=== PATIENT | male | born 1980 | race Caucasian/White ===

== ENCOUNTER → 2020-10-30 15:26 | Outpatient (CLI) | payer BC, SELFPAY ==
--- NOTE | ~2020-10-30 | XR_ITS ---
EXAMINATION: XR knee RT 3V DATE: 10/30/2020 15:35 INDICATION: Right knee pain. TECHNIQUE: 3 views of right knee were obtained. COMPARISON: None. FINDINGS: Bone alignment is normal. No fracture. There is mild osteoarthritis of patellofemoral pallavi rtment. No knee joint effusion. IMPRESSION: 1. Mild right knee osteoarthritis. Reviewed, dictated and finalized at location B. O GRAPHICS LIBRARIAN
== END ==
PROVIDERS: PCP Family Medicine; Visit Provider Physician Assistant
DX: M17.11 Unilateral primary osteoarthritis, right knee (principal)
CPT/HCPCS: 73562

== ENCOUNTER 2021-10-23 19:44 | Emergency (ER) | payer BC, SELFPAY ==
--- NOTE | ~2021-10-23 | XR_ITS ---
EXAMINATION: XR foot LT min 3V DATE: 10/23/2021 20:02 INDICATION: Lateral left foot pain. TECHNIQUE: 4 views of left foot were obtained. COMPARISON: None. FINDINGS: Bone alignment is normal. No fracture. There is mild osteoarthritis of first metatarsophala ngeal joint. IMPRESSION: 1. Mild osteoarthritis of first metatarsophalangeal joint. Reviewed, dictated and finalized at location A. 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
[2021-10-23 19:53] VITALS: BP 145/73; PULSE 83; RESP 16; TEMP 37.1; O2SAT 100
--- NOTE | 2021-10-23 19:58 | ED.LOWEXIN ---
HPI - Extremity Injury (Lower) General Chief Complaint: Extremity Injury, Lower Stated Complaint: Left Foot Pain Time Seen by Provider: 10/23/21 19:58 Source: patient and RN notes reviewed Mode of arrival: ambulatory Limitations: no limitations History of Present Illness HPI Narrative: 41-year-old male presents to the [facility] with complaints of left lateral foot pain since approximately 2 PM today. Has taken ibuprofen with some relief. Has also been icing it. 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 No bruising or swelling noted. Related Data Home Medications Medication Instructions Recorded Confirmed sertraline [Zoloft] 100 mg PO DAILY 10/26/19 11/11/20 bupropion HCl 150 mg 24 hr tablet, 300 mg PO QAM tablet 04/17/20 11/11/20 extended release cholecalciferol (vitamin D3) 125 mcg PO WEEKLY tablet 04/17/20 11/11/20 mcg (5,000 unit) disintegrating tablet loratadine 10 mg tablet 10 mg PO DAILY 10/30/20 11/11/20 Allergies Allergy/AdvReac Type Severity Reaction Status Date / Time No Known Allergies Allergy Verified 11/11/20 13:42 Review of Systems Review of Systems: All systems reviewed & are unremarkable except as noted in HPI and below Constitutional: Constitutional: Reports no additional constitutional complaints, Denies chills and Denies fever(s) Eyes: Eyes: Reports no additional eye complaints ENT: Reports system reviewed and no additional complaints, except as documented Cardiovascular: Cardiovascular: Reports no additional cardiovascular complaints Respiratory: Respiratory: Reports no additional respiratory complaints Gastrointestinal: Gastrointestinal: Reports no additional gastrointestinal complaints Musculoskeletal: Musculoskeletal: Reports as per HPI Comments: Left fifth metatarsal pain Integumentary/Breasts: Skin/Breast: Reports system reviewed and no additional complaints, except as docu and Denies rash Neurologic: Reports system reviewed and no additional complaints, except as documented Psychiatric: Psychiatric: Reports no additional psychiatric complaints Allergic/Immunologic: Allergic/Immunologic: Reports no additional allergic/immunologic complaints [facility] Past Medical History Medical History Anxiety Depression GERD (gastroesophageal reflux disease) HLD (hyperlipidemia) Irritable bowel syndrome Family History Family History Sibling Hypertension Family history of thyroid disease Family history of obesity Depression Family history of malignant neoplasm Mother Family history of Alzheimer's disease Patient's mother is in good health Family history of thyroid disease Family history of mental disorder Depression Father Family history of coronary artery disease Family history of alcoholism Acute myocardial infarction Other Cerebrovascular accident Diabetes mellitus Family history of cardiovascular disease Family history of elevated blood lipids Family history of glaucoma Family history of malignant neoplasm of breast in first degree relative Family history of sudden Social History Social History Smoking status: Never smoker Second hand tobacco smoke exposure: No Alcohol intake: never Comments At the time of my signature, I reviewed and agree with the nursing past medical, surgical, social, and family history. There is no relevant family history pertinent to the patient complaint. Exam Const: General: healthy appearing, no acute distress and alert Nutritional Appearance: well nourished Orientation/consciousness: patient oriented x3 Limitations: no limitations HENMT: Head: normal to inspection Ears: external ears normal Eyes: Pupils: Equal, round and reactive pupils pre
== END 2021-10-23 20:15 | disposition home or self-care (01) ==
PROVIDERS: Emergency Provider Nurse Practitioner; PCP Family Medicine
DX: S93.602A Unspecified sprain of left foot, initial encounter (principal); X58.XXXA Exposure to other specified factors, initial encounter; Y93.02 Activity, running; Y99.0 Civilian activity done for income or pay
CPT/HCPCS: 73630; 99213; G0463

== ENCOUNTER → 2022-05-28 12:42 | Outpatient (CLI) | payer BC, SELFPAY ==
--- NOTE | ~2022-05-28 | XR_ITS ---
EXAMINATION: XR wrist LT min 3V DATE: 05/28/2022 12:59 INDICATION: Left wrist pain TECHNIQUE: Posteroanterior, ulnar deviation, oblique, and lateral views of the left wrist were obtain ed. COMPARISON: None available FINDINGS: There is no fracture, dislocation, or subluxation. The bones, soft tissues, and joint space s are normal. IMPRESSION: 1. No acute osseous abnormality. Reviewed, dictated and finalized at location B.
--- NOTE | ~2022-05-28 | XR_ITS ---
EXAMINATION: XR wrist RT min 3V DATE: 05/28/2022 12:59 INDICATION: Right wrist pain TECHNIQUE: Posteroanterior, ulnar deviation, oblique, and lateral views of the right wrist were obtai lionel. COMPARISON: None available FINDINGS: There is no fracture, dislocation, or subluxation. The bones, soft tissues, and joint space s are normal. IMPRESSION: 1. No acute osseous abnormality. Reviewed, dictated and finalized at location B.
== END ==
PROVIDERS: PCP Family Medicine; Visit Provider Family Medicine
DX: M25.531 Pain in right wrist (principal); M25.532 Pain in left wrist
CPT/HCPCS: 73110

== ENCOUNTER → 2023-06-14 13:26 | Outpatient (CLI) | payer BC, SELFPAY ==
--- NOTE | ~2023-06-14 | XR_ITS ---
Left wrist Technique: PA, oblique, lateral, and ulnar deviation views were obtained. Clinical History: Pain Findings: No acute fracture or dislocation is seen. Osseous alignment is anatomic. Joint spaces are p reserved. Soft tissues are unremarkable. Impression: Unremarkable left wrist radiographs. Reviewed, dictated and finalized at location . Impression: Unremarkable left wrist radiographs.
== END ==
PROVIDERS: PCP Family Medicine; Visit Provider Family Medicine
DX: M25.532 Pain in left wrist (principal)
CPT/HCPCS: 73110

== ENCOUNTER 2023-09-27 14:06 | Emergency (ER) | payer BC, SELFPAY ==
--- NOTE | ~2023-09-27 | XR_ITS ---
EXAMINATION: XR chest 2V DATE: 09/27/2023 14:33 INDICATION: Cough TECHNIQUE: PA and lateral views of the chest are obtained. COMPARISON: 10/26/2019 FINDINGS: The lungs are free of acute opacities. No pleural effusion or pneumothorax. The cardiomedia stinal silhouette is normal. There is mild thoracic spondylosis. IMPRESSION: 1. No acute cardiopulmonary abnormality. Reviewed, dictated and finalized at location B. TAMER
--- NOTE | 2023-09-27 14:12 | ED.URI ---
HPI - URI/Sore Throat General Chief Complaint: Upper Respiratory Infection Stated Complaint: Cough Time Seen by Provider: 09/27/23 14:12 Source: patient Mode of arrival: ambulatory Limitations: no limitations History of Present Illness HPI Narrative: Patient is a 43-year-old male who presents with 10 days of cough. Patient states in the beginning had a sore throat and intermittent fevers but has not had any since. Reports history of pneumonia. States cough is worse at night. Denies any ear pain, congestion, sinus pressure, nausea, vomiting, diarrhea. Related Data Home Medications Medication Instructions Recorded Confirmed sertraline 100 mg tablet (Zoloft) 100 mg PO DAILY 10/26/19 11/11/20 bupropion HCl 150 mg 24 hr tablet, 300 mg PO QAM 04/17/20 11/11/20 extended release (Wellbutrin XL) cholecalciferol (vitamin D3) 125 mcg PO WEEKLY 04/17/20 11/11/20 mcg (5,000 unit) disintegrating tablet loratadine 10 mg tablet (Claritin) 10 mg PO DAILY 10/30/20 11/11/20 Allergies Allergy/AdvReac Type Severity Reaction Status Date / Time No Known Allergies Allergy Verified 11/11/20 13:42 Review of Systems Review of Systems: All systems reviewed & are unremarkable except as noted in HPI and below Constitutional: Constitutional: Denies body ache(s), Denies chills, Denies fatigue, Denies fever(s), Denies headache(s), Denies malaise and Denies weakness Eyes: Eyes: Denies blurry vision, Denies itchy eyes and Denies loss of vision ENT: Denies otalgia, Denies headache(s), Denies nasal congestion, Denies sinus pain and Denies sore throat Cardiovascular: Cardiovascular: Denies chest pain, Denies irregular heart rhythm and Denies dyspnea Respiratory: Respiratory: Reports cough and Denies dyspnea Gastrointestinal: Gastrointestinal: Denies abdominal pain, Denies diarrhea, Denies nausea and Denies vomiting Musculoskeletal: Musculoskeletal: Denies back pain, Denies myalgias and Denies arthralgias Integumentary/Breasts: Skin/Breast: Denies pruritus and Denies rash Neurologic: Denies headache(s), Denies loss of vision and Denies weakness Psychiatric: Psychiatric: Reports no additional psychiatric complaints Endocrine: Endocrine: Denies fatigue Allergic/Immunologic: Allergic/Immunologic: Denies itchy eyes PMFSH Past Medical History Medical History Anxiety Depression GERD (gastroesophageal reflux disease) HLD (hyperlipidemia) Irritable bowel syndrome Family History Family History Sibling Hypertension Family history of thyroid disease Family history of obesity Depression Family history of malignant neoplasm Mother Family history of Alzheimer's disease Patient's mother is in good health Family history of thyroid disease Family history of mental disorder Depression Father Family history of coronary artery disease Family history of alcoholism Acute myocardial infarction Other Cerebrovascular accident Diabetes mellitus Family history of cardiovascular disease Family history of elevated blood lipids Family history of glaucoma Family history of malignant neoplasm of breast in first degree relative Family history of sudden Social History Social History Smoking status: Never smoker Second hand tobacco smoke exposure: No Alcohol intake: never Comments At time of signature, agree with nursing past medical, surgical, social and family history. There is no relevant family history pertinent to the presenting complaint. Exam Const: General: cooperative, healthy appearing, comfortable, no acute distress and well nourished Nutritional Appearance: well nourished Orientation/consciousness: patient oriented x3 Limitations: no limitations HENMT: Head: normal to inspection, normocephalic and atraumatic Ears: hearing grossly n
[2023-09-27 14:17] VITALS: BP 131/83; PULSE 94; RESP 16; TEMP 36.3; O2SAT 97
== END 2023-09-27 15:10 | disposition home or self-care (01) ==
PROVIDERS: Emergency Provider Nurse Practitioner Family; PCP Family Medicine
DX: J40 Bronchitis, not specified as acute or chronic (principal); K21.9 Gastro-esophageal reflux disease without esophagitis; E78.5 Hyperlipidemia, unspecified; F41.9 Anxiety disorder, unspecified; F32.A Depression, unspecified
CPT/HCPCS: 71046; 99213; G0463

== ENCOUNTER 2023-12-02 16:33 | Emergency (ER) | payer BC, SELFPAY ==
--- NOTE | 2023-12-02 16:41 | ED.URI ---
HPI - URI/Sore Throat General Chief Complaint: Upper Respiratory Infection Stated Complaint: Sinus Time Seen by Provider: 12/02/23 16:42 Source: patient Mode of arrival: ambulatory Limitations: no limitations History of Present Illness HPI Narrative: Jeff is a 43-year-old male patient presenting to the clinic today with complaints of productive cough, nasal congestion, head congestion, sinus pressure times 10 days. He reports no known fever or chills. MD elicited complaint: cough, rhinorrhea, nasal congestion and sinus pain Related Data Home Medications Medication Instructions Recorded Confirmed bupropion HCl 150 mg 24 hr tablet, 300 mg PO QAM 04/17/20 12/02/23 extended release (Wellbutrin XL) cholecalciferol (vitamin D3) 125 125 mcg PO WEEKLY 04/17/20 11/11/20 mcg (5,000 unit) disintegrating tablet loratadine 10 mg tablet (Claritin) 10 mg PO DAILY 10/30/20 12/02/23 montelukast 10 mg tablet 10 mg PO HS 12/02/23 12/02/23 rosuvastatin 10 mg tablet 10 mg PO HS 12/02/23 12/02/23 Allergies Allergy/AdvReac Type Severity Reaction Status Date / Time No Known Allergies Allergy Verified 12/02/23 16:43 Review of Systems Review of Systems: Pertinent positives per HPI. Patient denies any fever, chills, rash, headache, visual changes, dizziness, shortness of breath, chest pain, palpitations, nausea, vomiting, diarrhea, constipation, abdominal pain, or any urinary issues. PMFSH Past Medical History Medical History Anxiety Depression GERD (gastroesophageal reflux disease) HLD (hyperlipidemia) Irritable bowel syndrome Family History Family History Sibling Hypertension Family history of thyroid disease Family history of obesity Depression Family history of malignant neoplasm Mother Family history of Alzheimer's disease Patient's mother is in good health Family history of thyroid disease Family history of mental disorder Depression Father Family history of coronary artery disease Family history of alcoholism Acute myocardial infarction Other Cerebrovascular accident Diabetes mellitus Family history of cardiovascular disease Family history of elevated blood lipids Family history of glaucoma Family history of malignant neoplasm of breast in first degree relative Family history of sudden Social History Social History Smoking status: Never smoker Second hand tobacco smoke exposure: No Alcohol intake: never Comments At the time of my signature, I reviewed and agree with the nursing past medical, surgical, social, and family history. There is no relevant family history pertinent to the patient complaint. Exam Narrative: General: Well-developed, well nourished, in no apparent distress Head: Normocephalic, atraumatic Eyes: Pupils equally round and reactive to light bilaterally, EOM intact, sclera and conjunctive clear, no discharge, lids normal Ears: TMs intact and clear, ear canals clear, no drainage, grossly hearing normal. Nose: Nares patent, green nasal discharge, moderate inflammation, maxillary sinus tenderness. Mouth: Oral pharynx without lesions or masses, good dentition, MMM. Postnasal drip Neck: Supple, trachea midline, no enlargement of anterior or posterior cervical nodes, no thyroid masses or goiter palpable. Cardio: Regular rate and rhythm, s1 and s2 normal, no murmur appreciated. Resp: Faint wheezing in the right lower lobe, no rhonchi, rales, or rubs Course Course Emergency Course: Portions of this record may have been created with voice recognition software. Level of Care: Express Care Visit Vital Signs Vital signs: Vital signs reviewed MDM - URI/Sore Throat MDM Narrative Medical decision making narrative: At the time of visit patient is resting comfortably on th
[2023-12-02 16:42] VITALS: BP 124/73; PULSE 92; RESP 16; TEMP 36.8; O2SAT 100
== END 2023-12-02 17:00 | disposition home or self-care (01) ==
PROVIDERS: Emergency Provider Nurse Practitioner Family; PCP Family Medicine
DX: J32.9 Chronic sinusitis, unspecified (principal); J40 Bronchitis, not specified as acute or chronic; K21.9 Gastro-esophageal reflux disease without esophagitis; E78.5 Hyperlipidemia, unspecified; F41.9 Anxiety disorder, unspecified; F32.A Depression, unspecified
CPT/HCPCS: 99213; G0463

== ENCOUNTER 2024-09-06 10:51 | Outpatient (CLI) | payer BC, SELFPAY ==
--- NOTE | ~2024-09-06 | US_ITS ---
EXAMINATION: US renal BI DATE: 09/06/2024 11:20 INDICATION: Stage III chronic kidney disease. TECHNIQUE: Multiple ultrasound grayscale images of the kidneys were obtained. COMPARISON: None. FINDINGS: The right kidney measures 14.2 x 6.6 x 5.7 cm. The left kidney is not visualized in the left upper an d lower quadrants. The right kidney demonstrate normal echogenicity with no hydronephrosis. No stones identified. The bladder is normal. IMPRESSION: 1. Normal right kidney without hydronephrosis. Left kidney is not visualized in either atrophic, dev elopmentally absent or ectopic at unidentified location. Reviewed, dictated and finalized at location A. IMPRESSION: 1. Normal right kidney without hydronephrosis. Left kidney is not visualized i n either atrophic, developmentally absent or ectopic at unidentified location.
== END 2024-09-06 10:52 | disposition home or self-care (01) ==
LOC: MICIMG 10:52
PROVIDERS: PCP Family Medicine; Visit Provider Internal Medicine Nephrology
DX: N18.30 Chronic kidney disease, stage 3 unspecified (principal); G47.33 Obstructive sleep apnea (adult) (pediatric); E78.00 Pure hypercholesterolemia, unspecified; G57.93 Unspecified mononeuropathy of bilateral lower limbs
CPT/HCPCS: 76775

== ENCOUNTER 2024-09-09 20:30 | Emergency (ER) | payer BC, SELFPAY ==
--- NOTE | ~2024-09-09 | CT_ITS ---
CT of the Abdomen and Pelvis: Indication: Abdominal pain Technique: 2.5 mm axial scans were obtained through the abdomen and pelvis following intravenous adm inistration of 100 cc of Omnipaque 350. Dose reduction technique was used on this scan by utilizing a utomated exposure control and iterative reconstruction technique. The dose-length product (DLP) was 1 042.80 mGy-cm. Findings: Scans through the lung bases are unremarkable. The liver, spleen, pancreas, gallbladder, adrenals and right kidney are within normal limits. Left ki dney absent. No evidence of aortic aneurysm. No lymphadenopathy. No bowel obstruction or bowel wall thickening. Fluid-filled bowel loops could reflect nonspecific kristina rrheal illness.. Images through the pelvis were performed. Urinary bladder unremarkable. No pelvic mass seen. No ascit es. Impression: Fluid-filled bowel loops could reflect a nonspecific diarrheal illness. Absent left kidney. Correlate for congenital absence versus prior resection. Reviewed, dictated and finalized at [facility]. Impression: Fluid-filled bowel loops could reflect a nonspecific diarrheal illness. Absent left kidney. Correlate for congenital absence versus prior resection.
[2024-09-09 20:34] VITALS: BP 138/79; PULSE 80; RESP 16; TEMP 36.4; O2SAT 97
[2024-09-09 22:21] LABS: Basophils Percent Auto 0.3 % (0.2-1.2); Eosinophils Absolute Auto 0.1 K/mm3 (0-0.3); Eosinophils Percent Auto 0.4 % (0-4.4); Hematocrit 45.4 % (42.0-52.0); Hemoglobin 15.8 g/dL (14.0-18.0); Immature Granulocyte Absolute 0.02 K/mm3 (0.00-0.031); Immature Granulocyte Percent A 0.2 % (0-0.5); Lymphocytes Absolute Auto 1.58 K/mm3 (0.9-3.2); Lymphocytes Percent Auto 13.8 % (18.3-44.2); Mean Corpuscular HGB Conc 34.8 g/dl (32-36); Mean Corpuscular Hemoglobin 32.6 pg (26-34); Mean Corpuscular Volume 93.6 fl (80-100); Mean Platelet Volume 8.8 fl (7.4-10.4); Monocytes Absolute Auto 0.7 K/mm3 (0.1-0.6); Neutrophils Absolute Auto 9.1 K/mm3 (1.3-6.7); Neutrophils Percent Auto 79.3 % (45.5-73.1); Platelet Count Result 342 k/mm3 (150-375); Red Blood Count 4.85 M/mm3 (4.6-6.20); White Blood Count 11.4 K/mm3 (4.5-10.0)
[2024-09-09 22:23] LABS: Add Urine Microscopic? NO; Appearance Urine Clear (Clear); Bilirubin Urine Negative (Negative); Blood Urine Negative (Negative); Color Urine Yellow (Yellow); Glucose Urine UA 3+ mg/dL (Negative); Ketones Urine Trace mg/dL (Negative); Leukocyte Esterase Ur Negative LEU/UL (Negative); Nitrate Urine Negative (Negative); Protein Urine Negative (Negative); Specific Grav Ur 1.031 (1.001-1.035); pH Urine 7.5 (5.0-9.0)
[2024-09-09 22:40] LABS: Alanine Aminotransferase 31 U/L (6-50); Albumin Level 4.6 g/dL (3.5-5.1); Alkaline Phosphatase 74 U/L (38-126); Anion Gap 9 mmol/L (4-12); Aspartate Amino Transferase 32 U/L (17-59); Bilirubin,Total 0.7 mg/dL (0.2-1.3); Blood Urea Nitrogen 17 mg/dL (9-20); Calcium 9.9 mg/dL (8.4-10.2); Carbon Dioxide 31 mmol/L (22-30); Chloride 99 mmol/L (98-107); Estimated CRCL calculation 75 ml/min; Estimated Glomerular Filt Rate 60; Glucose 96 mg/dL (65-110); Lipase 495 U/L (23-300); Potassium 4.2 mmol/L (3.4-5.0); Sodium 139 mmol/L (137-145)
--- NOTE | 2024-09-09 23:09 | ED.ABDPAIN ---
HPI - Abdominal Pain General Chief Complaint: Abdominal Pain Stated Complaint: n/v, abd pain, chills Time Seen by Provider: 09/09/24 22:44 Source: patient Mode of arrival: ambulatory Limitations: no limitations History of Present Illness HPI narrative: This is a 43 year old male that presents to the ER for mid abdominal pain, nausea and vomiting. Ongoing since earlier today. Reports sweats. Denies fevers or diarrhea. Related Data Home Medications Medication Instructions Recorded Confirmed bupropion HCl 150 mg 24 hr tablet, 300 mg PO QAM 04/17/20 12/02/23 extended release (Wellbutrin XL) cholecalciferol (vitamin D3) 125 125 mcg PO WEEKLY 04/17/20 11/11/20 mcg (5,000 unit) disintegrating tablet loratadine 10 mg tablet (Claritin) 10 mg PO DAILY 10/30/20 12/02/23 montelukast 10 mg tablet 10 mg PO HS 12/02/23 12/02/23 rosuvastatin 10 mg tablet 10 mg PO HS 12/02/23 12/02/23 Allergies Allergy/AdvReac Type Severity Reaction Status Date / Time No Known Allergies Allergy Verified 12/02/23 16:43 Review of Systems Review of Systems: CONSTITUTIONAL: Denies fever GASTROINTESTINAL: Reports abdominal pain, nausea, vomiting. Denies diarrhea. GENITOURINARY: Denies dysuria All systems reviewed & are unremarkable except as noted in HPI and below PMFSH Past Medical History Medical History Anxiety Depression GERD (gastroesophageal reflux disease) HLD (hyperlipidemia) Irritable bowel syndrome Family History Family History Sibling Hypertension Family history of thyroid disease Family history of obesity Depression Family history of malignant neoplasm Mother Family history of Alzheimer's disease Patient's mother is in good health Family history of thyroid disease Family history of mental disorder Depression Father Family history of coronary artery disease Family history of alcoholism Acute myocardial infarction Other Cerebrovascular accident Diabetes mellitus Family history of cardiovascular disease Family history of elevated blood lipids Family history of glaucoma Family history of malignant neoplasm of breast in first degree relative Family history of sudden Social History Social History Smoking status: Never smoker Second hand tobacco smoke exposure: No Alcohol intake: never Exam Narrative: GENERAL: Well-appearing, well-nourished, and in no acute distress. HEAD: Normocephalic, atraumatic. EYES: EOMI. CHEST: Clear to auscultation. No respiratory distress. No wheezes rales or rhonchi HEART: Regular rate and rhythm. No murmur heard. Normal peripheral pulses. ABDOMEN: Soft, nondistended, normal active bowel sounds. Mild tenderness to palpation throughout the abdomen, without guarding EXTREMITIES: Normal range of motion. No edema. SKIN: Warm, dry, no rash. NEURO: No focal deficits. Alert and oriented x3. PSYCH: Normal mood and affect Course Vital Signs Vital signs: Vital Signs Temperature 97.5 F L 09/09/24 20:34 Pulse Rate 80 09/09/24 20:34 Respiratory Rate 16 09/09/24 20:34 Blood Pressure 138/79 09/09/24 20:34 Pulse Oximetry 97 09/09/24 20:34 Temperature 97.5 F L 09/09/24 20:34 Pulse Rate 80 09/09/24 20:34 Respiratory Rate 16 09/09/24 20:34 Blood Pressure 138/79 09/09/24 20:34 Pulse Oximetry 97 09/09/24 20:34 MDM - Abdominal Pain MDM Narrative Medical decision making narrative: patient presents to the emergency department for abdominal pain COVID a nausea vomiting. He is afebrile and nontoxic appearing. His vitals are stable. CBC with mild leukocytosis to 11.4. Metabolic panel without concerning findings. Lipase is mildly elevated. Urine without evidence of infection. CT abdomen pelvis shows possible cystitis. Otherwise no acute finding
[2024-09-09] MEDS: PANTOPRAZOLE SODIUM IV 40 MG VIAL IV PUSH (23:26)
[2024-09-09] MEDS: ONDANSETRON INJ 4 MG/2 ML VIAL IV PUSH (23:27)
[2024-09-09] MEDS: SODIUM CHLORIDE 0.9% IV 1,000 ML 999 ML IV CONT (23:27)
[2024-09-10 03:44] VITALS: PULSE 81; RESP 14; O2SAT 100
== END 2024-09-10 05:38 | disposition home or self-care (01) ==
PROVIDERS: Emergency Provider Physician Assistant; PCP Family Medicine
DX: R10.33 Periumbilical pain (principal); E78.5 Hyperlipidemia, unspecified; K58.9 Irritable bowel syndrome, unspecified; F32.A Depression, unspecified; F41.9 Anxiety disorder, unspecified; K21.9 Gastro-esophageal reflux disease without esophagitis; Z79.899 Other long term (current) drug therapy
CPT/HCPCS: 36415; 74177; 80053; 81003; 83690; 85025; 96361; 96374; 96375; 99284; J2405; J2470; J7030; Q9967

== ENCOUNTER 2024-11-24 14:31 | Outpatient (CLI) | payer BC, SELFPAY ==
--- NOTE | ~2024-11-24 | XR_ITS ---
EXAMINATION: XR shoulder RT min 2V, XR shoulder LT min 2V DATE: 11/24/2024 15:01 INDICATION: Polyarthralgia TECHNIQUE: 1. AP internally and externally rotated, AP oblique externally rotated and biliary views of the right shoulder were obtained. 2. AP internally and externally rotated, AP oblique externally rotated and biliary views of the affec nan shoulder were obtained. COMPARISON: None FINDINGS: Right shoulder: Normal alignment. No fracture. Glenohumeral joint is normal. Mild right acromioclavicular osteoarthr itis Soft tissues are unremarkable. Left shoulder: Normal alignment. No fracture. Glenohumeral joint is normal. Moderate right acromioclavicular osteoa rthritis. Soft tissues are unremarkable. Lung volumes are small bilaterally with streaky atelectasis at the lateral left lower lung zone. IMPRESSION: Mild bilateral acromioclavicular osteoarthritis. Reviewed, dictated and finalized at location B. NISTRATOR SOCIAL WELFARE IMPRESSION: Mild bilateral acromioclavicular osteoarthritis.
--- NOTE | ~2024-11-24 | XR_ITS ---
EXAMINATION: XR hand RT 2V, XR hand LT 2V DATE: 11/24/2024 15:01 INDICATION: Polyarthralgia TECHNIQUE: 1. Posteroanterior and lateral views of the right hand were obtained. 2. Posteroanterior and lateral views of the left hand were obtained. COMPARISON: None. FINDINGS: There is relatively symmetric to 2-3 mm ulnar positive variance. Alignment is otherwise normal at the bilateral hands. No fractures. Joint spaces are normal throughout. No erosions to suggest an inflamm atory arthritis. Soft tissues are unremarkable. IMPRESSION: 1. Bilateral ulnar positive variance. Otherwise unremarkable bilateral hand radiographs. Reviewed, dictated and finalized at location B. SELOR SUPERVISOR IMPRESSION: 1. Bilateral ulnar positive variance. Otherwise unremarkable bilateral hand rad iographs.
--- NOTE | ~2024-11-24 | XR_ITS ---
[id number] Ordering provider: Jose Salinas History: . Polyarthralgia . Comparison: None. FINDINGS: VERTEBRAL BODIES: Normal height and alignment. No visible fracture or subluxation. The dens is intact . DISK SPACES: Slight narrowing of the disc C5-C6. PARASPINOUS SOFT TISSUES: No prevertebral soft tissue swelling. IMPRESSION: No acute osseous abnormality cervical spine. Reviewed, dictated and finalized at location A. E MOUNTER
== END 2024-11-24 14:32 | disposition home or self-care (01) ==
PROVIDERS: PCP Family Medicine
DX: M25.50 Pain in unspecified joint (principal); M19.011 Primary osteoarthritis, right shoulder; M19.012 Primary osteoarthritis, left shoulder
CPT/HCPCS: 72040; 73030; 73120

== ENCOUNTER 2024-12-21 08:54 | Emergency (ER) | payer BC, SELFPAY ==
[2024-12-21 09:05] VITALS: BP 137/84; PULSE 82; RESP 16; TEMP 36.8; O2SAT 97
--- OUTSIDE RECORDS SUMMARY | 2024-12-21 09:17 | XMS_ITS | Patient Health Summary ---
Author Organization [facility] Address [address] [place] [address] Care Team Providers Care Station Superintendent Name Role Phone Piter Fair MD Primary Care Provider [phone] [facility],non-owned Affiliates and Associated Physician Practices is amultiple site organization consisting of ambulatory clinics and hospital sitesin [place], [place], [place] and [place]. This disclosure is being madepursuant to the Care Everywhere program and may not contain all information available regarding this patient. Last updated 18.[facility] Allergies No known active allergies Medications * Be aware that medications may not be up to date on this document. Alwaysverify current medications with the patient. * buPROPion XL 24hr (Wellbutrin-XL) 300 MG tablet Take 1 (one) tablet by mouth every morning * DULoxetine (Cymbalta) 60 MG capsule Take 1 (one) capsule by mouth once daily * valACYclovir (Valtrex) 500 MG tablet Take by mouth 2 times daily * pantoprazole EC (Protonix) 20 MG tablet Take 1 (one) tablet by mouth once daily * rosuvastatin (Crestor) 10 MG tablet Take 1 (one) tablet by mouth once daily * dapagliflozin propanediol (Farxiga) 10 MG tablet Take 1 (one) tablet by mouth every morning * albuterol HFA (Proventil; Ventolin; Proair) 108 (90 Base) MCG/ACT inhaler (Started 12/02/2023) Inhale 1 (one) puff by mouth as directed Active Problems No known active problems Social History Tobacco Use Types Packs/Day Years Used Date Smoking Tobacco: Never Smokeless Tobacco: Never Tobacco Cessation:Counseling Given: Not Answered Sex and Gender Information Value Date Recorded Sex Assigned at Not on file Gender Identity Not on file Sexual Orientation Not on file Last Filed Vital Signs Vital Sign Reading Time Taken Comments Blood Pressure 128/78 11/23/2024 10:12 AM TRANSISTOR TESTER Pulse 75 11/23/2024 10:12 AM TRANSISTOR TESTER Temperature 36.5 ??C (97.7 ??F) 11/23/2024 1 0:12 AM TRANSISTOR TESTER Respiratory Rate 16 11/23/2024 10:1 2 AM TRANSISTOR TESTER Oxygen Saturation 93% 11/23/2024 10: 12 AM TRANSISTOR TESTER Inhaled Oxygen Concentration - - Weight 101.1 kg (222 lb 12.8 oz) 2024 10:12 AM TRANSISTOR TESTER Height - - Body Mass Index - - Procedures * ERYTHROCYTE SEDIMENTATION RATE(Performed 11/24/2024) Performed for Polyarthralgia, Raynaud's syndrome without gangrene, Cervicalgia, Encounter for long-term (current) use of high-risk medication * CYCLIC CITRULLINATED PEPTIDE(CCP) AB IGG(Performed 11/24/2024) Performed for Polyarthralgia, Raynaud's syndrome without gangrene, Cervicalgia, Encounter for long-term (current) use of high-risk medication * C-REACTIVE PROTEIN(Performed 11/24/2024) Performed for Polyarthralgia, Raynaud's syndrome without gangrene, Cervicalgia, Encounter for long-term (current) use of high-risk medication * CK BLOOD(Performed 11/24/2024) Performed for Polyarthralgia, Raynaud's syndrome without gangrene, Cervicalgia, Encounter for long-term (current) use of high-risk medication * ANGIOTENSIN CONVERTING ENZYME BLOOD(Performed 11/24/2024) Performed for Polyarthralgia, Raynaud's syndrome without gangrene, Cervicalgia, Encounter for long-term (current) use of high-risk medication * FERRITIN(Performed 11/24/2024) Performed for Polyarthralgia, Raynaud's syndrome without gangrene, Cervicalgia, Encounter for long-term (current) use of high-risk medication * SS-A (SJOGREN'S) ANTIBODY(Performed 11/24/2024) Performed for Polyarthralgia, Raynaud's syndrome without gangrene, Cervicalgia, Encounter for long-term (current) use of high-risk medication * ANCA SCREEN W MPO+PR3 W REFEX ANCA TITER(Performed 11/24/2024) Performed for Polyarthralgia, Raynaud's syndrome without gangrene, Cervicalgia, Encounter for long-term (current) use of high-risk medication * THIOPURINE METHYLTRANSFERASE(Performed 11/24/2024) Performed for Polyarthralgia, Raynaud's syndrome without gangrene, Cervicalgia, Encounter for long-term (current) use of high-risk medication * URIC ACID BLOOD(Performed 11/24/2024) Performed for Polyarthralgia, Raynaud's syndrome without gangrene, Cervicalgia, Encounter for long-term (current) use of high-risk medication * SS-B (SJOGREN'S) ANTIBODY(Performed 11/24/2024) Performed for Polyarthralgia, Raynaud's syndrome without gangrene, Cervicalgia, Encounter for long-term (current) use of high-risk medication * HLA TYPING B27(Performed 11/24/2024) Performed for Polyarthralgia, Raynaud's syndrome without gangrene, Cervicalgia, Encounter for long-term (current) use of high-risk medication * XR CERVICAL SPINE 2 OR 3VW(Performed 11/24/2024) Performed for Polyarthralgia * XR HAND BILAT 2VW(Performed 11/24/2024) Performed for Polyarthralgia * XR SHOULDER BILAT 2VW OR MORE(Performed 11/24/2024) Performed for Polyarthralgia Results * C-REACTIVE PROTEIN (11/24/2024 2:20 PM TRANSISTOR TESTER) C-Reactive Protein 7.7 <8.0 mg/L [facility] Comment: Test Performed at: [facility] [address] ??[phone] ALISA MONCADA MD Blood BLOOD SPECIMEN / Unknown 11/24/2024 2:20 PM TRANSISTOR TESTER 11/24/2024 2:20 PM TRANSISTOR TESTER Cherrie Gay MD LAB - CHEMISTRY LUIS MANUEL LIANG [address] [address] * ANGIOTENSIN CONVERTING ENZYME BLOOD (11/24/2024 2:20 PM TRANSISTOR TESTER) Angiotensin-Conv erting Enzyme 40 9 - 67 U/L [facility] Comment: Test Performed at: [facility] [address] [place] [address] ??[phone] ALISA MONCADA MD Blood BLOOD SPECIMEN / Unknown 11/24/2024 2:20 PM TRANSISTOR TESTER 11/24/2024 2:20 PM TRANSISTOR TESTER Cherrie Gay MD LAB - CHEMISTRY LUIS MANUEL LIANG Performing Organization Address [facility] de Phone Number [address] [address] * CYCLIC CITRULLINATED PEPTIDE(CCP) AB IGG (11/24/2024 2:20 PM TRANSISTOR TESTER) Pathologist [facility] Cyclic Citrullinated Peptide Antibody IgG <16 UNITS [facility] Comment: Reference Range Negative: ?<20 Weak Positive: ? 20-39 Moderate Positive: ?? 40-59 Strong Positive: ? >59 Test Performed at: [facility] [address] [place] [address] ??[phone] ALISA MONCADA MD Blood BLOOD SPECIMEN / Unknown 11/24/2024 2:20 PM TRANSISTOR TESTER 11/24/2024 2:20 PM TRANSISTOR TESTER Cherrie Gay MD LAB - CHEMISTRY LUIS MANUEL LIANG Performing Organization Address [facility] Co de Phone Number [facility] [phone] [place] [phone] * (ABNORMAL) ERYTHROCYTE SEDIMENTATION RATE (11/24/2024 2:20 PM TRANSISTOR TESTER) Pathologist [facility] Erythrocyte Sedimentation Rate Westergren 17(H) < OR = 15 mm/h [facility] Comment: Test Performed at: [facility] ??[phone] ALISA MONCADA MD Blood BLOOD SPECIMEN / Unknown 11/24/2024 2:20 PM TRANSISTOR TESTER 11/24/2024 2:20 PM TRANSISTOR TESTER Cherrie Gay MD LAB - HEMATOLOGY ORD ERABLES Performing Organization Address [facility] Co de Phone Number [facility] [phone] [place] [phone] * CK BLOOD (11/24/2024 2:20 PM TRANSISTOR TESTER) CK 80 44 - 196 U/L [facility] Comment: Test Performed at: [facility] [place] ??[phone] ALISA MONCADA MD Blood BLOOD SPECIMEN / Unknown 11/24/2024 2:20 PM TRANSISTOR TESTER 11/24/2024 2:20 PM TRANSISTOR TESTER Cherrie Gay MD LAB - CHEMISTRY ORDMellisa LIANG Performing Organization Address [facility] Co de Phone Number [facility] [address] [place] [address] * SS-A (SJOGREN'S) ANTIBODY (11/24/2024 2:17 PM TRANSISTOR TESTER) Sjogren's Antibodies (SSA) <1.0 NEG <1.0 NEG AI [facility] Comment: Test Performed at: [employer] [place], [place] ??[phone] ALISA MONCADA MD Blood BLOOD SPECIMEN / Unknown 11/24/2024 2:17 PM TRANSISTOR TESTER 11/24/2024 2:19 PM TRANSISTOR TESTER Cherrie Gay MD LAB - CHEMISTRY ORDMellisa LIANG Performing Organization Address [facility] Co de Phone Number [facility] [address] [place] [address] * (ABNORMAL) FERRITIN (11/24/2024 2:17 PM TRANSISTOR TESTER) Ferritin 23(L) 38 - 380 ng/mL [facility] Comment: Test Performed at: [facility] [place] ??[phone] ALISA MONCADA MD Blood BLOOD SPECIMEN / Unknown 11/24/2024 2:17 PM TRANSISTOR TESTER 11/24/2024 2:19 PM TRANSISTOR TESTER Cherrie Gay MD LAB - CHEMISTRY LUIS MANUEL LIANG [facility] [address] [place] [address] * ANCA SCREEN W MPO+PR3 W REFEX ANCA TITER (11/24/2024 2:16 PM TRANSISTOR TESTER) ANCA Screen Negative Negative [facility] Comment: ANCA screen uses indirect immunofluorescence to detect antibodies to neutrophil cytoplasmic antigens. A positive screen reflexes to titer and pattern. Patterns include cytoplasmic (c-ANCA) and perinuclear (p-ANCA) both of which are associated with vasculitis, and atypical p-ANCA which is associated with inflammatory bowel disease and other disorders. ? Myeloperoxidase Antibody <1.0 <1.0 AI [facility] Comment: ? Value ?? Interpretation ?<1.0 AI: No Antibody Detected ? >or=1.0 AI: Antibody Detected Autoantibodies to myeloperoxidase (MPO) are commonly associated with the following small-vessel vasculitides: microscopic polyangiitis, polyarteritis nodosa, Churg-Shanna syndrome, necrotizing and crescentic glomerulonephritis and occasionally granulomatosis with polyangiitis (GPA, Catrachita's). The perinuclear IFA pattern, (p-ANCA) is based largely on autoantibody to myeloperoxidase which serves as the primary antigen. These autoantibodies are present in active disease. Proteinase 3 Antibody <1.0 <1.0 AI [facility] Comment: ?Value ?Interpretation ?<1.0 AI: No Antibody Detected ? >or=1.0 AI: Antibody Detected Autoantibodies to proteinase-3 (NC-3) are accepted as characteristic for granulomatosis with polyangiitis (GPA, Catrachita's), and are detectable in 95% of the histologically proven cases. The cytoplasmic IFA pattern, (c-ANCA), is based largely on autoantibody to NC-3 which serves as the primary antigen. These autoantibodies are present in active disease. Test Performed at: [facility] [id number] [place] [address] ??[phone] MATTHEW LEVI MD,PHD Blood BLOOD SPECIMEN / Unknown 11/24/2024 2:16 PM TRANSISTOR TESTER 11/24/2024 2:16 PM TRANSISTOR TESTER Cherrie Gay MD LAB - CHEMISTRY LUIS MANUEL LIANG Performing Organization Address [facility] Co de Phone Number [facility] [address] [place] [address] * URIC ACID BLOOD (11/24/2024 2:16 PM TRANSISTOR TESTER) Uric Acid 6.0 4.0 - 8.0 mg/dL [facility] Comment: Therapeutic target for gout patients: <6.0 mg/dL ?? Test Performed at: [facility] [address] [place], [place] ??[phone] ALISA MONCADA MD Blood BLOOD SPECIMEN / Unknown 11/24/2024 2:16 PM TRANSISTOR TESTER 11/24/2024 2:16 PM TRANSISTOR TESTER Cherrie Gay MD LAB - CHEMISTRY LUI SMANUEL LIANG Performing Organization Address [facility] Co de Phone Number [facility] [phone] [place] [phone] * HLA TYPING B27 (11/24/2024 2:16 PM TRANSISTOR TESTER) HLA-B27 Antigen NEGATIVE NEGATIVE [facility] Comment: Test Performed at: [facility] [address] ??[phone] TAMMIE WHITTINGTON Blood BLOOD SPECIMEN / Unknown 11/24/2024 2:16 PM TRANSISTOR TESTER 11/24/2024 2:16 PM TRANSISTOR TESTER Cherrie Gay MD LAB - CHEMISTRY LUIS MANUEL LIANG Performing Organization Address [facility] Co de Phone Number [facility] [address] [place] [address] * SS-B (SJOGREN'S) ANTIBODY (11/24/2024 2:16 PM TRANSISTOR TESTER) Pathologist [facility] Sjogren's Antibodies (SSB) <1.0 NEG <1.0 NEG AI [facility] Comment: Test Performed at: [facility] [address] ??[phone] ALISA MONCADA MD Blood BLOOD SPECIMEN / Unknown 11/24/2024 2:16 PM TRANSISTOR TESTER 11/24/2024 2:16 PM TRANSISTOR TESTER Cherrie Gay MD LAB - CHEMISTRY LUIS MANUEL LIANG Performing Organization Address [facility] de Phone Number [facility] [phone] [place] [address] * THIOPURINE METHYLTRANSFERASE (11/24/2024 2:16 PM TRANSISTOR TESTER) Pathologist [facility] TPMT Activity 17 nmol/hr/mL RBC [facility] Comment: Reference Range for TPMT Activity: ?? >12 ? Normal ??4-12 ? Heterozygote or low metabolizer ?<4 ? Homozygote Deficient Range This test was developed and its analytical performance characteristics have been determined by [employer]. It has not been cleared or approved by FDA. This assay has been validated pursuant to the CLIA regulations and is used for clinical purposes. Test Performed at: [facility] [address] [place], [place] ??[phone] DAVE GAMINO MD,PHD,JOVANI Blood BLOOD SPECIMEN / Unknown 11/24/2024 2:16 PM TRANSISTOR TESTER 11/24/2024 2:16 PM TRANSISTOR TESTER Cherrie Gay MD LAB - CHEMISTRY LUIS MANUEL LIANG Performing Organization Address [facility] Co de Phone Number [facility] [address] [place] [address] * XR Hand Bilat 2Vw (11/24/2024) Anatomical Region Laterality Modality Wrist / Hand, Upper Extremity Ot her Cherrie Gay MD DIAGNOSTIC IMAGING O RDERABLES * XR Shoulder Bilat 2Vw or More (11/24/2024) Anatomical Region Laterality Modality Upper Extremity Other Cherrie Gay MD DIAGNOSTIC IMAGING [facility] * XR Cervical Spine 2 or 3Vw (11/24/2024) Anatomical Region Laterality Modality Spine Other Cherrie Gay MD DIAGNOSTIC IMAGING O RDERABLES Care Teams Station Superintendent Relationship Specialty Start Date End Date Piter Fair MD [address] [place] [phone] PCP - General Family Medicine 11/10/24
--- OUTSIDE RECORDS SUMMARY | 2024-12-21 09:17 | XMS_ITS | Clinical Summary ---
Author Organization [facility] Facility Address [address] [place] [address] Care Team Providers Care Quality Control Engineer Name Role Phone Piter Fair MD Primary Care Provider [phone] Encounters Date Type Department Care Team Description 11/16/2024 1:00 PM TANK TRUCK LOADER Office Visit [place] [facility] [address] [phone] Pieter Morgan DO Stage 3 chronic kidney disease, not otherwise specified (HCC) (Primary Dx); Obstructive sleep apnea syndrome; Secondary inflammatory arthritis; Gastroesophageal reflux disease; Pure hypercholesterolemia, not otherwise specified; 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> 11/15/2024 Travel 11/13/2024 Orders Only [address] [phone] Pieter Morgan DO 11/09/2024 Orders Only [address] [phone] Pieter Morgan DO from Last 3 Months Social History Tobacco Use Types Packs/Day Years Used Date Smoking Tobacco: Never Assessed Sex and Gender Information Value Date Recorded Sex Assigned at Not on file Legal Sex Male 12:39 PM EDT Gender Identity Not on file Sexual Orientation Not on file Last Filed Vital Signs Vital Sign Reading Time Taken Comments Blood Pressure 122/80 11/16/2024 1:15 PM TANK TRUCK LOADER Pulse 81 11/16/2024 1:15 PM TANK TRUCK LOADER Temperature 36.1 ??C (97 ??F) 11/16/2024 1:15 PM TANK TRUCK LOADER Respiratory Rate 18 11/16/2024 1:15 PM TANK TRUCK LOADER Oxygen Saturation 99% 11/16/2024 1:15 PM TANK TRUCK LOADER Inhaled Oxygen Concentration - - Weight 98.8 kg (217 lb 12.8 oz) 11/16/2024 1:15 PM TANK TRUCK LOADER Height - - Body Mass Index - - Plan of Treatment Upcoming Encounters Date Type Department Care Team (Late st Contact Info) Description 05/17/2025 12:30 PM CDT Office Visit [place] [facility], [facility] [address] [facility] [address] [place] [phone] Pieter Morgan DO [address] [place] [phone] Health Maintenance Due Date Last Done Comments Pneumococcal Vaccine: Pediat rics (0 to 5 Years) and At-Risk Patients (6 to 64 Years) (1 of 2 - PCV) 1985 Hepatitis B Vaccine (1 of 3 - 19+ 3-dose series) 1998 Diabetes: Hemoglobin A1C 06/20/2024 Diabetes: Ophthalmology Exam 06/20/2024 Diabetes: Pedal Pulse Checked 06/20/2024 Diabetes: Sensory Foot Exam 06/20/2024 Diabetes: Visual Foot Exam 06/20/2024 Influenza Vaccine (#1) 2024 , 11/26/2021, 11/22/2014 Procedures Procedure Name Priority Date/Time Associated Diagnosis Comments CREATININE, URINE, 24 HOUR Routine 11/13/2024 8:40 AM TANK TRUCK LOADER REFLEXIVE URINE CULTURE (HC) Routine 11/09/2024 6:44 AM TANK TRUCK LOADER PROTEIN / CREATININE RATIO, URINE Routine 11/09/2024 6:44 AM TANK TRUCK LOADER VITAMIN D 25 HYDROXY Routine 11/09/2024 6:44 AM TANK TRUCK LOADER CYSTATIN C WITH EGFR Routine 11/09/2024 6:44 AM TANK TRUCK LOADER C-REACTIVE PROTEIN Routine 11/09/2024 6: 44 AM TANK TRUCK LOADER C4 COMPLEMENT Routine 11/09/2024 6:44 AM TANK TRUCK LOADER C3 COMPLEMENT Routine 11/09/2024 6:44 AM TANK TRUCK LOADER CBC AND DIFFERENTIAL Routine 11/09/2024 6:44 AM TANK TRUCK LOADER SEDIMENTATION RATE, AUTOMATED Routine 11/09/2024 6:44 AM TANK TRUCK LOADER URINALYSIS, COMPLETE Routine 11/09/2024 6:44 AM TANK TRUCK LOADER URINE ALBUMIN / CREATININE RATIO Routine 11/09/2024 6:44 AM TANK TRUCK LOADER RENAL FUNCTION PANEL Routine 11/09/2024 6:44 AM TANK TRUCK LOADER MAGNESIUM Routine 11/09/2024 6:44 AM TANK TRUCK LOADER from Last 3 Months Results * Creatinine, urine, 24 hour (11/13/2024 8:40 AM TANK TRUCK LOADER) Creatinine in 24 hour Urine 1.70 0.50 - 2.15 g/24 h See order comments Comment:URINE VOLUME: 1600/2 4 11/13/2024 8:40 AM TANK TRUCK LOADER 11/13/2024 5:39 PM TANK TRUCK LOADER Narrative [facility] - 11/13/2024 11:38 PM TANK TRUCK LOADER SPLIT 11/09/2024 FROM [id number] Resulting Agency Comment Performing Organization Information: ?Site ID: [id number] ?Name: [employer] ?Address: [facility] [address] [place] [address] ?Director: Briana Villasenor us Pieter Morgan DO LAB URINE ORDERABLES Final R esult [facility] See order comments [place] [address] * Reflexive Urine Culture (11/09/2024 6:44 AM TANK TRUCK LOADER) Culture Result, Urine See order comments Comment:NO CULTURE INDICATED 11/09/2024 6:44 AM TANK TRUCK LOADER 11/09/2024 6:49 AM TANK TRUCK LOADER Narrative [facility] - 11/10/2024 11:30 AM TANK TRUCK LOADER COLLECTION KIT GIVEN TO PATIENT. PATIENT ADVISED TO RETURN. URINE VOLUME: NOTV Resulting Agency Comment Performing Organization Information: ?Site ID: [id number] ?Name: [employer] ?Address: [facility] [place] [address] ?Director: Briana Villasenor MD us Pieter Morgan DO LAB [id number] NSOLICITED RESULTS Final Result [facility] See order comments [place] [address] * (ABNORMAL) Cystatin C w/GFR (11/09/2024 6:44 AM TANK TRUCK LOADER) Cystatin C 1.41(H) 0.52 - 1.27 mg/L See order comments eGFR 52(L) > OR = 60 mL/min/1.73 m2 See order comments 11/09/2024 6:44 AM TANK TRUCK LOADER 11/09/2024 6:49 AM TANK TRUCK LOADER Narrative [facility] - 11/10/2024 11:30 AM TANK TRUCK LOADER COLLECTION KIT GIVEN TO PATIENT. PATIENT ADVISED TO RETURN. URINE VOLUME: NOTV Resulting Agency Comment Performing Organization Information: ?Site ID: [id number] ?Name: [employer] ?Address: [facility] [place] [address] ?Director: Briana Villasenor MD us Pieter Morgan DO LAB BLOOD ORDERABLES Final R esult [facility] See order comments [place] [address] * (ABNORMAL) Urinalysis, Complete w/reflex to Culture (11/09/2024 6:44 AM TANK TRUCK LOADER) Color, Urine YELLOW YELLOW See ord er comments Appearance Urine CLEAR CLEAR See order comments Specific [place], UA 1.017 1.001 - 1.035 See order comments pH Urine 6.0 5.0 - 8.0 See order comments Glucose, Ur 3+(A) NEGATIVE See orde r comments Bilirubin, Urine NEGATIVE NEGATIVE See order comments Ketones, Urine NEGATIVE NEGATIVE See o rder comments Hemoglobin Ur Ql Strip NEGATIVE NEGATIVE See order comments Protein, Ur NEGATIVE NEGATIVE See orde r comments Nitrite, Urine NEGATIVE NEGATIVE See o rder comments WBC Esterase Urine NEGATIVE NEGATIVE See order comments WBC, Urine NONE SEEN < OR = 5 /HPF See order comments RBC, Urine NONE SEEN < OR = 2 /HPF See order comments Epithelial Cells in Urine NONE SEEN < OR = 5 /HPF See order comments Trans Epithelial, Urine CANCELED < OR = 5 /HPF See order comments Comment:Result canceled by t he ancillary. Renal Epithelial Cells, Urine CANCELED < OR = 3 /HPF See order comments Comment:Result canceled by t he ancillary. Bacteria NONE SEEN NONE SEEN /HPF See order comments Calcium Oxalate Crystals, Urine CANCELED NONE OR FEW /HPF See order comments Comment:Result canceled by t he ancillary. Triple Phosphate Crystals, Urine CANCELED NONE OR FEW /HPF See order comments Comment:Result canceled by t he ancillary. Uric Acid Crystals, Urine CANCELED NONE OR FEW /HPF See order comments Comment:Result canceled by t he ancillary. Amorphous Sediments CANCELED NONE OR FEW /HPF See order comments Comment:Result canceled by t he ancillary. Crystals CANCELED NONE SEEN /HPF See order comments Comment:Result canceled by t he ancillary. Hyaline Casts, Urine NONE SEEN NONE SEEN /LPF See order comments Granular Casts, Urine CANCELED NONE SEEN /LPF See order comments Comment:Result canceled by t he ancillary. Casts CANCELED NONE SEEN /LPF See order comments Comment:Result canceled by t he ancillary. Yeast, UA CANCELED NONE SEEN /HPF See order comments Comment:Result canceled by t he ancillary. Comments CANCELED See order comments Comment:Result canceled by t he ancillary. Note: CANCELED See order comments Comment:Result canceled by t he ancillary. 11/09/2024 6:44 AM TANK TRUCK LOADER 11/09/2024 6:49 AM TANK TRUCK LOADER Narrative [facility] - 11/10/2024 11:30 AM TANK TRUCK LOADER COLLECTION KIT GIVEN TO PATIENT. PATIENT ADVISED TO RETURN. URINE VOLUME: NOTV Resulting Agency Comment Performing Organization Information: ?Site ID: [id number] ?Name: [employer] ?Address: [facility] [place] [address] ?Director: Briana Villasenor MD us Pieter Morgan DO LAB URINE ORDERABLES Final R esult [facility] See order comments [place] [address] * Protein, Total, Random Urine w/Creatinine (Protein/Creat Ratio) (11/09/2024 6:44 AM TANK TRUCK LOADER) Creatinine, Ur 129 20 - 320 mg/dL See order comments Urine Protein/Creatin ine Ratio 78 25 - 148 mg/g creat See order comments Protein/Creatin ine Ratio, Urine 0.078 0.025 - 0.148 mg/mg creat See order comments Protein Urine Random 10 5 - 25 mg/dL See order comments 11/09/2024 6:44 AM TANK TRUCK LOADER 11/09/2024 6:49 AM TANK TRUCK LOADER Narrative [facility] - 11/10/2024 11:30 AM TANK TRUCK LOADER COLLECTION KIT GIVEN TO PATIENT. PATIENT ADVISED TO RETURN. URINE VOLUME: NOTV Resulting Agency Comment Performing Organization Information: ?Site ID: [place] ?Name: [employer] ?Address: [facility] [place] [address] ?Director: Briana Villasenor MD us Pieter Morgan DO LAB URINE ORDERABLES Final R esult [facility] See order comments [place] [address] * Urine Albumin / Creatinine Ratio (11/09/2024 6:44 AM TANK TRUCK LOADER) Creatinine, Ur 129 20 - 320 mg/dL See order comments Urine Microalbumin 0.2 See Note: mg/dL See order comments Comment: Reference Range: Reference Range Not established Microalb/Creat Ratio 2 <30 mg/g creat See order comments Comment: The ADA defines abnormalities in albumin excretion as follows: Albuminuria Category ?Result (mg/g creatinine) Normal to Mildly increased ?? <30 Moderately increased ? 30-299 Severely increased ? > OR = 300 The ADA recommends that at least two of three specimens collected within a 3-6 month period be abnormal before considering a patient to be within a diagnostic category. 11/09/2024 6:44 AM TANK TRUCK LOADER 11/09/2024 6:49 AM TANK TRUCK LOADER Narrative [facility] - 11/10/2024 11:30 AM TANK TRUCK LOADER COLLECTION KIT GIVEN TO PATIENT. PATIENT ADVISED TO RETURN. URINE VOLUME: NOTV Resulting Agency Comment Performing Organization Information: ?Site ID: [id number] ?Name: [employer] ?Address: [address] [place] [address] ?Director: Briana Villasenor MD us Pieter Morgan DO LAB URINE ORDERABLES Final R esult [facility] See order comments [place] [address] * Vitamin D 25 Hydroxy (11/09/2024 6:44 AM TANK TRUCK LOADER) Pathologist [facility] Vitamin D, 25-OH, Total, IA 37 30 - 100 ng/mL See order comments Comment: Vitamin D Status ? 25-OH Vitamin D: Deficiency: ?<20 ng/mL Insufficiency: ? 20 - 29 ng/mL Optimal: ? > or = 30 ng/mL For 25-OH Vitamin D testing on patients on D2-supplementation and patients for whom quantitation of D2 and D3 fractions is required, the QuestAssureD(TM) 25-OH VIT D, (D2,D3), LC/MS/MS is recommended: order code 65037 (patients >2yrs). See Note 1 Note 1 For additional information, please refer to http://education.TripletPlus/faq/WHS155 (This link is being provided for informational/ educational purposes only.) 11/09/2024 6:44 AM TANK TRUCK LOADER 11/09/2024 6:49 AM TANK TRUCK LOADER Narrative [facility] - 11/10/2024 11:30 AM TANK TRUCK LOADER COLLECTION KIT GIVEN TO PATIENT. PATIENT ADVISED TO RETURN. URINE VOLUME: NOTV Resulting Agency Comment Performing Organization Information: ?Site ID: [id number] ?Name: [employer] ?Address: [address] [address] ?Director: Briana Villasenor MD us Pieter Morgan DO LAB BLOOD ORDERABLES Final R esult Performing Organization Address City/[facility] Co de Phone Number [facility] See order comments [place] [address] * (ABNORMAL) Sedimentation Rate (11/09/2024 6:44 AM TANK TRUCK LOADER) Sed Rate 24(H) < OR = 15 mm/h See order comments 11/09/2024 6:44 AM TANK TRUCK LOADER 11/09/2024 6:49 AM TANK TRUCK LOADER Narrative [facility] - 11/10/2024 11:30 AM TANK TRUCK LOADER COLLECTION KIT GIVEN TO PATIENT. PATIENT ADVISED TO RETURN. URINE VOLUME: NOTV Resulting Agency Comment Performing Organization Information: ?Site ID: ?Name: [employer] ?Address: [address] [place] [address] ?Director: Briana Villasenor us Pieter Morgan DO LAB BLOOD ORDERABLES Final R esult Performing Organization Address City/[facility] Co de Phone Number [facility] See order comments [place] [address] * CBC and Differential (11/09/2024 6:44 AM TANK TRUCK LOADER) WBC 6.6 3.8 - 10.8 Thousand/ uL See order comments RBC 4.59 4.20 - 5.80 Million/u L See order comments Hemoglobin 14.5 13.2 - 17.1 g/dL See order comments Hematocrit 44.1 38.5 - 50.0 % See order comments MCV 96.1 80.0 - 100.0 fL See order comments MCH 31.6 27.0 - 33.0 pg See order comments MCHC 32.9 32.0 - 36.0 g/dL See order comments Comment: For adults, a slight decrease in the calculated MCHC value (in the range of 30 to 32 g/dL) is most likely not clinically significant; however, it should be interpreted with caution in correlation with other red cell parameters and the patient's clinical condition. RDW 13.0 11.0 - 15.0 % See order comments Platelets 314 140 - 400 Thousand/ uL See order comments MPV 9.4 7.5 - 12.5 fL See order comments Neutrophils Absolute 3,346 1,500 - 7,800 cells/uL See order comments Band Neutrophils Absolute, Manual Count CANCELED 0 - 750 cells/uL See order comments Comment:Result canceled by t he ancillary. Metamyelocytes Absolute CANCELED 0 cells/uL See order comments Comment:Result canceled by t he ancillary. Absolute Myelocytes CANCELED 0 cells/uL See order comments Comment:Result canceled by t he ancillary. Absolute Promyelocytes CANCELED 0 cells/uL See order comments Comment:Result canceled by t he ancillary. Lymphocytes Absolute 2,640 850 - 3,900 cells/uL See order comments Monocytes Absolute 449 200 - 950 cells/uL See order comments Eosinophils Absolute 132 15 - 500 cells/uL See order comments Basophils Absolute 33 0 - 200 cells/uL See order comments Blasts Absolute CANCELED 0 cells/uL See order comments Comment:Result canceled by t he ancillary. NRBC Absolute CANCELED 0 cells/uL See order comments Comment:Result canceled by t he ancillary. Neutrophils Relative 50.7 % See order comments Bands Absolute CANCELED % See o rder comments Comment:Result canceled by t he ancillary. Metamyelocytes Percent CANCELED % See order comments Comment:Result canceled by t he ancillary. Myelocytes Relative CANCELED % See order comments Comment:Result canceled by t he ancillary. Promyelocytes Relative CANCELED % See order comments Comment:Result canceled by t he ancillary. Lymphocytes 40.0 % See orde r comments Variant lymphocytes/100 WBC (Bld) CANCELED 0 - 10 % See order comments Comment:Result canceled by t he ancillary. Monocytes 6.8 % See order comments Eosinophils 2.0 % See orde r comments Basophils Relative 0.5 % S ee order comments Blasts CANCELED % See order comments Comment:Result canceled by t he ancillary. nRBC CANCELED 0 /100 WBC See order comments Comment:Result canceled by t he ancillary. Comment(s) CANCELED See order comments Comment:Result canceled by t he ancillary. 11/09/2024 6:44 AM TANK TRUCK LOADER 11/09/2024 6:49 AM TANK TRUCK LOADER Narrative [facility] - 11/10/2024 11:30 AM TANK TRUCK LOADER COLLECTION KIT GIVEN TO PATIENT. PATIENT ADVISED TO RETURN. URINE VOLUME: NOTV Resulting Agency Comment Performing Organization Information: ?Site ID: ?Name: [employer] ?Address: [facility] [place] [address] ?Director: Briana Villasenor us Pieter Morgan DO LAB BLOOD ORDERABLES Final R esult [facility] See order comments [place] [address] * C3 Complement (11/09/2024 6:44 AM TANK TRUCK LOADER) Complement Component C3C 179 82 - 185 mg/dL See order comments 11/09/2024 6:44 AM TANK TRUCK LOADER 11/09/2024 6:49 AM TANK TRUCK LOADER Narrative [facility] - 11/10/2024 11:30 AM TANK TRUCK LOADER COLLECTION KIT GIVEN TO PATIENT. PATIENT ADVISED TO RETURN. URINE VOLUME: NOTV Resulting Agency Comment Performing Organization Information: ?Site ID: [place] ?Name: [facility] ?Address: [facility] [place] [address] ?Director: Briana Villasenor MD Pieter Morgan DO LAB BLOOD ORDERABLES Final R esult Performing Organization Address [facility] Co de Phone Number [facility] See order comments [place] [address] * C4 Complement (11/09/2024 6:44 AM TANK TRUCK LOADER) Complement Component C4C 30 15 - 53 mg/dL See order comments 11/09/2024 6:44 AM TANK TRUCK LOADER 11/09/2024 6:49 AM TANK TRUCK LOADER Narrative [facility] - 11/10/2024 11:30 AM TANK TRUCK LOADER COLLECTION KIT GIVEN TO PATIENT. PATIENT ADVISED TO RETURN. URINE VOLUME: NOTV Resulting Agency Comment Performing Organization Information: ?Site ID: [id number] ?Name: [employer] ?Address: [facility] [address] ?Director: Briana Villasenor MD Pieter Morgan DO LAB BLOOD ORDERABLES Final [facility] Performing Organization Address [facility] de Phone Number [facility] See order comments [place] [address] * (ABNORMAL) C-Reactive Protein (11/09/2024 6:44 AM TANK TRUCK LOADER) CRP 12.9(H) <8.0 mg/L See order comments 11/09/2024 6:44 AM TANK TRUCK LOADER 11/09/2024 6:49 AM TANK TRUCK LOADER Narrative [facility] - 11/10/2024 11:30 AM TANK TRUCK LOADER COLLECTION KIT GIVEN TO PATIENT. PATIENT ADVISED TO RETURN. URINE VOLUME: NOTV Resulting Agency Comment Performing Organization Information: ?Site ID: [id number] ?Name: [employer] ?Address: [facility] [place] [address] ?Director: Briana Villasenor MD Pieter Morgan DO LAB BLOOD ORDERABLES Final R esult Performing Organization Address [facility] Co de Phone Number [facility] See order comments [place] [address] * Magnesium (11/09/2024 6:44 AM TANK TRUCK LOADER) Magnesium 2.4 1.5 - 2.5 mg/dL See order comments 11/09/2024 6:44 AM TANK TRUCK LOADER 11/09/2024 6:49 AM TANK TRUCK LOADER Narrative [facility] - 11/10/2024 11:30 AM TANK TRUCK LOADER COLLECTION KIT GIVEN TO PATIENT. PATIENT ADVISED TO RETURN. URINE VOLUME: NOTV Resulting Agency Comment Performing Organization Information: ?Site ID: ?Name: [employer] ?Address: [facility] [place] [address] ?Director: Briana Villasenor Pieter Morgan DO LAB BLOOD ORDERABLES Final R esult Performing Organization Address [facility] de Phone Number [facility] See order comments [place] [address] * (ABNORMAL) Renal Function Panel (11/09/2024 6:44 AM TANK TRUCK LOADER) Glucose 115(H) 65 - 99 mg/dL See order comments Comment: ? Fasting reference interval For someone without known diabetes, a glucose value between 100 and 125 mg/dL is consistent with prediabetes and should be confirmed with a follow-up test. BUN 12 7 - 25 mg/dL See order comments Creatinine 1.42(H) 0.60 - 1.29 mg/dL See order comments eGFR CKD-EPI CR 2020 62 > OR = 60 mL/min/1.7 3m2 See order comments BUN/Creatinine Ratio 8 6 - 22 (calc) See order comments Sodium 141 135 - 146 mmol/L See order comments Potassium 3.7 3.5 - 5.3 mmol/L See order comments Chloride 104 98 - 110 mmol/L See order comments Bicarbonate (CO2) 27 20 - 32 mmol/L See order comments Calcium 9.2 8.6 - 10.3 mg/dL See order comments Phosphorus 4.4 2.5 - 4.5 mg/dL See order comments Albumin 4.2 3.6 - 5.1 g/dL See order comments 11/09/2024 6:44 AM TANK TRUCK LOADER 11/09/2024 6:49 AM TANK TRUCK LOADER Narrative [facility] - 11/10/2024 11:30 AM TANK TRUCK LOADER COLLECTION KIT GIVEN TO PATIENT. PATIENT ADVISED TO RETURN. URINE VOLUME: NOTV Resulting Agency Comment Performing Organization Information: ?Site ID: ?Name: [facility] ?Address: [facility] [place] [address] ?Director: Briana Villasenor us Pieter Morgan DO LAB BLOOD ORDERABLES Final R esult [facility] See order comments [place] [address] from Last 3 Months Insurance [facility] Care Teams Quality Control Engineer Relationship Specialty Start Date End Date Piter Fair MD [address] [place] [phone] PCP - General Family Medicine 06/06/24
--- OUTSIDE RECORDS SUMMARY | 2024-12-21 09:17 | XMS_ITS | Clinical Summary ---
Author Organization [facility] Address [address] [place] [address] Care Team Providers Care Gelatin Dynamite Packing Operator Name Role Phone Piter Fair MD Primary Care Provider [phone] Source Comments [facility],non-owned Affiliates and Associated Physician Practices is amultiple site organization consisting of ambulatory clinics and hospital sitesin [place], [place], [place] and [place]. This disclosure is being madepursuant to the Care Everywhere program and may not contain all information available regarding this patient. Last updated 18.[facility] Head Held High Allergies No known active allergies Medications * Be aware that medications may not be up to date on this document. Alwaysverify current medications with the patient. Medication Sig Dispensed Refills Start Date End Date Status buPROPion XL 24hr (Wellbutrin-XL) 300 MG tablet Take 1 (one) tablet by mouth every morning Active DULoxetine (Cymbalta) 60 MG capsule Take 1 (one) capsule by mouth once daily Active valACYclovir (Valtrex) 500 MG tablet Take by mouth 2 times daily Active pantoprazole EC (Protonix) 20 MG tablet Take 1 (one) tablet by mouth once daily Active rosuvastatin (Crestor) 10 MG tablet Take 1 (one) tablet by mouth once daily Active dapagliflozin propanediol (Farxiga) 10 MG tablet Take 1 (one) tablet by mouth every morning Active albuterol HFA (Proventil; Ventolin; Proair) 108 (90 Base) MCG/ACT inhaler Inhale 1 (one) puff by mouth as directed 12/02/2023 Active Active Problems No known active problems Encounters Date Type Department Care Team Description 11/27/2024 Orders Only [facility] - Rheumatology [address], [address] [place] [address] Cherrie Gay MD Polyarthralgia 11/23/2024 10:00 AM SHOT CORE DRILL OPERATOR Office Visit [facility] - Rheumatology [address], [address] [place] [address] Cherrie Gay MD Polyarthralgia (Primary Dx); Raynaud's syndrome without gangrene; Cervicalgia; Encounter for long-term (current) use of high-risk medication; Renal insufficiency 11/10/2024 Telephone [facility] Rheumatology [address] [place] [address], [address] [place] [address] [facility] Medical Referral from Last 3 Months Family History Medical History Relation Name Comments Lupus Maternal Aunt Arthritis - Rheumatoid Maternal Grandmother Arthritis - Osteo Mother Arthritis - Rheumatoid half-sister Relation Name Status Comments Maternal Aunt Alive Maternal Grandmother Mother half-sister Alive Social History Tobacco Use Types Packs/Day Years Used Date Smoking Tobacco: Never Smokeless Tobacco: Never Tobacco Cessation:Counseling Given: Not Answered Sex and Gender Information Value Date Recorded Sex Assigned at Not on file Gender Identity Not on file Sexual Orientation Not on file Last Filed Vital Signs Vital Sign Reading Time Taken Comments Blood Pressure 128/78 11/23/2024 10:12 AM SHOT CORE DRILL OPERATOR Pulse 75 11/23/2024 10:12 AM SHOT CORE DRILL OPERATOR Temperature 36.5 ??C (97.7 ??F) 11/23/2024 1 0:12 AM SHOT CORE DRILL OPERATOR Respiratory Rate 16 11/23/2024 10:1 2 AM SHOT CORE DRILL OPERATOR Oxygen Saturation 93% 11/23/2024 10: 12 AM SHOT CORE DRILL OPERATOR Inhaled Oxygen Concentration - - Weight 101.1 kg (222 lb 12.8 oz) 2024 10:12 AM SHOT CORE DRILL OPERATOR Height - - Body Mass Index - - Plan of Treatment Upcoming Encounters Date Type Department Care Team (Late st Contact Info) Description 12/26/2024 9:00 AM SHOT CORE DRILL OPERATOR Office Visit [facility] - Rheumatology [address] [place] [address], [address] [place] [address] Cherrie Gay MD [address] [place] [address] [address] [place] [address] Health Maintenance Due Date Last Done Comments COLOGUARD (AGES 45-75) - COL ON CA SCREENING 1979 COLON MONITORING 1979 COLONOSCOPY - COLON CA SCREENING 1979 CT COLONOGRAPHY - COLON CA SCREENING 1979 Colorectal Cancer Screening 1979 FIT - COLON CA SCREENING 1979 FLEX SIG - COLON CA SCREENING 1979 HIV SCREENING 1994 HEPATITIS C SCREENING 09/22/1997 DTAP/TDAP/TD VACCINES (1 - Tdap) 1998 HEPATITIS B VACCINE (1 of 3 - 19+ 3-dose series) 1998 COVID-19 VACCINE (1 - 2023-2 5 season) 2024 INFLUENZA VACCINE (#1) 2024 2, 11/26/2021, 11/22/2014 DEPRESSION SCREENING 11/22/2024 ZOSTER VACCINE (1 of 2) 2029 HIB VACCINE Aged Out No longer eligi ble based on patient's age to complete this topic HPV VACCINE Aged Out No longer eligi ble based on patient's age to complete this topic MENINGOCOCCAL (Group B) VACCINE Aged Out No longer eligible b ased on patient's age to complete this topic MENINGOCOCCAL VACCINE Aged Out No dangelo isadora eligible based on patient's age to complete this topic PNEUMOCOCCAL VACCINE Aged Out No long er eligible based on patient's age to complete this topic Procedures Procedure Name Priority Date/Time Associated Diagnosis Comments ERYTHROCYTE SEDIMENTATION RATE Routine 11/24/2024 2:20 PM SHOT CORE DRILL OPERATOR Polyarthralgia Raynaud's syndrome without gangrene Cervicalgia Encounter for long-term (current) use of high-risk medication CYCLIC CITRULLINATED PEPTIDE(CCP) AB IGG Routine 11/24/2024 2:20 PM SHOT CORE DRILL OPERATOR Polyarthralgia Raynaud's syndrome without gangrene Cervicalgia Encounter for long-term (current) use of high-risk medication C-REACTIVE PROTEIN Routine 11/24/2024 2: 20 PM SHOT CORE DRILL OPERATOR Polyarthralgia Raynaud's syndrome without gangrene Cervicalgia Encounter for long-term (current) use of high-risk medication CK BLOOD Routine 11/24/2024 2:20 PM SHOT CORE DRILL OPERATOR Polyarthralgia Raynaud's syndrome without gangrene Cervicalgia Encounter for long-term (current) use of high-risk medication ANGIOTENSIN CONVERTING ENZYME BLOOD Routine 11/24/2024 2:20 PM SHOT CORE DRILL OPERATOR Polyarthralgia Raynaud's syndrome without gangrene Cervicalgia Encounter for long-term (current) use of high-risk medication FERRITIN Routine 11/24/2024 2:17 PM SHOT CORE DRILL OPERATOR Polyarthralgia Raynaud's syndrome without gangrene Cervicalgia Encounter for long-term (current) use of high-risk medication SS-A (SJOGREN'S) ANTIBODY Routine 2024 2:17 PM SHOT CORE DRILL OPERATOR Polyarthralgia Raynaud's syndrome without gangrene Cervicalgia Encounter for long-term (current) use of high-risk medication ANCA SCREEN W MPO+PR3 W REFEX ANCA TITER Routine 11/24/2024 2:16 PM SHOT CORE DRILL OPERATOR Polyarthralgia Raynaud's syndrome without gangrene Cervicalgia Encounter for long-term (current) use of high-risk medication THIOPURINE METHYLTRANSFERASE Routine 11/24/2024 2:16 PM SHOT CORE DRILL OPERATOR Polyarthralgia Raynaud's syndrome without gangrene Cervicalgia Encounter for long-term (current) use of high-risk medication URIC ACID BLOOD Routine 11/24/2024 2:16 PM SHOT CORE DRILL OPERATOR Polyarthralgia Raynaud's syndrome without gangrene Cervicalgia Encounter for long-term (current) use of high-risk medication SS-B (SJOGREN'S) ANTIBODY Routine 2024 2:16 PM SHOT CORE DRILL OPERATOR Polyarthralgia Raynaud's syndrome without gangrene Cervicalgia Encounter for long-term (current) use of high-risk medication HLA TYPING B27 Routine 11/24/2024 2:16 PM SHOT CORE DRILL OPERATOR Polyarthralgia Raynaud's syndrome without gangrene Cervicalgia Encounter for long-term (current) use of high-risk medication XR CERVICAL SPINE 2 OR 3VW Routine 11/24/2024 Polyarthralgia XR HAND BILAT 2VW Routine 11/24/2024 Polyarthralgia XR SHOULDER BILAT 2VW OR MORE Routine 11/24/2024 Polyarthralgia from Last 3 Months Results * C-REACTIVE PROTEIN (11/24/2024 2:20 PM SHOT CORE DRILL OPERATOR) Pathologist [facility] C-Reactive Protein 7.7 <8.0 mg/L [facility] Comment: Test Performed at: [employer] [place], [place] ??[phone] ALISA MONCADA MD Blood BLOOD SPECIMEN / Unknown 11/24/2024 2:20 PM SHOT CORE DRILL OPERATOR 11/24/2024 2:20 PM SHOT CORE DRILL OPERATOR Cherrie Gay MD LAB - CHEMISTRY LUIS MANUEL LIANG Performing Organization Address [facility] Co de Phone Number [facility] [phone] [place] [phone] * ANGIOTENSIN CONVERTING ENZYME BLOOD (11/24/2024 2:20 PM SHOT CORE DRILL OPERATOR) Pathologist [facility] Angiotensin-Conv erting Enzyme 40 9 - 67 U/L [facility] Comment: Test Performed at: [employer] [place], [place] ??[phone] ALISA MONCADA MD Blood BLOOD SPECIMEN / Unknown 11/24/2024 2:20 PM SHOT CORE DRILL OPERATOR 11/24/2024 2:20 PM SHOT CORE DRILL OPERATOR Cherrie Gay MD LAB - CHEMISTRY LUIS MANUEL LIANG Performing Organization Address City/[facility]/ZIP Co de Phone Number [facility] [address] [place] [address] * CYCLIC CITRULLINATED PEPTIDE(CCP) AB IGG (11/24/2024 2:20 PM SHOT CORE DRILL OPERATOR) Pathologist [facility] Cyclic Citrullinated Peptide Antibody IgG <16 UNITS [facility] Comment: Reference Range Negative: ?<20 Weak Positive: ? 20-39 Moderate Positive: ?? 40-59 Strong Positive: ? >59 Test Performed at: [facility] [address] [place], [place] ??[phone] ALISA MONCADA MD Blood BLOOD SPECIMEN / Unknown 11/24/2024 2:20 PM SHOT CORE DRILL OPERATOR 11/24/2024 2:20 PM SHOT CORE DRILL OPERATOR Cherrie Gay MD LAB - CHEMISTRY ORDE AZUL Performing Organization Address [facility] Co de Phone Number [facility] [id number] [place] [address] * (ABNORMAL) ERYTHROCYTE SEDIMENTATION RATE (11/24/2024 2:20 PM SHOT CORE DRILL OPERATOR) Erythrocyte Sedimentation Rate Westergren 17(H) < OR = 15 mm/h [facility] Comment: Test Performed at: [facility] [employer] [facility] [address] [place] [address] ??[phone] ALISA MONCADA MD Blood BLOOD SPECIMEN / Unknown 11/24/2024 2:20 PM SHOT CORE DRILL OPERATOR 11/24/2024 2:20 PM SHOT CORE DRILL OPERATOR Cherrie Gay MD LAB - HEMATOLOGY ORD ERABLES Performing Organization Address [facility] Co de Phone Number [facility] [address] [place] [address] * CK BLOOD (11/24/2024 2:20 PM SHOT CORE DRILL OPERATOR) CK 80 44 - 196 U/L [facility] Comment: Test Performed at: [facility] [employer] [facility] [address] [place], [place] ??[phone] ALISA MONCADA MD Blood BLOOD SPECIMEN / Unknown 11/24/2024 2:20 PM SHOT CORE DRILL OPERATOR 11/24/2024 2:20 PM SHOT CORE DRILL OPERATOR Cherrie Gay MD LAB - CHEMISTRY ORDMellisa LIANG Performing Organization Address [facility] Co de Phone Number [facility] [address] [place] [address] * SS-A (SJOGREN'S) ANTIBODY (11/24/2024 2:17 PM SHOT CORE DRILL OPERATOR) [facility] Sjogren's Antibodies (SSA) <1.0 NEG <1.0 NEG AI [facility] Comment: Test Performed at: [facility] [employer] [address] [place], [place] ??[phone] ALISA MONCADA MD Blood BLOOD SPECIMEN / Unknown 11/24/2024 2:17 PM SHOT CORE DRILL OPERATOR 11/24/2024 2:19 PM SHOT CORE DRILL OPERATOR Cherrie Gay MD LAB - CHEMISTRY LUIS MANUEL LIANG Performing Organization Address [facility]/ZIP Co de Phone Number [facility] [address] [place] [address] * (ABNORMAL) FERRITIN (11/24/2024 2:17 PM SHOT CORE DRILL OPERATOR) [facility] Ferritin 23(L) 38 - 380 ng/mL [facility] Comment: Test Performed at: [facility] [employer] [facility] [address] [place], [place] ??[phone] ALISA MONCADA MD Blood BLOOD SPECIMEN / Unknown 11/24/2024 2:17 PM SHOT CORE DRILL OPERATOR 11/24/2024 2:19 PM SHOT CORE DRILL OPERATOR Cherrie Gay MD LAB - CHEMISTRY LUIS MANUEL LIANG Performing Organization Address [facility]/ZIP Co de Phone Number [facility] [address] [place] [address] * ANCA SCREEN W MPO+PR3 W REFEX ANCA TITER (11/24/2024 2:16 PM SHOT CORE DRILL OPERATOR) [facility] ANCA Screen Negative Negative [facility] Comment: ANCA [...] >or=1.0 AI: Antibody Detected Autoantibodies to proteinase-3 (OR-3) are accepted as characteristic for granulomatosis with polyangiitis (GPA, Catrachita's), and are detectable in 95% of the histologically proven cases. The cytoplasmic IFA pattern, (c-ANCA), is based largely on autoantibody to OR-3 which serves as the primary antigen. These autoantibodies are present in active disease. Test Performed at: [facility] [employer]/[facility] [id number] [place] [address] ??[phone] MATTHEW LEVI MD,PHD Blood BLOOD SPECIMEN / Unknown 11/24/2024 2:16 PM SHOT CORE DRILL OPERATOR 11/24/2024 2:16 PM SHOT CORE DRILL OPERATOR Cherrie Gay MD LAB - CHEMISTRY LUIS MANUEL LIANG [facility] [address] [place] [address] * URIC ACID BLOOD (11/24/2024 2:16 PM SHOT CORE DRILL OPERATOR) Uric Acid 6.0 4.0 - 8.0 mg/dL [facility] Comment: Therapeutic target for gout patients: <6.0 mg/dL ?? Test Performed at: [facility] [employer] [facility] [address] [place], [place] ??[phone] ALISA MONCADA MD Blood BLOOD SPECIMEN / Unknown 11/24/2024 2:16 PM SHOT CORE DRILL OPERATOR 11/24/2024 2:16 PM SHOT CORE DRILL OPERATOR Cherrie Gay MD LAB - CHEMISTRY LUIS MANUEL LIANG Performing Organization Address [facility]/ZIP Co de Phone Number [facility] [address] [place] [address] * HLA TYPING B27 (11/24/2024 2:16 PM SHOT CORE DRILL OPERATOR) HLA-B27 Antigen NEGATIVE NEGATIVE [facility] Comment: Test Performed at: [facility] [employer] [facility] [address] ??[phone] TAMMIE WHITTINGTON Blood BLOOD SPECIMEN / Unknown 11/24/2024 2:16 PM SHOT CORE DRILL OPERATOR 11/24/2024 2:16 PM SHOT CORE DRILL OPERATOR Cherrie Gay MD LAB - CHEMISTRY LUIS MANUEL LIANG Performing Organization Address [facility] Co de Phone Number [facility] [address] [place] [address] * SS-B (SJOGREN'S) ANTIBODY (11/24/2024 2:16 PM SHOT CORE DRILL OPERATOR) Sjogren's Antibodies (SSB) <1.0 NEG <1.0 NEG AI [facility] Comment: Test Performed at: [facility] [employer] [facility] [address] [place], [place] ??[phone] ALISA MONCADA MD Blood BLOOD SPECIMEN / Unknown 11/24/2024 2:16 PM SHOT CORE DRILL OPERATOR 11/24/2024 2:16 PM SHOT CORE DRILL OPERATOR Cherrie Gay MD LAB - CHEMISTRY LUIS MANUEL LIANG Performing Organization Address [facility]/ZIP Co de Phone Number [facility] [address] [place] [address] * THIOPURINE METHYLTRANSFERASE (11/24/2024 2:16 PM SHOT CORE DRILL OPERATOR) TPMT Activity 17 nmol/hr/mL RBC [facility] Comment: Reference Range for TPMT Activity: ?? >12 ? Normal ??4-12 ? Heterozygote or low metabolizer ?<4 ? Homozygote Deficient Range This test was developed and its analytical performance characteristics have been determined by [employer]. It has not been cleared or approved by FDA. This assay has been validated pursuant to the CLIA regulations and is used for clinical purposes. Test Performed at: [facility] [employer]/[facility] [address] [place], [place] ??[phone] DAVE GAMINO MD,PHD,JOVANI Blood BLOOD SPECIMEN / Unknown 11/24/2024 2:16 PM SHOT CORE DRILL OPERATOR 11/24/2024 2:16 PM SHOT CORE DRILL OPERATOR Cherrie Gay MD LAB - CHEMISTRY LUIS MANUEL LIANG [facility] Organization Address City/State/[facility] de Phone Number [facility] [address] [place] [address] * XR Hand Bilat 2Vw (11/24/2024) Anatomical [...] Cherrie Gay MD DIAGNOSTIC IMAGING O RDERABLES from Last 3 Months Care Teams Gelatin Dynamite Packing Operator Relationship Specialty Start Date End Date Piter Fair MD [address] [place] [phone] PCP - General Family Medicine 11/10/24
--- OUTSIDE RECORDS SUMMARY | 2024-12-21 09:18 | XMS_ITS | Clinical Summary ---
Author Organization [facility] Address [address] [place] [address]. [place], [place] [address] [place] [address] Care Team Providers Care Chicken Vaccinator Name Role Phone Piter Fair MD Primary Care Provider [phone] Social History Tobacco Use Types Packs/Day Years Used Date Smoking Tobacco: Never Assessed Sex and Gender Information Value Date Recorded Sex Assigned at Not on file Legal Sex Male 8:35 PM CDT Gender Identity Not on file Sexual Orientation Not on file Plan of Treatment Health Maintenance Due Date Last Done Comments Colorectal Cancer Screening Colonoscopy (10 Years) 1979 Annual Physical 1982 DTaP, Tdap and Td Vaccines ( 2 - Tdap) 05/01/1994 04/30/1994 Hepatitis C 1997 Hepatitis B Vaccines (1 of 3 - 19+ 3-dose series) 1998 COVID-19 Vaccine (2023-2 5 season) 2024 10/13/2021, 12/27/2020, 12/06/2020 Influenza Adult (#1) 2024 11/26/2021 HPV Vaccines Aged Out No longer eligi ble based on patient's age to complete this topic Meningococcal B Vaccine Aged Out No l onger eligible based on patient's age to complete this topic Meningococcal Vaccine Aged Out No dangelo isadora eligible based on patient's age to complete this topic Pneumococcal Vaccine: Pediatrics (0 to 5 Years) and At-Risk Patients (6 to 64 Years) Aged Out No longer eligible b ased on patient's age to complete this topic RSV Immunizations Under 20 Months Aged Out No longer eligible b ased on patient's age to complete this topic Insurance Care Teams Chicken Vaccinator Relationship Specialty Start Date End Date Piter Fair MD PCP - General HOSPITALIST 07/13/22
--- OUTSIDE RECORDS SUMMARY | 2024-12-21 09:18 | XMS_ITS | Data Portability ---
Author Organization [place] - [facility], Main Office Address [address] [place] [address] Care Team Providers Care Supervisor Waterproofing Name Role Phone PITER FAIR Primary Care Provider [phone] Assessment Encounter Date Assessment Date Assessment LastModified by Organization Details LastModified Time 09/25/2024 09/25/2024 Assessment: Mild OSAHS, AHI = 8 Hypoventilation Plan: The following were reviewed and explained to the patient: [facility] home sleep study 06/08/24 AHI = 2, disproportionate O2 desaturation [facility] diagnostic sleep study 07/12/24 sleep onset = 20.5 minutes, REM onset = 121 minutes, AHI = 8, supine AHI = 9, REM AHI = 25, PLMI = 0.0 [facility] titration sleep study 07/26/24 sleep onset = 37 minutes, REM onset = 112.5 minutes, Delgadillo & Araceli large Bryanna nasal mask @ 9 cmH2O, PLMI = 0.0 PAP compliance downloaded and interpreted x 20 minutes. Data reviewed and explained to the patient. Average apnea/hypopnea index (AHI) is 0.3. Patient used PAP > 4 hours 80% of the time. PAP is set at 9 cmH2O. PAP will remain at 9 cmH2O. Ramp is set at 4 cmH2O x 15 minutes. Turn ramp off per patient request. Keep EPR +1 ramp only. Oxygen supplementation: none Keep humidifier level at 4. Keep tube temperature at 74 F. Patient is benefiting from PAP therapy. Encouraged patient to maintain PAP use more than 70% of the time. Statement of PAP use and benefits will be sent to the home care store. Educated the patient on problems and solutions associated with positive airway pressure (PAP) use. Difficulty tolerating pressure, mask leaks, intolerance of interface, nasal congestion, claustrophobic response, dry mouth, and unintentional mask removal during sleep were covered. Provided the patient with a list of local home care stores where positive airway pressure (PAP) units, accoutrement, and services are available. Home care store selection is based on patient's insurance carrier. Patient will setup an appointment with [facility] for supplies and pressure adjustments. A major predictor of success with use of PAP is follow-up with both the respiratory supplier and the treating physician. The respiratory supplier optimally will follow-up within two weeks after starting use while the treating physician optimally will follow-up within 90 days after starting therapy to assess adherence and effectiveness of treatment. The download results can show the treating physician information about adherence to treatment, residual AHI while on treatment and presence of large mask leakage. This information is especially helpful if the patient has residual sleepiness despite treatment. General information on sleep disordered breathing, evaluation of sleep disordered breathing, treatment with PAP therapy, and living with PAP therapy were covered. We discussed with the patient the impact of weight on: Sleep disordered breathing Hypertension Hyperlipidemia DM RICCARDO We discussed with the patient the benefit of PAP therapy on: Sleep disordered breathing Depression/Anxiety Rhinitis Hypertension DM RICCARDO ED Educated the patient on sleep hygiene measures. Relaxing rituals to rest easy, understanding foods with positive and negative impact on sleep, creating a peaceful sleep environment, timing of exercise, using herbal sleep aids, and practicing sleep-friendly meditation were covered. To determine how much sleep is needed, the patient will assess where he falls on the spectrum, examine what lifestyle factors such as work schedules and stress are affecting the quality and quantity of sleep. In general, adults need 7-9 hours of sleep. Educated the patient regarding foods that promote sleep. These include but are not limited to cherries, bananas, toast, oatmeal, and warm milk. Educated the patient regarding foods and drinks to avoid before bedtime. These include but are not limited to aged cheese, chocolate, spicy foods, tomato-based sauces, soy, ginseng tea and processed meat. Advocated influenza vaccination annually and pneumonia vaccination ASAEL. Advocated weight loss through diet and exercise. Patient's ideal body weight according to height and gender is up to 175 lbs. Encouraged patient to adjust caloric intake to maintain/achieve ideal body weight, emphasizing on fruits, vegetables, whole grains, and fat-free or low-fat products. These include lean meats, poultry, fish, beans, eggs, and nuts and foods that are low in saturated fats, trans-fats, cholesterol, salt (sodium), and glycemic index. Stressed the importance of regular exercise up to the patient's capacity limits. In this case, we recommend 20 min daily walking, 2 days a week of resistance training. Patient to monitor BP daily and bring records to PCP for further management. Follow-up: 1 year, September 2025 [email or web address] Not available 09/25/2024 09:13:43 10/30/2024 10/30/2024 D/w pt about his findings, recent labs and further plan of care. Answered all questions for pt. Pt doesn't have any DM in the past. Pt is on Farxiga for his CKD. Cont f/u with specialist as per schedule. F/u as directed. [email or web address] Not available 10/30/2024 18:04:22 11/09/2024 11/09/2024 The patient gave verbal consent using TelePhonic services and the consent is documented in the medical record prior to using the service. The patient has been informed of what a TeleMedicine visit is. Patient is located at home. Provider is located at office. Names and roles of persons in addition to the patient and provider participating in telemedicine services include staff, . The patient had a 11 minute TeleMedicine consultation via phone call to discuss the following: D/w pt about his findings and further plan of care. Explained about different options for her. Pt declined to go to ED. Meds as directed. Good liquid and fiber intake explained. Educated pt about alarming symptoms to monitor at home and call us back or get checked in ED. Pt verbalized understanding it. F/u as directed. [email or web address] Not available 11/09/2024 14:30:33 Plan of Treatment Reminders Order Date Submit Date Provider Last Modified By Organization Details Last Modified Time Details Appointments Follow Up 15 2024 09:30A Roberto Fair MD Not available Not available Not available Any 15 2024 07:30A Roberto Navarro MD Not available Not available Not available Lab H pylori Ag, stool 2023 024 [facility] (Lab), [address] [place], [address], 11/29/2024 13:35:03 Referral rheumatol ogist referral - Please call patient to schedule an appointme nt. Thank you. 2023 [facility], [address], [place], [address], 11/26/2024 23:19:32 Procedures None recorded. Surgeries None recorded. Imaging None recorded. Medication Orders dicyclomi ne 10 mg capsule [email or web address] [place] [address] [id number], [address] , [place], [place], [id number], 10/11/2024 11:40:40 valacyclo vir 500 mg tablet 2023 024 [id number], [address] [facility], [place], [place], [id number], 10/30/2024 18:00:11 pantopraz ole 20 mg tablet,de layed release 2023 024 [facility] #00486, [address] [facility], [place], [place], [id number], 10/30/2024 18:00:09 rosuvasta tin 10 mg tablet 2023 024 [facility][id number], [address] [facility], [place], [place], [id number], 10/30/2024 18:00:10 ondansetr on 4 mg disintegr ating tablet 2023 024 [facility] #16136, [address] [facility], [place], [place], [id number], 11/09/2024 14:26:50 Patient TargetsNo targets recorded. Patient Instructions Encounter Date Encounter Id Patient Instructions Last Modified By Organization Details Last Modified Time 08/16/2024 [id number] PT WITH IBS-D. T RY DICYCLOMINE 10 MG TID NEEDED . F/U IN 3 MTHS . Not available 08/16/2024 12:04:01 10/11/2024 [id number] PT WITH IBS-D . TRY DICYCLOMINE . WILL STOOL AG FOR H. PYLORI . F/U IN 2 WEEKS . [email or web address] Not available 10/11/2024 12:52:00 11/09/2024 [id number] Due to the COVID-19 (Novel Coronavirus) pandemic, it is within this context (and with the understanding that this method of patient encounter is in the patient? s best interest as well as the health and safety of other patients and the public) that ? telehealth? is being provided for this patient encounter rather than a jnxv-ir-nzxe visit. This patient encounter is appropriate at this time. This patient has been advised of the potential risks and limitations of this mode of treatment (including, but not limited to, the absence of in-person examination) and has agreed to be treated in a remote fashion despite these risks. Any and all of the patient? s/patient? s family? s questions on this issue have been answered, and I have made no promises or guarantees to the patient. The patient has also been advised to contact this office for worsening conditions or problems, and seek emergency medical treatment and/or call 911 if the patient deems either necessary. HPI and/or vitals, if listed, were provided by the patient. 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 Raynaud's, chronic nausea (Has seen GI and got all work up done) Please call patient to schedule an appointment. Thank you. Referring Physician: Piter Fair, Family Medicine, Encounter Date: 11/09/2024 Results Created Date Observation Date Name Description Value Unit Range Abnormal Flag Note LastModifiedBy Organization Detail LastModifiedTime 11/09/20 24 11/10/2024 CBC (INCL UDES DIFF/ PLT) white blood cell count 6.6 thous and/u L 3.8-10 .8 normal Not Available [facility] [address] [place], [address], 11/10/2024 03:31:54 11/09/20 24 11/10/2024 CBC (INCL UDES DIFF/ PLT) red blood cell count 4.64 paola on/uL 4.20-5 .80 normal Not Available [address], [address], 11/10/2024 03:31:54 11/09/20 24 11/10/2024 CBC (INCL UDES DIFF/ PLT) hemoglobin 14.4 g/dL 13.2-1 7.1 normal Not Available [address], [address], 11/10/2024 03:31:54 11/09/20 24 11/10/2024 CBC (INCL UDES DIFF/ PLT) hematocrit 44.5 % 38.5-5 0.0 normal Not Available [address], [address], 11/10/2024 03:31:54 11/09/20 24 11/10/2024 CBC (INCL UDES DIFF/ PLT) MCV 95.9 fL 80.0-1 00.0 normal Not Available [address], [address], 11/10/2024 03:31:54 11/09/20 24 11/10/2024 CBC (INCL UDES DIFF/ PLT) MCH 31.0 pg 27.0-3 3.0 normal Not Available [address], [address], 11/10/2024 03:31:54 11/09/20 24 11/10/2024 CBC (INCL UDES DIFF/ PLT) MCHC 32.4 g/dL 32.0-3 6.0 normal For adult s, a sligh t decre ase in the calcu lated MCHC value (in the range of 30 to 32 g/dL) is most likel y not clini sai signi argenis t; mauri er, it shoul d be inter prete d with cauti on in corre latio n with other red cell tee eters and the patie nt's clini sheron condi tion. Not Available [address], [address], 11/10/2024 03:31:54 11/09/20 24 11/10/2024 CBC (INCL UDES DIFF/ PLT) RDW 12.9 % 11.0-1 5.0 normal Not Available [address], [address], 11/10/2024 03:31:54 11/09/20 24 11/10/2024 CBC (INCL UDES DIFF/ PLT) platelet count 320 thous and/u L 140-40 0 normal Not Available [address], [address], 11/10/2024 03:31:54 11/09/20 24 11/10/2024 CBC (INCL UDES DIFF/ PLT) MPV 9.6 fL 7.5-12 .5 normal Not Available [address], [address], 11/10/2024 03:31:54 11/09/20 24 11/10/2024 CBC (INCL UDES DIFF/ PLT) absolute neutrophils 3333 cells /uL 1500-7 800 normal Not Available [address], [address], 11/10/2024 03:31:54 11/09/20 24 11/10/2024 CBC (INCL UDES DIFF/ PLT) absolute lymphocytes 2600 cells /uL 850-39 00 normal Not Available [facility] [address], [address], 11/10/2024 03:31:54 11/09/20 24 11/10/2024 CBC (INCL UDES DIFF/ PLT) absolute monocytes 475 cells /uL 200-95 0 normal Not Available [address], [address], 11/10/2024 03:31:54 11/09/20 24 11/10/2024 CBC (INCL UDES DIFF/ PLT) absolute eosinophils 158 cells /uL 15-500 normal Not Available [facility] [address], [address], 11/10/2024 03:31:54 11/09/20 24 11/10/2024 CBC (INCL UDES DIFF/ PLT) absolute basophils 33 cells /uL 0-200 normal Not Available [facility] [address], [address], 11/10/2024 03:31:54 11/09/20 24 11/10/2024 CBC (INCL UDES DIFF/ PLT) neutrophils 50.5 % normal Not Available [facility] [address], [address], 11/10/2024 03:31:54 11/09/20 24 11/10/2024 CBC (INCL UDES DIFF/ PLT) lymphocytes 39.4 % normal Not Available [facility] [address], [address], 11/10/2024 03:31:54 11/09/20 24 11/10/2024 CBC (INCL UDES DIFF/ PLT) monocytes 7.2 % normal Not Available [facility] [address], [address], 11/10/2024 03:31:54 11/09/20 24 11/10/2024 CBC (INCL UDES DIFF/ PLT) eosinophils 2.4 % normal Not Available [facility] [address], [address], 11/10/2024 03:31:54 11/09/20 24 11/10/2024 CBC (INCL UDES DIFF/ PLT) basophils 0.5 % normal Not Available [facility] [address], [address], 11/10/2024 03:31:54 11/09/20 24 11/10/2024 PSA, TOTAL PSA, total 0.25 NG/mL < or = 4.00 normal The total PSA value from this assay syste m is stand ardiz ed again st the WHO stand alina. The test resul t will be appro ximat karlo 20% lower when janes red to the equim olar- stand ardiz ed total PSA (Boles man Coult er). Janes rison of seria l PSA resul ts shoul d be inter prete d with this fact in mind. This test was perfo rmed using the [employer] chemi lumin escen t metho d. Value s obtai lionel from diffe rent assay metho ds canno t be used inter jo eably . PSA level s, regar dless of value , shoul d not be inter prete d as absol lenny evide nce of the prese nce or absen ce of disea se. Not Available [facility] [place] [address] [place], [address], 11/10/2024 03:31:55 11/21/20 24 11/24/2024 TESTO STERO NE, FREE, BIOAV AILAB LE AND TOTAL , MS albumin 4.2 g/dL 3.6-5. 1 Not Available [facility] [address] [place], [address], 11/24/2024 08:39:45 11/21/20 24 11/24/2024 TESTO STERO NE, FREE, BIOAV AILAB LE AND TOTAL , MS sex hormone binding globulin 16.3 nmol/ L 10-50 Not Available [facility] [address] [place], [address], 11/24/2024 08:39:45 11/21/20 24 11/24/2024 TESTO STERO NE, FREE, BIOAV AILAB LE AND TOTAL , MS testosterone , free 33.9 pg/mL 46.0-2 24.0 low Not Available [facility] [address] [place], [address], 11/24/2024 08:39:45 11/21/20 24 11/24/2024 TESTO STERO NE, FREE, BIOAV AILAB LE AND TOTAL , MS testosterone ,bioavailabl e 65.2 NG/dL 110.0- 575.0 low Not Available [facility] [address], [place], [address], 11/24/2024 08:39:45 11/21/20 24 11/24/2024 TESTO STERO NE, FREE, BIOAV AILAB LE AND TOTAL , MS testosterone , total, MS 164 NG/dL 250-11 00 low Men with clini sai signi fican t hypog onada l sympt oms and testo stero ne value s repea tedly in the range of the 200-3 00 ng/dL or less, may benef it from testo stero ne treat ment after adequ ate risk and benef its couns eling . For addit ional infor miguel zhou e refer to https ://ed ucati on.qu estdi [employer]. com/f aq/FA Q165 (This link is being provi ded for infor zeb nal/e ducat ional purpo ses only. ) (Note ) This test was devel oped and its betty tical perfo rmanc e miguel cteri stics have been deter mined by [employer]. It has not been clear ed or appro joceline by the FDA. This assay has been valid ated pursu ant to the CLIA regul ation s and is used for clini sheron purpo ses. MDF med fusio n [address] [facility] [address] [facility] [address] [phone] Sakshi Solomon MD, PhD Not Available [facility] [address], [place], [address], 11/24/2024 08:39:45 07/17/20 24 07/12/2024 polys omnog kaylan, diagn ostic , 6 yrs or older No observ ation record ed. [email or web address] [facility] [address] [place], [address], 07/31/2024 14:27:02 07/18/20 24 07/12/2024 home sleep study No observ ation record ed. [address] [place], [address], 07/31/2024 14:27:02 07/28/20 24 07/26/2024 home sleep study No observ ation record ed. [address] [place], [address], 07/31/2024 14:27:02 07/28/20 24 07/26/2024 polys omnog kaylan, titra tion study No observ ation record ed. [address] [place], [address], 07/31/2024 14:27:01 09/06/20 24 09/06/2024 US, doppl er echoc ardio gram No observ ation record ed. [address], [place], [address], 10/30/2024 17:54:41 09/10/20 24 09/09/2024 CT, abdom en + pelvi s, w/ contr ast No observ ation record ed. [email or web address] [place] [address] [address], [place], [address], 10/30/2024 17:54:41 11/24/19 25 11/24/2024 XR, shoul talib, 2 or more view No observ ation record ed. [email or web address] [place] [address] Imaging [address], [place], [address], 11/28/2024 10:48:08 11/24/19 25 11/24/2024 XR, hand, 3 or more view No observ ation record ed. [email or web address] [place] [address] [address], [place], [address], 11/28/2024 10:49:45 11/24/19 25 11/24/2024 XR, cervi sheron spine , 4 or 5 view No observ ation record ed. [address] [facility] [address], [place], [address], 11/28/2024 10:50:27 11/25/19 25 11/24/2024 XR, shoul talib, 2 or more view No observ ation record ed. [address] [facility] [address], [place], [address], 11/28/2024 10:53:53 11/25/19 25 11/25/2024 CT, abdom en + pelvi s, w/ contr ast No observ ation record ed. [place] [address], [place], [address], 11/28/2024 10:54:31 Result Notes None recorded. Problems Name Problem SNOMED Code Status Onset Date Resolution Date Notes Provider Name and Address Organization Details Recorded Time Lateral epicondylitis 300280351 Active Not Available [facility] 3 17:44:47 Mixed anxiety and depressive disorder 566704572 Active 2017 Not Available [facility] 3 17:44:47 Gastroesophag eal reflux disease 266506371 Active Not Available [facility] 3 17:44:47 Raynaud's phenomenon 637598227 Active Not Available [facility] 3 17:44:47 Vitamin D deficiency 36643483 Active 2017 Not Available [facility] 3 17:44:47 Seasonal allergic rhinitis 568927174 Active Not Available [facility] 3 17:44:47 Recurrent herpes simplex 48863307 Active 2017 Not Available [facility] 3 17:44:47 Obesity 427621189 Active 2017 Not Available [facility] 3 17:44:48 Hyperlipidemi a 95981551 Active 2017 Not Available [facility] 3 17:44:48 Carpal tunnel syndrome 75539115 Active Not Available [facility] 3 17:44:48 Verruca plantaris 09183229 Active 2019 Not Available [facility] 3 17:44:48 Bilateral hearing loss 06980794 Active 2022 Not Available [facility] 3 17:44:48 Erectile dysfunction 693224922 Active 2022 Piter Fair MD [address], [address], [place], [address] , [facility] 3 14:46:49 Chronic kidney disease stage 3 744018367 Active 2023 Piter Fair MD [address], [place], [address] , [facility] 4 10:45:44 Hypertensive disorder 51182013 Active 2023 Piter Fair MD [address], [address], [place], [address] , [facility] 4 10:51:54 Irritable bowel syndrome 35442140 Active 2023 Piter Fair MD [address], [address], [place], [address] , [facility] 4 10:53:57 Polyarthropat hy 15553273 Active 2023 Piter Fair MD [address], [address], [place], [address] , [facility] 4 10:54:48 Obstructive sleep apnea syndrome 77187884 Active 2023 Sharad Navarro MD [address], [address], [place], [address] , [facility] 4 10:33:02 Male hypogonadism 28978317 Active 2023 Piter Fair MD [address], [place], [address] , [facility] 4 11:44:51 Gastroenterit is 98656993 Active 2023 Piter Fair MD [address], [place], [address] , [facility] 4 14:28:45 Irritable bowel syndrome with diarrhea 390997799 Active 2023 Giuliana Lucas MD [address], [place], [address] , [facility] 4 12:02:46 Nausea 557675408 Active 2023 Piter Fair MD [address], [place], [address] , [facility] 4 14:20:36 Fatigue 07514260 Active 2023 Piter Fair MD [address], [place], [address] , [facility] 4 14:28:58 Viral gastritis 750470465 Active 2023 Piter Fair MD [address], [place], [address] , [facility] 4 14:29:10 Notes:Medical History: Depre ssion/Anxiety Left hearing loss Left tinnitus Rhinitis with postnasal drip Bruxism Obesity with mild OSAHS, AHI = 8, 07/12/24, on CPAP c/o IVRC Treatment-emergent central apneas Hypertension Hyperlipidemia T2DM RICCARDO Cholelithiasis CKD ED Recurrent HSV infection Vit D deficiency Right CTS Procedure History: EGD 2015 Colonoscopy with polypectomies 2020 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 Procedures Surgical History Date Name Laterality Status Provider Name and Address Organization Details Recorded Time colonoscopy completed Gena Esquivel MA DE Erenis [facility] 07/18/2024 09:49:41 Endoscopy [facility] 07/18/2024 09:49:53 Imaging Results Imaging Date Name Status LastModified by Organization Details LastModified Time 07/12/2024 polysomnogram, diagnostic, 6 yrs or older completed [email or web address] [facility] [address] [place], [address], 07/31/2024 14:27:02 07/12/2024 home sleep study completed [email or web address] [place], [address], 07/31/2024 14:27:02 07/26/2024 home sleep study completed [email or web address] [place], [address], 07/31/2024 14:27:02 07/26/2024 polysomnogram, titration study completed [email or web address] [place], [address], 07/31/2024 14:27:01 09/06/2024 US, doppler echocardiogram completed [address] [facility] [address], [place], [address], 10/30/2024 17:54:41 09/09/2024 CT, abdomen + pelvis, w/ contrast completed [email or web address], [place], [address], 10/30/2024 17:54:41 11/24/2024 XR, shoulder, 2 or more view completed [email or web address] [facility] [address], [place], [address], 11/28/2024 10:48:08 11/24/2024 XR, hand, 3 or more view completed [email or web address] [facility] [address], [place], [address], 11/28/2024 10:49:45 11/24/2024 XR, cervical spine, 4 or [address] [facility] [address], [place], [address], 11/28/2024 10:50:27 11/24/2024 XR, shoulder, 2 or more view completed [address] [facility] [address], [place], [address], 11/28/2024 10:53:53 11/25/2024 CT, abdomen + pelvis, w/ contrast completed [address], [place], [address], 11/28/2024 10:54:31 Procedure Notes None recorded. Medical Equipment None Reported. Allergies No known drug allergies Medications Name Sig Start Date Stop Date Status Note LastModified by Organization Details LastModified Time cyclobenzap rine 10 mg tablet TAKE 1 TABLET BY MOUTH THREE TIMES DAILY FOR 10 DAYS 06/19 completed Not Available Not Available Not Available buspirone 5 mg tablet TAKE 1 TABLET BY MOUTH TWICE DAILY 10/11 completed Not Available Not Available Not Available sildenafil 50 mg tablet TAKE 1 TABLET BY MOUTH DAILY 30 MINUTES BEFORE SEXUAL ACTIVITY NEEDED 2024 active Not Available Not Available Not Avai lable triamcinolo ne acetonide 0.5 % topical cream APPLY A THIN LAYER TO THE AFFECTED AREA(S) BY TOPICAL ROUTE 2 TIMES PER DAY as needed active Not Available Not Available No t Available azithromyci n 250 mg tablet TAKE 2 TABLETS (500 MG) BY ORAL ROUTE ONCE DAILY FOR 1 DAY THEN 1 TABLET (250 MG) BY ORAL ROUTE ONCE DAILY FOR 4 DAYS 04/13 completed Not Available Not Available Not Available benzonatate 200 mg capsule Take 1 capsule 3 times a day by oral route as needed for 10 days. 04/21 completed Not Available Not Available Not Available prednisone 20 mg tablet TAKE 2 TABLETS BY MOUTH DAILY FOR 5 DAYS 04/13 completed Not Available Not Available Not Available sertraline 100 mg tablet TAKE 2 TABLETS BY MOUTH EVERY EVENING 06/02 completed Not Available Not Available Not Available metronidazo le 250 mg tablet TAKE 1 TABLET BY MOUTH THREE TIMES DAILY FOR 10 DAYS 06/02 completed Not Available Not Available Not Available metronidazo le 500 mg tablet Take 1 tablet twice a day by oral route as directed for 5 days. 10/11 completed Not Available Not Available Not Available valacyclovi r 500 mg tablet TAKE 1 TABLET BY MOUTH DAILY active Not Available Not Available No t Available ciprofloxac in 500 mg tablet Take 1 tablet twice a day by oral route as directed for 5 days. 08/09 completed Not Available Not Available Not Available sulfamethox azole 800 mg-trimetho prim 160 mg tablet TK ONE T PO Q 12 H TAT 04/21 completed Not Available Not Available Not Available pantoprazol e 20 mg tablet,edgardo yed release TAKE 1 TABLET BY MOUTH EVERY MORNING BEFORE BREAKFAST active Not Available Not Available No t Available meloxicam 7.5 mg tablet 09/27 completed Not Available Not Available Not Available clindamycin 1 % topical gel APPLY TO THE AFFECTED AREAS OF SCALP TWICE DAILY NEEDED 04/13 completed Not Available Not Available Not Available benzonatate 100 mg capsule TAKE 1 CAPSULE BY MOUTH TWICE DAILY NEEDED FOR COUGH 04/13 completed Not Available Not Available Not Available pantoprazol e 40 mg tablet,edgardo yed release TAKE 1 TABLET BY MOUTH DAILY 08/29 completed Not Available Not Available Not Available tacrolimus 0.1 % topical ointment MEGGAN TO GROIN AREA BID PRN 05/27 completed Not Available Not Available Not Available oseltamivir 75 mg capsule TK 1 C PO BID FOR 5 DAYS 05/27 completed Not Available Not Available Not Available triamcinolo ne acetonide 0.1 % topical ointment 04/13 completed Not Available Not Available Not Available ranitidine 150 mg tablet TAKE 1 TABLET BY MOUTH TWICE DAILY 05/27 completed Not Available Not Available Not Available clotrimazol e-betametha sone 1 %-0.05 % topical cream APPLY TO THE AFFECTED AND SURROUNDI NG AREAS OF SKIN BY TOPICAL ROUTE 2 TIMES PER DAY IN THE MORNING AND EVENING FOR 2 WEEKS active Not Available Not Available No t Available sertraline 25 mg tablet 05/27 completed Not Available Not Available Not Available diclofenac sodium 75 mg tablet,edgardo yed release TAKE 1 TABLET BY MOUTH EVERY 12 HOURS WITH FOOD NEEDED 04/13 completed Not Available Not Available Not Available montelukast 10 mg tablet TAKE 1 TABLET BY MOUTH EVERY DAY AT BEDTIME 06/19 completed Not Available Not Available Not Available mupirocin 2 % topical ointment MEGGAN AA TOPICALLY TID FOR 7 DAYS 05/27 completed Not Available Not Available Not Available ergocalcife rol (vitamin D2) 1,250 mcg (50,000 unit) capsule TAKE 1 CAPSULE BY MOUTH ONCE WEEKLY 06/22 completed Not Available Not Available Not Available cefuroxime axetil 500 mg tablet active Not Available Not Available No t Available levofloxaci n 500 mg tablet active Not Available Not Available Not Available methylpredn isolone 4 mg tablets in a dose pack Take as directed; finish all medicatio n 05/27 completed Not Available Not Available Not Available albuterol sulfate HFA 90 mcg/actuati on aerosol inhaler INHALE 2 PUFFS BY MOUTH EVERY 4 TO 6 HOURS NEEDED FOR SHORTNESS OF BREATH OR WHEEZING active Not Available Not Available No t Available ondansetron 4 mg disintegrat ing tablet Place 1 tablet every 6-8 hours by transling ual route as needed for 7 days. active Not Available Not Available No t Available fluticasone propionate 50 mcg/actuati on nasal spray,suspe nsion SHAKE LIQUID AND USE 2 SPRAYS IN EACH NOSTRIL EVERY DAY active Not Available Not Available No t Available sertraline 50 mg tablet 05/27 completed Not Available Not Available Not Available dicyclomine 10 mg capsule active Not Available Not Available Not Available diazepam 5 mg tablet 05/27 completed Not Available Not Available Not Available amoxicillin 875 mg-potassiu m clavulanate 125 mg tablet TAKE 1 TABLET BY MOUTH EVERY 12 HOURS FOR 10 DAYS 04/13 completed Not Available Not Available Not Available clindamycin phosphate 1 % topical solution 09/27 completed Not Available Not Available Not Available rosuvastati n 10 mg tablet TAKE 1 TABLET BY MOUTH EVERY DAY AT BEDTIME active Not Available Not Available No t Available bupropion HCl XL 300 mg 24 hr tablet, extended release TAKE 1 TABLET BY MOUTH EVERY DAY active Not Available Not Available No t Available bupropion HCl XL 150 mg 24 hr tablet, extended release TAKE 1 TABLET BY MOUTH EVERY DAY 04/13 completed Not Available Not Available Not Available tadalafil 20 mg tablet TAKE 1 TABLET BY MOUTH EVERY DAY active Not Available Not Available No t Available Cialis 5 mg tablet TK 1 T PO QD OR 2 TO 4 TS PO 3 H PRIOR TO INTERCOUR SE PRN 09/27 completed Not Available Not Available Not Available duloxetine 60 mg capsule,del ayed release TAKE 1 CAPSULE BY MOUTH EVERY DAY active Not Available Not Available No t Available metronidazo le 500mg 06/05 completed Not Available Not Available Not Available mometasone 0.1 % topical solution APPLY TO SCALP IN 3 ROWS TWICE DAILY NEEDED. RUB IN. DO NOT RINSE. 04/13 completed Not Available Not Available Not Available Pylera 140 mg-125 mg-125 mg capsule TK 3 CS PO QID FOR 7 DAYS 07/29 completed Not Available Not Available Not Available Symbicort 160 mcg-4.5 mcg/actuati on HFA aerosol inhaler INHALE 2 PUFFS BY MOUTH TWICE DAILY 05/27 completed Not Available Not Available Not Available testosteron e 20.25 mg/1.25 gram per pump act.(1.62 %) transdermal gel Apply 2 pumps every day by transderm al route as directed for 30 days. 10/11 completed Not Available Not Available Not Available Farxiga 10 mg tablet TAKE 1 TABLET BY MOUTH EVERY DAY DIRECTED active Not Available Not Available No t Available Vitals Date Recorded Body height Body mass index (BMI) Body weight Heart rate Oxygen saturation Oxygen saturation in Arterial blood by Pulse oximetry Systolic blood pressure Diastolic blood pressure Provider Name and Address Organization Details Last Updated DateTime 4 175.26 cm 32.2 kg/m2 27532.1 4 g 80 /min 98 % 98 % 122 mm[Hg] 76 mm[Hg] KENAN Jasso [facility] 4 11:05:37 Date Recorded Body height Body mass index (BMI) Body weight Body temperature Heart rate Oxygen saturation Oxygen saturation in Arterial blood by Pulse oximetry Systolic blood pressure Diastolic blood pressure Provider Name and Address Organization Details Last Updated DateTime 4 175.26 cm 33.2 kg/m2 638040. 28 g 98.4 [degF] 80 /min 95 % 95 % 120 mm[Hg] 74 mm[Hg] Reyna Candelaria CMA [facility] 4 08:53:18 Date Recorded Heart rate Respiratory rate Provider N marisol and Address Organization Details Last Updated DateTime 09/25/2024 80 /min 15 /min Sharad Navarro MD [address], [facility] [address], [place], [address], [facility] 09/25/2024 09:01:10 Date Recorded Body height Heart rate Oxygen saturation Oxygen saturation in Arterial blood by Pulse oximetry Body mass index (BMI) Body weight Systolic blood pressure Diastolic blood pressure Provider Name and Address Organization Details Last Updated DateTime 4 175.26 cm 63 /min 94 % 94 % 32 kg/m2 44469.5 4 g 110 mm[Hg] 74 mm[Hg] Darby Fernandez Nixon [facility] [employer] 4 11:39:21 Date Recorded Body height Body mass index (BMI) Body weight Body temperature Oxygen saturation Oxygen saturation in Arterial blood by Pulse oximetry Heart rate Systolic blood pressure Diastolic blood pressure Provider Name and Address Organization Details Last Updated DateTime 4 175.26 cm 33.4 kg/m2 416645. 63 g 97.3 [degF] 95 % 95 % 89 /min 134 mm[Hg] 86 mm[Hg] Karin Adamson RN [facility] 4 17:53:30 Social History Question Answer Notes LastModified by Organizat ion Details LastModified Time Tobacco Smoking Status Never Smoker Piter Fair MD [address], [address], [address], [facility] [employer] 06/02/2023 14:52:09 Do You Have An Advance Directive? No [id number] Information not available 01/20/2023 What Is Your Level Of Alcohol Consumption? None [id number] Information not available 01/20/2023 Do You Wear A Helmet When Biking? No [email or web address] Information not available 06/02/2023 What Is Your Level Of Caffeine Consumption? Moderate Information not available 06/02/2023 In The 14 Days Before Symptom Onset, Have You Had Close Contact With A Laboratory-confi rmed COVID-19 While That Case Was Ill? No [email or web address] Information not available 06/02/2023 In The 14 Days Before Symptom Onset, Have You Had Close Contact With A Person Who Is Under Investigation For COVID-19 While That Person Was Ill? No [email or web address] Information not available 06/02/2023 What Type Of Diet Are You Following? GLUTENFREE [email or web address] Information not available 06/02/2023 What Is The Highest Grade Or Level Of School You Have Completed Or The Highest Degree You Have Received? [id number] [email or web address] Information not available 06/02/2023 Do You Have An Electrostatic Air Filter? 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 No [email or web address] Information not available 06/02/2023 What Is The Fluoride Status Of Your Home? Unknown [email or web address] Information not available 06/02/2023 Are There Any Guns Present In Your Home? No Information not available 06/02/2023 Do You Have A Humidifier? Yes Information not available 06/19/2024 Do You Use Insect Repellent Routinely? Yes Information not available 06/02/2023 Where Do You Live? SingleLevelHouse [email or web address] Information not available 06/02/2023 Do You Have A Medical Power Of Plunger Shovel Operator? No [email or web address] Information not available 06/02/2023 Do You Have Moisture Problems In Your Home? No Information not available 06/19/2024 What Was The Date Of Your Most Recent Tobacco Screening? 07/18/2024 [email or web address] Information not available 07/18/2024 Do You Have Any Pets? No [email or web address] Information not available 06/02/2023 What Is Your Relationship Status? [id number] Information not available 01/20/2023 Do You Use Your Seat Belt Or Car Seat Routinely? Yes [email or web address] Information not available 06/02/2023 Do You Have Smoke And Carbon Monoxide Detectors In Your Home? Yes [email or web address] Information not available 06/02/2023 Are You Passively Exposed To Smoke? No [email or web address] Information not available 06/02/2023 Are There Any Smokers In Your House? No [email or web address] Information not available 06/02/2023 Do You Participate In Social Media? No [email or web address] Information not available 06/02/2023 Do You Feel Stressed (tense, Restless, Nervous, Or Anxious, Or Unable To Sleep At Night)? [id number] [email or web address] Information not available 06/02/2023 Do You Use Any Illicit Or Recreational Drugs? No [email or web address] Information not available 06/02/2023 Do You Use Sunscreen Routinely? Yes [email or web address] Information not available 06/02/2023 Has Tobacco Cessation Counseling Been Provided? No [email or web address] Information not available 06/02/2023 Have You Recently Traveled Abroad? No [email or web address] Information not available 06/02/2023 Are You Currently In School? No [email or web address] Information not available 06/02/2023 Do You Have Any Dietary Restrictions? No [email or web address] Information not available 06/02/2023 Do You Or Have You Ever Used Any Other Forms Of Tobacco Or Nicotine? No [email or web address] Information not available 06/02/2023 Sex: Male Functional Status Question Answer Note LastModified by [employer] ion Details LastModified Time What is your exercise level? Moderate [id number] Information not available 01/20/2023 Mental Status None recorded. Family History Relationship Description Onset Age of this Age Resolved Age Notes LastModified by Organization Details LastModified Time Brother Disorder of thyroid gland [email or web address] Not available 2023 18:25:40 Brother Malignant tumor of thyroid gland [email or web address] Not available 2023 11:35:35 Brother Hyperlipidem ia [email or web address] Not available 2023 11:35:36 Brother Myocardial infarction [email or web address] Not available 06/12 18:28:25 Mother Anxiety disorder [email or web address] Not available 2022 14:52:15 Mother Depressive disorder Not available 2022 14:52:15 Mother Alzheimer's disease [email or web address] Not available 2023 11:35:36 Maternal Grandmother Diabetes mellitus [email or web address] Not available 2022 14:52:15 Maternal Grandmother Malignant tumor of breast [email or web address] Not available 2023 11:35:36 Father Heart disease 43 [email or web address] Not available 2022 14:52:15 Father Substance abuse [email or web address] Not available 2022 14:52:15 Maternal Grandfather Cerebrovascu lar accident [email or web address] Not available 11:35:36 Sister Rheumatoid arthritis [email or web address] Not available 2023 11:35:36 Paternal Grandmother Rheumatoid arthritis [email or web address] Not available 2023 11:35:36 Paternal Grandmother Alzheimer's disease [email or web address] Not available 2023 11:35:36 Medical History Condition Response HEADACHES/MIGRAINES Y OTHER # 1 Y ANXIETY DISORDER Y GI PROBLEMS Y DEPRESSION (INCLUDING POST ) Y ERECTILE DYSFUNCTION Y HIGH CHOLESTEROL / HYPERLIPIDEMIA Y Immunizations Vaccine Type Date Status Note Provider Nam e and Address Organization Details Recorded Time Influenza, split virus, quadrivalent, PF 2 completed Not Available [facility] 01/20/2023 17:46:16 influenza, unspecified formulation 5 completed Not Available [facility] 01/20/2023 17:46:16 Tdap 2 completed Not Available [facility] 01/20/2023 17:46:16 Influenza, split virus, quadrivalent, PF 2 completed Not Available [facility] 01/20/2023 17:46:16 Past Encounters Encounter ID Performer Location Encounter Start Date Encounter Closed Date Diagnosis/Indication Diagnosis SNOMED-CT Code Diagnosis ICD10 Code Diagnosis Note [id number] [facility] Jarred [address] [place] [address] 1 05/27/2022 00:00:00 05/27/2022 16:04:34 [id number] [facility] Jarred [address] [place] [id number] 1 06/17/2022 00:00:00 06/17/2022 12:31:30 [id number] [facility] Jarred [address] [place] [address] 1 10/29/2022 00:00:00 10/29/2022 17:37:[id number] [address] 12/31/2022 00:00:00 12/31/2022 17:10:24 [id number] Piter Fair MD [address] [address] 06/02/2023 14:27:25 06/02/2023 14:56:09 Adult health examination 700198974 Z00.00 Bilateral wrist pain 509 1580537 6589823 M25.531 Vitamin D deficiency 347 86530 E55.9 Obesity 732971671 E66.9 Pain of left wrist 32605 27649 17427 M25.532 Seasonal a llergic rhinitis 409564399 J30.2 Erectile dysfunction 860 089891 F52.21 [id number] Piter Fair MD [address] [address] 06/22/2023 12:30:35 06/22/2023 12:48:45 Vitamin D deficiency 15320182 E55.9 Improved Obesity 425901660 E66.9 Pain of left wrist 75032 06247 32915 M25.532 Improved Seasonal a llergic rhinitis 221249303 J30.2 Erectile dysfunction 860 037407 F52.21 Serum crea tinine above reference range 697265510 R79.89 Hyperlipidemia 12160443 E78.5 [id number] SHANI Kaur [address] [address] 04/13/2024 16:28:34 04/13/2024 17:09:46 Serum creatinine above reference range 362607399 R79.89 Will consider Farxiga if microalbum in is elevated. High risk sexual behavior 022197410 Z72.51 [id number] Piter Fair MD [address] [address] 06/05/2024 10:30:25 06/05/2024 11:05:16 Vitamin D deficiency 93784932 E55.9 Improved Obesity 049056230 E66.9 Seasonal a llergic rhinitis 711779718 J30.2 Erectile dysfunction 860 000940 F52.21 Hyperlipidemia 31245394 E78.5 Adult [facility] th examination 177717698 Z00.00 Chronic ki dney disease stage 3 243600245 N18.30 Fatigue 40941620 R53.83 Sleep apnea 59208838 G47 .30 Hypertensive disorder 38 144971 I10 Irritable bowel syndrome 39726542 K58.9 Polyarthropathy 42704043 M13.0 [id number] Sharad Navarro MD [address] [address] 06/19/2024 10:03:41 06/21/2024 16:41:39 Obstructive sleep apnea syndrome 38881817 G47.33 G47.36 G47.61 [id number] Piter Fair MD [address] [address] 06/26/2024 11:35:47 06/26/2024 12:13:16 Vitamin D deficiency 33621800 E55.9 Improved Obesity 265955498 E66.9 Seasonal a llergic rhinitis 481697055 J30.2 Erectile dysfunction 860 080619 F52.21 Hyperlipidemia 25985844 E78.5 Chronic ki dney disease stage 3 593370935 N18.30 Fatigue 96786976 R53.83 Sleep apnea 62794224 G47 .30 Hypertensive disorder 38 280003 I10 Irritable bowel syndrome 86412369 K58.9 Polyarthropathy 01654418 M13.0 Male hypogonadism 540146 06 E29.1 [id number] Sharad Navarro MD [address] [address] 07/18/2024 09:34:00 07/18/2024 16:10:59 Obstructive sleep apnea syndrome 88944074 G47.33 G47.36 G47.30 [id number] Piter Fair MD [address] [address] 07/31/2024 14:00:09 07/31/2024 14:42:05 Diarrhea 87433501 R19.7 Nausea 856158114 R11.0 Gastroenteritis 67447074 K52.9 [id number] Sharad Navarro MD [place] [address] 0 08/09/2024 08:48:44 08/09/2024 10:41:47 Obstructive sleep apnea syndrome 98526801 G47.33 [id number] Giuliana Lucas MD [facility] General Surgery [address] [place] [address] 1 08/16/2024 11:01:35 08/16/2024 11:42:45 Irritable bowel syndrome with diarrhea 596679181 K58.0 [id number] Sharad Navarro MD [place] [address] 0 09/25/2024 08:44:34 11/14/2024 14:12:03 Obstructive sleep apnea syndrome 28650603 G47.33 [id number] Giuliana Lucas MD [facility] Surgery [address] [place] [address] 1 10/11/2024 11:35:18 10/11/2024 12:43:01 Irritable bowel syndrome with diarrhea 996054047 K58.0 [id number] Piter Fair MD [place] [id number] 1 10/30/2024 17:45:39 10/30/2024 18:02:28 Chronic kidney disease stage 3 165728462 N18.30 Gastroesop hageal reflux disease 275147678 K21.9 Hypertensive disorder 38 089596 I10 Hyperlipidemia 41321972 E78.5 Irritable bowel syndrome with diarrhea 089410514 K58.0 Recurrent herpes simplex 07679306 B00.9 [id number] Piter Fair MD [address] [address] 11/09/2024 12:30:33 11/09/2024 13:54:26 Nausea 156302446 R11.0 Polyarthropathy 71249129 M13.0 Fatigue 22253246 R53.83 Viral gastritis 09331947 7 K29.70 Health Concerns Section Related Observation LastModified by Organization Detai ls LastModified Time None Recorded Concern Status LastModified by Organization Details LastModified Time None Recorded Advance Directives Directive N: Payers Encounter Date Sequence Insurance Name Policy Number Policy Lucero Covered Member ID Lucero Member ID Guarantor Name 08/16/2024 1 [place] [id number] Sam D Zipfel [id number] Sam D Zipfel 09/25/2024 1 [place] [id number] Sam D Zipfel [id number] Sam D Zipfel 10/11/2024 1 [place] [id number] Sam D Zipfel [id number] Sam D Zipfel 10/30/2024 1 [place] [id number] Sam D Zipfel [id number] Sam D Zipfel 11/09/2024 1 [place] [id number] Sam D Zipfel [id number] Sam D Zipfel Notes Date Note Type Note Provider Name and Address Organization Details Recorded Time 08/16/2024 text/html SAM WAS SEEN I N THE OFFICE TODAY FOR EVALUATION . PT HAS IBS-D . PT REPORTS SPORADIC DIARRHEA GRADE 6/7 ON TE BSS. HE REPORTS CRAMPING . PT HAS DEPRESSION /ANXIETY FOR WHICH HE TAKES WELLBUTRIN /CELEXA . Giuliana Lucas MD [address] [place] [address], [address], [facility] [employer] 08/16/2024 12:04:29 09/25/2024 text/html Primary care/Ref erring provider: Piter Fair MD During the [facility] home sleep study on 06/08/24, AHI = 2. Oxygen however desaturated to <90% for 203.3 minutes. During the [facility] diagnostic sleep study on 07/12/24, sleep onset = 20.5 minutes, REM onset = 121 minutes, AHI = 8, supine AHI = 9, REM AHI = 25, PLMI = 0.0. During the [facility] titration sleep study on 07/26/24, sleep onset = 37 minutes, REM onset = 112.5 minutes, PLMI = 0.0. At home since 08/23/24, the patient uses a [employer] AirSense 11 autoset unit with heated humidification. The patient does not need the ramp to start low and go up slowly on the pressure. There is no xerostomia in a.m. There is no hose/mask condensation with water. The patient wears a [employer] large Bryanna nasal mask without chin strap. There is no claustrophobia, no nostril/nose bridge irritation, no facial rash, no facial numbness, no nosebleeding. The patient feels more refreshed upon waking and daytime alertness is improved. Energy levels are sustained for the remainder of the day. At home, the patient sleeps from 12 am to 7 am and wakes up with an alarm. Snoring: heavy, since .Snorting: noChoking: yesCoughing: yesGasping: yesGagging: noSighing: yesWitnessed apnea: yesTwitching or jerking of leg(s), arm(s), body, head: yesTeeth grinding: yesTeeth clenching: yesSleeptalking: yesSleepwalking: noSleep crying: yesBedwetting: yesTongue/lip/gum/michael k biting: yesSleeping with open mouth: yesSleep paralysis: noHypnagogic hallucinations: noHypnopompic hallucinations: noVivid dreams: yesDifficulty with sleep onset: noDifficulty with sleep maintenance: yesSleep interruptions: nocturia 5 nights per weekPatient wakes up with: fatigue, xerostomia, sore throat, hoarse voice, cognitive impairment, mobility impairment, dexterity impairmentDaytime cataplexy: noMorning hypersomnolence: yesAfternoon hypersomnolence: yesCaffeine sources in diet: coffee 1/2 cup per day, soda 36 oz per day, chocolate 1/3 candy bar per day Associated medical and psychiatric conditions:Congestive heart failure: noCoronary artery disease: noMyocardial infarction: noHypertension: yesStroke: noBronchial asthma: noChronic obstructive pulmonary disease: noDepression: yesBipolar disorder: noAnxiety: yesPanic disorder: noPosttraumatic stress disorder: noAttention deficit and hyperactivity disorder: noObsessive Compulsive disorder: noSchizophrenia: noSchizoaffective disorder: noPersonality disorder: noChronic analgesic use: noChronic sedative/hypnotic use: no EPWORTH SLEEPINESS SCALE (ESS) CHANCE OF DOZING SCORE0 = would never doze1 = slight chance of dozing2 = moderate chance of dozing3 = high chance of dozing SITUATION AND CHANCE OF DOZINGSitting and reading - 1Watching television - 1Sitting inactive in a public place (e.g. a theater or meeting) - 1As a passenger in a car for an hour without a break - 0Lying down to rest in the afternoon when circumstances permit - 3Sitting and talking to someone - 0Sitting quietly after lunch without alcohol - 1In a car, while stopped for a few minutes in the traffic - 0TOTAL SCORE 7Subjectively, patient has a slight chance of dozing. Sharad Navarro MD [address] [facility], [place] [address], [place], [address], [email or web address] 09/25/2024 09:15:03 10/11/2024 text/html SAM WAS SEEN I N THE OFFICE TODAY FOR A F/U. PT HAS IBS-D . DICYCLOMINE WAS RXED . PT HAS NOT TAKEN IT . PT REPORTS N/V/D IN AND RECENTLY. HE THINKS HE HAS THE STOMACH FLU. PT REQUESTED AN EGD /COLON FOR W/U. HE DENIES DM-2 EVEN THOUGH HIS CHART SAYS OTHERWISE . HE HAS OTHER ENDOCRINE ISSUES IN ADDITION TO CKD-3. Giuliana Lucas MD [address] [facility], [facility] [address], [place], [address], [email or web address] 10/11/2024 12:52:25 10/30/2024 text/html ACV: Pt has some questions about his last labs. Pt has been f/u with GI and got more testing with her. He will be seeing another specialist at [facility] for more testing. Denies any problem with meds. Denies any other concern. Pt is f/u with Psych for his mood and is on meds by them. Doing well with it. Piter Fair MD [address], [facility] [address], [place], [address], [facility] [employer] 10/30/2024 18:04:41 11/09/2024 text/html Telephone visit. ACV. C/o nausea, feeling fatigued since he woke up today morning. No issues until yesterday night. Denies any unusual outside food intake/known sick contact. No fever/chills/cough/con gestion/c/d/urinary symptoms. Pt has chronic nausea and he is f/u with GI for it and they did lot of testing and it was all good. So his GI recommended him to see another specialist for any autoimmune conditions. Pt has chronic joints pain and ? Raynaud's. Never seen any specialist for it. Piter Fair MD [address], [facility] [address], [place], [address], [facility] [employer] 11/09/2024 14:30:51
--- OUTSIDE RECORDS SUMMARY | 2024-12-21 09:18 | XMS_ITS | Referral Summary ---
Author Organization [facility] Address [address] [facility] [place] [address] Care Team Providers Care Artificial Glass Eye Maker Name Role Phone Piter Fair MD Primary Care Provider [phone] Source Comments [facility],non-[facility] and Associated Physician Practices is amultiple site organization consisting of ambulatory clinics and hospital sitesin [place], [place], [place] and [place]. This disclosure is being madepursuant to the Care Everywhere program and may not contain all information available regarding this patient. Last updated 18.[facility] Encounters Date Type Department Care Team Description 11/27/2024 Orders Only [facility] - Rheumatology [address] [place] [address], [address] [place] [phone] Cherrie Gay MD Polyarthralgia 11/23/2024 10:00 AM DREDGE OPERATOR Office Visit [facility] Rheumatology [address] [place] [address], [address] [place] [address] Cherrie Gay MD Polyarthralgia (Primary Dx); Raynaud's syndrome without gangrene; Cervicalgia; Encounter for long-term (current) use of high-risk medication; Renal insufficiency 11/10/2024 Telephone [facility] - Rheumatology [address] [place] [address], [address] [place] [address] [facility] from Last 3 Months Allergies No known active allergies Medications * [...] Active Active Problems No known active problems Social [...] Comments Blood Pressure 128/78 11/23/2024 10:12 AM DREDGE OPERATOR Pulse 75 11/23/2024 10:12 AM DREDGE OPERATOR Temperature 36.5 ??C (97.7 ??F) 11/23/2024 1 0:12 AM DREDGE OPERATOR Respiratory Rate 16 11/23/2024 10:1 2 AM DREDGE OPERATOR Oxygen Saturation 93% 11/23/2024 10: 12 AM DREDGE OPERATOR Inhaled Oxygen Concentration - - Weight 101.1 kg (222 lb 12.8 oz) 2024 10:12 AM DREDGE OPERATOR Height - - Body Mass Index - - Plan of Treatment Upcoming Encounters Date Type Department Care Team (Late st Contact Info) Description 12/26/2024 9:00 AM DREDGE OPERATOR Office Visit [facility] - Rheumatology [address] [facility], [address] [place] [address] Cherrie Gay MD [address] [place] [address] Procedures Procedure Name Priority Date/Time Associated Diagnosis Comments ERYTHROCYTE SEDIMENTATION RATE Routine 11/24/2024 2:20 PM DREDGE OPERATOR Polyarthralgia Raynaud's syndrome without gangrene Cervicalgia Encounter for long-term (current) use of high-risk medication CYCLIC CITRULLINATED PEPTIDE(CCP) AB IGG Routine 11/24/2024 2:20 PM DREDGE OPERATOR Polyarthralgia Raynaud's syndrome without gangrene Cervicalgia Encounter for long-term (current) use of high-risk medication C-REACTIVE PROTEIN Routine 11/24/2024 2: 20 PM DREDGE OPERATOR Polyarthralgia Raynaud's syndrome without gangrene Cervicalgia Encounter for long-term (current) use of high-risk medication CK BLOOD Routine 11/24/2024 2:20 PM DREDGE OPERATOR Polyarthralgia Raynaud's syndrome without gangrene Cervicalgia Encounter for long-term (current) use of high-risk medication ANGIOTENSIN CONVERTING ENZYME BLOOD Routine 11/24/2024 2:20 PM DREDGE OPERATOR Polyarthralgia Raynaud's syndrome without gangrene Cervicalgia Encounter for long-term (current) use of high-risk medication FERRITIN Routine 11/24/2024 2:17 PM DREDGE OPERATOR Polyarthralgia Raynaud's syndrome without gangrene Cervicalgia Encounter for long-term (current) use of high-risk medication SS-A (SJOGREN'S) ANTIBODY Routine 2024 2:17 PM DREDGE OPERATOR Polyarthralgia Raynaud's syndrome without gangrene Cervicalgia Encounter for long-term (current) use of high-risk medication ANCA SCREEN W MPO+PR3 W REFEX ANCA TITER Routine 11/24/2024 2:16 PM DREDGE OPERATOR Polyarthralgia Raynaud's syndrome without gangrene Cervicalgia Encounter for long-term (current) use of high-risk medication THIOPURINE METHYLTRANSFERASE Routine 11/24/2024 2:16 PM DREDGE OPERATOR Polyarthralgia Raynaud's syndrome without gangrene Cervicalgia Encounter for long-term (current) use of high-risk medication URIC ACID BLOOD Routine 11/24/2024 2:16 PM DREDGE OPERATOR Polyarthralgia Raynaud's syndrome without gangrene Cervicalgia Encounter for long-term (current) use of high-risk medication SS-B (SJOGREN'S) ANTIBODY Routine 2024 2:16 PM DREDGE OPERATOR Polyarthralgia Raynaud's syndrome without gangrene Cervicalgia Encounter for long-term (current) use of high-risk medication HLA TYPING B27 Routine 11/24/2024 2:16 PM DREDGE OPERATOR Polyarthralgia Raynaud's syndrome without gangrene Cervicalgia Encounter for long-term (current) use of high-risk medication XR CERVICAL SPINE 2 OR 3VW Routine 11/24/2024 Polyarthralgia XR HAND BILAT 2VW Routine 11/24/2024 Polyarthralgia XR SHOULDER BILAT 2VW OR MORE Routine 11/24/2024 Polyarthralgia from Last 3 Months Results * C-REACTIVE PROTEIN (11/24/2024 2:20 PM DREDGE OPERATOR) Pathologist [facility] [place] C-Reactive Protein 7.7 <8.0 mg/L [facility] Comment: Test Performed at: [employer], [place] ??[phone] ALISA MONCADA MD Blood BLOOD SPECIMEN / Unknown 11/24/2024 2:20 PM DREDGE OPERATOR 11/24/2024 2:20 PM DREDGE OPERATOR Cherrie Gay MD LAB - CHEMISTRY LUIS MANUEL LIANG [facility] Organization Address City/State/ZIP Co de Phone Number [facility] [address] [place] [address] * ANGIOTENSIN CONVERTING ENZYME BLOOD (11/24/2024 2:20 PM DREDGE OPERATOR) Angiotensin-Conv erting Enzyme 40 9 - 67 U/L [facility] Comment: Test Performed at: [employer] [place], [place] ??[phone] ALISA MONCADA MD Blood BLOOD SPECIMEN / Unknown 11/24/2024 2:20 PM DREDGE OPERATOR 11/24/2024 2:20 PM DREDGE OPERATOR Cherrie Gay MD LAB - CHEMISTRY LUIS MANUEL LIANG Performing Organization Address [facility] Co de Phone Number [facility] [address] [place] [address] * CYCLIC CITRULLINATED PEPTIDE(CCP) AB IGG (11/24/2024 2:20 PM DREDGE OPERATOR) Cyclic Citrullinated Peptide Antibody IgG <16 UNITS [facility] Comment: Reference Range Negative: ?<20 Weak Positive: ? 20-39 Moderate Positive: ?? 40-59 Strong Positive: ? >59 Test Performed at: [facility] [address] [place], [place] ??[phone] ALISA MONCADA MD Blood BLOOD SPECIMEN / Unknown 11/24/2024 2:20 PM DREDGE OPERATOR 11/24/2024 2:20 PM DREDGE OPERATOR Cherrie Gay MD LAB - CHEMISTRY LUIS MANUEL LIANG Performing Organization Address [facility] Co de Phone Number [facility] [phone] [place] [phone] * (ABNORMAL) ERYTHROCYTE SEDIMENTATION RATE (11/24/2024 2:20 PM DREDGE OPERATOR) Pathologist [facility] [place] Erythrocyte Sedimentation Rate Westergren 17(H) < OR = 15 mm/h [facility] Comment: Test Performed at: [employer] [place], [place] ??[phone] ALISA MONCADA MD Blood BLOOD SPECIMEN / Unknown 11/24/2024 2:20 PM DREDGE OPERATOR 11/24/2024 2:20 PM DREDGE OPERATOR Cherrie Gay MD LAB - HEMATOLOGY ORD ERATIERNEY Performing Organization Address [facility] Co de Phone Number [facility] [phone] [place] [address] * CK BLOOD (11/24/2024 2:20 PM DREDGE OPERATOR) Pathologist [facility] [place] CK 80 44 - 196 U/L [facility] Comment: Test Performed at: [facility] [address] [place] [address] ??[phone] ALISA MONCADA MD Blood BLOOD SPECIMEN / Unknown 11/24/2024 2:20 PM DREDGE OPERATOR 11/24/2024 2:20 PM DREDGE OPERATOR Cherrie Gay MD LAB - CHEMISTRY LUIS MANUEL LIANG [facility] [address] [place] [address] * SS-A (SJOGREN'S) ANTIBODY (11/24/2024 2:17 PM DREDGE OPERATOR) [facility] Sjogren's Antibodies (SSA) <1.0 NEG <1.0 NEG AI [facility] Comment: Test Performed at: [facility] ??[phone] ALISA MONCADA MD Blood BLOOD SPECIMEN / Unknown 11/24/2024 2:17 PM DREDGE OPERATOR 11/24/2024 2:19 PM DREDGE OPERATOR Cherrie Gay MD LAB - CHEMISTRY LUIS MANUEL LIANG Performing Organization Address [facility] Co de Phone Number [facility] [phone] [place] [address] * (ABNORMAL) FERRITIN (11/24/2024 2:17 PM DREDGE OPERATOR) [facility] Ferritin 23(L) 38 - 380 ng/mL [facility] Comment: Test Performed at: [facility] [address] [place] [address] ??[phone] ALISA MONCADA MD Blood BLOOD SPECIMEN / Unknown 11/24/2024 2:17 PM DREDGE OPERATOR 11/24/2024 2:19 PM DREDGE OPERATOR Cherrie Gay MD LAB - CHEMISTRY LUIS MANUEL LIANG Performing Organization Address [facility]/ZIP Co de Phone Number [facility] [phone] [place] [address] * ANCA SCREEN W MPO+PR3 W REFEX ANCA TITER (11/24/2024 2:16 PM DREDGE OPERATOR) ANCA Screen Negative Negative [facility] Comment: ANCA [...] >or=1.0 AI: Antibody Detected Autoantibodies to proteinase-3 (SC-3) are accepted as characteristic for granulomatosis with polyangiitis (GPA, Catrachita's), and are detectable in 95% of the histologically proven cases. The cytoplasmic IFA pattern, (c-ANCA), is based largely on autoantibody to SC-3 which serves as the primary antigen. These autoantibodies are present in active disease. Test Performed at: [facility] [address] [place], [place] ??[phone] MATTHEW LEVI MD,PHD Blood BLOOD SPECIMEN / Unknown 11/24/2024 2:16 PM DREDGE OPERATOR 11/24/2024 2:16 PM DREDGE OPERATOR Cherrie Gay MD LAB - CHEMISTRY LUIS MANUEL LIANG Performing Organization Address City/[facility]/ZIP Co de Phone Number [facility] [phone] [place] [address] * URIC ACID BLOOD (11/24/2024 2:16 PM DREDGE OPERATOR) Pathologist [facility] [place] Uric Acid 6.0 4.0 - 8.0 mg/dL [facility] Comment: Therapeutic target for gout patients: <6.0 mg/dL ?? Test Performed at: [facility] [address] [place] [address] ??[phone] ALISA MONCADA MD Blood BLOOD SPECIMEN / Unknown 11/24/2024 2:16 PM DREDGE OPERATOR 11/24/2024 2:16 PM DREDGE OPERATOR Cherrie Gay MD LAB - CHEMISTRY LUIS MANUEL LIANG Performing Organization Address City/[facility]/ZIP Co de Phone Number [facility] [phone] [place] [address] * HLA TYPING B27 (11/24/2024 2:16 PM DREDGE OPERATOR) Pathologist [facility] [place] HLA-B27 Antigen NEGATIVE NEGATIVE [facility] Comment: Test Performed at: [facility] [address] ??[phone] TAMMIE WHITTINGTON Blood BLOOD SPECIMEN / Unknown 11/24/2024 2:16 PM DREDGE OPERATOR 11/24/2024 2:16 PM DREDGE OPERATOR Cherrie Gay MD LAB - CHEMISTRY LUIS MANUEL LIANG Performing Organization Address City/[facility]/ZIP Co de Phone Number [facility] [phone] [place] [address] * SS-B (SJOGREN'S) ANTIBODY (11/24/2024 2:16 PM DREDGE OPERATOR) Pathologist [facility] [place] Sjogren's Antibodies (SSB) <1.0 NEG <1.0 NEG AI [facility] Comment: Test Performed at: [facility] [employer] [address] [place], [place] ??[phone] ALISA MONCADA MD Blood BLOOD SPECIMEN / Unknown 11/24/2024 2:16 PM DREDGE OPERATOR 11/24/2024 2:16 PM DREDGE OPERATOR hCerrie Gay MD LAB - CHEMISTRY LUIS MANUEL LIANG Performing Organization Address [facility] Co de Phone Number [facility] [phone] [place] [address] * THIOPURINE METHYLTRANSFERASE (11/24/2024 2:16 PM DREDGE OPERATOR) Pathologist [facility] [place] TPMT Activity 17 nmol/hr/mL RBC [facility] Comment: Reference Range for TPMT Activity: ?? >12 ? Normal ??4-12 ? Heterozygote or low metabolizer ?<4 ? Homozygote Deficient Range This test was developed and its analytical performance characteristics have been determined by [employer]. It has not been cleared or approved by FDA. This assay has been validated pursuant to the CLIA regulations and is used for clinical purposes. Test Performed at: [facility] [address] [place], [place] ??[phone] DAVE GAMINO MD,PHD,JOVANI Blood BLOOD SPECIMEN / Unknown 11/24/2024 2:16 PM DREDGE OPERATOR 11/24/2024 2:16 PM DREDGE OPERATOR Cherrie Gay MD LAB - CHEMISTRY LUIS MANUEL LIANG Performing Organization Address [facility]/ZIP Co de Phone Number [facility] [address] [place] [address] * XR Hand Bilat 2Vw (11/24/2024) Anatomical [...] Other Cherrie Gay MD DIAGNOSTIC IMAGING O RDERATIERNEY from Last 3 Months Care Teams Artificial Glass Eye Maker Relationship Specialty Start Date End Date Piter Fair MD [address] [place] [phone] PCP - General Family Medicine 11/10/24
[2024-12-21 09:41] VITALS: BP 123/78; PULSE 65; RESP 16; TEMP 36.6; O2SAT 100
[2024-12-21 09:56] LABS: Basophils Absolute Auto 0.1 K/mm3 (0.0-0.1); Basophils Percent Auto 0.3 % (0.2-1.2); Eosinophils Absolute Auto 0.1 K/mm3 (0-0.3); Eosinophils Percent Auto 0.9 % (0-4.4); Hematocrit 47.9 % (42.0-52.0); Hemoglobin 15.8 g/dL (14.0-18.0); Immature Granulocyte Absolute 0.06 K/mm3 (0.00-0.031); Immature Granulocyte Percent A 0.4 % (0-0.5); Lymphocytes Absolute Auto 1.77 K/mm3 (0.9-3.2); Lymphocytes Percent Auto 11.6 % (18.3-44.2); Mean Corpuscular Hemoglobin 30.9 pg (26-34); Mean Corpuscular Volume 93.6 fl (80-100); Mean Platelet Volume 8.9 fl (7.4-10.4); Monocytes Absolute Auto 1.3 K/mm3 (0.1-0.6); Monocytes Percent Auto 8.5 % (2.6-8.5); Neutrophils Percent Auto 78.3 % (45.5-73.1); Platelet Count Result 334 k/mm3 (150-375); Red Blood Count 5.12 M/mm3 (4.6-6.20); Red Cell Distribution Width 13.3 % (11.5-14.5); White Blood Count 15.3 K/mm3 (4.5-10.0)
[2024-12-21 10:10] LABS: Alanine Aminotransferase 25 U/L (6-50); Albumin Level 4.5 g/dL (3.5-5.1); Alkaline Phosphatase 84 U/L (38-126); Anion Gap 11 mmol/L (4-12); Aspartate Amino Transferase 25 U/L (17-59); Bilirubin,Total 0.7 mg/dL (0.2-1.3); Blood Urea Nitrogen 15 mg/dL (9-20); Carbon Dioxide 27 mmol/L (22-30); Chloride 104 mmol/L (98-107); Estimated CRCL calculation 79 ml/min; Estimated Glomerular Filt Rate > 60; Glucose 101 mg/dL (65-110); Lipase 66 U/L (23-300); Potassium 4.3 mmol/L (3.4-5.0); Sodium 142 mmol/L (137-145)
[2024-12-21 10:25] VITALS: BP 118/74; PULSE 64; RESP 16; TEMP 36.8; O2SAT 95
[2024-12-21 10:35] LABS: Appearance Urine Clear (Clear); Color Urine Yellow (Yellow)
[2024-12-21 10:36] LABS: Glucose Urine UA Negative (Negative); Ketones Urine Negative (Negative); Protein Urine Negative (Negative); Specific Grav Ur >= 1.030 (1.001-1.035)
[2024-12-21 10:37] LABS: Bilirubin Urine Negative (Negative); Blood Urine Trace-Lysed (Negative); Nitrate Urine Negative (Negative); Urobilinogen Urine 0.2 mg/dL (<2.0)
[2024-12-21 10:38] LABS: Leukocyte Esterase Ur Negative LEU/UL (Negative)
[2024-12-21 10:39] LABS: Add Urine Microscopic? YES; Squamous Epithelial Cell Urine Few /hpf (Few)
[2024-12-21 10:44] LABS: Bacteria Urine Trace /hpf; RBC Urine 0-2 /hpf (0-2); WBC Urine 0-3 /hpf (0-3)
[2024-12-21 11:00] VITALS: BP 116/78; PULSE 68; RESP 16; TEMP 36.6; O2SAT 97
--- NOTE | 2024-12-21 11:46 | ED_ITS ---
HPI - General Adult General Chief complaint: Nausea/Vomiting/Diarrhea Stated complaint: nausea, diarrhea Time Seen by Provider: 12/21/24 10:13 History of Present Illness HPI narrative: 44-year-old male presenting to the emergency department for evaluation for nausea vomiting diarrhea. Patient reports he does have cyclic issues with nausea and vomiting. He states he has had approximately 7 episodes of this in the last few months. Patient has had follow-up with his GI physician and is scheduled to have follow-up with an title processor. Patient has attempted a elimination diet. Patient states he began having worsening symptoms at approximately 4:00 a.m. this morning. Patient did take Zofran and this did not help. Patient suspects that this is typically due to allergies to food. Patient states he had a new food yesterday that was honey mustard. Related Data Home Medications ?Medication ?Instructions ?Recorded ?Confirmed ?Last Taken ?Type bupropion HCl 150 mg 24 hr tablet, 300 mg PO QAM 04/17/20 12/02/23 Unknown History extended release (Wellbutrin XL) cholecalciferol (vitamin D3) 125 125 mcg PO WEEKLY 04/17/20 11/11/20 Unknown History mcg (5,000 unit) disintegrating tablet loratadine 10 mg tablet (Claritin) 10 mg PO DAILY 10/30/20 12/02/23 Unknown History montelukast 10 mg tablet 10 mg PO HS 12/02/23 12/02/23 Unknown History rosuvastatin 10 mg tablet 10 mg PO HS 12/02/23 12/02/23 Unknown History Allergies Allergy/AdvReac Type Severity Reaction Status Date / Time No Known Allergies Allergy Verified 12/21/24 09:10 Review of Systems 2 Review of Systems: All systems reviewed & are unremarkable except as noted in HPI and below PMFSH Past Medical History Medical History Anxiety Depression GERD (gastroesophageal reflux disease) HLD (hyperlipidemia) Irritable bowel syndrome Family History Family History Sibling Hypertension Family history of thyroid disease Family history of obesity Depression Family history of malignant neoplasm Mother Family history of Alzheimer's disease Patient's mother is in good health Family history of thyroid disease Family history of mental disorder Depression Father Family history of coronary artery disease Family history of alcoholism Acute myocardial infarction Other Cerebrovascular accident Diabetes mellitus Family history of cardiovascular disease Family history of elevated blood lipids Family history of glaucoma Family history of malignant neoplasm of breast in first degree relative Family history of sudden Social History Social History Smoking status: Never smoker Second hand tobacco smoke exposure: No Alcohol intake: never Exam 2 Narrative: APPEARANCE: Well appearing, no pain, no distress, well-nourished. HEAD: normocephalic, atraumatic. EYES: PERRLA/EOMI, conjunctivae clear. NOSE: Normal no drainage EARS:TMS clear with good light reflex. THROAT: Pharynx clear, no exudate. NECK: Supple. No adenopathy, no masses. RESPIRATORY: Airway patent, respirations nonlabored. Clear to auscultation bilaterally, no rales, rhonchi, wheezing. CARDIOVASCULAR: Regular rate and rhythm without murmurs rubs or gallops. ABDOMINAL: Mild diffuse abdominal tenderness with a nonsurgical abdomen MUSCULOSKELETAL: Moves all extremities. Strength/ROM intact, No edema, No calf tenderness. NEURO: Alert. Cranial nerves II through XII intact. Good gait. Good coordination SKIN: Warm, dry. Normal Color Course Vital Signs Vital signs: Vital Signs Temperature 98.3 F 12/21/24 09:05 Pulse Rate 82 12/21/24 09:05 Respiratory Rate 16 12/21/24 09:05 Blood Pressure 137/84 12/21/24 09:05 Pulse Oximetry 97 12/21/24 09:05 Oxygen Delivery Room Air 12/21/24 09:05 Temperature 97.9 F 12/21/24 12:45 Pulse Rate 68 12/21/24 12:45 Respiratory Rate 16 12/21/24 12:45 Blood Pressure 109/70 12/21/24 12:45 Pulse Oximetry 98 12/21/24 12:45 Oxygen Delivery Room Air 12/21/24 09:05 Medical Decision Making MDM Narrative Medical decision making narrative: 44-year-old male presents to the emergency department for evaluation for cyclic nausea and vomiting. Patient's symptoms were treated with IV Reglan and IV famotidine and IV fluids. Patient did feel improved with treatment. Patient was afebrile but does have a leukocytosis of 15.3 this may be secondary to the nausea and vomiting, hemoglobin was 15.8. UA was negative for infection. Patient will be provided Reglan for home and patient was guarded have close follow-up with GI. Differential Diagnosis Differential Diagnosis: Cyclic vomiting, food allergies, colitis, dehydration, gastritis, esophagitis Vital Signs Vital Signs: Vital Signs Temperature 98.3 F 12/21/24 09:05 Pulse Rate 82 12/21/24 09:05 Respiratory Rate 16 12/21/24 09:05 Blood Pressure 137/84 12/21/24 09:05 Pulse Oximetry 97 12/21/24 09:05 Oxygen Delivery Room Air 12/21/24 09:05 Temperature 97.9 F 12/21/24 12:45 Pulse Rate 68 12/21/24 12:45 Respiratory Rate 16 12/21/24 12:45 Blood Pressure 109/70 12/21/24 12:45 Pulse Oximetry 98 12/21/24 12:45 Oxygen Delivery Room Air 12/21/24 09:05 Lab Data Lab results reviewed: Yes I reviewed the patient's lab results. 12/21/24 09:46 12/21/24 09:46 Labs: Lab Results 12/21/24 12/21/24 Range/Units 09:46 11:56 WBC 15.3 H (4.5-10.0) K/mm3 RBC 5.12 (4.6-6.20) M/mm3 Hgb 15.8 (14.0-18.0) g/dL Hct 47.9 (42.0-52.0) % MCV 93.6 (80-100) fl MCH 30.9 (26-34) pg MCHC 33.0 (32-36) g/dl RDW 13.3 (11.5-14.5) % Plt Count 334 (150-375) k/mm3 MPV 8.9 (7.4-10.4) fl Immature Gran % (Auto) 0.4 (0-0.5) % Neut % (Auto) 78.3 H (45.5-73.1) % Lymph % (Auto) 11.6 L (18.3-44.2) % [place] % (Auto) 8.5 (2.6-8.5) % Eos % (Auto) 0.9 (0-4.4) % Baso % (Auto) 0.3 (0.2-1.2) % Lymph # (Auto) 1.77 (0.9-3.2) K/mm3 [place] # (Auto) 1.3 H (0.1-0.6) K/mm3 Eos # (Auto) 0.1 (0-0.3) K/mm3 Baso # (Auto) 0.1 (0.0-0.1) K/mm3 Abs Immat Gran (auto) 0.06 H (0.00-0.031) K/mm3 Absolute Neuts (auto) 12.0 H (1.3-6.7) K/mm3 Absolute Nucleated RBC 0.000 (0.0-0.012) K/mm3 Nucleated RBC % 0.0 (0.0-0.2) % Sodium 142 (137-145) mmol/L Potassium 4.3 (3.4-5.0) mmol/L Chloride 104 (98-107) mmol/L Carbon Dioxide 27 (22-30) mmol/L Anion Gap 11 (4-12) mmol/L BUN 15 (9-20) mg/dL Creatinine 1.23 (0.7-1.3) mg/dL Estim Creat Clear Calc 79 ml/min Estimated GFR > 60 (59 - ) Glucose 101 (65-110) mg/dL Calcium 10.0 (8.4-10.2) mg/dL Total Bilirubin 0.7 (0.2-1.3) mg/dL AST 25 (17-59) U/L ALT 25 (6-50) U/L Alkaline Phosphatase 84 (38-126) U/L Total Protein 8.0 (6.3-8.2) g/dL Albumin 4.5 (3.5-5.1) g/dL Lipase 66 (23-300) U/L Urine Color Yellow (Yellow) Urine Appearance Clear (Clear) Urine pH 6.0 (5.0-9.0) Ur Specific Markle >= 1.030 (1.001-1.035) Urine Protein Negative (Negative) mg/dL Urine Glucose (UA) Negative (Negative) mg/dL Urine Ketones Negative (Negative) mg/dL Ur Blood (Man) Trace-lysed H (Negative) Urine Nitrate Negative (Negative) Urine Bilirubin Negative (Negative) Urine Urobilinogen 0.2 (<2.0) mg/dL Leukocyte Esterase Rfl Negative (Negative) REESE/UL Urine RBC 0-2 (0-2) /hpf Urine WBC 0-3 (0-3) /hpf Ur Squamous Epith Cells Few (Few) /hpf Urine Bacteria Trace /hpf Urine Opiates Screen Negative (Negative) Urine Methadone Screen Negative (Negative) Ur Barbiturates Screen Negative (Negative) Ur Phencyclidine Scrn Negative (Negative) Ur Amphetamine Screen Negative (Negative) U Benzodiazepines Scrn Negative (Negative) Urine Cocaine Screen Negative (Negative) U Cannabinoids Screen Negative (Negative) Discharge Plan Discharge Clinical Impression: Cyclical vomiting Patient Disposition: Home, Self-Care Condition: Stable Instructions: Antibiotic Form, Clear Liquid Diet (ED), Acute Nausea and Vomiting (ED) Additional Instructions: Continue to take your home medications as directed. Zofran as needed for nausea control. Have close follow-up with GI. If you have any worsening symptoms then please call or return to the emergency department. Patient Language: French Prescriptions: No Action montelukast 10 mg tablet 10 mg PO HS rosuvastatin 10 mg tablet 10 mg PO HS prednisone 20 mg tablet 40 mg PO DAILY 5 Days Qty: 10 0RF albuterol sulfate 90 mcg/actuation HFA aerosol inhaler 2 puff inhalation Q4-6H PRN (Reason: shortness of breath or wheezing) 30 Days Qty: 8.5 0RF amoxicillin-pot clavulanate 875-125 mg tablet 1 tablet PO Q12H 10 Days Qty: 20 0RF (DME) Aerochamber MV Spacer See Rx Instructions .Route Qty: 1 0RF Rx Instructions: As directed albuterol sulfate 90 mcg/actuation HFA aerosol inhaler 2 puff inhalation QID PRN (Reason: shortness of breath or wheezing) Qty: 6.7 0RF cholecalciferol (vitamin D3) 125 mcg (5,000 unit) tablet,disintegrating 125 mcg PO WEEKLY bupropion HCl [Wellbutrin XL] 150 mg tablet extended release 24 hr 300 mg PO QAM loratadine [Claritin] 10 mg tablet 10 mg PO DAILY sildenafil [Viagra] 50 mg tablet 50 mg PO DAILY PRN (Reason: sexual activity) Qty: 10 10RF Rx Instructions: administer 30 minutes to 4 hours before activity pantoprazole [Protonix] 20 mg tablet,delayed release (DR/EC) 20 mg PO QAM Qty: 90 1RF ergocalciferol (vitamin D2) 1,250 mcg (50,000 unit) capsule 1,250 mcg PO WEEKLY Qty: 12 1RF valacyclovir [Valtrex] 500 mg tablet 500 mg PO DAILY Qty: 90 1RF Follow-up/Referrals: Marv,MD Piter [Primary Care Provider] -
--- OUTSIDE RECORDS SUMMARY | 2024-12-21 11:50 | XMS_ITS | Referral Summary ---
Author Organization [facility] Address [address] [facility] [place] [address] Care Team Providers Care Internet Technology Manager Name Role Phone Piter Fair MD Primary Care Provider [phone] Source Comments [facility],non-[facility] and Associated Physician Practices is amultiple site organization consisting of ambulatory clinics and hospital sitesin [place], [place], [place] and [place]. This disclosure is being madepursuant to the Care Everywhere program and may not contain all information available regarding this patient. Last updated 18.[facility] Encounters Date Type Department Care Team Description 11/27/2024 Orders Only [facility] - Rheumatology [address] [place] [address], [address] [place] [phone] Cherrie Gay MD Polyarthralgia 11/23/2024 10:00 AM PINKING SEWING MACHINE OPERATOR Office Visit [facility] Rheumatology [address] [place] [address], [address] [place] [address] Cherrie Gay MD Polyarthralgia (Primary Dx); Raynaud's syndrome without gangrene; Cervicalgia; Encounter for long-term (current) use of high-risk medication; Renal insufficiency 11/10/2024 Telephone [facility] - Rheumatology [address] [place] [address], [address] [place] [phone] [facility] from Last 3 Months Allergies [...] Comments Blood Pressure 128/78 11/23/2024 10:12 AM PINKING SEWING MACHINE OPERATOR Pulse 75 11/23/2024 10:12 AM PINKING SEWING MACHINE OPERATOR Temperature 36.5 ??C (97.7 ??F) 11/23/2024 1 0:12 AM PINKING SEWING MACHINE OPERATOR Respiratory Rate 16 11/23/2024 10:1 2 AM PINKING SEWING MACHINE OPERATOR Oxygen Saturation 93% 11/23/2024 10: 12 AM PINKING SEWING MACHINE OPERATOR Inhaled Oxygen Concentration - - Weight 101.1 kg (222 lb 12.8 oz) 2024 10:12 AM PINKING SEWING MACHINE OPERATOR Height - - Body Mass Index - - Plan of Treatment Upcoming Encounters Date Type Department Care Team (Late st Contact Info) Description 12/26/2024 9:00 AM PINKING SEWING MACHINE OPERATOR Office Visit [facility] - Rheumatology [address] [facility], [address] [place] [address] Cherrie Gay MD [address] [facility] [facility] [address] [place] [address] Procedures Procedure Name Priority Date/Time Associated Diagnosis Comments ERYTHROCYTE SEDIMENTATION RATE Routine 11/24/2024 2:20 PM PINKING SEWING MACHINE OPERATOR Polyarthralgia Raynaud's syndrome without gangrene Cervicalgia Encounter for long-term (current) use of high-risk medication CYCLIC CITRULLINATED PEPTIDE(CCP) AB IGG Routine 11/24/2024 2:20 PM PINKING SEWING MACHINE OPERATOR Polyarthralgia Raynaud's syndrome without gangrene Cervicalgia Encounter for long-term (current) use of high-risk medication C-REACTIVE PROTEIN Routine 11/24/2024 2: 20 PM PINKING SEWING MACHINE OPERATOR Polyarthralgia Raynaud's syndrome without gangrene Cervicalgia Encounter for long-term (current) use of high-risk medication CK BLOOD Routine 11/24/2024 2:20 PM PINKING SEWING MACHINE OPERATOR Polyarthralgia Raynaud's syndrome without gangrene Cervicalgia Encounter for long-term (current) use of high-risk medication ANGIOTENSIN CONVERTING ENZYME BLOOD Routine 11/24/2024 2:20 PM PINKING SEWING MACHINE OPERATOR Polyarthralgia Raynaud's syndrome without gangrene Cervicalgia Encounter for long-term (current) use of high-risk medication FERRITIN Routine 11/24/2024 2:17 PM PINKING SEWING MACHINE OPERATOR Polyarthralgia Raynaud's syndrome without gangrene Cervicalgia Encounter for long-term (current) use of high-risk medication SS-A (SJOGREN'S) ANTIBODY Routine 2024 2:17 PM PINKING SEWING MACHINE OPERATOR Polyarthralgia Raynaud's syndrome without gangrene Cervicalgia Encounter for long-term (current) use of high-risk medication ANCA SCREEN W MPO+PR3 W REFEX ANCA TITER Routine 11/24/2024 2:16 PM PINKING SEWING MACHINE OPERATOR Polyarthralgia Raynaud's syndrome without gangrene Cervicalgia Encounter for long-term (current) use of high-risk medication THIOPURINE METHYLTRANSFERASE Routine 11/24/2024 2:16 PM PINKING SEWING MACHINE OPERATOR Polyarthralgia Raynaud's syndrome without gangrene Cervicalgia Encounter for long-term (current) use of high-risk medication URIC ACID BLOOD Routine 11/24/2024 2:16 PM PINKING SEWING MACHINE OPERATOR Polyarthralgia Raynaud's syndrome without gangrene Cervicalgia Encounter for long-term (current) use of high-risk medication SS-B (SJOGREN'S) ANTIBODY Routine 2024 2:16 PM PINKING SEWING MACHINE OPERATOR Polyarthralgia Raynaud's syndrome without gangrene Cervicalgia Encounter for long-term (current) use of high-risk medication HLA TYPING B27 Routine 11/24/2024 2:16 PM PINKING SEWING MACHINE OPERATOR Polyarthralgia Raynaud's syndrome without gangrene Cervicalgia Encounter for long-term (current) use of high-risk medication XR CERVICAL SPINE 2 OR 3VW Routine 11/24/2024 Polyarthralgia XR HAND BILAT 2VW Routine 11/24/2024 Polyarthralgia XR SHOULDER BILAT 2VW OR MORE Routine 11/24/2024 Polyarthralgia from Last 3 Months Results * C-REACTIVE PROTEIN (11/24/2024 2:20 PM PINKING SEWING MACHINE OPERATOR) Pathologist [facility] C-Reactive Protein 7.7 <8.0 mg/L [facility] Comment: Test Performed at: [employer] [place] ??[phone] ALISA MONCADA MD Blood BLOOD SPECIMEN / Unknown 11/24/2024 2:20 PM PINKING SEWING MACHINE OPERATOR 11/24/2024 2:20 PM PINKING SEWING MACHINE OPERATOR Cherrie Gay MD LAB - CHEMISTRY LUIS MANUEL LIANG [facility] Organization Address City/State/ZIP Co de Phone Number [facility] [address] [place] [address] * ANGIOTENSIN CONVERTING ENZYME BLOOD (11/24/2024 2:20 PM PINKING SEWING MACHINE OPERATOR) Angiotensin-Conv erting Enzyme 40 9 - 67 U/L [facility] Comment: Test Performed at: [employer] [place] ??[phone] ALISA MONCADA MD Blood BLOOD SPECIMEN / Unknown 11/24/2024 2:20 PM PINKING SEWING MACHINE OPERATOR 11/24/2024 2:20 PM PINKING SEWING MACHINE OPERATOR Cherrie Gay MD LAB - CHEMISTRY LUIS MANUEL LIANG Performing Organization Address [facility] Co de Phone Number [facility] [address] [place] [address] * CYCLIC CITRULLINATED PEPTIDE(CCP) AB IGG (11/24/2024 2:20 PM PINKING SEWING MACHINE OPERATOR) Cyclic Citrullinated Peptide Antibody IgG <16 UNITS [facility] Comment: Reference Range Negative: ?<20 Weak Positive: ? 20-39 Moderate Positive: ?? 40-59 Strong Positive: ? >59 Test Performed at: [facility] [facility] [employer] [facility] [address] [place], [place] ??[phone] ALISA MONCADA MD Blood BLOOD SPECIMEN / Unknown 11/24/2024 2:20 PM PINKING SEWING MACHINE OPERATOR 11/24/2024 2:20 PM PINKING SEWING MACHINE OPERATOR Cherrie Gay MD LAB - CHEMISTRY LUIS MANUEL LIANG Performing Organization Address [facility] Co de Phone Number [facility] [phone] [place] [address] * (ABNORMAL) ERYTHROCYTE SEDIMENTATION RATE (11/24/2024 2:20 PM PINKING SEWING MACHINE OPERATOR) Pathologist [facility] Erythrocyte Sedimentation Rate Westergren 17(H) < OR = 15 mm/h [facility] Comment: Test Performed at: [employer] [place] ??[phone] ALISA MONCADA MD Blood BLOOD SPECIMEN / Unknown 11/24/2024 2:20 PM PINKING SEWING MACHINE OPERATOR 11/24/2024 2:20 PM PINKING SEWING MACHINE OPERATOR Cherrie Gay MD LAB - HEMATOLOGY ORD ERATIERNEY Performing Organization Address [facility] Co de Phone Number [facility] [address] [place] [address] * CK BLOOD (11/24/2024 2:20 PM PINKING SEWING MACHINE OPERATOR) Pathologist [facility] CK 80 44 - 196 U/L [facility] Comment: Test Performed at: [employer] [address] [place] [address] ??[phone] ALISA MONCADA MD Blood BLOOD SPECIMEN / Unknown 11/24/2024 2:20 PM PINKING SEWING MACHINE OPERATOR 11/24/2024 2:20 PM PINKING SEWING MACHINE OPERATOR Cherrie Gay MD LAB - CHEMISTRY LUIS MANUEL LIANG [facility] [address] [place] [address] * SS-A (SJOGREN'S) ANTIBODY (11/24/2024 2:17 PM PINKING SEWING MACHINE OPERATOR) [facility] Sjogren's Antibodies (SSA) <1.0 NEG <1.0 NEG AI [facility] Comment: Test Performed at: [employer] [facility] ??[phone] ALISA MONCADA MD Blood BLOOD SPECIMEN / Unknown 11/24/2024 2:17 PM PINKING SEWING MACHINE OPERATOR 11/24/2024 2:19 PM PINKING SEWING MACHINE OPERATOR Cherrie Gay MD LAB - CHEMISTRY LUIS MANUEL LIANG Performing Organization Address [facility] Co de Phone Number [facility] [phone] [place] [address] * (ABNORMAL) FERRITIN (11/24/2024 2:17 PM PINKING SEWING MACHINE OPERATOR) [facility] Ferritin 23(L) 38 - 380 ng/mL [facility] Comment: Test Performed at: [employer] [address] [place] [address] ??[phone] ALISA MONCADA MD Blood BLOOD SPECIMEN / Unknown 11/24/2024 2:17 PM PINKING SEWING MACHINE OPERATOR 11/24/2024 2:19 PM PINKING SEWING MACHINE OPERATOR Cherrie Gay MD LAB - CHEMISTRY LUIS MANUEL LIANG Performing Organization Address [facility]/ZIP Co de Phone Number [facility] [address] [place] [address] * ANCA SCREEN W MPO+PR3 W REFEX ANCA TITER (11/24/2024 2:16 PM PINKING SEWING MACHINE OPERATOR) ANCA Screen Negative Negative [facility] Comment: [...] >or=1.0 AI: Antibody Detected Autoantibodies to proteinase-3 (NJ-3) are accepted as characteristic for granulomatosis with polyangiitis (GPA, Catrachita's), and are detectable in 95% of the histologically proven cases. The cytoplasmic IFA pattern, (c-ANCA), is based largely on autoantibody to NJ-3 which serves as the primary antigen. These autoantibodies are present in active disease. Test Performed at: [employer]/[facility] [address] [place], [place] ??[phone] MATTHEW LEVI MD,PHD Blood BLOOD SPECIMEN / Unknown 11/24/2024 2:16 PM PINKING SEWING MACHINE OPERATOR 11/24/2024 2:16 PM PINKING SEWING MACHINE OPERATOR Cherrie Gay MD LAB - CHEMISTRY LUIS MANUEL LIANG Performing Organization Address City/[facility]/ZIP Co de Phone Number [facility] [phone] [place] [address] * URIC ACID BLOOD (11/24/2024 2:16 PM PINKING SEWING MACHINE OPERATOR) Pathologist [facility] Uric Acid 6.0 4.0 - 8.0 mg/dL [facility] Comment: Therapeutic target for gout patients: <6.0 mg/dL ?? Test Performed at: [employer] [facility] [employer] [address] [place] [address] ??[phone] ALISA MONCADA MD Blood BLOOD SPECIMEN / Unknown 11/24/2024 2:16 PM PINKING SEWING MACHINE OPERATOR 11/24/2024 2:16 PM PINKING SEWING MACHINE OPERATOR Cherrie Gay MD LAB - CHEMISTRY LUIS MANUEL LIANG Performing Organization Address City/[facility]/ZIP Co de Phone Number [facility] [phone] [place] [address] * HLA TYPING B27 (11/24/2024 2:16 PM PINKING SEWING MACHINE OPERATOR) Pathologist [facility] HLA-B27 Antigen NEGATIVE NEGATIVE [facility] Comment: Test Performed at: [employer] [address] ??[phone] TAMMIE WHITTINGTON Blood BLOOD SPECIMEN / Unknown 11/24/2024 2:16 PM PINKING SEWING MACHINE OPERATOR 11/24/2024 2:16 PM PINKING SEWING MACHINE OPERATOR Cherrie Gya MD LAB - CHEMISTRY LUIS MANUEL LIANG Performing Organization Address [facility]/ZIP Co de Phone Number [facility] [address] [place] [address] * SS-B (SJOGREN'S) ANTIBODY (11/24/2024 2:16 PM PINKING SEWING MACHINE OPERATOR) Pathologist [facility] Sjogren's Antibodies (SSB) <1.0 NEG <1.0 NEG AI [facility] Comment: Test Performed at: [employer] [address] [place], [place] ??[phone] ALISA MONCADA MD Blood BLOOD SPECIMEN / Unknown 11/24/2024 2:16 PM PINKING SEWING MACHINE OPERATOR 11/24/2024 2:16 PM PINKING SEWING MACHINE OPERATOR Cherrie Gay MD LAB - CHEMISTRY LUIS MANUEL LIANG Performing Organization Address [facility] Co de Phone Number [facility] [address] [place] [address] * THIOPURINE METHYLTRANSFERASE (11/24/2024 2:16 PM PINKING SEWING MACHINE OPERATOR) Pathologist [facility] TPMT Activity 17 nmol/hr/mL RBC [facility] Comment: Reference Range for TPMT Activity: ?? >12 ? Normal ??4-12 ? Heterozygote or low metabolizer ?<4 ? Homozygote Deficient Range This test was developed and its analytical performance characteristics have been determined by [employer]. It has not been cleared or approved by FDA. This assay has been validated pursuant to the CLIA regulations and is used for clinical purposes. Test Performed at: [employer]/[facility] [address] [place], [place] ??[phone] DAVE GAMINO MD,PHD,JOVANI Blood BLOOD SPECIMEN / Unknown 11/24/2024 2:16 PM PINKING SEWING MACHINE OPERATOR 11/24/2024 2:16 PM PINKING SEWING MACHINE OPERATOR Cherrie Gay MD LAB - CHEMISTRY LUIS MANUEL LIANG Performing Organization Address [facility]/ZIP Co de Phone Number [facility] [address] [place] [address] * XR Hand Bilat 2Vw (11/24/2024) Anatomical [...] RDERATIERNEY from Last 3 Months Care Teams Internet Technology Manager Relationship Specialty Start Date End Date Piter Fair MD [address] [place] [phone] PCP - General Family Medicine 11/10/24
--- OUTSIDE RECORDS SUMMARY | 2024-12-21 11:50 | XMS_ITS | Patient Health Summary ---
Author Organization [facility] Address [address] [facility] [place] [address] Care Team Providers Care Assistant Boiler Operator Name Role Phone Piter Fair MD Primary Care Provider [phone] Note from [facility],non-owned Affiliates and Associated Physician Practices is amultiple site organization consisting of ambulatory clinics and hospital sitesin [place], [place], [place] and [place]. This disclosure is being madepursuant to the Care Everywhere program and may not contain all information available regarding this patient. Last updated 18.[facility] Allergies No known active allergies [...] Comments Blood Pressure 128/78 11/23/2024 10:12 AM FIELD CARE MANAGER Pulse 75 11/23/2024 10:12 AM FIELD CARE MANAGER Temperature 36.5 ??C (97.7 ??F) 11/23/2024 1 0:12 AM FIELD CARE MANAGER Respiratory Rate 16 11/23/2024 10:1 2 AM FIELD CARE MANAGER Oxygen Saturation 93% 11/23/2024 10: 12 AM FIELD CARE MANAGER Inhaled Oxygen Concentration - - Weight 101.1 kg (222 lb 12.8 oz) 2024 10:12 AM FIELD CARE MANAGER Height - - Body Mass Index - [...] Results * C-REACTIVE PROTEIN (11/24/2024 2:20 PM FIELD CARE MANAGER) C-Reactive Protein 7.7 <8.0 mg/L [facility] Comment: Test Performed at: [employer] [address] [place] ??[phone] ALISA MONCADA MD Blood BLOOD SPECIMEN / Unknown 11/24/2024 2:20 PM FIELD CARE MANAGER 11/24/2024 2:20 PM FIELD CARE MANAGER Cherrie Gay MD LAB - CHEMISTRY LUIS MANUEL LAING [address] [address] * ANGIOTENSIN CONVERTING ENZYME BLOOD (11/24/2024 2:20 PM FIELD CARE MANAGER) Angiotensin-Conv erting Enzyme 40 9 - 67 U/L [facility] Comment: Test Performed at: [employer] [address] [place] [address] ??[phone] ALISA MONCADA MD Blood BLOOD SPECIMEN / Unknown 11/24/2024 2:20 PM FIELD CARE MANAGER 11/24/2024 2:20 PM FIELD CARE MANAGER Cherrie Gay MD LAB - CHEMISTRY LUIS MANUEL LIANG Performing Organization Address [facility] de Phone Number [address] [address] * CYCLIC CITRULLINATED PEPTIDE(CCP) AB IGG (11/24/2024 2:20 PM FIELD CARE MANAGER) Pathologist [facility] Cyclic Citrullinated Peptide Antibody IgG <16 UNITS [facility] Comment: Reference Range Negative: ?<20 Weak Positive: ? 20-39 Moderate Positive: ?? 40-59 Strong Positive: ? >59 Test Performed at: [employer] [address] [place] [address] ??[phone] ALISA MONCADA MD Blood BLOOD SPECIMEN / Unknown 11/24/2024 2:20 PM FIELD CARE MANAGER 11/24/2024 2:20 PM FIELD CARE MANAGER Cherrie Gay MD LAB - CHEMISTRY LUIS MANUEL LIANG Performing Organization Address [facility] Co de Phone Number [facility] [phone] [place] [address] * (ABNORMAL) ERYTHROCYTE SEDIMENTATION RATE (11/24/2024 2:20 PM FIELD CARE MANAGER) Pathologist [facility] Erythrocyte Sedimentation Rate Westergren 17(H) < OR = 15 mm/h [facility] Comment: Test Performed at: [facility] ??[phone] ALISA MONCADA MD Blood BLOOD SPECIMEN / Unknown 11/24/2024 2:20 PM FIELD CARE MANAGER 11/24/2024 2:20 PM FIELD CARE MANAGER Cherrie Gay MD LAB - HEMATOLOGY ORD ERABLES Performing Organization Address [facility] Co de Phone Number [facility] [phone] [place] [address] * CK BLOOD (11/24/2024 2:20 PM FIELD CARE MANAGER) CK 80 44 - 196 U/L [facility] Comment: Test Performed at: [employer] [facility] [place] ??[phone] ALISA MONCADA MD Blood BLOOD SPECIMEN / Unknown 11/24/2024 2:20 PM FIELD CARE MANAGER 11/24/2024 2:20 PM FIELD CARE MANAGER Cherrie Gay MD LAB - CHEMISTRY ORDMellisa LIANG Performing Organization Address [facility] Co de Phone Number [facility] [address] [place] [address] * SS-A (SJOGREN'S) ANTIBODY (11/24/2024 2:17 PM FIELD CARE MANAGER) Sjogren's Antibodies (SSA) <1.0 NEG <1.0 NEG AI [facility] Comment: Test Performed at: [employer] [place], [place] ??[address] ALISA MONCADA MD Blood BLOOD SPECIMEN / Unknown 11/24/2024 2:17 PM FIELD CARE MANAGER 11/24/2024 2:19 PM FIELD CARE MANAGER Cherrie Gay MD LAB - CHEMISTRY ORDMellisa LIANG Performing Organization Address [facility] Co de Phone Number [facility] [address] [place] [address] * (ABNORMAL) FERRITIN (11/24/2024 2:17 PM FIELD CARE MANAGER) Ferritin 23(L) 38 - 380 ng/mL [facility] Comment: Test Performed at: [employer] [facility] [place] ??[phone] ALISA MONCADA MD Blood BLOOD SPECIMEN / Unknown 11/24/2024 2:17 PM FIELD CARE MANAGER 11/24/2024 2:19 PM FIELD CARE MANAGER Cherrie Gay MD LAB - CHEMISTRY LUIS MANUEL LIANG [facility] [address] [place] [address] * ANCA SCREEN W MPO+PR3 W REFEX ANCA TITER (11/24/2024 2:16 PM FIELD CARE MANAGER) ANCA Screen Negative Negative [facility] Comment: ANCA [...] present in active disease. Test Performed at: [employer]/[facility] [id number] [place] [address] ??[phone] MATTHEW LEVI MD,PHD Blood BLOOD SPECIMEN / Unknown 11/24/2024 2:16 PM FIELD CARE MANAGER 11/24/2024 2:16 PM FIELD CARE MANAGER Cherrie Gay MD LAB - CHEMISTRY LUIS MANUEL LIANG Performing Organization Address [facility] Co de Phone Number [facility] [address] [place] [address] * URIC ACID BLOOD (11/24/2024 2:16 PM FIELD CARE MANAGER) Uric Acid 6.0 4.0 - 8.0 mg/dL [facility] Comment: Therapeutic target for gout patients: <6.0 mg/dL ?? Test Performed at: [facility] [address] [place], [place] ??[address] ALISA MONCADA MD Blood BLOOD SPECIMEN / Unknown 11/24/2024 2:16 PM FIELD CARE MANAGER 11/24/2024 2:16 PM FIELD CARE MANAGER Cherrie Gay MD LAB - CHEMISTRY LUIS MANUEL LIANG Performing Organization Address [facility] Co de Phone Number [facility] [phone] [place] [address] * HLA TYPING B27 (11/24/2024 2:16 PM FIELD CARE MANAGER) HLA-B27 Antigen NEGATIVE NEGATIVE [facility] Comment: Test Performed at: [employer] [address] ??[phone] TAMMIE WHITTINGTON Blood BLOOD SPECIMEN / Unknown 11/24/2024 2:16 PM FIELD CARE MANAGER 11/24/2024 2:16 PM FIELD CARE MANAGER Cherrie Gay MD LAB - CHEMISTRY LUIS MANUEL LIANG Performing Organization Address [facility] Co de Phone Number [facility] [address] [place] [address] * SS-B (SJOGREN'S) ANTIBODY (11/24/2024 2:16 PM FIELD CARE MANAGER) Pathologist [facility] Sjogren's Antibodies (SSB) <1.0 NEG <1.0 NEG AI [facility] Comment: Test Performed at: [employer] [address] ??[phone] ALISA MONCADA MD Blood BLOOD SPECIMEN / Unknown 11/24/2024 2:16 PM FIELD CARE MANAGER 11/24/2024 2:16 PM FIELD CARE MANAGER Cherrie Gay MD LAB - CHEMISTRY LUIS MANUEL LIANG Performing Organization Address [facility] de Phone Number [facility] [phone] [place] [address] * THIOPURINE METHYLTRANSFERASE (11/24/2024 2:16 PM FIELD CARE MANAGER) Pathologist [facility] TPMT Activity 17 nmol/hr/mL RBC [facility] Comment: Reference Range for TPMT Activity: ?? >12 ? Normal ??4-12 ? Heterozygote or low metabolizer ?<4 ? Homozygote Deficient Range This test was developed and its analytical performance characteristics have been determined by [employer]. It has not been cleared or approved by FDA. This assay has been validated pursuant to the CLIA regulations and is used for clinical purposes. Test Performed at: [employer]/[facility] [address] [place], [place] ??[address] DAVE GAMINO MD,PHD,JOVANI Blood BLOOD SPECIMEN / Unknown 11/24/2024 2:16 PM FIELD CARE MANAGER 11/24/2024 2:16 PM FIELD CARE MANAGER Cherrie Gay MD LAB - CHEMISTRY LUIS MANUEL LIANG Performing Organization Address [facility] Co de Phone Number [facility] [address] [place] [address] * XR Hand Bilat 2Vw (11/24/2024) Anatomical [...] MD DIAGNOSTIC IMAGING O RDERABLES Care Teams Assistant Boiler Operator Relationship Specialty Start Date End Date Piter Fair MD [address] [place] [phone] PCP - General Family Medicine 11/10/24
--- OUTSIDE RECORDS SUMMARY | 2024-12-21 11:50 | XMS_ITS | Clinical Summary ---
Author Organization [facility] Address [address] [place] [address]. [place], [place] [address] [place] [address] Care Team Providers Care Instrument Person Name Role Phone Piter Fair MD Primary Care Provider [phone] Social History Tobacco Use Types Packs/Day Years [...] to complete this topic Insurance Care Teams Instrument Person Relationship Specialty Start Date End Date Piter Fair MD PCP - General HOSPITALIST 07/13/22
--- OUTSIDE RECORDS SUMMARY | 2024-12-21 11:50 | XMS_ITS | Clinical Summary ---
Author Organization [facility] Address [address] [place] [address] Care Team Providers Care Sheriff Sergeant Name Role Phone Piter Fair MD Primary Care Provider [phone] [facility],non-owned Affiliates and Associated Physician Practices is amultiple site organization consisting of ambulatory clinics and hospital sitesin [place], [place], [place] and [place]. This disclosure is being madepursuant to the Care Everywhere program and may not contain all information available regarding this patient. Last updated 18.[facility] [employer] Allergies No known active allergies Medications * [...] [facility] - Rheumatology [address], [address] [place] [address] Cherrie Gay MD Polyarthralgia 11/23/2024 10:00 AM MANAGER CHINESE Office Visit [facility] - Rheumatology [address], [address] [place] [address] Cherrie Gay MD Polyarthralgia (Primary Dx); Raynaud's syndrome without gangrene; Cervicalgia; Encounter for long-term (current) use of high-risk medication; Renal insufficiency 11/10/2024 Telephone [facility] Rheumatology [address] [place] [address], [address] [place] [address] [facility] Medical Referral from Last 3 Months Family [...] Comments Blood Pressure 128/78 11/23/2024 10:12 AM MANAGER CHINESE Pulse 75 11/23/2024 10:12 AM MANAGER CHINESE Temperature 36.5 ??C (97.7 ??F) 11/23/2024 1 0:12 AM MANAGER CHINESE Respiratory Rate 16 11/23/2024 10:1 2 AM MANAGER CHINESE Oxygen Saturation 93% 11/23/2024 10: 12 AM MANAGER CHINESE Inhaled Oxygen Concentration - - Weight 101.1 kg (222 lb 12.8 oz) 2024 10:12 AM MANAGER CHINESE Height - - Body Mass Index - - Plan of Treatment Upcoming Encounters Date Type Department Care Team (Late st Contact Info) Description 12/26/2024 9:00 AM MANAGER CHINESE Office Visit [facility] - Rheumatology [address] [place] [address], [address] [place] [address] Cherrie Gay MD [address] [place] [address] [address] [place] [address] Health Maintenance Due Date Last [...] ERYTHROCYTE SEDIMENTATION RATE Routine 11/24/2024 2:20 PM MANAGER CHINESE Polyarthralgia Raynaud's syndrome without gangrene Cervicalgia Encounter for long-term (current) use of high-risk medication CYCLIC CITRULLINATED PEPTIDE(CCP) AB IGG Routine 11/24/2024 2:20 PM MANAGER CHINESE Polyarthralgia Raynaud's syndrome without gangrene Cervicalgia Encounter for long-term (current) use of high-risk medication C-REACTIVE PROTEIN Routine 11/24/2024 2: 20 PM MANAGER CHINESE Polyarthralgia Raynaud's syndrome without gangrene Cervicalgia Encounter for long-term (current) use of high-risk medication CK BLOOD Routine 11/24/2024 2:20 PM MANAGER CHINESE Polyarthralgia Raynaud's syndrome without gangrene Cervicalgia Encounter for long-term (current) use of high-risk medication ANGIOTENSIN CONVERTING ENZYME BLOOD Routine 11/24/2024 2:20 PM MANAGER CHINESE Polyarthralgia Raynaud's syndrome without gangrene Cervicalgia Encounter for long-term (current) use of high-risk medication FERRITIN Routine 11/24/2024 2:17 PM MANAGER CHINESE Polyarthralgia Raynaud's syndrome without gangrene Cervicalgia Encounter for long-term (current) use of high-risk medication SS-A (SJOGREN'S) ANTIBODY Routine 2024 2:17 PM MANAGER CHINESE Polyarthralgia Raynaud's syndrome without gangrene Cervicalgia Encounter for long-term (current) use of high-risk medication ANCA SCREEN W MPO+PR3 W REFEX ANCA TITER Routine 11/24/2024 2:16 PM MANAGER CHINESE Polyarthralgia Raynaud's syndrome without gangrene Cervicalgia Encounter for long-term (current) use of high-risk medication THIOPURINE METHYLTRANSFERASE Routine 11/24/2024 2:16 PM MANAGER CHINESE Polyarthralgia Raynaud's syndrome without gangrene Cervicalgia Encounter for long-term (current) use of high-risk medication URIC ACID BLOOD Routine 11/24/2024 2:16 PM MANAGER CHINESE Polyarthralgia Raynaud's syndrome without gangrene Cervicalgia Encounter for long-term (current) use of high-risk medication SS-B (SJOGREN'S) ANTIBODY Routine 2024 2:16 PM MANAGER CHINESE Polyarthralgia Raynaud's syndrome without gangrene Cervicalgia Encounter for long-term (current) use of high-risk medication HLA TYPING B27 Routine 11/24/2024 2:16 PM MANAGER CHINESE Polyarthralgia Raynaud's syndrome without gangrene Cervicalgia Encounter for long-term (current) use of high-risk medication XR CERVICAL SPINE 2 OR 3VW Routine 11/24/2024 Polyarthralgia XR HAND BILAT 2VW Routine 11/24/2024 Polyarthralgia XR SHOULDER BILAT 2VW OR MORE Routine 11/24/2024 Polyarthralgia from Last 3 Months Results * C-REACTIVE PROTEIN (11/24/2024 2:20 PM MANAGER CHINESE) Pathologist [facility] C-Reactive Protein 7.7 <8.0 mg/L [facility] Comment: Test Performed at: [facility] [place], [place] ??[phone] ALISA MONCADA MD Blood BLOOD SPECIMEN / Unknown 11/24/2024 2:20 PM MANAGER CHINESE 11/24/2024 2:20 PM MANAGER CHINESE Cherrie Gay MD LAB - CHEMISTRY LUIS MANUEL LIANG Performing Organization Address [facility] Co de Phone Number [facility] [phone] [place] [address] * ANGIOTENSIN CONVERTING ENZYME BLOOD (11/24/2024 2:20 PM MANAGER CHINESE) Pathologist [facility] Angiotensin-Conv erting Enzyme 40 9 - 67 U/L [facility] Comment: Test Performed at: [facility] [place], [place] ??[phone] ALISA MONCADA MD Blood BLOOD SPECIMEN / Unknown 11/24/2024 2:20 PM MANAGER CHINESE 11/24/2024 2:20 PM MANAGER CHINESE Cherrie Gay MD LAB - CHEMISTRY LUIS MANUEL LIANG Performing Organization Address City/[facility]/ZIP Co de Phone Number [facility] [address] [place] [address] * CYCLIC CITRULLINATED PEPTIDE(CCP) AB IGG (11/24/2024 2:20 PM MANAGER CHINESE) Pathologist [facility] Cyclic Citrullinated Peptide Antibody IgG <16 UNITS [facility] Comment: Reference Range Negative: ?<20 Weak Positive: ? 20-39 Moderate Positive: ?? 40-59 Strong Positive: ? >59 Test Performed at: [facility] [address] [place], [place] ??[phone] ALISA MONCADA MD Blood BLOOD SPECIMEN / Unknown 11/24/2024 2:20 PM MANAGER CHINESE 11/24/2024 2:20 PM MANAGER CHINESE Cherrie Gay MD LAB - CHEMISTRY ORDE AZUL Performing Organization Address [facility] Co de Phone Number [facility] [phone] [place] [address] * (ABNORMAL) ERYTHROCYTE SEDIMENTATION RATE (11/24/2024 2:20 PM MANAGER CHINESE) Erythrocyte Sedimentation Rate Westergren 17(H) < OR = 15 mm/h [facility] Comment: Test Performed at: [facility] [address] [place] [address] ??[phone] ALISA MONCADA MD Blood BLOOD SPECIMEN / Unknown 11/24/2024 2:20 PM MANAGER CHINESE 11/24/2024 2:20 PM MANAGER CHINESE Cherrie Gay MD LAB - HEMATOLOGY ORD ERABLES Performing Organization Address [facility] Co de Phone Number [facility] [address] [place] [address] * CK BLOOD (11/24/2024 2:20 PM MANAGER CHINESE) CK 80 44 - 196 U/L [facility] Comment: Test Performed at: [facility] [address] [place], [place] ??[phone] ALISA MONCADA MD Blood BLOOD SPECIMEN / Unknown 11/24/2024 2:20 PM MANAGER CHINESE 11/24/2024 2:20 PM MANAGER CHINESE Cherrie Gay MD LAB - CHEMISTRY ORDMellisa LIANG Performing Organization Address [facility] Co de Phone Number [facility] [address] [place] [address] * SS-A (SJOGREN'S) ANTIBODY (11/24/2024 2:17 PM MANAGER CHINESE) [facility] Sjogren's Antibodies (SSA) <1.0 NEG <1.0 NEG AI [facility] Comment: Test Performed at: [facility] [address] [place], [place] ??[phone] ALISA MONCADA MD Blood BLOOD SPECIMEN / Unknown 11/24/2024 2:17 PM MANAGER CHINESE 11/24/2024 2:19 PM MANAGER CHINESE Cherrie Gay MD LAB - CHEMISTRY LUIS MANUEL LIANG Performing Organization Address [facility]/ZIP Co de Phone Number [facility] [address] [place] [address] * (ABNORMAL) FERRITIN (11/24/2024 2:17 PM MANAGER CHINESE) [facility] Ferritin 23(L) 38 - 380 ng/mL [facility] Comment: Test Performed at: [facility] [address] [place], [place] ??[phone] ALISA MONCADA MD Blood BLOOD SPECIMEN / Unknown 11/24/2024 2:17 PM MANAGER CHINESE 11/24/2024 2:19 PM MANAGER CHINESE Cherrie Gay MD LAB - CHEMISTRY LUIS MANUEL LIANG Performing Organization Address [facility]/ZIP Co de Phone Number [facility] [address] [place] [address] * ANCA SCREEN W MPO+PR3 W REFEX ANCA TITER (11/24/2024 2:16 PM MANAGER CHINESE) [facility] ANCA Screen Negative Negative [facility] Comment: ANCA [...] >or=1.0 AI: Antibody Detected Autoantibodies to proteinase-3 (TX-3) are accepted as characteristic for granulomatosis with polyangiitis (GPA, Catrachita's), and are detectable in 95% of the histologically proven cases. The cytoplasmic IFA pattern, (c-ANCA), is based largely on autoantibody to TX-3 which serves as the primary antigen. These autoantibodies are present in active disease. Test Performed at: [facility] [id number] [place] [address] ??[phone] MATTHEW LEVI MD,PHD Blood BLOOD SPECIMEN / Unknown 11/24/2024 2:16 PM MANAGER CHINESE 11/24/2024 2:16 PM MANAGER CHINESE Cherrie Gay MD LAB - CHEMISTRY LUIS MANUEL LIANG [facility] [address] [place] [address] * URIC ACID BLOOD (11/24/2024 2:16 PM MANAGER CHINESE) Uric Acid 6.0 4.0 - 8.0 mg/dL [facility] Comment: Therapeutic target for gout patients: <6.0 mg/dL ?? Test Performed at: [facility] [address] [place], [place] ??[phone] ALISA MONCADA MD Blood BLOOD SPECIMEN / Unknown 11/24/2024 2:16 PM MANAGER CHINESE 11/24/2024 2:16 PM MANAGER CHINESE Cherrie Gay MD LAB - CHEMISTRY LUIS MANUEL LIANG Performing Organization Address [facility]/ZIP Co de Phone Number [facility] [address] [place] [address] * HLA TYPING B27 (11/24/2024 2:16 PM MANAGER CHINESE) HLA-B27 Antigen NEGATIVE NEGATIVE [facility] Comment: Test Performed at: [facility] [address] ??[phone] TAMMIE WHITTINGTON Blood BLOOD SPECIMEN / Unknown 11/24/2024 2:16 PM MANAGER CHINESE 11/24/2024 2:16 PM MANAGER CHINESE Cherrie Gay MD LAB - CHEMISTRY LUIS MANUEL LIANG Performing Organization Address [facility] Co de Phone Number [facility] [address] [place] [address] * SS-B (SJOGREN'S) ANTIBODY (11/24/2024 2:16 PM MANAGER CHINESE) Sjogren's Antibodies (SSB) <1.0 NEG <1.0 NEG AI [facility] Comment: Test Performed at: [facility] [address] [place] ??[phone] ALISA MONCADA MD Blood BLOOD SPECIMEN / Unknown 11/24/2024 2:16 PM MANAGER CHINESE 11/24/2024 2:16 PM MANAGER CHINESE Cherrie Gay MD LAB - CHEMISTRY LUIS MANUEL LIANG Performing Organization Address [facility]/ZIP Co de Phone Number [facility] [address] [place] [address] * THIOPURINE METHYLTRANSFERASE (11/24/2024 2:16 PM MANAGER CHINESE) TPMT Activity 17 nmol/hr/mL RBC [facility] Comment: Reference Range for TPMT Activity: ?? >12 ? Normal ??4-12 ? Heterozygote or low metabolizer ?<4 ? Homozygote Deficient Range This test was developed and its analytical performance characteristics have been determined by [employer]. It has not been cleared or approved by FDA. This assay has been validated pursuant to the CLIA regulations and is used for clinical purposes. Test Performed at: [facility] [address] [place], [place] ??[phone] DAVE GAMINO MD,PHD,JOVANI Blood BLOOD SPECIMEN / Unknown 11/24/2024 2:16 PM MANAGER CHINESE 11/24/2024 2:16 PM MANAGER CHINESE Cherrie Gay MD LAB - CHEMISTRY LUIS MANUEL LIANG [facility] Organization Address City/State/[facility] de Phone Number [facility] [address] [place] [address] * XR Hand Bilat 2Vw (11/24/2024) Anatomical [...] RDERABLES from Last 3 Months Care Teams Sheriff Sergeant Relationship Specialty Start Date End Date Piter Fair MD [address] [place] [phone] PCP - General Family Medicine 11/10/24
--- OUTSIDE RECORDS SUMMARY | 2024-12-21 11:50 | XMS_ITS | Clinical Summary ---
Author Organization [facility] Facility Address [address] [place] [address] Care Team Providers Care Data Processing Control Clerk Name Role Phone Piter Fair MD Primary Care Provider [phone] Encounters Date Type Department Care Team Description 11/16/2024 1:00 PM AVAYA ENGINEER Office Visit [place] [facility] [address] [phone] Pieter Morgan DO Stage 3 chronic kidney disease, not otherwise specified (HCC) (Primary Dx); Obstructive sleep apnea syndrome; Secondary inflammatory arthritis; Gastroesophageal reflux disease; Pure hypercholesterolemia, not otherwise specified; 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> 11/15/2024 Travel 11/13/2024 Orders Only [address] [phone] Pieter Morgan DO 11/09/2024 Orders Only [address] [phone] Pieter Morgan DO from Last 3 Months [...] Comments Blood Pressure 122/80 11/16/2024 1:15 PM AVAYA ENGINEER Pulse 81 11/16/2024 1:15 PM AVAYA ENGINEER Temperature 36.1 ??C (97 ??F) 11/16/2024 1:15 PM AVAYA ENGINEER Respiratory Rate 18 11/16/2024 1:15 PM AVAYA ENGINEER Oxygen Saturation 99% 11/16/2024 1:15 PM AVAYA ENGINEER Inhaled Oxygen Concentration - - Weight 98.8 kg (217 lb 12.8 oz) 11/16/2024 1:15 PM AVAYA ENGINEER Height - - Body Mass Index - - Plan of Treatment Upcoming Encounters Date Type Department Care Team (Late st Contact Info) Description 05/17/2025 12:30 PM CDT Office Visit [place] [facility], [facility] [address] [facility] [facility] [address] [address] [place] [address] Pieter Morgan DO [address] [place] [phone] Health Maintenance Due Date Last Done [...] URINE, 24 HOUR Routine 11/13/2024 8:40 AM AVAYA ENGINEER REFLEXIVE URINE CULTURE (HC) Routine 11/09/2024 6:44 AM AVAYA ENGINEER PROTEIN / CREATININE RATIO, URINE Routine 11/09/2024 6:44 AM AVAYA ENGINEER VITAMIN D 25 HYDROXY Routine 11/09/2024 6:44 AM AVAYA ENGINEER CYSTATIN C WITH EGFR Routine 11/09/2024 6:44 AM AVAYA ENGINEER C-REACTIVE PROTEIN Routine 11/09/2024 6: 44 AM AVAYA ENGINEER C4 COMPLEMENT Routine 11/09/2024 6:44 AM AVAYA ENGINEER C3 COMPLEMENT Routine 11/09/2024 6:44 AM AVAYA ENGINEER CBC AND DIFFERENTIAL Routine 11/09/2024 6:44 AM AVAYA ENGINEER SEDIMENTATION RATE, AUTOMATED Routine 11/09/2024 6:44 AM AVAYA ENGINEER URINALYSIS, COMPLETE Routine 11/09/2024 6:44 AM AVAYA ENGINEER URINE ALBUMIN / CREATININE RATIO Routine 11/09/2024 6:44 AM AVAYA ENGINEER RENAL FUNCTION PANEL Routine 11/09/2024 6:44 AM AVAYA ENGINEER MAGNESIUM Routine 11/09/2024 6:44 AM AVAYA ENGINEER from Last 3 Months Results * Creatinine, urine, 24 hour (11/13/2024 8:40 AM AVAYA ENGINEER) Creatinine in 24 hour Urine 1.70 0.50 - 2.15 g/24 h See order comments Comment:URINE VOLUME: 1600/2 4 11/13/2024 8:40 AM AVAYA ENGINEER 11/13/2024 5:39 PM AVAYA ENGINEER Narrative [facility] - 11/13/2024 11:38 PM AVAYA ENGINEER SPLIT 11/09/2024 FROM [id number] Resulting Agency Comment Performing Organization Information: ?Site ID: [id number] ?Name: [facility] ?Address: [facility] [address] [place] [address] ?Director: Briana Villasenor us Pieter Morgan DO LAB URINE ORDERABLES Final R esult [facility] See order comments [place] [address] * Reflexive Urine Culture (11/09/2024 6:44 AM AVAYA ENGINEER) Culture Result, Urine See order comments Comment:NO CULTURE INDICATED 11/09/2024 6:44 AM AVAYA ENGINEER 11/09/2024 6:49 AM AVAYA ENGINEER Narrative [facility] - 11/10/2024 11:30 AM AVAYA ENGINEER COLLECTION KIT GIVEN TO PATIENT. PATIENT ADVISED TO RETURN. URINE VOLUME: NOTV Resulting Agency Comment Performing Organization Information: ?Site ID: [id number] ?Name: [employer] ?Address: [facility] [address] ?Director: Briana Villasenor MD us Pieter Morgan DO LAB [id number] NSOLICITED RESULTS Final Result [facility] See order comments [place] [address] * (ABNORMAL) Cystatin C w/GFR (11/09/2024 6:44 AM AVAYA ENGINEER) Cystatin C 1.41(H) 0.52 - 1.27 mg/L See order comments eGFR 52(L) > OR = 60 mL/min/1.73 m2 See order comments 11/09/2024 6:44 AM AVAYA ENGINEER 11/09/2024 6:49 AM AVAYA ENGINEER Narrative [facility] - 11/10/2024 11:30 AM AVAYA ENGINEER COLLECTION KIT GIVEN TO PATIENT. PATIENT ADVISED TO RETURN. URINE VOLUME: NOTV Resulting Agency Comment Performing Organization Information: ?Site ID: VANGIE ?Name: [employer] ?Address: [facility] [place] [address] ?Director: Briana Villasenor MD us Pieter Morgan DO LAB BLOOD ORDERABLES Final R esult [facility] See order comments [place] [address] * (ABNORMAL) Urinalysis, Complete w/reflex to Culture (11/09/2024 6:44 AM AVAYA ENGINEER) Color, Urine YELLOW YELLOW See ord er comments Appearance Urine CLEAR CLEAR See order comments Specific Castell, UA 1.017 1.001 - 1.035 See order [...] by t he ancillary. 11/09/2024 6:44 AM AVAYA ENGINEER 11/09/2024 6:49 AM AVAYA ENGINEER Narrative [facility] - 11/10/2024 11:30 AM AVAYA ENGINEER COLLECTION KIT GIVEN TO PATIENT. PATIENT ADVISED TO RETURN. URINE VOLUME: NOTV Resulting Agency Comment Performing Organization Information: ?Site ID: [place] ?Name: [employer] [facility] ?Address: [facility] [place] [address] ?Director: Briana Villasenor MD us Pieter Morgan DO LAB URINE ORDERABLES Final R esult [facility] See order comments [place] [address] * Protein, Total, Random Urine w/Creatinine (Protein/Creat Ratio) (11/09/2024 6:44 AM AVAYA ENGINEER) Creatinine, Ur 129 20 - 320 mg/dL See order comments Urine Protein/Creatin ine Ratio 78 25 - 148 mg/g creat See order comments Protein/Creatin ine Ratio, Urine 0.078 0.025 - 0.148 mg/mg creat See order comments Protein Urine Random 10 5 - 25 mg/dL See order comments 11/09/2024 6:44 AM AVAYA ENGINEER 11/09/2024 6:49 AM AVAYA ENGINEER Narrative [facility] - 11/10/2024 11:30 AM AVAYA ENGINEER COLLECTION KIT GIVEN TO PATIENT. PATIENT ADVISED TO RETURN. URINE VOLUME: NOTV Resulting Agency Comment Performing Organization Information: ?Site ID: [place] ?Name: [employer] ?Address: [facility] [address] ?Director: Briana Villasenor MD us Pieter Morgan DO LAB URINE ORDERABLES Final R esult [facility] See order comments [place] [address] * Urine Albumin / Creatinine Ratio (11/09/2024 6:44 AM AVAYA ENGINEER) Creatinine, Ur 129 20 - 320 mg/dL [...] within a diagnostic category. 11/09/2024 6:44 AM AVAYA ENGINEER 11/09/2024 6:49 AM AVAYA ENGINEER Narrative [facility] - 11/10/2024 11:30 AM AVAYA ENGINEER COLLECTION KIT GIVEN TO PATIENT. PATIENT ADVISED TO RETURN. URINE VOLUME: NOTV Resulting Agency Comment Performing Organization Information: ?Site ID: [place] ?Name: [employer] ?Address: [address] [place] [address] ?Director: Briana Villasenor MD us Pieter Morgan DO LAB URINE ORDERABLES Final R esult [facility] See order comments [place] [address] * Vitamin D 25 Hydroxy (11/09/2024 6:44 AM AVAYA ENGINEER) Pathologist [facility] Vitamin D, 25-OH, Total, IA 37 30 [...] D, (D2,D3), LC/MS/MS is recommended: order code 00050 (patients >2yrs). See Note 1 Note 1 For additional information, please refer to http://education.[employer]/faq/UTT911 (This link is being provided for informational/ educational purposes only.) 11/09/2024 6:44 AM AVAYA ENGINEER 11/09/2024 6:49 AM AVAYA ENGINEER Narrative [facility] - 11/10/2024 11:30 AM AVAYA ENGINEER COLLECTION KIT GIVEN TO PATIENT. PATIENT ADVISED TO RETURN. URINE VOLUME: NOTV Resulting Agency Comment Performing Organization Information: ?Site ID: [id number] ?Name: [employer] [facility] ?Address: [address] [address] ?Director: Briana Villasenor MD us Pieter Morgan DO LAB BLOOD ORDERABLES Final R esult Performing Organization Address City/[facility] Co de Phone Number [facility] See order comments [place] [address] * (ABNORMAL) Sedimentation Rate (11/09/2024 6:44 AM AVAYA ENGINEER) Sed Rate 24(H) < OR = 15 mm/h See order comments 11/09/2024 6:44 AM AVAYA ENGINEER 11/09/2024 6:49 AM AVAYA ENGINEER Narrative [facility] - 11/10/2024 11:30 AM AVAYA ENGINEER COLLECTION KIT GIVEN TO PATIENT. PATIENT ADVISED TO RETURN. URINE VOLUME: NOTV Resulting Agency Comment Performing Organization Information: ?Site ID: ?Name: [facility] ?Address: [address] [address] [address] ?Director: Briana Villasenor us Pieter Morgan DO LAB BLOOD ORDERABLES Final R esult Performing Organization Address City/[facility] Co de Phone Number [facility] See order comments [place] [address] * CBC and Differential (11/09/2024 6:44 AM AVAYA ENGINEER) WBC 6.6 3.8 - 10.8 Thousand/ uL [...] by t he ancillary. 11/09/2024 6:44 AM AVAYA ENGINEER 11/09/2024 6:49 AM AVAYA ENGINEER Narrative [facility] - 11/10/2024 11:30 AM AVAYA ENGINEER COLLECTION KIT GIVEN TO PATIENT. PATIENT ADVISED TO RETURN. URINE VOLUME: NOTV Resulting Agency Comment Performing Organization Information: ?Site ID: ?Name: [facility] [employer] [facility] ?Address: [facility] [place] [address] ?Director: Briana Villasenor us Pieter Morgan DO LAB BLOOD ORDERABLES Final R esult [facility] See order comments [place] [address] * C3 Complement (11/09/2024 6:44 AM AVAYA ENGINEER) Complement Component C3C 179 82 - 185 mg/dL See order comments 11/09/2024 6:44 AM AVAYA ENGINEER 11/09/2024 6:49 AM AVAYA ENGINEER Narrative [facility] - 11/10/2024 11:30 AM AVAYA ENGINEER COLLECTION KIT GIVEN TO PATIENT. PATIENT ADVISED TO RETURN. URINE VOLUME: NOTV Resulting Agency Comment Performing Organization Information: ?Site ID: [place] ?Name: [facility] ?Address: [facility] [place] [address] ?Director: Briana Villasenor MD Pieter Morgan DO LAB BLOOD ORDERABLES Final R esult Performing Organization Address [facility] Co de Phone Number [facility] See order comments [place] [address] * C4 Complement (11/09/2024 6:44 AM AVAYA ENGINEER) Complement Component C4C 30 15 - 53 mg/dL See order comments 11/09/2024 6:44 AM AVAYA ENGINEER 11/09/2024 6:49 AM AVAYA ENGINEER Narrative [facility] - 11/10/2024 11:30 AM AVAYA ENGINEER COLLECTION KIT GIVEN TO PATIENT. PATIENT ADVISED TO RETURN. URINE VOLUME: NOTV Resulting Agency Comment Performing Organization Information: ?Site ID: [id number] ?Name: [employer] ?Address: [facility] [place] [address] ?Director: Briana Villasenor MD Pieter Morgan DO LAB BLOOD ORDERABLES Final [facility] Performing Organization Address [facility] de Phone Number [facility] See order comments [place] [address] * (ABNORMAL) C-Reactive Protein (11/09/2024 6:44 AM AVAYA ENGINEER) CRP 12.9(H) <8.0 mg/L See order comments 11/09/2024 6:44 AM AVAYA ENGINEER 11/09/2024 6:49 AM AVAYA ENGINEER Narrative [facility] - 11/10/2024 11:30 AM AVAYA ENGINEER COLLECTION KIT GIVEN TO PATIENT. PATIENT ADVISED TO RETURN. URINE VOLUME: NOTV Resulting Agency Comment Performing Organization Information: ?Site ID: [id number] ?Name: [employer] ?Address: [facility] [address] ?Director: Briana Villasenor MD Pieter Morgan DO LAB BLOOD ORDERABLES Final R esult Performing Organization Address [facility] Co de Phone Number [facility] See order comments [place] [address] * Magnesium (11/09/2024 6:44 AM AVAYA ENGINEER) Magnesium 2.4 1.5 - 2.5 mg/dL See order comments 11/09/2024 6:44 AM AVAYA ENGINEER 11/09/2024 6:49 AM AVAYA ENGINEER Narrative [facility] - 11/10/2024 11:30 AM AVAYA ENGINEER COLLECTION KIT GIVEN TO PATIENT. PATIENT ADVISED TO RETURN. URINE VOLUME: NOTV Resulting Agency Comment Performing Organization Information: ?Site ID: ?Name: [facility] ?Address: [facility] [place] [address] ?Director: Briana Villasenor Pieter Morgan DO LAB BLOOD ORDERABLES Final R esult Performing Organization Address [facility] de Phone Number [facility] See order comments [place] [address] * (ABNORMAL) Renal Function Panel (11/09/2024 6:44 AM AVAYA ENGINEER) Glucose 115(H) 65 - 99 mg/dL See [...] g/dL See order comments 11/09/2024 6:44 AM AVAYA ENGINEER 11/09/2024 6:49 AM AVAYA ENGINEER Narrative [facility] - 11/10/2024 11:30 AM AVAYA ENGINEER COLLECTION KIT GIVEN TO PATIENT. PATIENT ADVISED TO RETURN. URINE VOLUME: NOTV Resulting Agency Comment Performing Organization Information: ?Site ID: ?Name: [facility] ?Address: [facility] [place] [address] ?Director: Briana Villasenor us Pieter Morgan DO LAB BLOOD ORDERABLES Final R esult [facility] See order comments [place] [address] from Last 3 Months Insurance [facility] Care Teams Data Processing Control Clerk Relationship Specialty Start Date End Date Piter Fair MD [address] [place] [address] PCP - General Family Medicine 06/06/24
[2024-12-21] MEDS: SODIUM CHLORIDE 0.9% IV 1,000 ML 999 ML IV CONT (11:59)
[2024-12-21] MEDS: METOCLOPRAMIDE HCL INJ 10 MG/2 ML VIAL IV PUSH (12:00)
[2024-12-21] MEDS: FAMOTIDINE 20 MG/2 ML VIAL IV PUSH (12:00)
[2024-12-21 12:09] VITALS: BP 110/74; PULSE 66; RESP 16; TEMP 36.5; O2SAT 100
[2024-12-21 12:33] LABS: Amphetamine Screen Urine Negative (Negative); Barbiturate Screen Urine Negative (Negative); Benzodiazepines Screen Urine Negative (Negative); Cannabinoid Screen Urine Negative (Negative); Cocaine Screen Urine Negative (Negative); Methadone Screen Urine Negative (Negative); Opiate Screen Urine Negative (Negative); Phencyclidine Screen Urine Negative (Negative)
[2024-12-21 12:45] VITALS: BP 109/70; PULSE 68; RESP 16; TEMP 36.6; O2SAT 98
== END 2024-12-21 13:44 | disposition home or self-care (01) ==
PROVIDERS: Emergency Provider Emergency Medicine; PCP Family Medicine
DX: R11.15 Cyclical vomiting syndrome unrelated to migraine (principal); E78.5 Hyperlipidemia, unspecified; K58.9 Irritable bowel syndrome, unspecified; F41.9 Anxiety disorder, unspecified; F32.A Depression, unspecified; Z79.899 Other long term (current) drug therapy
CPT/HCPCS: 36415; 80053; 80307; 81001; 83690; 85025; 96361; 96374; 96375; 99284; J2765; J7030

== ENCOUNTER 2025-03-03 08:33 | Emergency (ER) | payer BC, SELFPAY ==
--- NOTE | 2025-03-03 08:36 | ED_ITS ---
HPI - Ear Problem General Chief complaint: Ear Stated complaint: Right Ear Irritation/Sinus Time Seen by Provider: 03/03/25 08:39 Source: patient Mode of arrival: ambulatory Limitations: no limitations History of Present Illness HPI Narrative: Jeff is a 44-year-old male patient presenting to the clinic today with complaints of right ear pain and sinus congestion. He reports he was seen by his provider on February 28 and diagnosed with a sinus infection and was given a Z-Gaetano. States he started developing right ear pain over the last 1-2 days. No fever. Having some yellowish nasal drainage and sinus pressure. Related Data Home Medications ?Medication ?Instructions ?Recorded ?Confirmed ?Last Taken ?Type loratadine 10 mg tablet (Claritin) 10 mg PO DAILY 10/30/20 12/02/23 Unknown History rosuvastatin 10 mg tablet 10 mg PO HS 12/02/23 12/02/23 Unknown History azithromycin 250 mg tablet mg 03/03/25 Unknown History duloxetine 60 mg capsule,delayed mg PO 03/03/25 Unknown History release fluticasone furoate 200 inhalation 03/03/25 Unknown History mcg-vilanterol 25 mcg/dose inhalation powder (Breo Ellipta) ondansetron 4 mg disintegrating mg 03/03/25 Unknown History tablet pantoprazole 40 mg tablet,delayed mg PO 03/03/25 Unknown History release prednisone 10 mg tablet mg 03/03/25 Unknown History testosterone 1 % (50 mg/5 gram) 03/03/25 Unknown History transdermal gel packet Allergies Allergy/AdvReac Type Severity Reaction Status Date / Time No Known Allergies Allergy Verified 03/03/25 08:37 Review of Systems Review of Systems: Pertinent positives per HPI. Patient denies any fever, chills, rash, visual changes, dizziness, cough, shortness of breath, chest pain, palpitations, nausea, vomiting, diarrhea, constipation, abdominal pain, or any urinary issues. [facility] Past Medical History Medical History Anxiety Depression GERD (gastroesophageal reflux disease) HLD (hyperlipidemia) Irritable bowel syndrome Family History Family History Sibling Hypertension Family history of thyroid disease Family history of obesity Depression Family history of malignant neoplasm Mother Family history of Alzheimer's disease Patient's mother is in good health Family history of thyroid disease Family history of mental disorder Depression Father Family history of coronary artery disease Family history of alcoholism Acute myocardial infarction Other Cerebrovascular accident Diabetes mellitus Family history of cardiovascular disease Family history of elevated blood lipids Family history of glaucoma Family history of malignant neoplasm of breast in first degree relative Family history of sudden Social History Social History Smoking status: Never smoker Second hand tobacco smoke exposure: No Alcohol intake: never Comments At the time of my signature, I reviewed and agree with the nursing past medical, surgical, social, and family history. There is no relevant family history pertinent to the patient complaint. Exam Narrative: General: Well-developed, well nourished, in no apparent distress Head: Normocephalic, atraumatic Eyes: Pupils equally round and reactive to light bilaterally, EOM intact, sclera and conjunctive clear, no discharge, lids normal Ears: Left TMs intact and congested, right TM intact, bulging, red, ear canals clear, no drainage, grossly hearing normal. Nose: Nares patent, yellow nasal discharge, moderate inflammation, maxillary sinus tenderness. Mouth: Oral pharynx without lesions or masses, good dentition, MMM. Postnasal drip Neck: Supple, trachea midline, no enlargement of anterior or posterior cervical nodes, no thyroid masses or goiter palpable. Cardio: Regular rate and rhythm, s1 and s2 normal, no murmur appreciated. Resp: Clear to auscultation bilaterally, no rhonchi, rales, wheezing or rubs Course Course Emergency Course: Portions of this record may have been created with voice recognition software. Level of Care: Express Care Visit Vital Signs Vital signs: Vital Signs Temperature 36.6 C 03/03/25 08:39 Pulse Rate 85 03/03/25 08:39 Respiratory Rate 20 03/03/25 08:39 Blood Pressure 136/73 03/03/25 08:39 Pulse Oximetry 98 03/03/25 08:39 Oxygen Delivery Room Air 03/03/25 08:39 Temperature 36.6 C 03/03/25 08:39 Pulse Rate 85 03/03/25 08:39 Respiratory Rate 20 03/03/25 08:39 Blood Pressure 136/73 03/03/25 08:39 Pulse Oximetry 98 03/03/25 08:39 Oxygen Delivery Room Air 03/03/25 08:39 Vital signs reviewed Medical Decision Making MDM Narrative Medical decision making narrative: At the time of visit patient is resting comfortably on the exam table. Patient appears to be nontoxic. Plan: I suspect patient has acute bacterial sinusitis with right otitis media. Prescription for Augmentin was sent to the pharmacy. Supportive measures were discussed with the patient and they voiced understanding discharge instructions and agrees to treatment plan. Return precautions reviewed Differential Diagnosis Differential Diagnosis: Otitis media, otitis externa, eustachian tube dysfunction, cerumen impaction, upper respiratory infection, serous otitis, bacterial sinus infection Vital Signs Vital Signs: Vital Signs Temperature 36.6 C 03/03/25 08:39 Pulse Rate 85 03/03/25 08:39 Respiratory Rate 20 03/03/25 08:39 Blood Pressure 136/73 03/03/25 08:39 Pulse Oximetry 98 03/03/25 08:39 Oxygen Delivery Room Air 03/03/25 08:39 Temperature 36.6 C 03/03/25 08:39 Pulse Rate 85 03/03/25 08:39 Respiratory Rate 20 03/03/25 08:39 Blood Pressure 136/73 03/03/25 08:39 Pulse Oximetry 98 03/03/25 08:39 Oxygen Delivery Room Air 03/03/25 08:39 Discharge Plan Discharge Clinical Impression: Acute bacterial rhinosinusitis, Acute right otitis media Patient Disposition: Home Condition: Stable Instructions: Antibiotic Form, Ear Infection (ED), Rhinosinusitis (ED) Additional Instructions: Take prescription medications only as prescribed--Augmentin Increase fluids and stay well hydrated Tylenol/motrin for pain/fever Flonase and OTC antihistamines as directed Vicks vapor rub to open sinuses Sinus rinses for congestion Cepacol spray, cough drops, throat lozenges, warm tea with honey/lemon, gargle salt water to soothe throat BRAT diet for diarrhea Clear liquids x 24 hours then advance as tolerated for nausea/vomiting Go to the ED if you develop a worsening in your condition- high fever not controlled by Tylenol or Motrin, dehydration, weakness, lethargy, shortness of breath, or chest pain. Follow up with your PCP in 3-5 days if symptoms persist. Patient Language: [place] Arabian Prescriptions: New amoxicillin-pot clavulanate 875-125 mg tablet 1 tablet PO Q12H 10 Days Qty: 20 0RF No Action rosuvastatin 10 mg tablet 10 mg PO HS albuterol sulfate 90 mcg/actuation HFA aerosol inhaler 2 puff inhalation Q4-6H PRN (Reason: shortness of breath or wheezing) 30 Days Qty: 8.5 0RF (DME) Aerochamber MV Spacer See Rx Instructions .Route Qty: 1 0RF Rx Instructions: As directed prednisone 10 mg tablet azithromycin 250 mg tablet pantoprazole 40 mg tablet,delayed release (DR/EC) PO ondansetron 4 mg tablet,disintegrating testosterone 1 % (50 mg/5 gram) gel in packet duloxetine 60 mg capsule,delayed release(DR/EC) PO fluticasone furoate-vilanterol [Breo Ellipta] 200-25 mcg/dose blister with device INHALATION loratadine [Claritin] 10 mg tablet 10 mg PO DAILY sildenafil [Viagra] 50 mg tablet 50 mg PO DAILY PRN (Reason: sexual activity) Qty: 10 10RF Rx Instructions: administer 30 minutes to 4 hours before activity pantoprazole [Protonix] 20 mg tablet,delayed release (DR/EC) 20 mg PO QAM Qty: 90 1RF ergocalciferol (vitamin D2) 1,250 mcg (50,000 unit) capsule 1,250 mcg PO WEEKLY Qty: 12 1RF valacyclovir [Valtrex] 500 mg tablet 500 mg PO DAILY Qty: 90 1RF Follow-up/Referrals: Marv,MD Piter [Primary Care Provider] - Time of Disposition: 08:46 Quality NIHSS Nursing Documentation ED NIHSS nursing documentation: reviewed/agree
[2025-03-03 08:39] VITALS: BP 136/73; PULSE 85; RESP 20; TEMP 36.6; O2SAT 98
== END 2025-03-03 08:55 | disposition home or self-care (01) ==
PROVIDERS: Emergency Provider Nurse Practitioner Family; PCP Family Medicine
DX: J01.90 Acute sinusitis, unspecified (principal); B96.89 Other specified bacterial agents as the cause of diseases classified elsewhere; H66.91 Otitis media, unspecified, right ear; E78.5 Hyperlipidemia, unspecified; Z79.899 Other long term (current) drug therapy
CPT/HCPCS: 99213; G0463

== ENCOUNTER 2025-03-15 16:46 | Emergency (ER) | payer BC, SELFPAY ==
[2025-03-15 16:56] VITALS: BP 140/81; PULSE 99; RESP 16; TEMP 36.7; O2SAT 100
--- NOTE | 2025-03-15 17:38 | ED_ITS ---
HPI - URI/Sore Throat General Chief Complaint: Upper Respiratory Infection Stated Complaint: Cough Source: patient and RN notes reviewed Mode of arrival: ambulatory Limitations: no limitations History of Present Illness HPI Narrative: A 44-year-old male presents Express Care complaining of dry hacking cough for 1 week. Patient said he was recently treated for sinus infection and bronchitis with Augmentin and prednisone. He reported overall feeling better however starting this week he has developed a dry hacking cough that is progressively gotten worse. Patient says at least a 3 times this week it has woken him up in his sleep. He was recently diagnosed with asthma and started on a daily inhaler along with a rescue inhaler as needed. Patient denies shortness of breath at rest however when he starts coughing he says he starts to feel more short of breath. He denies any sore throat, congestion, fevers, body aches, chills, earache, chest pain. Related Data Home Medications ?Medication ?Instructions ?Recorded ?Confirmed ?Last Taken ?Type loratadine 10 mg tablet (Claritin) 10 mg PO DAILY 10/30/20 12/02/23 Unknown History rosuvastatin 10 mg tablet 10 mg PO HS 12/02/23 12/02/23 Unknown History albuterol 90 mcg-budesonide 80 2 inh inhalation DAILY PRN 11/25/24 11/25/24 Unknown History mcg/actuation HFA aerosol inhaler shortness of breath bupropion HCl 300 mg 24 hr tablet, 300 mg PO DAILY 11/25/24 11/25/24 11/24/24 History extended release (Wellbutrin XL) cetirizine 10 mg tablet (24Hour 10 mg PO Q12H PRN allergy symptoms 11/25/24 11/25/24 11/24/24 History Allergy) duloxetine 60 mg capsule,delayed 60 mg PO DAILY 11/25/24 11/25/24 11/24/24 History release (Cymbalta) pantoprazole 20 mg tablet,delayed 20 mg PO QAM 11/25/24 11/25/24 11/24/24 History release tadalafil 20 mg tablet (Cialis) 20 mg PO DAILY PRN sexual activity 11/25/24 11/25/24 11/18/24 History valacyclovir 500 mg tablet 500 mg PO DAILY 11/25/24 11/25/24 11/24/24 History (Valtrex) azithromycin 250 mg tablet mg 03/03/25 Unknown History duloxetine 60 mg capsule,delayed mg PO 03/03/25 Unknown History release fluticasone furoate 200 inhalation 03/03/25 Unknown History mcg-vilanterol 25 mcg/dose inhalation powder (Breo Ellipta) ondansetron 4 mg disintegrating mg 03/03/25 Unknown History tablet pantoprazole 40 mg tablet,delayed mg PO 03/03/25 Unknown History release prednisone 10 mg tablet mg 03/03/25 Unknown History testosterone 1 % (50 mg/5 gram) 03/03/25 Unknown History transdermal gel packet Allergies Allergy/AdvReac Type Severity Reaction Status Date / Time No Known Allergies Allergy Verified 03/15/25 16:58 Review of Systems Review of Systems: CONSTITUTIONAL: Denies fever, chills, or sweats. EYES: Denies visual changes, redness, or discharge. ENT: Denies rhinorrhea, congestion, sore throat, or otalgia. CARDIOVASCULAR: Denies chest pain, palpitations, or edema. RESPIRATORY: Positive for cough, and nocturnal cough. Negative for dyspnea GASTROINTESTINAL: Denies abdominal pain, nausea, vomiting, or diarrhea. GENITOURINARY: Denies dysuria or hematuria. SKIN: Denies rash or itching. MUSCULOSKELETAL: Denies back pain, joint pain, or myalgia. NEUROLOGIC: Denies headache, numbness, or weakness. PSYCHIATRIC: Denies anxiety or depression. All other systems reviewed are negative, except as documented in HPI. [facility] Past Medical History Medical History Irritable bowel syndrome Depression Anxiety GERD (gastroesophageal reflux disease) HLD (hyperlipidemia) Family History Family History Sibling Hypertension Family history of thyroid disease Family history of obesity Depression Family history of malignant neoplasm Mother Family history of Alzheimer's disease Patient's mother is in good health Family history of thyroid disease Family history of mental disorder Depression Father Family history of coronary artery disease Family history of alcoholism Acute myocardial infarction Other Cerebrovascular accident Diabetes mellitus Family history of cardiovascular disease Family history of elevated blood lipids Family history of glaucoma Family history of malignant neoplasm of breast in first degree relative Family history of sudden Social History Social History Smoking status: Never smoker Second hand tobacco smoke exposure: No Alcohol intake: never Comments At the time of my signature, I reviewed and agree with the nursing past medical, surgical, social, and family history. There is no relevant family history pertinent to the patient complaint. Exam Narrative: GENERAL: This is a well-nourished, well-developed adult, in no apparent distress. They are non ill-appearing, nontoxic appearing. HEAD: normocephalic, atraumatic. EYES: Sclera clear/white. Vision is grossly intact. EARS: External ears normal, auditory canals clear and without drainage, TMs n ormal without perforation. Hearing grossly intact. NOSE: External nose normal with no obvious nasal discharge, nares without redness, no rhinorrhea. THROAT: Mucous membranes moist, posterior pharynx clear without swelling or redness. Uvula midline. No exudate NECK: Neck supple, non-tender without lymphadenopathy, masses or thyromegaly. CARDIOVASCULAR: Regular rate and rhythm without murmurs, gallops, or rubs. RESPIRATORY: Clear to auscultation. Breath sounds equal bilaterally. No wheezes, rales, or rhonchi. Cough exacerbated by deep inspiration. Cough is dry and hacking, no sputum production. Respiratory effort nonlabored. Normal respiratory rate. No accessory muscle use or retractions. No respiratory distress. Patient is able to speak in full sentences SKIN: warm, Dry, intact with no suspicious lesions or rash, good texture and turgor. NEURO: awake, alert, and oriented to person, place and time. There were no obvious focal neurologic abnormalities. EXTREMITIES: No joint tenderness, effusion, or edema noted. Course Course Emergency Course: Patient is aware of diagnosis, understands and agrees to treatment plan. Anticipatory guidance given. Patient agrees to follow-up as directed and is aware of reasons to seek care at the emergency department. Portions of this record may have been created with voice recognition software Level of Care: Express Care Visit Vital Signs Vital signs: Vital Signs Temperature 98.1 F 03/15/25 16:56 Pulse Rate 99 03/15/25 16:56 Respiratory Rate 16 03/15/25 16:56 Blood Pressure 140/81 03/15/25 16:56 Pulse Oximetry 100 03/15/25 16:56 Oxygen Delivery Room Air 03/15/25 16:56 Temperature 98.1 F 03/15/25 16:56 Pulse Rate 99 03/15/25 16:56 Respiratory Rate 16 03/15/25 16:56 Blood Pressure 140/81 03/15/25 16:56 Pulse Oximetry 100 03/15/25 16:56 Oxygen Delivery Room Air 03/15/25 16:56 Reviewed MDM - URI/Sore Throat MDM Narrative Medical decision making narrative: Patient overall appears well on exam. Given patient's persistent nocturnal cough and symptoms waking him up at night at least 3 times this week it is likely that he suffering from mild to moderate asthma exacerbation. Will prescribe prednisone for his symptoms along with this current regimen. Patient is in no respiratory distress, he is able speak in full sentences, no wheezing heard on exam. Discussed physical exam findings. Advised supportive measures and signs/symptoms to go to the ER. Pt is appropriate for outpt treatment and f/u. Differential Diagnosis Differential diagnosis: Likely upper respiratory infection, bronchitis and other (Asthma) Critical Care Time Critical Care Time Critical Care Time: No Discharge Plan Discharge Clinical Impression: Asthma exacerbation Patient Disposition: Home Condition: Stable Instructions: Asthma (ED) Additional Instructions: Please take the steroids as directed. Take them in the morning and with food. Continue use your inhaler as prescribed. You may also use your rescue inhaler as needed for shortness of breath or wheezing. 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 If your symptoms worsen or he develops worsening shortness of breath, unable to speak in full sentences are any other concerns please go to the ER immediately. Patient Language: Montserratian Prescriptions: New prednisone 50 mg tablet 50 mg PO DAILY 5 Days Qty: 5 0RF No Action rosuvastatin 10 mg tablet 10 mg PO HS albuterol sulfate 90 mcg/actuation HFA aerosol inhaler 2 puff inhalation Q4-6H PRN (Reason: shortness of breath or wheezing) 30 Days Qty: 8.5 0RF (DME) Aerochamber MV Spacer See Rx Instructions .Route Qty: 1 0RF Rx Instructions: As directed prednisone 10 mg tablet azithromycin 250 mg tablet pantoprazole 40 mg tablet,delayed release (DR/EC) PO ondansetron 4 mg tablet,disintegrating testosterone 1 % (50 mg/5 gram) gel in packet duloxetine 60 mg capsule,delayed release(DR/EC) PO fluticasone furoate-vilanterol [Breo Ellipta] 200-25 mcg/dose blister with device INHALATION amoxicillin-pot clavulanate 875-125 mg tablet 1 tablet PO Q12H 10 Days Qty: 20 0RF loratadine [Claritin] 10 mg tablet 10 mg PO DAILY valacyclovir [Valtrex] 500 mg tablet 500 mg PO DAILY bupropion HCl [Wellbutrin XL] 300 mg tablet extended release 24 hr 300 mg PO DAILY pantoprazole 20 mg tablet,delayed release (DR/EC) 20 mg PO QAM duloxetine [Cymbalta] 60 mg capsule,delayed release(DR/EC) 60 mg PO DAILY albuterol-budesonide 90-80 mcg/actuation HFA aerosol inhaler 2 inh inhalation DAILY PRN (Reason: shortness of breath) tadalafil [Cialis] 20 mg tablet 20 mg PO DAILY PRN (Reason: sexual activity) Rx Instructions: administer approximately 30min before sexual activity; do not use more than 1 dose per 24hrs cetirizine [24Hour Allergy] 10 mg tablet 10 mg PO Q12H PRN (Reason: allergy symptoms) ondansetron 4 mg tablet,disintegrating 4 mg PO Q4H 0 Days Qty: 10 0RF Rx Instructions: give 1st dose 30min before emetogenic chemo sildenafil [Viagra] 50 mg tablet 50 mg PO DAILY PRN (Reason: sexual activity) Qty: 10 10RF Rx Instructions: administer 30 minutes to 4 hours before activity pantoprazole [Protonix] 20 mg tablet,delayed release (DR/EC) 20 mg PO QAM Qty: 90 1RF ergocalciferol (vitamin D2) 1,250 mcg (50,000 unit) capsule 1,250 mcg PO WEEKLY Qty: 12 1RF valacyclovir [Valtrex] 500 mg tablet 500 mg PO DAILY Qty: 90 1RF Follow-up/Referrals: Marv,MD Piter [Primary Care Provider] - Time of Disposition: 17:33
== END 2025-03-15 17:40 | disposition home or self-care (01) ==
PROVIDERS: PCP Family Medicine
DX: J45.901 Unspecified asthma with (acute) exacerbation (principal)
CPT/HCPCS: 99213; G0463

== ENCOUNTER 2025-09-07 12:30 | Observation (INO) | payer BC, SELFPAY ==
--- NOTE | ~2025-09-07 | CT_ITS ---
CT abdomen pelvis w con INDICATION:pancreatitis . COMPARISON: 11/25/2024 TECHNIQUE: Axial images of the abdomen and pelvis were obtained following infusion of 100 mL Isovue 300. Dose optimization technique was utilized. FINDINGS: The lung bases are clear. The liver parenchyma is unremarkable. No intrahepatic mass or ductal dilatation is evident. The gallbladder is unremarkable. The pancreas and spleen are normal in appearance. The adrenal glands are symmetric in size. Right kidney demonstrate normal enhancement. Left kidney is absent. No cystic mass is evident. There is no solid mass. There is no hydronephrosis. Evaluation of the stomach and bowel loops are limited due to lack of oral contrast. The appendix is normal in appearance. No bowel obstruction. The bladder and rectum are normal. No free intraperitoneal fluid or air is evident. There is no significant retroperitoneal lymphadenopathy. The aorta, visceral vessels and renal arteries demonstrate normal caliber and patency. The lower thoracic and lumbar vertebrae are in normal alignment. IMPRESSION: No acute abnormality is noted in the abdomen and pelvis. All CT scans at this facility are performed using low dose modulation techniques as appropriate to perform exam including the following: automated exposure control; use of iterative reconstruction technique; adjustment of the mA and/or kV according to patient size (this includes techniques or standardized protocols for targeted exams where dose is matched to indication/reason for exam). Reviewed, dictated and finalized at location S. IMPRESSION: No acute abnormality is noted in the abdomen and pelvis. All CT scans at this facility are performed using low dose modulation techniqu es as appropriate to perform exam including the following: automated exposure c ontrol; use of iterative reconstruction technique; adjustment of the mA and/or kV according to patient size (this includes techniques or standardized protocol s for targeted exams where dose is matched to indication/reason for exam).
[2025-09-07 12:41] VITALS: BP 117/67; PULSE 77; RESP 16; TEMP 36.4; O2SAT 98
--- OUTSIDE RECORDS SUMMARY | 2025-09-07 12:49 | XMS_ITS | Clinical Summary ---
Author Organization [facility] Facility Address [address] [place] [id number] Care Team Providers Care Printed Products Assembler Name Role Phone Piter Fair MD Primary Care Provider [phone] Social History Tobacco Use Types Packs/Day Years Used Date Smoking Tobacco: Never Assessed Sex and Gender Information Value Date Recorded Sex Assigned at Not on file Legal Sex Male 1:57 PM EDT Gender Identity Not on file Sexual Orientation Not on file Last Filed Vital Signs Vital Sign Reading Time Taken Comments Blood Pressure 115/70 05/17/2025 12:33 PM CDT Pulse 81 11/16/2024 1:15 PM APPEALS ASSISTANT Temperature 36.8 C (98.2 F) 05/17/2025 12:33 PM CDT Respiratory Rate 18 05/17/2025 12:33 PM CDT Oxygen Saturation 99% 11/16/2024 1:15 PM APPEALS ASSISTANT Inhaled Oxygen Concentration - - Weight 104 kg (229 lb) 05/17/2025 12:33 PM CDT Height - - Body Mass Index - - Plan of Treatment Upcoming Encounters Date Type Department Care Team (Late st Contact Info) Description 05/23/2026 1:00 PM CDT Office Visit [facility] Care, [address] [phone] Pieter Morgan DO [address] [place] [phone] Health Maintenance Due Date Last Done Comments Hepatitis B Vaccine (1 of 3 - 19+ 3-dose series) 1998 Pneumococcal Vaccine: Peds ( 0 to 5 Years) and At-Risk Patients (6 to 49 Years) (1 of 2 - PCV) 1998 Diabetes: Hemoglobin A1C 06/20/2024 Diabetes: Ophthalmology Exam 06/20/2024 Diabetes: Pedal Pulse Checked 06/20/2024 Diabetes: Sensory Foot Exam 06/20/2024 Diabetes: Visual Foot Exam 06/20/2024 Influenza Vaccine (#1) 2025 3, 10/29/2022, 11/26/2021, Additional history exists Insurance [facility] Care Teams Printed Products Assembler Relationship Specialty Start Date End Date Piter Fair MD [address] [place] [phone] PCP - General Family Medicine 06/06/24
--- OUTSIDE RECORDS SUMMARY | 2025-09-07 12:50 | XMS_ITS | Data Portability ---
Author Organization [place] - [facility], Main Office Address [address] [place] [address] Care Team Providers Care International Controller Name Role Phone PITER FAIR Primary Care Provider PITER FAIR Referring Provider [phone] PITER FAIR Primary Care Provider [phone] Assessment Encounter Date Assessment Date Assessment LastModified by Organization Details LastModified Time 05/28/2025 05/28/2025 The patient has left knee pain his x-rays show only minor signs of degenerative joint disease in the medial compartment. He does not have any obvious signs of meniscal pathology. We talked about treatment options in detail today we talked about a shot of cortisone he declined he would rather just try a course of physical therapy after discussion. We will get him set up for physical therapy. We did talk about oral steroids he again declined he would rather just use Tylenol. He can not take nonsteroidal anti-inflammatory medication due to the fact that he only has 1 kidney. We will see how he does with conservative measures we will see him back in 6 weeks. We talked about icing and activity modification as well. If the patient's symptoms continue to be significant or worsen an MRI scan may be indicated we could also try a shot of cortisone in the future if necessary. He voiced understanding and agreed with the above plan will call for any further problems difficulties or questions. I will see him back after he has completed physical therapy. We did talk about doing this on his own at home as well. Not available 05/28/2025 11:25:53 06/19/2025 06/19/2025 Assessment: Mild OSAHS, AHI = 8 Multiple environmental allergies Plan: The following were reviewed and explained to the patient: [facility] home sleep study 06/08/24 AHI = 2, disproportionate O2 desaturation [facility] diagnostic sleep study 07/12/24 sleep onset = 20.5 minutes, REM onset = 121 minutes, AHI = 8, supine AHI = 9, REM AHI = 25, PLMI = 0.0 [facility] titration sleep study 07/26/24 sleep onset = 37 minutes, REM onset = 112.5 minutes, Delgadillo & Araceli large Bryanna nasal mask @ 9 cmH2O, PLMI = 0.0 Lab data 05/12/25 multiple environmental allergies PFT 03/28/25 nl FEV1/FVC, FEV1 2.73 L (72%), BD 50 mL = 2%, TLC 4.87 L (74%), RV 1.42 L (70%), DLCO 65%, DLCO/VA 106% Methacholine challenge 06/13/25 (-) methacholine challenge up to level 5 Advised to continue not to smoke. Continue Albuterol HFA as needed for acute bronchitic episodes. Discontinue Breo Ellipta 200/25 mcg 1 inhalation daily. The patient does not know how to accurately administer the inhaler. Today, the patient was shown how to take this medication. The proper technique for delivering this medication was instructed. The patient expressed a clear understanding and demonstrated back how to use this medication. Without the proper technique, the patient will not reap the benefits of this medication as the contents will not reach the lower airways as intended to be. Adherence to therapy is advocated. Nonadherence may lead to treatment failure, further progression of the condition, and other complications. Hospitals admissions are often the result of individuals not taking prescription medications accurately. Alternatively, greater adherence to medication regimens have shown to lower rates of hospitalization and decrease total medical costs in patients with chronic medical conditions. PAP compliance downloaded and interpreted x 20 minutes. Data reviewed and explained to the patient. Average apnea/hypopnea index (AHI) is 0.1. Patient used PAP > 4 hours 82% of the time. PAP is set at 9 cmH2O. PAP will remain at 9 cmH2O. Keep ramp off. Keep EPR off. Keep humidifier level at 3. Keep tube temperature at 66 F. Oxygen supplementation: none Patient is benefiting from PAP therapy. Encouraged [...] carrier. Patient will setup an appointment with [facility] for supplies and pressure adjustments. A major [...] PCP for further management. Follow-up: 1 year, May 2026 [email or web address] Not available 06/19/2025 11:09:09 06/20/2025 06/20/2025 44 yo M with - WELL ADULT VISIT - MALE HYPOGONADISM - BORDERLINE HTN, improved (diet controlled) - POLYARTHROPATHY - CKD III, improved - HLD - GERD - RECURRENT HERPES SIMPLEX - SEASONAL ALLERGIC RHINITIS - LT WRIST PAIN, chronic - IBS - DEPRESSION - ANXIETY - OBESITY I - H/O VIT D DEFICIENCY Annual labs, RUI, RF: 06/20/24. Annual labs: 06/14/23. X-ray Lt wrist: 06/14/23. CT coronary calcium score: 08/04/22. X-ray b/l wrists: 05/28/22. Annual labs: 05/28/22. D/w pt in detail about his conditions, recent labs & imagines and further plan of care. Will do routine labs. Meds as directed. Diet and exercise explained in detail. BP diary education given. Cont f/u with Pulmo as per schedule. Cont f/u with ENT as per schedule. Cont f/u with Ortho as per schedule. Cont f/u with Nephro as per schedule. Cont f/u with Endo as per schedule. Cont f/u with Psych at [facility] as per schedule. Cont f/u with Derm as per schedule. Cont f/u with Ophtho as per schedule. Cont f/u with GI as per schedule. HM: EGD - 05/16, normal as per pt. Cont f/u with GI as per schedule. Colonoscopy - 05/16, normal as per pt. Cont f/u with GI as per schedule. Flu - 10/15. Tdap - 7/27/22. F/u in 2-3 weeks. Annual labs in 06/16. [email or web address] Not available 06/20/2025 09:34:12 07/09/2025 07/09/2025 By history and exam the patient is noted to have recent left knee pain not due to any known trauma or injury. He thinks therapy has helped quite a bit at this point it does not appear we need to do an MRI scan I do not think he has any meniscal pathology he did have some mild lateral patellar tilt in some inflammation of the knee time and therapy have helped quite a bit. We talked about continuing with therapy on a regular basis to keep his muscles strong support the knee as much as possible. If his symptoms recur he will call we could consider an MRI scan in the future if necessary or a cortisone injection he has not had 1 yet. He voiced understanding agrees with the above plan call for any further problems difficulties or questions. As far as the patient's neck goes he has some chronic stiffness aching pain not due to any trauma or injury without radiculopathy. He appears to just have some chronic myofascial type pain in the neck. Today's x-rays look good I do not see any significant osteoarthritis no pathology no malalignment. We talked about treatment options today in detail we are going to get him started with oral steroids for a burst and taper short course followed by a course of physical therapy. We will give it 6 weeks I will see him back. Certainly if his symptoms worsen or change she is instructed to call. If I see him back and he is still having significant pain an MRI scan may be indicated we will see how he does with time. The patient voiced understanding agrees above plan call for any further problems difficulties or questions. Not available 07/09/2025 09:25:42 Plan of Treatment Reminders Order Date Submit Date Provider Last Modified By Organization Details Last Modified Time Details Appointments Any 15 2025 09:30A Roberto Naavrro MD Not available Not available Not available Lab testoster one, free + total, serum 2024 025 [email or web address] [facility] (Lab), [address] [place], [address], 06/27/2025 09:18:41 CMP, serum or plasma [address] (Lab), [address] [place], [address], 06/27/2025 09:18:42 CBC w/ auto diff [address] (Lab), [address] [place], [address], 06/27/2025 09:18:42 lipid panel, blood [address] (Lab), [address] [place], [address], 06/27/2025 09:18:42 TSH, serum, reflex free T4 [address] (Lab), [address] [place], [address], 06/27/2025 09:18:42 PSA, serum or plasma [address] (Lab), [address] [place], [address], 06/27/2025 09:18:42 urinalysi s complete, reflex culture [address] (Lab), [address] [place], [address], 06/27/2025 09:18:43 vitamin B12 + folate, serum or blood [address] (Lab), [address] [place], [address], 06/27/2025 09:18:43 magnesium , serum or plasma [address] (Lab), [address] [place], [address], 06/27/2025 09:18:43 glycohemo globin, total, blood [address] (Lab), [address] [place], [address], 08/20/2025 11:48:23 vitamin D, 25-hydrox y, total, serum [address] (Lab), [address] [place], [address], 08/20/2025 11:48:23 uric acid, serum or plasma [address] (Lab), [address] [place], [address], 08/20/2025 11:48:23 Referral physical therapist referral - please contact patient to schedule 2024 025 [email or web address] [place], [address] [place], [address], 08/20/2025 16:05:10 physical therapist referral - Please contact patient to schedule [facility] [address] [place], [address], 07/06/2025 09:30:23 Procedures None recorded. Surgeries None recorded. Imaging US, breast, unilatera l - Please call patient to schedule. 2024 025 [facility] ([facility]), [address] [place], [address], 08/21/2025 10:05:21 XR, cervical spine, 2 or 3 view 2024 025 [email or web address] [facility] [place], [address], [place], [address], 07/09/2025 12:37:21 XR, knee 2024 025 [email or web address] [facility] [place], [address], [place], [address], 05/28/2025 11:28:18 Medication Orders prednison e 10 mg tablets in a dose pack [email or web address] [id number], [address], [place], [place], [id number], 08/20/2025 15:39:22 Farxiga 10 mg tablet 2024 025 [email or web address] [facility] #08152, [address], [place], [place], [id number], 06/20/2025 09:33:11 tadalafil 20 mg tablet 2024 025 [facility], [address], [place], [place], [id number], 06/20/2025 09:11:58 rosuvasta tin 10 mg tablet 2024 025 [facility], [address] [facility], [place], [place], [id number], 06/20/2025 09:12:01 fluticaso ne propionat e 50 mcg/actua tion nasal spray,jolynn pension 2024 025 AGUILAR [facility], [address] [facility], [place], [place], [id number], 06/20/2025 09:11:59 Patient TargetsNo targets recorded. Patient Instructions Encounter Date Encounter Id Patient Instructions Last Modified By Organization Details Last Modified Time 06/20/2025 [id number] high blood pressure: care instructions [email or web address] Not available 06/20/2025 09:11:53 Reason for Referral Physical Therapist Referral for Pain of left knee joint Please contact patient to schedule Referring Physician: Aidan Madden, Orthopedic Surgery, Encounter Date: 05/28/2025 Physical Therapist Referral for Neck pain please contact patient to schedule Referring Physician: Aidan Madden, Orthopedic Surgery, Encounter Date: 07/09/2025 Results Created Date Observation Date Name Description Value Unit Range Abnormal Flag Note LastModifiedBy Organization Detail LastModifiedTime 05/12/20 25 05/20/2025 RESPI RATOR Y ALLER GY PANEL REGIO N VIII W/REF L dermatophago ides pteronyssinu s (D1) IgE <0.10 kU/L normal Not Available [address], [address], 05/20/2025 17:57:43 05/12/20 25 05/20/2025 RESPI RATOR Y ALLER GY PANEL REGIO N VIII W/REF L class 0 Not Available [address], [address], 05/20/2025 17:57:43 05/12/20 25 05/20/2025 RESPI RATOR Y ALLER GY PANEL REGIO N VIII W/REF L dermatophago ides farinae (D2) IgE <0.10 kU/L normal Not Available [address], [address], 05/20/2025 17:57:43 05/12/20 25 05/20/2025 RESPI RATOR Y ALLER GY PANEL REGIO N VIII W/REF L class 0 Not Available [address], [address], 05/20/2025 17:57:43 05/12/20 25 05/20/2025 RESPI RATOR Y ALLER GY PANEL REGIO N VIII W/REF L penicillium notatum (M1) IgE <0.10 kU/L normal Not Available [address], [address], 05/20/2025 17:57:43 05/12/20 25 05/20/2025 RESPI RATOR Y ALLER GY PANEL REGIO N VIII W/REF L class 0 Not Available [address], [address], 05/20/2025 17:57:43 05/12/20 25 05/20/2025 RESPI RATOR Y ALLER GY PANEL REGIO N VIII W/REF L cladosporium herbarum (M2) IgE <0.10 kU/L normal Not Available [address], [address], 05/20/2025 17:57:43 05/12/20 25 05/20/2025 RESPI RATOR Y ALLER GY PANEL REGIO N VIII W/REF L class 0 Not Available [address], [address], 05/20/2025 17:57:43 05/12/20 25 05/20/2025 RESPI RATOR Y ALLER GY PANEL REGIO N VIII W/REF L aspergillus fumigatus (M3) IgE <0.10 kU/L normal Not Available [address], [address], 05/20/2025 17:57:43 05/12/20 25 05/20/2025 RESPI RATOR Y ALLER GY PANEL REGIO N VIII W/REF L class 0 Not Available [address], [address], 05/20/2025 17:57:43 05/12/20 25 05/20/2025 RESPI RATOR Y ALLER GY PANEL REGIO N VIII W/REF L alternaria alternata (M6) IgE <0.10 kU/L normal Not Available [address], [address], 05/20/2025 17:57:43 05/12/20 25 05/20/2025 RESPI RATOR Y ALLER GY PANEL REGIO N VIII W/REF L class 0 Not Available [address], [address], 05/20/2025 17:57:43 05/12/20 25 05/20/2025 RESPI RATOR Y ALLER GY PANEL REGIO N VIII W/REF L CAT dander (E1) IgE <0.10 kU/L normal Not Available [address], [address], 05/20/2025 17:57:43 05/12/20 25 05/20/2025 RESPI RATOR Y ALLER GY PANEL REGIO N VIII W/REF L class 0 Not Available [address], [address], 05/20/2025 17:57:43 05/12/20 25 05/20/2025 RESPI RATOR Y ALLER GY PANEL REGIO N VIII W/REF L dog dander (E5) IgE <0.10 kU/L normal Not Available [address], [address], 05/20/2025 17:57:43 05/12/20 25 05/20/2025 RESPI RATOR Y ALLER GY PANEL REGIO N VIII W/REF L class 0 Not Available [address], [address], 05/20/2025 17:57:43 05/12/20 25 05/20/2025 RESPI RATOR Y ALLER GY PANEL REGIO N VIII W/REF L cockroach (I6) IgE 0.12 kU/L high Not Available [address], [address], 05/20/2025 17:57:43 05/12/20 25 05/20/2025 RESPI RATOR Y ALLER GY PANEL REGIO N VIII W/REF L class 0/1 Not Available [place] [address] [place], [address], 05/20/2025 17:57:43 05/12/20 25 05/20/2025 RESPI RATOR Y ALLER GY PANEL REGIO N VIII W/REF L maple (box elder) (T1) IgE <0.10 kU/L normal Not Available [place] [address] [place], [address], 05/20/2025 17:57:43 05/12/20 25 05/20/2025 RESPI RATOR Y ALLER GY PANEL REGIO N VIII W/REF L class 0 Not Available [place] [address] [place], [address], 05/20/2025 17:57:43 05/12/20 25 05/20/2025 RESPI RATOR Y ALLER GY PANEL REGIO N VIII W/REF L mountain cedar (T6) IgE <0.10 kU/L normal Not Available [address] [place] [address] [place], [address], 05/20/2025 17:57:43 05/12/20 25 05/20/2025 RESPI RATOR Y ALLER GY PANEL REGIO N VIII W/REF L class 0 Not Available [place] [address] [place], [address], 05/20/2025 17:57:43 05/12/20 25 05/20/2025 RESPI RATOR Y ALLER GY PANEL REGIO N VIII W/REF L walnut tree (T10) IgE 0.11 kU/L high Not Available [address], [address], 05/20/2025 17:57:43 05/12/20 25 05/20/2025 RESPI RATOR Y ALLER GY PANEL REGIO N VIII W/REF L class 0/1 Not Available [place] [address] [place], [address], 05/20/2025 17:57:43 05/12/20 25 05/20/2025 RESPI RATOR Y ALLER GY PANEL REGIO N VIII W/REF L sycamore (T11) IgE <0.10 kU/L normal Not Available [address] [place] [address] [place], [address], 05/20/2025 17:57:43 05/12/20 25 05/20/2025 RESPI RATOR Y ALLER GY PANEL REGIO N VIII W/REF L class 0 Not Available [place] [address] [place], [address], 05/20/2025 17:57:43 05/12/20 25 05/20/2025 RESPI RATOR Y ALLER GY PANEL REGIO N VIII W/REF L cottonwood (T14) IgE 0.12 kU/L high Not Available [address], [address], 05/20/2025 17:57:43 05/12/20 25 05/20/2025 RESPI RATOR Y ALLER GY PANEL REGIO N VIII W/REF L class 0/1 Not Available [address], [address], 05/20/2025 17:57:43 05/12/20 25 05/20/2025 RESPI RATOR Y ALLER GY PANEL REGIO N VIII W/REF L white sissy (T15) IgE <0.10 kU/L normal Not Available [place] [address] [place], [address], 05/20/2025 17:57:43 05/12/20 25 05/20/2025 RESPI RATOR Y ALLER GY PANEL REGIO N VIII W/REF L class 0 Not Available [place] [address] [place], [address], 05/20/2025 17:57:43 05/12/20 25 05/20/2025 RESPI RATOR Y ALLER GY PANEL REGIO N VIII W/REF L oak (T7) IgE <0.10 kU/L normal Not Available [address], [address], 05/20/2025 17:57:43 05/12/20 25 05/20/2025 RESPI RATOR Y ALLER GY PANEL REGIO N VIII W/REF L class 0 Not Available [address], [address], 05/20/2025 17:57:43 05/12/20 25 05/20/2025 RESPI RATOR Y ALLER GY PANEL REGIO N VIII W/REF L elm (T8) IgE 0.11 kU/L high Not Available [address], [address], 05/20/2025 17:57:43 05/12/20 25 05/20/2025 RESPI RATOR Y ALLER GY PANEL REGIO N VIII W/REF L class 0/1 Not Available [address], [address], 05/20/2025 17:57:43 05/12/20 25 05/20/2025 RESPI RATOR Y ALLER GY PANEL REGIO N VIII W/REF L hickory/peca n tree (T22) IgE <0.10 kU/L normal Not Available [address], [address], 05/20/2025 17:57:43 05/12/20 25 05/20/2025 RESPI RATOR Y ALLER GY PANEL REGIO N VIII W/REF L class 0 Not Available [address], [address], 05/20/2025 17:57:43 05/12/20 25 05/20/2025 RESPI RATOR Y ALLER GY PANEL REGIO N VIII W/REF L white mulberry (T70) IgE <0.10 kU/L normal Not Available [address], [address], 05/20/2025 17:57:43 05/12/20 25 05/20/2025 RESPI RATOR Y ALLER GY PANEL REGIO N VIII W/REF L class 0 Not Available [address], [address], 05/20/2025 17:57:43 05/12/20 25 05/20/2025 RESPI RATOR Y ALLER GY PANEL REGIO N VIII W/REF L bermuda grass (g2) IgE 0.11 kU/L high Not Available [address], [address], 05/20/2025 17:57:43 05/12/20 25 05/20/2025 RESPI RATOR Y ALLER GY PANEL REGIO N VIII W/REF L class 0/1 Not Available [address], [address], 05/20/2025 17:57:43 05/12/20 25 05/20/2025 RESPI RATOR Y ALLER GY PANEL REGIO N VIII W/REF L nancy grass (g6) IgE <0.10 kU/L normal Not Available [address], [address], 05/20/2025 17:57:43 05/12/20 25 05/20/2025 RESPI RATOR Y ALLER GY PANEL REGIO N VIII W/REF L class 0 Not Available [address], [address], 05/20/2025 17:57:43 05/12/20 25 05/20/2025 RESPI RATOR Y ALLER GY PANEL REGIO N VIII W/REF L common ragweed (short) (W1) IgE 0.10 kU/L high Not Available [address], [address], 05/20/2025 17:57:43 05/12/20 25 05/20/2025 RESPI RATOR Y ALLER GY PANEL REGIO N VIII W/REF L class 0/1 Not Available [address], [address], 05/20/2025 17:57:43 05/12/20 25 05/20/2025 RESPI RATOR Y ALLER GY PANEL REGIO N VIII W/REF L rough pigweed (W14) IgE <0.10 kU/L normal Not Available [address], [address], 05/20/2025 17:57:43 05/12/20 25 05/20/2025 RESPI RATOR Y ALLER GY PANEL REGIO N VIII W/REF L class 0 Not Available [address], [address], 05/20/2025 17:57:43 05/12/20 25 05/20/2025 RESPI RATOR Y ALLER GY PANEL REGIO N VIII W/REF L afghan thistle (W11) IgE <0.10 kU/L normal Not Available [address], [address], 05/20/2025 17:57:43 05/12/20 25 05/20/2025 RESPI RATOR Y ALLER GY PANEL REGIO N VIII W/REF L class 0 Not Available [address], [address], 05/20/2025 17:57:43 05/12/20 25 05/20/2025 RESPI RATOR Y ALLER GY PANEL REGIO N VIII W/REF L rough mallory elder (W16) IgE <0.10 kU/L normal Not Available [address], [address], 05/20/2025 17:57:43 05/12/20 25 05/20/2025 RESPI RATOR Y ALLER GY PANEL REGIO N VIII W/REF L class 0 Not Available [address], [address], 05/20/2025 17:57:43 05/12/20 25 05/20/2025 RESPI RATOR Y ALLER GY PANEL REGIO N VIII W/REF L mouse urine proteins (E72) IgE <0.10 kU/L normal Not Available [address], [address], 05/20/2025 17:57:43 05/12/20 25 05/20/2025 RESPI RATOR Y ALLER GY PANEL REGIO N VIII W/REF L class 0 Not Available [address], [address], 05/20/2025 17:57:43 05/12/20 25 05/20/2025 RESPI RATOR Y ALLER GY PANEL REGIO N VIII W/REF L immunoglobul in E 56 kU/L <or=11 4 normal Not Available [address], [address], 05/20/2025 17:57:43 05/12/20 25 05/20/2025 FOOD ALLER GY PROFI LE WITH REFLE XES egg white (F1) IgE <0.10 kU/L normal Not Available [address], [address], 05/20/2025 17:57:44 05/12/20 25 05/20/2025 FOOD ALLER GY PROFI LE WITH REFLE XES class 0 Not Available [address], [address], 05/20/2025 17:57:44 05/12/20 25 05/20/2025 FOOD ALLER GY PROFI LE WITH REFLE XES peanut (F13) IgE <0.10 kU/L normal Not Available [address], [address], 05/20/2025 17:57:44 05/12/20 25 05/20/2025 FOOD ALLER GY PROFI LE WITH REFLE XES class 0 Not Available [address], [address], 05/20/2025 17:57:44 05/12/20 25 05/20/2025 FOOD ALLER GY PROFI LE WITH REFLE XES wheat (F4) IgE <0.10 kU/L normal Not Available [address], [address], 05/20/2025 17:57:44 05/12/20 25 05/20/2025 FOOD ALLER GY PROFI LE WITH REFLE XES class 0 Not Available [address], [address], 05/20/2025 17:57:44 05/12/20 25 05/20/2025 FOOD ALLER GY PROFI LE WITH REFLE XES walnut (F256) IgE <0.10 kU/L normal Not Available [address], [address], 05/20/2025 17:57:44 05/12/20 25 05/20/2025 FOOD ALLER GY PROFI LE WITH REFLE XES class 0 Not Available [address], [address], 05/20/2025 17:57:44 05/12/20 25 05/20/2025 FOOD ALLER GY PROFI LE WITH REFLE XES codfish (F3) IgE <0.10 kU/L normal Not Available [address], [address], 05/20/2025 17:57:44 05/12/20 25 05/20/2025 FOOD ALLER GY PROFI LE WITH REFLE XES class 0 Not Available [facility] [address] [place], [address], 05/20/2025 17:57:44 05/12/20 25 05/20/2025 FOOD ALLER GY PROFI LE WITH REFLE XES cow's milk (F2) IgE <0.10 kU/L normal Not Available [address], [address], 05/20/2025 17:57:44 05/12/20 25 05/20/2025 FOOD ALLER GY PROFI LE WITH REFLE XES class 0 Not Available [address], [address], 05/20/2025 17:57:44 05/12/20 25 05/20/2025 FOOD ALLER GY PROFI LE WITH REFLE XES soybean (F14) IgE <0.10 kU/L normal Not Available [address], [address], 05/20/2025 17:57:44 05/12/2005/20/2025 FOOD ALLER GY PROFI LE WITH REFLE XES class 0 Not Available [address], [address], 05/20/2025 17:57:44 05/12/2005/20/2025 FOOD ALLER GY PROFI LE WITH REFLE XES shrimp (F24) IgE <0.10 kU/L normal Not Available [address], [address], 05/20/2025 17:57:44 05/12/2005/20/2025 FOOD ALLER GY PROFI LE WITH REFLE XES class 0 Not Available [address], [address], 05/20/2025 17:57:44 05/12/20 25 05/20/2025 FOOD ALLER GY PROFI LE WITH REFLE XES scallop (F338) IgE <0.10 kU/L normal Not Available [address], [address], 05/20/2025 17:57:44 05/12/20 25 05/20/2025 FOOD ALLER GY PROFI LE WITH REFLE XES class 0 Not Available [address], [address], 05/20/2025 17:57:44 05/12/20 25 05/20/2025 FOOD ALLER GY PROFI LE WITH REFLE XES sesame seed (F10) IgE <0.10 kU/L normal Not Available [address], [address], 05/20/2025 17:57:44 05/12/20 25 05/20/2025 FOOD ALLER GY PROFI LE WITH REFLE XES class 0 Not Available [address], [address], 05/20/2025 17:57:44 05/12/20 25 05/20/2025 FOOD ALLER GY PROFI LE WITH REFLE XES hazelnut (F17) IgE <0.10 kU/L normal Not Available [address], [address], 05/20/2025 17:57:44 05/12/20 25 05/20/2025 FOOD ALLER GY PROFI LE WITH REFLE XES class 0 Not Available [address], [address], 05/20/2025 17:57:44 05/12/20 25 05/20/2025 FOOD ALLER GY PROFI LE WITH REFLE XES cashew nut (F202) IgE <0.10 kU/L normal Not Available [facility] [address], [address], 05/20/2025 17:57:44 05/12/20 25 05/20/2025 FOOD ALLER GY PROFI LE WITH REFLE XES class 0 Not Available [address], [address], 05/20/2025 17:57:44 05/12/20 25 05/20/2025 FOOD ALLER GY PROFI LE WITH REFLE XES almond (F20) IgE 0.10 kU/L high Not Available [address], [address], 05/20/2025 17:57:44 05/12/20 25 05/20/2025 FOOD ALLER GY PROFI LE WITH REFLE XES class 0/1 Not Available [address], [address], 05/20/2025 17:57:44 05/12/20 25 05/20/2025 FOOD ALLER GY PROFI LE WITH REFLE XES salmon (F41) IgE <0.10 kU/L normal Not Available [address], [address], 05/20/2025 17:57:44 05/12/20 25 05/20/2025 FOOD ALLER GY PROFI LE WITH REFLE XES class 0 Not Available [address], [address], 05/20/2025 17:57:44 05/12/20 25 05/20/2025 FOOD ALLER GY PROFI LE WITH REFLE XES tuna (F40) IgE <0.10 kU/L normal Not Available [facility] [address], [address], 05/20/2025 17:57:44 05/12/20 25 05/20/2025 FOOD ALLER GY PROFI LE WITH REFLE XES class 0 Not Available [facility] [address], [address], 05/20/2025 17:57:44 05/12/2005/20/2025 INTER PRETA TION interpretati on Speci fic Level of Aller gen IGE Class kU/L Speci fic IGE Antib ofelia ----- ----- ---- ----- ----- ----- ---- 0 <0.10 Absen t/Und etect able 0/1 0.10- 0.34 Very Low Level 1 0.35- 0.69 Low Level 2 0.70- 3.49 Moder ate Level 3 3.50- 17.4 High Level 4 17.5- 49.9 Very High Level 5 50-10 0 Very High Level 6 >100 Very High Level The clini sheron relev ance of aller gen resul ts of 0.10- 0.34 kU/L are undet ermin ed and inten ded for speci alist use. Aller gens denot ed with a inclu de resul ts using one or more betty te speci fic reage nts. In those cases , the test was devel oped and its betty tical perfo rmanc e miguel cteri stics have been deter mined by [facility]. It has not been clear ed or appro joceline by the U.S. Food and Drug Admin istra tion. This assay has been valid ated pursu ant to the CLIA regul ation s and is used for clini sheron purpo ses. Not Available [facility] [address] [address] [place], [address], 05/20/2025 17:57:45 05/12/2005/20/2025 IMMUN OGLOB ULIN G SUBCL ASSES PANEL immunoglobul in g subclass 1 420 mg/dL 382-92 9 Not Available [facility] [address] [place], [address], 05/20/2025 17:57:45 05/12/20 25 05/20/2025 IMMUN OGLOB ULIN G SUBCL ASSES PANEL immunoglobul in g subclass 2 267 mg/dL 241-70 0 Not Available [facility] - [address], [address], 05/20/2025 17:57:45 05/12/20 25 05/20/2025 IMMUN OGLOB ULIN G SUBCL ASSES PANEL immunoglobul in g subclass 3 33 mg/dL 22-178 Not Available [address], [address], 05/20/2025 17:57:45 05/12/2005/20/2025 IMMUN OGLOB ULIN G SUBCL ASSES PANEL immunoglobul in g subclass 4 42.1 mg/dL 4.0-86 .0 Not Available [address], [address], 05/20/2025 17:57:45 05/12/20 25 05/20/2025 IMMUN OGLOB ULIN G SUBCL ASSES PANEL immunoglobul in g, serum 819 mg/dL 600-16 40 Not Available [address], [address], 05/20/2025 17:57:45 05/12/2005/20/2025 EOSIN OPHIL COUNT (B) white blood cell count 6.1 thous and/u L 3.8-10 .8 normal Not Available [address], [address], 05/20/2025 17:57:47 05/12/2005/20/2025 EOSIN OPHIL COUNT (B) absolute eosinophils 128 cells /uL 15-500 normal Not Available [address], [address], 05/20/2025 17:57:47 05/12/2005/20/2025 EOSIN OPHIL COUNT (B) eosinophils 2.1 % normal Not Available [address], [address], 05/20/2025 17:57:47 05/12/2005/20/2025 ALPHA -1-AN TITRY PSIN (AAT) PHENO TYPE [id number] trypsin (aat) phenotype SEE NOTE THIS PATIE NT'S ALPHA -1-AN TITRY PSIN PHENO TYPE IS PI*MM . 90% of jalyn l indiv idual s have the MM pheno type, with jalyn l quant itati ve AAT level s. Many pheno typic patte rns have been descr ibed, inclu ding defic iency state s with F, S, Z, or other allel es. As a gener al estim ation , pallavi red to M allel e of 100% of jalyn l A-1-A ntitr ypsin prote in, the S allel e produ jens appro ximat karlo 60% and the Z allel e 20%. For examp le, an MS pheno type would have about 80% of jalyn l A-1-A ntitr ypsin prote in level , a 50% contr ibuti on from the M allel e and 30% from the S allel e. A ZZ pheno type would have about 20% of jalyn l level s, a 10% contr ibuti on from each Z gene. The F allel e has jalyn l A-1-A ntitr ypsin level s, but the kinet ics of elast ase inhib ition is not as effic ient as an M allel e produ ct; F allel es shoul d be consi dered funct ional ly mildl y defic ient. Other varia nts are ident ifiab le by pheno typic betty sis. These inclu de CM, DP, EM, GM, IS, LM, M1M2, M3M3, MP, MT, XX, MY, and M1N. I, P, T and null allel es are consi dered delet eriou s. C, D, E, G, L, M1, M2, M3, X and Y allel es are gener ally consi dered jalyn l varia nts. The MZ-Pr att pheno type is a jalyn l varia nt; care shoul d be taken to avoid confu vipul with the defic ient MZ pheno type. Not Available [facility] [address] [place], [address], 05/20/2025 17:57:47 05/12/2005/20/2025 B TYPE NATRI URETI C PEPTI DE (BNP) B type natriuretic peptide (BNP) 7 pg/mL <100 normal BNP level s incre ase with age in the gener al popul ation with the highe st value s seen in indiv idual s great er than 75 years of age. Refer ence: J. Am. Salvador. Cardi ol. 2002; 40:97 6-982 . Not Available [address], [address], 05/20/2025 17:57:48 05/12/2005/20/2025 QUANT IFERO N(R)- TB GOLD PLUS, 1 TUBE quantiferon( R)-TB gold plus, 1 tube NEGATI VE negati ve normal Negat sheridan test resul t. M. tuber culos is compl ex infec tion unlik karlo. Not Available [address], [address], 05/20/2025 17:57:49 05/12/2005/20/2025 QUANT IFERO N(R)- TB GOLD PLUS, 1 TUBE nil 0.02 IU/mL normal Not Available [address], [address], 05/20/2025 17:57:49 05/12/2005/20/2025 QUANT IFERO N(R)- TB GOLD PLUS, 1 TUBE mitogen-nil >10.00 IU/mL normal Not Available [facility] [address] [place], [address], 05/20/2025 17:57:49 05/12/2005/20/2025 QUANT IFERO N(R)- TB GOLD PLUS, 1 TUBE TB1-nil 0.00 IU/mL normal Not Available [facility] [address], [address], 05/20/2025 17:57:49 05/12/20 25 05/20/2025 QUANT IFERO N(R)- TB GOLD PLUS, 1 TUBE TB2-nil 0.00 IU/mL normal The Nil tube value refle cts the backg round inter feron gamma immun e respo nse of the patie nt's blood sampl e. This value has been subtr acted from the patie nt's displ ayed TB and Mitog en resul ts. Lower than expec nan resul ts with the Mitog en tube preve nt false -nega tive Quant ifero n readi ngs by detec ting a patie nt with a poten tial immun e suppr essiv e condi tion and/o r subop timal pre-a nalyt ical speci men handl ing. The TB1 Antig en tube is coate d with the M. tuber sumaos is-sp ecifi c antig ens desig lionel to elici t respo nses from TB antig en prime d CD4+ helpe r T-lym phocy wiley. The TB2 Antig en tube is coate d with the M. tuber sumaos is-sp ecifi c antig ens desig lionel to elici t respo nses from TB antig en prime d CD4+ helpe r and CD8+ cytot oxic T-lym phocy wiley. For addit ional billyr miguel zhou e refer to https ://ed ati on.qu uyen Rupture. Tupalo/f aq/FA Q204 (This link is being provi ded for infor zeb ruiz/ adalberto tripathi purpo ses only. ) Not Available [facility] [address] [place], [address], 05/20/2025 17:57:49 08/16/20 25 08/21/2025 LIPID PANEL , STAND LAURA cholesterol, total 158 mg/dL <200 normal Not Available [facility] [address] [place], [address], 08/21/2025 18:07:51 08/16/20 25 08/21/2025 LIPID PANEL , STAND LAURA HDL cholesterol 41 mg/dL > or = 40 normal Not Available [facility] [address] [place], [address], 08/21/2025 18:07:51 08/16/2008/21/2025 LIPID PANEL , STAND LAURA triglyceride s 139 mg/dL <150 normal Not Available [facility] [address] [place], [address], 08/21/2025 18:07:51 08/16/2008/21/2025 LIPID PANEL , STAND LAURA LDL-choleste rol 93 mg/dL _(sheron c) normal Refer ence range : <100 Ashely able range <100 mg/dL for prima ry preve ntion ; <70 mg/dL for patie nts with CHD or diabe tic patie nts with > or = 2 CHD risk facto rs. LDL-C is now calcu lated using the Jacinta carpio-Hop kins peteu adela n, which is a valid ated novel kim romote r accur acy than the [employer] equat ion in the estim ation of LDL-C . Jacinta carpio SS et al. MANOLO. 2013; 310(1 9): 2061- 2068 (http ://ed ucati on.VirtuOz Uyen Rupture. com/f aq/FA Q164) Not Available [facility] [address] [address], [place], [address], 08/21/2025 18:07:51 08/16/2008/21/2025 LIPID PANEL , STAND LAURA chol/HDLC ratio 3.9 (calc ) <5.0 normal Not Available [facility] [address] [place], [address], 08/21/2025 18:07:51 08/16/2008/21/2025 LIPID PANEL , STAND LAURA non HDL cholesterol 117 mg/dL _(sheron c) <130 normal For patie nts with diabe wiley plus 1 major ASCVD risk facto r, treat ing to a non-H DL-C goal of <100 mg/dL (LDL- C of <70 mg/dL ) is consi dered a thera peuti c optio n. Not Available [address], [address], 08/21/2025 18:07:51 08/16/2008/21/2025 MAGNE SIUM magnesium 2.2 mg/dL 1.5-2. 5 normal Not Available [address], [address], 08/21/2025 18:07:52 08/16/2008/21/2025 URIC ACID uric acid 6.4 mg/dL 4.0-8. 0 normal Thera etelvina alvarado targe t for gout patie nts: <6.0 mg/dL Not Available [address], [address], 08/21/2025 18:07:52 08/16/2008/21/2025 COMPR EHENS SHERIDAN METAB OLIC PANEL glucose 90 mg/dL 65-99 normal Fasti ng refer ence inter shoshana Not Available [address], [address], 08/21/2025 18:07:53 08/16/2008/21/2025 COMPR EHENS SHERIDAN METAB OLIC PANEL urea nitrogen (BUN) 20 mg/dL 7-25 normal Not Available [address], [address], 08/21/2025 18:07:53 08/16/2008/21/2025 COMPR EHENS SHERIDAN METAB OLIC PANEL creatinine 1.42 mg/dL 0.60-1 .29 high Not Available [address], [address], 08/21/2025 18:07:53 08/16/2008/21/2025 COMPR EHENS SHERIDAN METAB OLIC PANEL eGFR 62 mL/mi n/1.7 3m2 > or = 60 normal Not Available [address], [address], 08/21/2025 18:07:53 08/16/2008/21/2025 COMPR EHENS SHERIDAN METAB OLIC PANEL BUN/creatini ne ratio 14 (calc ) 6-22 normal Not Available [address], [address], 08/21/2025 18:07:53 08/16/2008/21/2025 COMPR EHENS SHERIDAN METAB OLIC PANEL sodium 137 mmol/ L 135-14 6 normal Not Available [address], [address], 08/21/2025 18:07:53 08/16/2008/21/2025 COMPR EHENS SHERIDAN METAB OLIC PANEL potassium 4.1 mmol/ L 3.5-5. 3 normal Not Available [address], [address], 08/21/2025 18:07:53 08/16/2008/21/2025 COMPR EHENS SHERIDAN METAB OLIC PANEL chloride 102 mmol/ L 98-110 normal Not Available [address], [address], 08/21/2025 18:07:53 08/16/2008/21/2025 COMPR EHENS SHERIDAN METAB OLIC PANEL carbon dioxide 27 mmol/ L 20-32 normal Not Available [address], [address], 08/21/2025 18:07:53 08/16/2008/21/2025 COMPR EHENS SHERIDAN METAB OLIC PANEL calcium 9.5 mg/dL 8.6-10 .3 normal Not Available [address], [address], 08/21/2025 18:07:53 08/16/2008/21/2025 COMPR EHENS SHERIDAN METAB OLIC PANEL protein, total 7.0 g/dL 6.1-8. 1 normal Not Available [address], [address], 08/21/2025 18:07:53 08/16/2008/21/2025 COMPR EHENS SHERIDAN METAB OLIC PANEL albumin 4.4 g/dL 3.6-5. 1 normal Not Available [address], [address], 08/21/2025 18:07:53 08/16/2008/21/2025 COMPR EHENS SHERIDAN METAB OLIC PANEL globulin 2.6 g/dL_ (calc ) 1.9-3. 7 normal Not Available [address], [address], 08/21/2025 18:07:53 08/16/2008/21/2025 COMPR EHENS SHERIDAN METAB OLIC PANEL albumin/glob ulin ratio 1.7 (calc ) 1.0-2. 5 normal Not Available [address], [address], 08/21/2025 18:07:53 08/16/2008/21/2025 COMPR EHENS SHERIDAN METAB OLIC PANEL bilirubin, total 0.6 mg/dL 0.2-1. 2 normal Not Available [address], [address], 08/21/2025 18:07:53 08/16/2008/21/2025 COMPR EHENS SHERIDAN METAB OLIC PANEL alkaline phosphatase 66 U/L 36-130 normal Not Available [address], [address], 08/21/2025 18:07:53 08/16/2008/21/2025 COMPR EHENS SHERIDAN METAB OLIC PANEL AST 19 U/L 10-40 normal Not Available [address], [address], 08/21/2025 18:07:53 08/16/2008/21/2025 COMPR EHENS SHERIDAN METAB OLIC PANEL ALT 21 U/L 9-46 normal Not Available [address], [address], 08/21/2025 18:07:53 08/16/2008/21/2025 CBC (INCL UDES DIFF/ PLT) white blood cell count 7.8 thous and/u L 3.8-10 .8 normal Not Available [address], [address], 08/21/2025 18:07:53 08/16/2008/21/2025 CBC (INCL UDES DIFF/ PLT) red blood cell count 4.73 paola on/uL 4.20-5 .80 normal Not Available [address], [address], 08/21/2025 18:07:53 08/16/2008/21/2025 CBC (INCL UDES DIFF/ PLT) hemoglobin 14.5 g/dL 13.2-1 7.1 normal Not Available [address], [address], 08/21/2025 18:07:53 08/16/2008/21/2025 CBC (INCL UDES DIFF/ PLT) hematocrit 44.9 % 38.5-5 0.0 normal Not Available [address], [address], 08/21/2025 18:07:53 08/16/2008/21/2025 CBC (INCL UDES DIFF/ PLT) MCV 94.9 fL 80.0-1 00.0 normal Not Available [address], [address], 08/21/2025 18:07:53 08/16/2008/21/2025 CBC (INCL UDES DIFF/ PLT) MCH 30.7 pg 27.0-3 3.0 normal Not Available [address], [address], 08/21/2025 18:07:53 08/16/2008/21/2025 CBC (INCL UDES DIFF/ PLT) MCHC 32.3 g/dL 32.0-3 6.0 normal For adult s, a sligh t decre ase in the calcu lated MCHC value (in the range of 30 to 32 g/dL) is most likel y not clini sai shuklai argenis t; mauri er, it shoul d be inter prete d with cauti on in [facility] n with other red cell tee eters and the patie nt's clini sheron condi tion. Not Available [address], [address], 08/21/2025 18:07:53 08/16/2008/21/2025 CBC (INCL UDES DIFF/ PLT) RDW 13.2 % 11.0-1 5.0 normal Not Available [address], [address], 08/21/2025 18:07:53 08/16/2008/21/2025 CBC (INCL UDES DIFF/ PLT) platelet count 363 thous and/u L 140-40 0 normal Not Available [address], [address], 08/21/2025 18:07:53 08/16/2008/21/2025 CBC (INCL UDES DIFF/ PLT) MPV 9.0 fL 7.5-12 .5 normal Not Available [address], [address], 08/21/2025 18:07:53 08/16/2008/21/2025 CBC (INCL UDES DIFF/ PLT) absolute neutrophils 5234 cells /uL 1500-7 800 normal Not Available [address], [address], 08/21/2025 18:07:53 08/16/2008/21/2025 CBC (INCL UDES DIFF/ PLT) absolute lymphocytes 1864 cells /uL 850-39 00 normal Not Available [address], [address], 08/21/2025 18:07:53 08/16/2008/21/2025 CBC (INCL UDES DIFF/ PLT) absolute monocytes 538 cells /uL 200-95 0 normal Not Available [address], [address], 08/21/2025 18:07:53 08/16/2008/21/2025 CBC (INCL UDES DIFF/ PLT) absolute eosinophils 117 cells /uL 15-500 normal Not Available [address], [address], 08/21/2025 18:07:53 08/16/2008/21/2025 CBC (INCL UDES DIFF/ PLT) absolute basophils 47 cells /uL 0-200 normal Not Available [address], [address], 08/21/2025 18:07:53 08/16/2008/21/2025 CBC (INCL UDES DIFF/ PLT) neutrophils 67.1 % normal Not Available [address], [address], 08/21/2025 18:07:53 08/16/2008/21/2025 CBC (INCL UDES DIFF/ PLT) lymphocytes 23.9 % normal Not Available [address], [address], 08/21/2025 18:07:53 08/16/20 25 08/21/2025 CBC (INCL UDES DIFF/ PLT) monocytes 6.9 % normal Not Available [address], [address], 08/21/2025 18:07:53 08/16/2008/21/2025 CBC (INCL UDES DIFF/ PLT) eosinophils 1.5 % normal Not Available [address], [address], 08/21/2025 18:07:53 08/16/20 25 08/21/2025 CBC (INCL UDES DIFF/ PLT) basophils 0.6 % normal Not Available [address], [address], 08/21/2025 18:07:53 08/16/2008/21/2025 URINA LYSIS , COMPL ETE W/REF MARTHA TO CULTU RE color YELLOW yellow normal Not Available [address], [address], 08/21/2025 18:07:54 08/16/20 25 08/21/2025 URINA LYSIS , COMPL ETE W/REF MARTHA TO CULTU RE appearance CLEAR clear normal Not Available [address], [address], 08/21/2025 18:07:54 08/16/20 25 08/21/2025 URINA LYSIS , COMPL ETE W/REF MARTHA TO CULTU RE specific gravity 1.009 1.001- 1.035 normal Not Available [address], [address], 08/21/2025 18:07:54 08/16/20 25 08/21/2025 URINA LYSIS , COMPL ETE W/REF MARTHA TO CULTU RE pH 6.5 5.0-8. 0 normal Not Available [address], [address], 08/21/2025 18:07:54 08/16/20 25 08/21/2025 URINA LYSIS , COMPL ETE W/REF MARTHA TO CULTU RE glucose 2+ negati ve abnormal Not Available [address], [address], 08/21/2025 18:07:54 08/16/20 25 08/21/2025 URINA LYSIS , COMPL ETE W/REF MARTHA TO CULTU RE bilirubin NEGATI VE negati ve normal Not Available [facility] [address], [address], 08/21/2025 18:07:54 08/16/20 25 08/21/2025 URINA LYSIS , COMPL ETE W/REF MARTHA TO CULTU RE ketones NEGATI VE negati ve normal Not Available [facility] [address], [address], 08/21/2025 18:07:54 08/16/20 25 08/21/2025 URINA LYSIS , COMPL ETE W/REF MARTHA TO CULTU RE occult blood NEGATI VE negati ve normal Not Available [address], [address], 08/21/2025 18:07:54 08/16/20 25 08/21/2025 URINA LYSIS , COMPL ETE W/REF MARTHA TO CULTU RE protein NEGATI VE negati ve normal Not Available [facility] [address], [address], 08/21/2025 18:07:54 08/16/20 25 08/21/2025 URINA LYSIS , COMPL ETE W/REF MARTHA TO CULTU RE nitrite NEGATI VE negati ve normal Not Available [facility] [address], [address], 08/21/2025 18:07:54 08/16/20 25 08/21/2025 URINA LYSIS , COMPL ETE W/REF MARTHA TO CULTU RE leukocyte esterase NEGATI VE negati ve normal Not Available [address], [address], 08/21/2025 18:07:54 08/16/20 25 08/21/2025 URINA LYSIS , COMPL ETE W/REF MARTHA TO CULTU RE WBC NONE SEEN /hpf < or = 5 normal Not Available [address], [address], 08/21/2025 18:07:54 08/16/20 25 08/21/2025 URINA LYSIS , COMPL ETE W/REF MARTHA TO CULTU RE RBC NONE SEEN /hpf < or = 2 normal Not Available [address], [address], 08/21/2025 18:07:54 08/16/20 25 08/21/2025 URINA LYSIS , COMPL ETE W/REF MARTHA TO CULTU RE squamous epithelial cells NONE SEEN /hpf < or = 5 normal Not Available [address], [address], 08/21/2025 18:07:54 08/16/20 25 08/21/2025 URINA LYSIS , COMPL ETE W/REF MARTHA TO CULTU RE bacteria NONE SEEN /hpf none seen normal Not Available [address], [address], 08/21/2025 18:07:54 08/16/20 25 08/21/2025 URINA LYSIS , COMPL ETE W/REF MARTHA TO CULTU RE hyaline cast NONE SEEN /lpf none seen normal Not Available [address], [address], 08/21/2025 18:07:54 08/16/20 25 08/21/2025 URINA LYSIS , COMPL ETE W/REF MARTHA TO CULTU RE note This urine was betty zed for the prese nce of WBC, RBC, bacte pete, casts , and other forme d eleme nts. Only those eleme nts seen were repor nan. Not Available [facility] [place] [address] [place], [address], 08/21/2025 18:07:54 08/16/2008/21/2025 REFLE XIVE URINE CULTU RE reflexive urine culture NO CULTU RE INDIC ATED Not Available [facility] [place] [address] [address] , [place], [address], 08/21/2025 18:07:54 08/16/2008/21/2025 PSA, TOTAL PSA, total 0.34 NG/mL < or = 4.00 normal The total PSA value from this assay syste m is stand ardiz ed again st the WHO stand laura. The test resul t will be appro ximat karlo 20% lower when pallavi red to the equim olar- stand ardiz ed total PSA (Boles man Coult er). Pallavi rison of seria l PSA resul ts shoul d be inter prete d with this fact in mind. This test was perfo rmed using the doFormse ns chemi lumin escen t metho d. Value s obtai lionel from diffe rent assay metho ds canno t be used inter jo eably . PSA level s, regar dless of value , shoul d not be inter prete d as absol lenny evide nce of the prese nce or absen ce of disea se. Not Available [facility] [place] [address] [address] , [place], [address], 08/21/2025 18:07:55 08/16/2008/21/2025 VITAM IN B12/F OLATE , SERUM PANEL vitamin B12 319 pg/mL 200-11 00 normal Pleas e Note: Altho ugh the refer ence range for vitam in B12 is 200-1 100 pg/mL , it has been repor nan that betwe en 5 and 10% of patie nts with value s betwe en 200 and 400 pg/mL may exper ience neuro psych iatri c and hemat ologi c abnor malit ies due to occul t B12 defic iency ; less than 1% of patie nts with value s above 400 pg/mL will have sympt oms. Not Available [facility] [address] [place], [address], 08/21/2025 18:07:55 08/16/2008/21/2025 VITAM IN B12/F OLATE , SERUM PANEL folate, serum 12.2 NG/mL normal Refer ence Range Low: <3.4 Borde rline : 3.4-5 .4 Ajlyn l: >5.4 Not Available [facility] [address] [place], [address], 08/21/2025 18:07:55 08/16/2008/21/2025 TSH TSH 1.45 mIU/L 0.40-4 .50 normal Not Available [facility] [address] [address] [place], [address], 08/21/2025 18:07:56 08/16/2008/21/2025 VITAM IN D,25- OH,TO KELLIE,I A vitamin D,25-oh,tota l,ia 38 NG/mL 30-100 normal Vitam in D Statu s 25-OH Vitam in D: Defic iency : <20 ng/mL Insuf ficie ncy: 20 - 29 ng/mL Optim al: > or = 30 ng/mL For 25-OH Vitam in D testi ng on patie nts on D2-batista pplem entat ion and patie nts for whom quant itati on of D2 and D3 fract ions is requi red, the [facility] eD(TM ) 25-OH VIT D, (D2,D 3), LC/MS /MS is recom kip d: order code 16319 (kelli ents >2yrs ). See Note 1 Note 1 For addit ional infor miguel zhou e refer to http: //tracee Malhotra gnost ics.c om/fa q/FAQ 199 (This link is being provi ded for infor zeb ruiz/ adalberto armstrong l purpo ses only. ) Not Available [facility] [address] [place], [address], 08/21/2025 18:07:56 08/16/2008/21/2025 HEMOG LOBIN A1C hemoglobin A1C 5.6 %_of_ total _HGB <5.7 normal For the purpo se of scree danette for the prese nce of diabe wiley: <5.7% Consi stent with the absen ce of diabe wiley 5.7-6 .4% Consi stent with incre ased risk for diabe wiley (pred iabet es) > or =6.5% Consi stent with diabe wiley This assay resul t is consi stent with a decre ased risk of diabe wiley. Curre ntly, no conse nsus exist s regar bobo use of hemog lobin A1c for diagn osis of diabe wiley in child mar. Accor ding to Ameri can Diabe wiley Assoc iatio n (ADA) guide lines , hemog lobin A1c <7.0% repre sents optim al contr ol in non-p regna nt diabe tic patie nts. Diffe rent metri cs may apply to speci fic patie nt popul ation s. Stand ards of Medic al Care in Diabe wiley(A DA). Not Available [facility] [place] [id number] [place], [address], 08/21/2025 18:07:57 08/16/2008/21/2025 TESTO STERO NE, FREE (DIAL YSIS) AND TOTAL ,MS testosterone , total, MS 367 NG/dL 250-11 00 Men with clini sai signi fican t hypog onada l sympt oms and testo stero ne value s repea tedly in the range of the 200-3 00 ng/dL or less, may benef it from testo stero ne treat ment after adequ ate risk and benef its couns eling . For addit ional infor miguel zhou e refer to https ://ed ucati on.qu estdi agnos tics. com/f aq/FA Q165 (This link is being provi ded for infor matio nal/e ducat ional purpo ses only. ) (Note ) This test was devel oped and its betty tical perfo rmanc e miguel cteri stics have been deter mined by [facility]. It has not been clear ed or appro joceline by the FDA. This assay has been valid ated pursu ant to the CLIA regul ation s and is used for clini sheron purpo ses. Not Available [facility] [address] [place], [address], 08/21/2025 18:07:57 08/16/20 25 08/21/2025 TESTO STERO NE, FREE (DIAL YSIS) AND TOTAL ,MS testosterone , free 90.5 pg/mL 35.0-1 55.0 (Note ) This test was devel oped and its betty tical perfo rmanc e miguel cteri stics have been deter mined by [facility]. It has not been clear ed or appro joceline by the FDA. This assay has been valid ated pursu ant to the CLIA regul ation s and is used for clini sheron purpo ses. [facility] med fusio n [address] [facility] [address] [facility] [address] [phone] Sakshi Solomon MD, PhD Not Available [facility] [address] [place], [address], 08/21/2025 18:07:57 05/28/20 25 XR, knee No observ ation record ed. [email or web address] [facility] [address] [facility] [address], [place], [address], 05/28/2025 11:27:22 06/14/20 25 06/13/2025 metha choli ne chall enge* No observ ation record ed. [email or web address] [facility] ([facility]) [address] [place], [address], 06/20/2025 09:33:28 07/09/20 25 XR, cervi sheron spine , 2 or 3 view No observ ation record ed. [email or web address] [facility] [place] [address], [place], [address], 07/09/2025 09:26:57 Result Notes None recorded. Problems Name Problem SNOMED Code Status Onset Date Resolution Date Notes Provider Name and Address Organization Details Recorded Time Lateral epicondylit is 876894560 Active Sharad Navarro MD [address], [address], [place], [address], [employer] 5 16:12:23 Gastroesoph ageal reflux disease 198310516 Active Sharad Navarro MD [address], [address], [place], [address], [employer] 5 16:12:05 Raynaud's phenomenon 458591933 Active Sharad Navarro MD [address], [address], [place], [address], [employer] 5 16:12:37 Seasonal allergic rhinitis 997613625 Active Sharad Navarro MD [address], [address], [place], [address], [employer] 5 16:12:43 Carpal tunnel syndrome 89539721 Active Sharad Navarro MD [address], [place], [address], [employer] 5 16:11:53 Mixed anxiety and depressive disorder 465867836 Active 2017 Sharad Navarro MD [address], [address], [place], [address], [employer] 5 16:11:25 Recurrent herpes simplex 32698761 Active 2017 Sharad Navarro MD [address], [address], [place], [address], [employer] 5 16:12:40 Vitamin D deficiency 07799840 Active 2017 Sharad Navarro MD [address], [address], [place], [address], [employer] 5 16:12:49 Obesity 128052646 Active 2017 Sharad Navarro MD [address], [address], [place], [address], [employer] 5 16:12:28 Hyperlipide deja 22662698 Active 2017 Sharad Navarro MD [address], [address], [place], [address], [employer] 5 16:12:10 Erectile dysfunction 230698013 Active 2022 Sharad Navarro MD [address], [address], [place], [address], [employer] 5 16:12:03 Chronic kidney disease stage 3 139931621 Active 2023 Sharad Navarro MD [address], [address], [place], [address], [employer] 5 16:11:56 Hypertensiv e disorder 28556065 Active 2023 Sharad Navarro MD [address], [address], [place], [address], [employer] 5 16:12:12 Obstructive sleep apnea syndrome 19093580 Active 2023 Sharad Navarro MD [address], [address], [place], [address], [employer] 5 16:12:31 Male hypogonadis m 52678507 Active 2023 Sharad Navarro MD [address], [address], [place], [address], [employer] 5 16:12:25 Irritable bowel syndrome with diarrhea 102308440 Active 2023 Sharad Navarro MD [address], [address], [place], [address], [facility] 5 16:12:21 Dyspnea on exertion 03137631 Active 2024 Sharad Navarro MD [address], [facility] [address], [place], [address], [facility] 5 10:37:38 Irritable bowel syndrome 95839711 Active 2024 Piter Fair MD [address], [facility] [address], [place], [address], [facility] 5 09:01:47 Fatigue 99413887 Active 2024 Piter Fair MD [address], [facility] [address], [place], [address], [facility] 5 09:01:47 Polyarthrop athy 83827570 Active 2024 Piter Fair MD [address], [facility] [address], [place], [address], [facility] 5 09:01:47 Sleep apnea 94826737 Active 2024 Piter Fair MD [address], [facility] [address], [place], [address], [facility] 5 09:01:48 Pain of left knee joint 6717948843691 07 Active 2024 Cheryl Houston CNA null, [place] [facility] 5 09:05:30 Neck pain 28387046 Active 2024 Alma Deys null, [place] - [facility] 5 09:12:40 Myofascial neck pain 1355379512 Active 2024 HIRO Mckinnon [address], [facility] [address], [place], [address], [facility] 5 09:27:15 Lump in upper inner quadrant of right breast 7104560691662 01 Active 2024 Piter Fair MD [address] [facility], [facility] [address], [place], [address], [facility] [employer] [facility] 5 16:06:06 Obese class I [id number] 07 Active 2024 Piter Fair MD [address] [facility], [facility] [address], [place], [address], [facility] [employer] [facility] [employer] [facility] 5 16:14:30 Notes:Medical History: Depre ssion/Anxiety Left hearing loss Left tinnitus Bruxism Rhinitis to multiple environmental allergens with postnasal drip Eosinophils 128/uL IgE 56 kU/L AAT PiMM Obesity with mild restrictive airflow impairment Mild OSAHS, AHI = 8, 07/12/24, on CPAP c/o IVRC Treatment-emergent central apneas Hypertension Hyperlipidemia T2DM RICCARDO Cholelithiasis Diarrhea-predominant IBS Left renal atresia CKD Hypogonadism ED Recurrent HSV infection Vit D deficiency Right CTS Raynaud's phenomenon Procedure History: EGD 2015 Colonoscopy with polypectomies 2020 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 Mask Use History: [employer] large Bryanna nasal mask [employer] medium Eson 2 nasal mask Problem Notes Documentation Provider Name and Address Organization Details Recorded Time Orthopedic Surgeon Consult Note : [facility] [address], [facility] [id number], Tyler D (id #[id number], : 1980) Documents sent via fax will include the following message: This fax may contain sensitive and confidential personal health information that is being sent for the sole use of the intended recipient. Unintended recipients are directed to securely destroy any materials received. You are hereby notified that the unauthorized disclosure or other unlawful use of this fax or any personal health information is prohibited. To the extent patient information contained in this fax is subject to 42 CFR Part 2, this regulation prohibits unauthorized disclosure of these records. If you received this fax in error, please visit [email or web address] to notify the sender and confirm that the information will be destroyed. If you do not have internet access, please call to notify the sender and confirm that the information will be destroyed. Thank you for your attention and cooperation. [ID:[id number]] , Date: 05/28/2025RE: JeffMera Camacho MD, I would like to thank you for referring Jeff Vaughn to me for consultation and evaluation of Left knee pain , on 05/28/2025. I have enclosed a copy of the office assessment and plan for your records. Once again, thank you for allowing me to participate in the care of this patient. Sincerely, Electronically Signed by: HIRO MCKINNON, OLIVERIO Assessment/PlanThe patient has left knee pain his x-rays show only minor signs of degenerative joint disease in the medial compartment. He does not have any obvious signs of meniscal pathology. We talked about treatment options in detail today we talked about a shot of cortisone he declined he would rather just try a course of physical therapy after discussion. We will get him set up for physical therapy. We did talk about oral steroids he again declined he would rather just use Tylenol. He can not take nonsteroidal anti-inflammatory medication due to the fact that he only has 1 kidney. We will see how he does with conservative measures we will see him back in 6 weeks. We talked about icing and activity modification as well. If the patient's symptoms continue to be significant or worsen an MRI scan may be indicated we could also try a shot of cortisone in the future if necessary. He voiced understanding and agreed with the above plan will call for any further problems difficulties or questions. I will see him back after he has completed physical therapy. We did talk about doing this on his own at home as well. 1.Pain in joint of left kneeM25.562: Pain in left knee XR, KNEE Side: LEFT PHYSICAL THERAPIST REFERRAL - Schedule Within: provider's discretion Note to Provider: Please contact patient to schedule Evaluate & Treat: as per p.t Exercises: as per p.t. Modalities: as per p.t. Side: LEFT # of requested visits: 12 XR, KNEE Side: LEFT X-rays done today in the office as read by me AP lateral skyline view left knee demonstrates no acute findings no fractures lesions or masses. There is some minor narrowing of the medial compartment compared to the lateral compartment of the left knee. Minimal varus alignment is noted. Also noted is subchondral thickening of the medial tibial plateau with sclerotic changes compared to the rest of the joint. Kneecaps shows some minor narrowing of the lateral facet joint otherwise unremarkable. No other acute or chronic bony abnormalities are noted. Return to Office Piter Fair MD for Physical/Annual Wellness 30 at [facility] [place] on 06/20/2025 at 08:00 AM HIRO Mckinnon for Any 5 at [facility] on 07/09/2025 at 08:00 AM Piter Fair MD [address] [facility], [facility] [address], [place], [address], [facility] 06/20/2025 09:33:32 Orthopedic Surgeon Consult Note : [facility] [address] [facility] [address], [place] [facility] [id number], Tyler D (id #[id number], : 1980) Documents sent via fax will include the following message: This fax may contain sensitive and confidential personal health information that is being sent for the sole use of the intended recipient. Unintended recipients are directed to securely destroy any materials received. You are hereby notified that the unauthorized disclosure or other unlawful use of this fax or any personal health information is prohibited. To the extent patient information contained in this fax is subject to 42 CFR Part 2, this regulation prohibits unauthorized disclosure of these records. If you received this fax in error, please visit [email or web address] to notify the sender and confirm that the information will be destroyed. If you do not have internet access, please call to notify the sender and confirm that the information will be destroyed. Thank you for your attention and cooperation. [ID:[id number]] , Date: 07/09/2025RE: Mera Ho MD, I would like to thank you for referring Jeff Vaughn to me for consultation and evaluation of Left knee pain , on 07/09/2025. I have enclosed a copy of the office assessment and plan for your records. Once again, thank you for allowing me to participate in the care of this patient. Sincerely, Electronically Signed by: HIRO MCKINNON, OLIVERIO Assessment/PlanBy history and exam the patient is noted to have recent left knee pain not due to any known trauma or injury. He thinks therapy has helped quite a bit at this point it does not appear we need to do an MRI scan I do not think he has any meniscal pathology he did have some mild lateral patellar tilt in some inflammation of the knee time and therapy have helped quite a bit. We talked about continuing with therapy on a regular basis to keep his muscles strong support the knee as much as possible. If his symptoms recur he will call we could consider an MRI scan in the future if necessary or a cortisone injection he has not had 1 yet. He voiced understanding agrees with the above plan call for any further problems difficulties or questions.As far as the patient's neck goes he has some chronic stiffness aching pain not due to any trauma or injury without radiculopathy. He appears to just have some chronic myofascial type pain in the neck. Today's x-rays look good I do not see any significant osteoarthritis no pathology no malalignment. We talked about treatment options today in detail we are going to get him started with oral steroids for a burst and taper short course followed by a course of physical therapy. We will give it 6 weeks I will see him back. Certainly if his symptoms worsen or change she is instructed to call. If I see him back and he is still having significant pain an MRI scan may be indicated we will see how he does with time. The patient voiced understanding agrees above plan call for any further problems difficulties or questions. 1.Pain in joint of left kneeM25.562: Pain in left knee 2.Cervical painM54.2: Cervicalgia XR, CERVICAL SPINE, 2 OR 3 VIEW PHYSICAL THERAPIST REFERRAL - Schedule Within: provider's discretion Note to Provider: please contact patient to schedule Evaluate & Treat: as per p.t. Exercises: as per p.t. Modalities: as per p.t. # of requested visits: 12 prednisone 10 mg tablets in a dose pack - Take 1 tab by mouth, 3 times a day for 3 days Take 1 tab by mouth 2 times a day for 2 days Take 1 tab by mouth once a day for 1 day Qty: (14) tablet Refills: 1 Pharmacy: [facility][id number] Note to Pharmacy: #14 dose pack - if dose pack is unavailable, individual pills are approved 3.Myofascial neck painM54.2: Cervicalgia XR, CERVICAL SPINE, 2 OR 3 VIEW X-rays done today in the office as read by me AP view lateral view flexion extension views open-mouth view cervical spine demonstrates no acute findings no fractures lesions or masses. Also there is no evidence of any spondylolisthesis no significant degenerative change intervertebral disc body spaces are well-maintained. X-rays are unremarkable for acute or chronic bony or joint abnormalities. Return to Office HIRO Mckinnon for Any 5 at [facility] on 08/20/2025 at 08:00 AM Sharad Navarro MD for Any 15 at [facility] [place] on 06/18/2026 at 09:30 AM to see Piter Fair MD for Physical/Annual Wellness 30 at [facility] [place] on or around 06/20/2026 Piter Fair MD [address], [place], [address], [facility] 08/20/2025 16:05:10 Procedures Surgical History Date Name Laterality Status Provider Name and Address Organization Details Recorded Time colonoscopy completed Gena Esquivel MA [id number] [facility] [employer] 07/18/2024 09:49:41 Endoscopy completed Gena Esquivel MA [employer] [facility] [facility] 07/18/2024 09:49:53 Imaging Results None recorded. Procedure Notes None recorded. Medical Equipment None Reported. Allergies Allergen ID Allergen Name Allergen Category Reaction Reaction Severity Criticality Documentation Date Start Date Code Code System Note Provider Name and Address Organization Details Recorded Time 85080 No known allergy (situatio n) Not available Not available Not available Not available 06/20/2025 [id number] SNOMED Piter Fair MD [address], [place], [address], [employer] 09:30:35 No known drug allergies Medications Name Sig Start Date Stop Date Status Note LastModified by Organization Details LastModified Time cyclobenzap rine 10 mg tablet TAKE 1 TABLET BY MOUTH THREE TIMES DAILY FOR 10 DAYS 06/19 completed Not Available Not Available Not Available buspirone 5 mg tablet TAKE 1 TABLET BY MOUTH TWICE DAILY 03/07 completed Not Available Not Available Not Available prednisone 10 mg tablet TAKE 1 TABLET BY MOUTH THREE TIMES DAILY FOR 3 DAYS. THEN 1 TABLET TWICE DAILY FOR 2 DAYS. THEN 1 TABLET DAILY FOR 1 DAY 08/20 completed Not Available Not Available Not Available sildenafil 50 mg tablet TAKE 1 TABLET BY MOUTH DAILY 30 MINUTES BEFORE SEXUAL ACTIVITY NEEDED active Not Available Not Available No t Available triamcinolo ne acetonide 0.5 % topical cream Apply twice a day by topical route. 03/04 completed Not Available Not Available Not Available azithromyci n 250 mg tablet TAKE 2 TABLETS (500 MG) BY ORAL ROUTE ONCE DAILY FOR 1 DAY THEN 1 TABLET (250 MG) BY ORAL ROUTE ONCE DAILY FOR 4 DAYS 03/04 completed Not Available Not Available Not Available benzonatate 200 mg capsule Take 1 capsule 3 times a day by oral route as needed for 10 days. 03/04 completed Not Available Not Available Not Available [...] completed Not Available Not Available Not Available peg-electro lyte solution 420 gram oral solution TAKE BY MOUTH DIRECTED PER GI INSTRU[employer]I ONS 05/28 completed Not Available Not Available Not Available pantoprazol e 20 mg tablet,edgardo yed release TAKE 1 TABLET BY MOUTH EVERY MORNING BEFORE BREAKFAST 08/20 completed Not Available Not Available Not Available prednisone 10 mg tablets in a dose pack Take 1 tab by mouth, 3 times a day for 3 daysTake 1 tab by mouth 2 times a day for 2 daysTake 1 tab by mouth once a day for 1 day 08/20 completed Not Available Not Available Not Available meloxicam 7.5 mg tablet 09/27 completed [...] TAKE 1 TABLET BY MOUTH EVERY MORNING active Not Available Not Available No t Available tacrolimus 0.1 % topical ointment MEGGAN [...] e-betametha sone 1 %-0.05 % topical cream Apply twice a day by topical route. 03/04 completed Not Available Not Available Not Available prednisone 50 mg tablet TAKE 1 TABLET BY MOUTH DAILY FOR 5 DAYS 03/28 completed Not Available Not Available Not Available sertraline 25 mg tablet 05/27 completed Not Available Not Available Not Available diclofenac sodium 75 mg tablet,edgardo yed release TAKE 1 TABLET BY MOUTH EVERY 12 HOURS WITH FOOD NEEDED 04/13 completed Not Available Not Available Not Available montelukast 10 mg tablet TAKE 1 TABLET BY MOUTH EVERY DAY AT BEDTIME 07/29 /2024 completed Not Available Not Available Not Available mupirocin 2 % topical ointment MEGGAN AA TOPICALLY TID FOR 7 DAYS 05/27 completed Not Available Not Available Not Available ergocalcife rol (vitamin D2) 1,250 mcg (50,000 unit) capsule TAKE 1 CAPSULE BY MOUTH ONCE WEEKLY 06/22 completed Not Available Not Available Not Available azelastine 137 mcg (0.1 %) nasal spray SPRAY 1-2 SPRAYS INTO EACH NOSTRIL TWICE DAILY active Not Available Not Available No t Available cefuroxime axetil 500 mg tablet active Not Available Not Available No t Available levofloxaci n 500 mg tablet active Not Available Not Available Not Available methylpredn isolone 4 mg tablets in a dose pack Take as directed; finish all medicatio n 05/27 completed Not Available Not Available Not Available albuterol sulfate HFA 90 mcg/actuati on aerosol inhaler 2 {puff}s every 4 hours by inhalatio n route. active Not Available Not Available No t Available ondansetron 4 mg disintegrat ing tablet Place 4 mg every 8 hours by oral route. 03/04 completed Not Available Not Available Not Available fluticasone propionate 50 mcg/actuati on nasal spray,suspe nsion SHAKE LIQUID AND USE 2 SPRAYS IN EACH NOSTRIL EVERY DAY active Not Available Not Available No t Available sertraline 50 mg tablet 05/27 completed Not Available Not Available Not Available dicyclomine 10 mg capsule 03/04 completed Not Available Not Available Not Available diazepam 5 mg tablet 05/27 completed Not Available Not Available Not Available amoxicillin 875 mg-potassiu m clavulanate 125 mg tablet TAKE 1 TABLET BY MOUTH EVERY 12 HOURS FOR 10 DAYS 03/28 completed Not Available Not Available Not Available testosteron e 1 % (50 mg/5 gram) transdermal gel packet APPLY 1 PACKET TOPICALLY EVERY DAY DIRECTED 08/20 completed Not Available Not Available Not Available clindamycin phosphate 1 % topical solution 09/27 completed Not Available Not Available Not Available rosuvastati n 10 mg tablet TAKE 1 TABLET BY MOUTH EVERY DAY AT BEDTIME active Not Available Not Available No t Available rosuvastati n 20 mg tablet Take 10 mg by oral route. 03/04 completed Not Available Not Available Not Available bupropion HCl XL 300 mg 24 [...] completed Not Available Not Available Not Available Zyrtec 10 mg capsule 10 mg by oral route. 2009 active Not Available Not Available Not Avai lable testosteron e 20.25 mg/1.25 gram per pump act.(1.62 %) transdermal gel APPLY 2 PUMPS TOPICALLY TO THE AFFECTED AREA EVERY DAY DIRECTED active Not Available Not Available No t Available Farxiga 10 mg tablet TAKE 1 TABLET BY MOUTH EVERY OTHER DAY DIRECTED active Not Available Not Available No t Available Breo Ellipta 200 mcg-25 mcg/dose powder for inhalation INHALE 1 INHALATIO N EVERY DAY. RINSE MOUTH AFTER USE 06/19 completed Not Available Not Available Not Available Vitals Date Recorded Body height Body mass index (BMI) Body weight Provider Name and Address Organization Details Last Updated DateTime 05/28/2025 175.26 cm 33.2 kg/m2 313894.28 g LOTTIE Mckee [employer] [facility] 05/28/2025 10:52:21 Date Recorded Heart rate Heart rate Respiratory rate Provider Name and Address Organization Details Last Updated DateTime 06/19/2025 79 /min 79 /min 14 /min Sharad Navarro MD [address], [address], [place], [address], [facility] [employer] [facility] 06/19/2025 11:02:40 Date Recorded Body height Body mass index (BMI) Body weight Body temperature Oxygen saturation Oxygen saturation in Arterial blood by Pulse oximetry Systolic And Diastolic Provider Name and Address Organization Details Last Updated DateTime 175.26 cm 33.9 kg/m2 845465. 81 g 97.6 [degF] 96 % 96 % 118/80 mm[Hg] Anh Sanchez MA [facility] [employer] [facility] 10:49:34 Date Recorded Body height Body mass index (BMI) Body weight Body temperature Oxygen saturation Oxygen saturation in Arterial blood by Pulse oximetry Heart rate Systolic And Diastolic Provider Name and Address Organization Details Last Updated DateTime 175.26 cm 33.2 kg/m2 820814. 28 g 97.5 [degF] 96 % 96 % 74 /min 122/70 mm[Hg] Karin Adamson RN [facility] [employer] [facility] 09:05:44 Date Recorded Body height Body mass index (BMI) Body weight Provider Name and Address Organization Details Last Updated DateTime 07/09/2025 175.26 cm 31.7 kg/m2 71443.36 g Cheryl LOTTIE Houston [facility] [employer] [facility] 07/09/2025 09:03:58 Date Recorded Body height Body mass index (BMI) Body weight Body temperature Oxygen saturation Oxygen saturation in Arterial blood by Pulse oximetry Heart rate Systolic And Diastolic Provider Name and Address Organization Details Last Updated DateTime 175.26 cm 34.2 kg/m2 645630. 99 g 97.2 [degF] 94 % 94 % 91 /min 120/80 mm[Hg] Karin Adamson RN [facility] [employer] [facility] 15:54:04 Social History Question Answer Notes LastModified by Organizat ion Details LastModified Time Tobacco Smoking Status Never Smoker Piter Fair MD [address], [place], [address], [place] [facility] 06/02/2023 14:52:09 Do You Have An Advance Directive? No [id number] Information not available 01/20/2023 Do You Wear A Helmet When Biking? No [email or web address] Information not available 06/02/2023 What Is Your Level Of Caffeine Consumption? Occasional (8 Oz) Coke Per Day [email or web address] Information not available 06/20/2025 In The 14 Days Before Symptom Onset, Have You Had Close Contact With A Laboratory-confi rmed COVID-19 While That Case Was Ill? No [email or web address] Information not available 06/02/2023 In The 14 Days Before Symptom Onset, Have You Had Close Contact With A Person Who Is Under Investigation For COVID-19 While That Person Was Ill? No [email or web address] Information not available 06/02/2023 What Type Of Diet Are You Following? [email or web address] Information not available 06/02/2023 What Is The Highest Grade Or Level Of School You Have Completed Or The Highest Degree You Have Received? [id number] [email or web address] Information not available 06/02/2023 Do You Have An Electrostatic Air Filter? Yes Information not available 06/19/2024 Have There Been Any Changes To Your Family Or Social Situation? No Information not available 06/02/2023 What Is The Fluoride Status Of Your Home? Unknown [email or web address] Information not available 06/02/2023 Are There Any Guns Present In Your Home? No Information not available 06/02/2023 Do You Have A Humidifier? Yes Information not available 06/19/2024 Do You Use Insect Repellent Routinely? Yes [email or web address] Information not available 06/02/2023 Where Do You Live? SingleLevelHouse [email or web address] Information not available 06/02/2023 Do You Have A Medical Power Of Investment Officer? No Information not available 06/02/2023 Do You Have Moisture Problems In Your Home? No Information not available 06/19/2024 What Was The Date Of Your Most Recent Tobacco Screening? 07/09/2025 [email or web address] Information not available 07/09/2025 Do You Have Any Pets? No Information not available 06/02/2023 What Is Your Relationship Status? [id number] Information not available 01/20/2023 Do You Use Your Seat Belt Or Car Seat Routinely? Yes [email or web address] Information not available 06/02/2023 Do You Have Smoke And Carbon Monoxide Detectors In Your Home? Yes [email or web address] Information not available 06/02/2023 Are You Passively Exposed To Smoke? No [email or web address] Information not available 06/02/2023 Are There Any Smokers In Your House? No [email or web address] Information not available 06/02/2023 Do You Participate In Social Amprius? No [email or web address] Information not available 06/02/2023 Do You Use Sunscreen Routinely? Yes [email or web address] Information not available 06/02/2023 Has Tobacco Cessation Counseling Been Provided? No [email or web address] Information not available 06/02/2023 Have You Recently Traveled Abroad? No [email or web address] Information not available 06/02/2023 Are You Currently In School? No [email or web address] Information not available 06/02/2023 Do You Have Any Dietary Restrictions? No [email or web address] Information not available 06/02/2023 Sex: Male Functional Status Question Answer Note LastModified by Organizat ion Details LastModified Time Do you use any illicit or recreational drugs? No [email or web address] Information not available 06/02/2023 Do you or have you ever used any other forms of tobacco or nicotine? No Information not available 06/02/2023 What is your level of alcohol consumption? None [id number] Information not available 01/20/2023 Have you been exposed to chemicals or toxins? 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 Moderate [id number] Information not available 01/20/2023 Mental Status Question Answer Note LastModified by Organization D etails LastModified Time Do you feel stressed (tense, restless, nervous, or anxious, or unable to sleep at night)? [id number] [email or web address] Information not available 06/02/2023 Family History Relationship Description Onset Age of this Age Resolved Age Notes LastModified by Organization Details LastModified Time Brother Disorder of thyroid gland [email or web address] Not available 2023 18:25:40 Brother Malignant neoplasm of thyroid gland [email or web address] Not available 08/20 15:41:49 Brother Hyperlipidem ia [email or web address] Not available 08/20 15:41:49 Brother Myocardial infarction [email or web address] Not available 06/12 18:28:25 Mother Anxiety disorder [email or web address] Not available 2022 14:52:15 Mother Depressive disorder [email or web address] Not available 2022 14:52:15 Mother Alzheimer's disease [email or web address] Not available 08/20 15:41:49 Maternal Grandmother Diabetes mellitus [email or web address] Not available 2022 14:52:15 Maternal Grandmother Malignant neoplasm of breast [email or web address] Not available 08/20 15:41:49 Father Heart disease 43 [email or web address] Not available 2022 14:52:15 Father Substance abuse Not available 2022 14:52:15 Maternal Grandfather Cerebrovascu lar accident [email or web address] Not available 15:41:49 Sister Rheumatoid arthritis [email or web address] Not available 08/20 15:41:49 Paternal Grandmother Rheumatoid arthritis [email or web address] Not available 08/20 15:41:49 Paternal Grandmother Alzheimer's disease [email or web address] Not available 08/20 15:41:49 Maternal Uncle Diabetes mellitus [email or web address] Not available 2024 10:53:44 Medical History Condition Response ARTHRITIS Y HEADACHES/MIGRAINES Y OTHER # 1 Y GI PROBLEMS Y ANXIETY DISORDER Y DEPRESSION (INCLUDING POST ) Y ERECTILE DYSFUNCTION Y HIGH CHOLESTEROL / HYPERLIPIDEMIA Y Immunizations Vaccine Type Date Status Note Provider Nam e and Address Organization Details Recorded Time Influenza, split virus, quadrivalent, PF 2 completed Not Available [facility] 01/20/2023 17:46:16 influenza, unspecified formulation 5 completed Not Available [facility] 01/20/2023 17:46:16 Tdap 2 completed Not Available [facility] 01/20/2023 17:46:16 Influenza, split virus, quadrivalent, PF 2 completed Not Available [facility] 01/20/2023 17:46:16 Past Encounters Encounter ID Performer Location Encounter Start Date Encounter Closed Date Diagnosis/Indication Diagnosis SNOMED-CT Code Diagnosis ICD10 Code Diagnosis IMO Codes Diagnosis Note [id number] Piter Fair MD [facility] [address] [place] [address] 05/27/2022 00:00:00 05/27/2022 16:04:34 [id number] Piter Fair MD [facility] [address] [place] [address] 06/17/2022 00:00:00 06/17/2022 12:31:30 [id number] Piter Fair MD [facility] [address] [place] [address] 10/29/2022 00:00:00 10/29/2022 17:37:19 [id number] Piter Fair MD [facility] [address] [place] [address] 12/31/2022 00:00:00 12/31/2022 17:10:24 [id number] Piter Fair MD [facility] [address] [place] [address] 06/02/2023 14:27:25 06/02/2023 14:56:09 Adult health examination 438158607 Z00.00 Bilateral wrist pain 502 8703357 0264975 M25.531 Vitamin D deficiency 347 13746 E55.9 Obesity 481960177 E66.9 Pain of left wrist 54013 26782 21344 M25.532 Seasonal a llergic rhinitis 303318819 J30.2 Erectile dysfunction 860 845990 F52.21 [id number] Piter Fair MD [facility] [address] [place] [address] 06/22/2023 12:30:35 06/22/2023 12:48:45 Vitamin D deficiency 03904949 E55.9 Improved Obesity 775880238 E66.9 Pain of left wrist 27530 42060 07389 M25.532 Improved Seasonal a llergic rhinitis 401709395 J30.2 Erectile dysfunction 860 586458 F52.21 Serum crea tinine above reference range 745189692 R79.89 Hyperlipidemia 67444792 E78.5 [id number] Piter Fair MD [address] [address] 04/13/2024 16:28:34 04/13/2024 17:09:46 Serum creatinine above reference range 457505534 R79.89 Will consider Farxiga if microalbum in is elevated. High risk sexual behavior 218942273 Z72.51 [id number] Piter Fair MD [address] [address] 06/05/2024 10:30:25 06/05/2024 11:05:16 Vitamin D deficiency 99421590 E55.9 Improved Obesity 113480575 E66.9 Seasonal a llergic rhinitis 802932479 J30.2 Erectile dysfunction 860 768237 F52.21 Hyperlipidemia 02068092 E78.5 Adult [facility] examination 299908735 Z00.00 Chronic ki dney disease stage 3 238037707 N18.30 Fatigue 11400026 R53.83 Sleep apnea 96561755 G47 .30 Hypertensive disorder 38 073216 I10 Irritable bowel syndrome 50666878 K58.9 Polyarthropathy 08606798 M13.0 [id number] Sharad Navarro MD [facility] Pulmonolo gy [address] [address] 06/19/2024 10:03:41 06/21/2024 16:41:39 Obstructive sleep apnea syndrome 11787799 G47.33 G47.36 G47.61 [id number] Piter Fair MD [address] [address] 06/26/2024 11:35:47 06/26/2024 12:13:16 Vitamin D deficiency 99957575 E55.9 Improved Obesity 362504336 E66.9 Seasonal a llergic rhinitis 702898793 J30.2 Erectile dysfunction 860 456177 F52.21 Hyperlipidemia 00741178 E78.5 Chronic ki dney disease stage 3 909038548 N18.30 Fatigue 14499569 R53.83 Sleep apnea 94215921 G47 .30 Hypertensive disorder 38 149943 I10 Irritable bowel syndrome 16439398 K58.9 Polyarthropathy 43998112 M13.0 Male hypogonadism 123861 06 E29.1 [id number] Sharad Navarro MD [address] [address] 07/18/2024 09:34:00 07/18/2024 16:10:59 Obstructive sleep apnea syndrome 52318470 G47.33 G47.36 G47.30 [id number] Piter Fair MD [facility] [address] 07/31/2024 14:00:09 07/31/2024 14:42:05 Diarrhea 77162916 R19.7 Nausea 072792229 R11.0 Gastroenteritis 21370021 K52.9 [id number] Sharad Navarro MD [address] [address] 08/09/2024 08:48:44 08/09/2024 10:41:47 Obstructive sleep apnea syndrome 45403515 G47.33 [id number] Giuliana Lucas MD [facility] [address] [place] [address] 08/16/2024 11:01:35 08/16/2024 11:42:45 Irritable bowel syndrome with diarrhea 216625949 K58.0 [id number] Sharad Navarro MD [address] [address] 09/25/2024 08:44:34 11/14/2024 14:12:03 Obstructive sleep apnea syndrome 14716469 G47.33 [id number] Giuliana Lucas MD [facility] General Surgery [address] [place] [address] [address] [place] [address] 10/11/2024 11:35:18 10/11/2024 12:43:01 Irritable bowel syndrome with diarrhea 980889510 K58.0 [id number] Piter Fair MD [address] [address] 10/30/2024 17:45:39 10/30/2024 18:02:28 Chronic kidney disease stage 3 664505114 N18.30 Gastroesop hageal reflux disease 610567737 K21.9 Hypertensive disorder 38 447823 I10 Hyperlipidemia 25599077 E78.5 Irritable bowel syndrome with diarrhea 706122659 K58.0 Recurrent herpes simplex 88632496 B00.9 [id number] Piter Fair MD [address] [address] 11/09/2024 12:30:33 11/09/2024 13:54:26 Nausea 536839314 R11.0 Polyarthropathy 24248212 M13.0 Fatigue 34731866 R53.83 Viral gastritis 78873691 7 K29.70 [id number] Piter Fair MD [address] [address] 12/26/2024 14:26:26 12/26/2024 14:53:28 Seen in emergency clinic 883821547 Z76.89 Nausea and vomiting 1693 1999 R11.2 Gastroesop hageal reflux disease without esophagitis 820741840 K21.9 Recurrent herpes simplex 83855528 B00.9 Depressive disorder 3548 9007 F32.A Anxiety disorder 0447532 06 F41.9 Obesity 027111347 E66.9 Cyclical v omiting syndrome 66323760 R11.15 ?? Gastropare sis syndrome 700871706 K31.84 ?? [id number] Piter Fair MD [address] [address] 02/28/2025 15:59:01 02/28/2025 16:26:39 Cough 76550906 R05.9 Nasal congestion 8256655 0 R09.81 Fever 393559279 R50.9 Bronchitis 99178700 J40 [id number] Sharad Navarro MD [facility] [address] [place] [address] 03/07/2025 11:33:38 03/09/2025 15:20:33 Obstructive sleep apnea syndrome 18426461 G47.33 Dyspnea on exertion 6084 5006 R06.09 R05.9 D89.9 T78.40XA [id number] Sharad Navarro MD [facility] [address] [place] [address] 03/28/2025 10:19:51 03/30/2025 08:32:17 Obstructive sleep apnea syndrome 44397264 G47.33 Dyspnea on exertion 6084 5006 R06.09 R05.9 D89.9 T78.40XA [id number] Eron Castellanos MD [facility] [address] [place] [address] 05/28/2025 10:35:33 05/28/2025 11:17:04 Pain of left knee joint 5546593597 45844 M25.562 142484 [id number] Sharad Navarro MD [facility] [address] [place] [address] 06/19/2025 10:32:27 06/21/2025 16:34:00 Obstructive sleep apnea syndrome 38802959 G47.33 [id number] Piter Fair MD [facility] [address] [address] 06/20/2025 08:55:41 06/20/2025 09:19:16 Hyperlipidemia 68132661 E78.5 Vitamin D deficiency 347 96572 E55.9 Improved Obesity 214705716 E66.9 Seasonal a llergic rhinitis 509935322 J30.2 Erectile dysfunction 860 117179 F52.21 Chronic ki dney disease stage 3 456452390 N18.30 Fatigue 95834953 R53.83 Sleep apnea 37313326 G47 .30 Hypertensive disorder 38 346947 I10 Irritable bowel syndrome 09189041 K58.9 Polyarthropathy 14775946 M13.0 Male hypogonadism 188598 06 E29.1 Adult heal th examination 929048022 Z00.00 [id number] Eron Castellanos MD [facility] [place] [address] [place] [address] 07/09/2025 08:59:35 07/09/2025 11:06:43 Pain of left knee joint 7459183649 09824 M25.562 417012 Neck pain 22301335 M54.2 292633 Myofascial neck pain 854 1412738 M54.2 2172965021 [id number] Piter Fair MD [address] [address] 08/20/2025 15:37:02 08/20/2025 16:10:44 Lump in upper inner quadrant of right breast 0366997980 30777 N63.12 3791217146 Obese class I 7257301545 01945 E66.894 7123454 Health Concerns Section Related Observation LastModified by Organization Detai ls LastModified Time None Recorded Concern Status LastModified by Organization Details LastModified Time None Recorded Advance Directives Directive N: Payers Insurance Date Sequence Insurance Name Policy Number Policy Lucero Covered Member ID Lucero Member ID Guarantor Name 09/03/2025 1 [id number] [id number] Jeff Vaughn [id number] Jeff Vaughn Notes Date Note Type Note Provider Name and Address Organization Details Recorded Time 5 text/html The patient is a 44-year-old male who presents with a couple of month history of left knee pain. He denies any specific trauma or injury. He has pain mostly localized to the medial compartment. Denies any mechanical symptoms no locking or catching really no swelling in the knee. The pain comes and goes some days it is much worse some days it is not too bad today it is not too bad but he wanted to have an evaluation. He has been dealing with this on and off for awhile now despite conservative measures including Tylenol [id number] his symptoms continue. He has also been using heat and ice when necessary. He can not stand or walk for long periods this aggravates his symptoms. He only has 1 kidney so he avoids nonsteroidal anti-inflammatory medication. He states many years ago he had a twisting injury to the left knee an MRI scan at that time was negative for meniscal pathology. The patient comes in today for initial evaluation treatment after a 2 month history of acute left knee pain not due to any specific recent trauma or injury. New past medical history sheet was reviewed and signed noted in the intake sheet of today's date drug allergies current medications family social history previous surgical history 10 point review of systems was reviewed and discussed in detail today with the patient. He states recently he has tried to lose some weight successfully he had thinks maybe this has helped his knee pain a little bit as well. Currently he is 5 ft 9 in tall 225 lb BMI is 33.2. HIRO Mckinnon [address] [facility], [facility] [address], [place], [address], [place] [facility] [place] [employer] [facility] 05/28/2025 11:28:16 5 text/html Primary care/Referring provider: Piter Fair MD; Gera Vicente MD; Reji Sotelo APRN-FABRICIO Patient is here to go over his methacholine challenge and lab work as part of his shortness of breath evaluation/management. Initial development of shortness of breath: uration of shortness of breath: 2 yearsCondition of shortness of breath: stableTiming of shortness of breath: noneFrequency: up to 1 time a dayLimits activities: yesAggravating factors: walking, running, cleaning the shower, playing basketballAlleviating factors: rest Modified [employer] [place] (mMRC) Dyspnea Scale - Grade 1Grade 0 I only get breathless with strenuous exercise .Grade 1 I get short of breath when hurrying on the level or walking up a slight hill .Grade 2 I walk slower than people of the same age on the level because of breathlessness or have to stop for breath when walking at my own pace on the level .Grade 3 I stop for breath after walking about 100 yards or after a few minutes on the level .Grade 4 I am too breathless to leave the house or I am breathless when dressing . Treatment history: Albuterol HFA as needed since 2022 Breo Ellipta 200/25 mcg 1 inhalation daily since 02/2025 Other symptoms:Drooling: noDysarthria: noNeck pain: noOdynophagia: noDysphagia: noWeak mastication: noFacial weakness: noNasal speech: noProtruding tongue: noProductive cough: yellow to clearWheezing: noChest tightness: yesOrthopnea: noFrequent throat clearing or swallowing: yesPalpitations: noHeartburn: noEdema: yes Environmental exposures:Nicotine smoke: noPaint: noDye: noDust mites: yesMold: noDamp basement: noWood burning stove: noAnimal dander: noCockroaches: noPollen: yesArsenic: noAsbestos: noBeryllium: noCadmium: noChromium: noCoal smoke: noDiesel fumes: noNickel: noSilica: noSoot: no During the [facility] home sleep study on 06/08/24, AHI = 2. Oxygen however desaturated to <90% for 203.3 minutes. During the [facility] diagnostic sleep study on 07/12/24, sleep onset = 20.5 minutes, REM onset = 121 minutes, AHI = 8, supine AHI = 9, REM AHI = 25, PLMI = 0.0. During the [facility] titration sleep study on 07/26/24, sleep onset = 37 minutes, REM onset = 112.5 minutes, PLMI = 0.0. At home since 09/25/24, the patient uses a [employer] AirSense 11 autoset unit with heated humidification. The patient does not need the ramp to start low and go up slowly on the pressure. There is no xerostomia in a.m. There is no hose/mask condensation with water. The patient switched from a [employer] large Bryanna nasal mask to a [employer] medium Eson 2 nasal mask without chin strap. There is [...] yesTeeth clenching: yesSleeptalking: yesSleepwalking: noSleep crying: yesBedwetting: yesTongue/lip/gum/cheek biting: yesSleeping with open mouth: yesSleep paralysis: [...] for an hour without a break - 1Lying down to rest in the afternoon when circumstances permit - 2Sitting and talking to someone - 1Sitting quietly after lunch without alcohol - 1In a car, while stopped for a few minutes in the traffic - 0TOTAL SCORE 8Subjectively, patient has a slight chance of dozing. Sharad Navarro MD [address] [facility], [facility] [address], [place], [address], [facility] [employer] 06/19/2025 11:09:30 5 text/html Pt is here for his annual exam. Doing overall well. Denies any problem with meds. Denies any new concern. C/o chronic ED and is doing well with Cialis. Pt is f/u with GI and got EGD and c-scope done for his chronic nausea and vomiting and it all came back good as per pt. Pt has IBS as per them. Doing better with it. Pt has chronic depression, anxiety and is f/u with Psych at [place] for it. Denies any mood swings/SI/HI.Pt is f/u with Derm for his chronic moles and skin concerns. Pt is f/u with ENT and pulmo for his chronic sinus problems. Piter Fair MD [address] [facility], [address], [place], [address], [id number] [facility] [employer] 06/20/2025 09:34:54 5 text/html The patient returns for recheck of his left knee. The patient was having medial and anterior knee pain not due to any known trauma or injury. This had been ongoing for several months we did an evaluation he had only minor degenerative changes with mild lateral patellar tilt in the lateral facet also mildly in the medial compartment compared to the lateral compartment. Unfortunately he is unable to take nonsteroidal anti-inflammatory medication due the fact that only has 1 kidney. He declined oral steroids or cortisone he wanted to try a course of physical therapy. It has been 6 weeks since I saw him he has been faithfully doing his exercises and attending physical therapy formally. He has gotten excellent relief from that. He states he is basically pain-free only minor minimal discomfort is noted with certain activities otherwise he is feeling good. He wanted to come in today for recheck to talk about his progression and also to talk about further treatment options for the future if necessary. Denies any effusion or swelling no locking or catching basically his symptom free now.The patient also has a new problem today states he has had chronic neck pain for many years. He states over the years he would crack his neck a lot but has never had any trauma or injury. Denies any significant radicular pain he does have pain that is localized to the posterior lateral portions of each side of his neck. He will try some stretching and heat lately it has been bothering him more. He denies any radiculopathy loss of motion of the neck it just feels stiff at times he tries to stretch it which does help somewhat. He can not take nonsteroidal anti-inflammatory medication he takes Tylenol. He is thinking that maybe therapy may help his neck somewhat. He has never had formal evaluation or treatment. HIRO Mckinnon [address], [place], [address], [facility] 07/09/2025 09:28:16 5 text/html ACV: C/o Rt breast area lump for last 1+ yr. No pain/swelling/trauma to the area/nipple discharge. No lump anywhere else, no issues on Lt breast. Piter Fair MD [address], [place], [address], [facility] 08/20/2025 16:15:12
--- OUTSIDE RECORDS SUMMARY | 2025-09-07 12:50 | XMS_ITS | Clinical Summary ---
Author Organization [facility] Address [address] [address] Care Team Providers Care Switchboard Receptionist Name Role Phone Piter Fair MD Primary Care Provider [phone] Source Comments [facility],non-owned Affiliates and Associated Physician Practices is amultiple site organization consisting of ambulatory clinics and hospital sitesin [place], [place], [place] and [place]. This disclosure is being madepursuant to the Care Everywhere program and may not contain all information available regarding this patient. Last updated 18.[facility] Allergies No known active allergies Medications * Be aware that medications may not be up to date on this document. Alwaysverify current medications with the patient. buPROPion XL 24hr (Wellbutrin-XL) 300 MG tablet Take 1 (one) tablet by mouth every morning Active DULoxetine (Cymbalta) 60 MG capsule Take 1 (one) capsule by mouth once daily Active valACYclovir (Valtrex) 500 MG tablet Take by mouth 2 times daily Active rosuvastatin (Crestor) 10 MG tablet Take 1 (one) tablet by mouth once daily Active dapagliflozin propanediol (Farxiga) 10 MG tablet Take 1 (one) tablet by mouth every morning Active albuterol HFA (Proventil; Ventolin; Proair) 108 (90 Base) MCG/ACT inhaler Inhale 1 (one) puff by mouth as directed 4 Active Breo Ellipta 200-25 MCG/ACT inhaler INHALE 1 INHALATION EVERY DAY. RINSE MOUTH AFTER USE 5 Active levoFLOXacin (Levaquin) 500 MG tablet Active ondansetron, disintegrating, (Zofran ODT) 4 MG tablet DISSOLVE ONE TABLET BY MOUTH EVERY 4 HOURS Active sildenafil (Viagra) 50 MG tablet TAKE 1 TABLET BY MOUTH DAILY 30 MINUTES BEFORE SEXUAL ACTIVITY NEEDED 5 Active triamcinolone acetonide (Kenalog) 0.5 % cream APPLY A THIN LAYER TO THE AFFECTED AREA(S) BY TOPICAL ROUTE 2 TIMES PER DAY as needed Active polyethylene glycol (Nulytely) 420 g solution Take 4,000 mL by mouth once 5 Active predniSONE (Deltasone) 50 MG tablet Take 1 (one) tablet by mouth once daily 5 Active tadalafil (Cialis) 20 MG tablet Take 1 (one) tablet by mouth once daily 4 Active testosterone (Androgel;Testim ) 50 MG/5GM (1%) gel Use 5 (five) g as instructed once daily Active cetirizine (ZyrTEC) 10 MG tablet Take 1 (one) tablet by mouth once daily Active diphenhydrAMINE (Benadryl) 25 MG capsule Take 1 (one) capsule by mouth every 4 hours as needed for Itching Active azelastine (Astelin) 0.1 % nasal sprayIndications :Chronic rhinitis [place] 1 (one) spray to 2 (two) sprays into each nostril 2 times daily Aim tip of spray bottle towards the SAME EYE as the nostril you are spraying in (e.g. when spraying into the left nostril, aim it towards the left eye) 30 mL 3 5 Active Multiple Vitamins-Mineral s (Multi Vitamin/Minerals ) TABS Take 1 (one) tablet by mouth once daily Active Probiotic Product (probiotic blend) CAPS capsule Take 1 (one) capsule by mouth 3 times daily with meals Active pantoprazole EC (Protonix) 40 MG tablet Take 1 (one) tablet by mouth once daily 5 Active fluticasone propionate (Flonase) 50 MCG/ACT nasal sprayIndications :Chronic rhinitis [place] 2 (two) sprays into each nostril 2 times daily 16 g 3 5 Active Active Problems No known active problems Immunizations Immunization Administration Dates Next Due Dropifi primary monoval ent 12+ yr 0.3mL Purple cap 10/13/2021,12/27/2020,12/06/2020 INFLUENZA VACCINE 11/22/2014 INFLUENZA VACCINE, CELL CULT URE, QUADR. (FLUCELVAX QUADRIVALENT; 6MO+) (CCIIV4) 07/19/2023 INFLUENZA VACCINE, QUADR. (F LUZONE; FLULAVAL; FLUARIX; AFLURIA QUADRIVALENT; 6MO+), 0.5 ML (IIV4) 10/29/2022,11/26/2021 MMR VACCINE 05/24/1990 TD (AGE 7-ADULT) 04/30/1994 TDAP (7yrs+) 06/17/2022 TDAP, HISTORIC VACCINE 07/19/2023 Family History Medical History Relation Name Comments Lupus Maternal Aunt Arthritis - Rheumatoid Maternal Grandmother Arthritis - Osteo Mother Arthritis - Rheumatoid half-sister Relation Name Status Comments Maternal Aunt Alive Maternal Grandmother Mother half-sister Alive Social History Tobacco Use Types Packs/Day Years Used Date Smoking Tobacco: Never Smokeless Tobacco: Never Tobacco Cessation:Counseling Given: Not Answered Alcohol Use Standard Drinks/Week Comments Not Currently 0 (1 standard drink = 0.6 oz pur e alcohol) PHQ-2 Answer Date Recorded Patient Health Questionnaire-2 Score 0 12/26/2024 Sex and Gender Information Value Date Recorded Sex Assigned at Not on file Legal Sex Male 6:05 AM ROLL EDGE STITCHER HAND Gender Identity Not on file Sexual Orientation Not on file Last Filed Vital Signs Vital Sign Reading Time Taken Comments Blood Pressure 142/86 05/01/2025 9:31 AM CDT Pulse 75 05/01/2025 9:31 AM CDT Temperature 36.2 C (97.2 F) 12/26/2024 9:05 AM ROLL EDGE STITCHER HAND Respiratory Rate 16 12/26/2024 9:05 AM ROLL EDGE STITCHER HAND Oxygen Saturation 97% 12/26/2024 9:05 AM ROLL EDGE STITCHER HAND Inhaled Oxygen Concentration - - Weight 104.3 kg (230 lb) 05/01/2025 9:31 AM CDT Height 175.3 cm (5' 9) 05/01/2025 9:31 AM CDT Body Mass Index 33.97 05/01/2025 9:31 AM CDT Plan of Treatment Health Maintenance Due Date Last Done Comments DIONISIO (AGES 45-75) - COLON CA SCREENING 1979 CT COLONOGRAPHY - COLON CA SCREENING 1979 FIT - COLON CA SCREENING 1979 FLEX SIG - COLON CA SCREENING 1979 HIV SCREENING 1994 HEPATITIS C SCREENING 09/22/1997 HEPATITIS B VACCINE (1 of 3 - 19+ 3-dose series) 1998 HPV VACCINE (1 - 3-dose SCDM series) 2006 SCREENING FOR DIABETES 03/19/2025 COVID-19 VACCINE (4 - 2024- season) 2025 10/13/2021, 12/27/2020, 12/06/2020 INFLUENZA VACCINE (#1) 2025 , 10/29/2022, 11/26/2021, Additional history exists ZOSTER VACCINE (1 of 2) 2029 DTAP/TDAP/TD VACCINES (4 - Td or Tdap) 07/19/2033 07/19/2023, 06/17/2022, 04/30/1994 COLON MONITORING 04/25/2035 04/25/2025 COLONOSCOPY - COLON CA SCREENING 04/25/2035 04/25/2025 Colorectal Cancer Screening 04/25/2035 DEPRESSION SCREENING Completed 12/26/2024 HIB VACCINE Aged Out No longer eligi ble based on patient's age to complete this topic MENINGOCOCCAL (Group B) VACCINE SHARED DECISION-MAKING Aged Out No longer eligible based on patient's age to complete this topic MENINGOCOCCAL GROUPS A/C/Y/W VACCINE Aged Out No longer eligible based on patient's age to complete this topic PNEUMOCOCCAL VACCINE Aged Out No long er eligible based on patient's age to complete this topic Insurance [employer] Care Teams Switchboard Receptionist Relationship Specialty Start Date End Date Piter Fair MD [address] [place] [address] PCP - General Family Medicine 11/10/24
--- OUTSIDE RECORDS SUMMARY | 2025-09-07 12:50 | XMS_ITS | Clinical Summary ---
Author Organization [facility] Address [facility] [place] [address] Care Team Providers Care Contract Manager Name Role Phone Piter Fair MD Primary Care Provider [phone] Allergies No known active allergies Medications albuterol sulfate HFA 108 (90 Base) MCG/ACT inhaler Inhale 2 puffs into the lungs every 4 (four) hours as needed. Active buPROPion XL (WELLBUTRIN XL) 300 MG 24 hr tablet Take 1 tablet (300 mg total) by mouth daily. 12/28/19 20 Active Cetirizine HCl (ZYRTEC ALLERGY) 10 MG Cap Take 10 mg by mouth daily. 12/28/19 10 Active DULoxetine (CYMBALTA) 60 MG capsule Take 1 capsule (60 mg total) by mouth daily. Active BREO ELLIPTA 200-25 MCG/ACT inhaler Inhale 1 puff into the lungs daily. 12/11/19 25 Active fluticasone propionate (FLONASE) 50 MCG/ACT nasal spray 2 sprays by Each Nostril route daily. Active ondansetron (ZOFRAN-ODT) 4 MG disintegrating tablet Take 1 tablet (4 mg total) by mouth every 8 (eight) hours as needed. 12/26/19 25 Active pantoprazole EC (PROTONIX) 40 MG tablet Take 1 tablet (40 mg total) by mouth daily. 12/26/19 25 Active sildenafil (VIAGRA) 50 MG tablet Take 1 tablet (50 mg total) by mouth as needed. 12/11/19 25 Active valACYclovir (VALTREX) 500 MG tablet Take 1 tablet (500 mg total) by mouth daily. 12/26/19 25 Active rosuvastatin (CRESTOR) 20 MG tablet Take 0.5 tablets (10 mg total) by mouth nightly at bedtime. Active multi vitamin/minerals (THERA-M ENHANCED) tablet Take 1 tablet by mouth daily. Active probiotic (FLORAJEN3) Cap capsule Take 1 capsule by mouth 3 (three) times daily with meals. Active testosterone (ANDROGEL) 50 MG of testosterone/5 GM (1%) Gel gel Place 1 packet (50 mg of testosterone total) onto the skin daily. Active tadalafil (CIALIS) 20 MG tablet Take 1 tablet (20 mg total) by mouth daily as needed. 10/02/20 24 Active azelastine (ASTELIN) 0.1 % nasal spray 1 spray by Nasal route 2 (two) times daily. Active Active Problems Problem Noted Date Diagnosed Date Lower abdominal pain 12/28/2024 Diarrhea, unspecified type 12/28/2024 History of colon polyps 12/28/2024 Chronic GERD 12/28/2024 Dysphagia, unspecified type 12/28/2024 Nausea and vomiting, unspecified vomiting type 0 12/28/2024 Social History Tobacco Use Types Packs/Day Years Used Date Smoking Tobacco: Never Smokeless Tobacco: Never Tobacco Cessation:Counseling Given: No Alcohol Use Standard Drinks/Week Comments Not Currently 0 (1 standard drink = 0.6 oz pur e alcohol) PHQ-2 Answer Date Recorded Patient Health Questionnaire-2 Score 0 12/28/2024 Sex and Gender Information Value Date Recorded Sex Assigned at Male 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 Sex Male 8:35 PM CDT Gender Identity Not on file Sexual Orientation Not on file Last Filed Vital Signs Vital Sign Reading Time Taken Comments Blood Pressure 135/73 04/25/2025 9:55 AM CDT Pulse 71 04/25/2025 10:21 AM CDT Temperature 35.9 C (96.7 F) 04/25/2025 8:09 AM CDT Respiratory Rate 18 04/25/2025 10:21 AM CDT Oxygen Saturation 98% 04/25/2025 10:21 AM CDT Inhaled Oxygen Concentration - - Weight 104.3 kg (230 lb) 04/25/2025 8:09 AM CDT Height 174 cm (5' 8.5) 04/25/2025 8:09 AM CDT Body Mass Index 34.46 04/25/2025 8:09 AM CDT Plan of Treatment Health Maintenance Due Date Last Done Comments Annual Physical 1982 Hepatitis C 1997 Hepatitis B Vaccines (1 of 3 - 19+ 3-dose series) 1998 HPV Vaccines (1 - 3-dose SCD M series) 2006 COVID-19 Vaccine (4 - 2024-2 6 season) 2025 10/13/2021, 12/27/2020, 12/06/2020 Influenza Adult (#1) 2025 10/29/2022, 11/26/2021, 11/22/2014 DTaP, Tdap and Td Vaccines ( 3 - Td or Tdap) 06/17/2032 06/17/2022, 04/30/1994 Colorectal Cancer Screening Colonoscopy (10 Years) 04/25/2035 04/25/2025, 05/23/2021 PHQ-2 (Physician [place]) Completed 12/28/2024 Hepatitis A Vaccines Aged Out No long er eligible based on patient's age to complete this topic Meningococcal B Vaccine Aged Out No l onger eligible based on patient's age to complete this topic Meningococcal Vaccine Aged Out No dangelo isadora eligible based on patient's age to complete this topic Pneumococcal Vaccine: Pediatrics (0 to 5 Years) and At-Risk Patients (6 to 49 Years) Aged Out No longer eligible b ased on patient's age to complete this topic RSV Immunizations Under 20 Months Aged Out No longer eligible b ased on patient's age to complete this topic Procedures Procedure Name Priority Date/Time Associated Diagnosis Comments COLONOSCOPY/EGD GENERIC (SCA N ORDER) 05/23/2021 from Last 3 Months or Most Recently Relevant to Health Maintenance Results * COLONOSCOPY/EGD GENERIC (SCAN ORDER) (05/23/2021) 05/23/2021 [facility] Scanned SCANNING Final Resu lt from Last 3 Months or Most Recently Relevant to Health Maintenance Insurance [facility] Care Teams Contract Manager Relationship Specialty Start Date End Date Piter Fair MD PCP - General HOSPITALIST 07/13/22
--- NOTE | 2025-09-07 14:42 | ED.GENADULT ---
HPI - General Adult General Chief complaint: Nausea/Vomiting/Diarrhea Stated complaint: diarrhea x 24 hours Time Seen by Provider: 09/07/25 14:42 Focused HPI: Jeff Monique is a 44 y/o male with PMHx of IBS who presents with complaints of having severe diarrhea that started last night, He reports of mid lower abdominal pain that started about 3 days ago. Reports nausea, no vomiting. Denies any fevers, no gross blood in diarrhea. Significant other states he was hard to wake up today and fatigued which is different for him. GENERAL: well-nourished, and in no acute distress. HEAD: Normocephalic, atraumatic. CHEST: Clear to auscultation. ?No respiratory distress. HEART: Regular rate and rhythm.? NEURO: ?Alert and oriented x3. Patient screened in triage and initial orders placed.? ?Additional care and disposition to be based upon?diagnostic testing and treatment. Related Data Home Medications ?Medication ?Instructions ?Recorded ?Confirmed ?Last Taken ?Type rosuvastatin 10 mg tablet 10 mg PO HS 12/02/23 09/07/25 Unknown History bupropion HCl 300 mg 24 hr tablet, 300 mg PO DAILY 11/25/24 09/07/25 11/24/24 History extended release (Wellbutrin XL) cetirizine 10 mg tablet (24Hour 10 mg PO Q12H PRN allergy symptoms 11/25/24 09/07/25 11/24/24 History Allergy) duloxetine 60 mg capsule,delayed 60 mg PO HS 03/03/25 09/07/25 Unknown History release pantoprazole 40 mg tablet,delayed 40 mg PO DAILY 03/03/25 09/07/25 Unknown History release dapagliflozin propanediol 10 mg 10 mg PO DAILY 09/07/25 09/07/25 Unknown History tablet (Farxiga) testosterone 2 pump transdermal DAILY 09/07/25 09/07/25 Unknown History Allergies Allergy/AdvReac Type Severity Reaction Status Date / Time No Known Allergies Allergy Verified 09/07/25 20:15 PMF Past Medical History Medical History Irritable bowel syndrome Depression Anxiety GERD (gastroesophageal reflux disease) HLD (hyperlipidemia) Family History Family History Sibling Hypertension Family history of thyroid disease Family history of obesity Depression Family history of malignant neoplasm Mother Family history of Alzheimer's disease Patient's mother is in good health Family history of thyroid disease Family history of mental disorder Depression Father Family history of coronary artery disease Family history of alcoholism Acute myocardial infarction Other Cerebrovascular accident Diabetes mellitus Family history of cardiovascular disease Family history of elevated blood lipids Family history of glaucoma Family history of malignant neoplasm of breast in first degree relative Family history of sudden Social History Social History Smoking status: Never smoker Second hand tobacco smoke exposure: No Alcohol intake: never Substance use: never Lack of Transportation: No Lack of Food: Never True Current Housing: I Have Housing Concerned About Future Housing: No Difficulty Paying Gas/Electric Bills: No Difficulty Paying for Meds: No Currently Unemployed: No Education: Master's Degree or Higher Difficulty w/ Childcare or Family Care: No Spiritual care concerns: No Course Vital Signs Vital signs: Vital Signs Temperature 36.4 C 09/07/25 12:41 Pulse Rate 77 09/07/25 12:41 Respiratory Rate 16 09/07/25 12:41 Blood Pressure 117/67 09/07/25 12:41 Pulse Oximetry 98 09/07/25 12:41 Temperature 36.6 C 09/08/25 06:00 Pulse Rate 66 09/08/25 06:00 Respiratory Rate 18 09/08/25 06:00 Blood Pressure 112/68 09/08/25 06:00 Pulse Oximetry 96 09/08/25 06:00 Oxygen Delivery Room Air 09/07/25 20:12 Medical Decision Making Vital Signs Vital Signs: Vital Signs Temperature 36.4 C 09/07/25 12:41 Pulse Rate 77 09/07/25 12:41 Respiratory Rate 16 09/07/25 12:41 Blood Pressure 117/67 09/07/25 12:41 Pulse Oximetry 98 09/07/25 12:41 Temperature 36.6 C 09/08/25 06:00 Pulse Rate 66 09/08/25 06:00 Respiratory Rate 18 09/08/25 06:00 Blood Pressure 112/68 09/08/25 06:00 Pulse Oximetry 96 09/08/25 06:00 Oxygen Delivery Room Air 09/07/25 20:12 Lab Data 09/08/25 08:39 09/08/25 08:39 Labs: Lab Results 09/07/25 09/07/25 Range/Units 15:03 16:28 WBC 8.6 (4.5-10.0) K/mm3 RBC 5.09 (4.6-6.20) M/mm3 Hgb 15.1 (14.0-18.0) g/dL Hct 47.1 (42.0-52.0) % MCV 92.5 (80-100) fl MCH 29.7 (26-34) pg MCHC 32.1 (32-36) g/dl RDW 13.6 (11.5-14.5) % Plt Count 358 (150-375) k/mm3 MPV 8.9 (7.4-10.4) fl Immature Gran % (Auto) 0.1 (0-0.5) % Neut % (Auto) 66.8 (45.5-73.1) % Lymph % (Auto) 21.5 (18.3-44.2) % Johnson % (Auto) 10.2 H (2.6-8.5) % Eos % (Auto) 1.2 (0-4.4) % Baso % (Auto) 0.2 (0.2-1.2) % Lymph # (Auto) 1.85 (0.9-3.2) K/mm3 Johnson # (Auto) 0.9 H (0.1-0.6) K/mm3 Eos # (Auto) 0.1 (0-0.3) K/mm3 Baso # (Auto) 0.0 (0.0-0.1) K/mm3 Abs Immat Gran (auto) 0.01 (0.00-0.031) K/mm3 Absolute Neuts (auto) 5.8 (1.3-6.7) K/mm3 Absolute Nucleated RBC 0.000 (0.0-0.012) K/mm3 Nucleated RBC % 0.0 (0.0-0.2) % Sodium 137 (137-145) mmol/L Potassium 4.4 (3.4-5.0) mmol/L Chloride 101 (98-107) mmol/L Carbon Dioxide 26 (22-30) mmol/L Anion Gap 10 (4-12) mmol/L BUN 15 (9-20) mg/dL Creatinine 1.31 H (0.7-1.3) mg/dL Estim Creat Clear Calc 76 ml/min Estimated GFR 59 (59 - ) Glucose 99 (65-110) mg/dL Lactic Acid 1.4 (0.7-2.0) mmol/L Calcium 9.3 (8.4-10.2) mg/dL Total Bilirubin 0.9 (0.2-1.3) mg/dL AST 28 (17-59) U/L ALT 27 (6-50) U/L Alkaline Phosphatase 78 (38-126) U/L Total Protein 7.9 (6.3-8.2) g/dL Albumin 4.4 (3.5-5.1) g/dL Lipase 1494 H (23-300) U/L Urine Color Yellow (Yellow) Urine Appearance Clear (Clear) Urine pH 5.5 (5.0-9.0) Ur Specific [place] 1.034 (1.001-1.035) Urine Protein 1+ H (Negative) mg/dL Urine Glucose (UA) 3+ H (Negative) mg/dL Urine Ketones Trace H (Negative) mg/dL Ur Blood (Man) Negative (Negative) Urine Nitrate Negative (Negative) Urine Bilirubin Negative (Negative) Urine Urobilinogen 1.0 (<2.0) mg/dL Leukocyte Esterase Rfl Negative (Negative) REESE/UL Urine RBC 0-2 (0-2) /hpf Urine WBC 0-5 (0-3) /hpf Ur Squamous Epith Cells Occasional (Few) /hpf Urine Bacteria None seen /hpf Urine Casts 6-10 Hyaline Casts Present (None) /lpf Discharge Plan Discharge Clinical Impression: Elevated lipase Diarrhea Qualifiers: Diarrhea type: unspecified type Qualified Code(s): R19.7 - Diarrhea, unspecified Irritable bowel syndrome Qualifiers: Irritable bowel syndrome type: unspecified Qualified Code(s): K58.9 - Irritable bowel syndrome, unspecified Patient Disposition: Still a Patient Condition: Stable
[2025-09-07 14:45] VITALS: BP 124/80; PULSE 83; RESP 17; O2SAT 99
[2025-09-07 15:10] LABS: Hematocrit 47.1 % (42.0-52.0); Hemoglobin 15.1 g/dL (14.0-18.0); Immature Granulocyte Percent A 0.1 % (0-0.5); Lymphocytes Absolute Auto 1.85 K/mm3 (0.9-3.2); Mean Corpuscular HGB Conc 32.1 g/dl (32-36); Mean Corpuscular Hemoglobin 29.7 pg (26-34); Mean Corpuscular Volume 92.5 fl (80-100); Nucleated Red Blood Cells Absolute Auto 0.000 K/mm3 (0.0-0.012); Nucleated Red Blood Cells Perc 0.0 % (0.0-0.2); Platelet Count Result 358 k/mm3 (150-375); Red Blood Count 5.09 M/mm3 (4.6-6.20); White Blood Count 8.6 K/mm3 (4.5-10.0)
[2025-09-07 15:22] LABS: Alanine Aminotransferase 27 U/L (6-50); Albumin Level 4.4 g/dL (3.5-5.1); Alkaline Phosphatase 78 U/L (38-126); Anion Gap 10 mmol/L (4-12); Aspartate Amino Transferase 28 U/L (17-59); Bilirubin,Total 0.9 mg/dL (0.2-1.3); Blood Urea Nitrogen 15 mg/dL (9-20); Calcium 9.3 mg/dL (8.4-10.2); Carbon Dioxide 26 mmol/L (22-30); Chloride 101 mmol/L (98-107); Estimated CRCL calculation 76 ml/min; Estimated Glomerular Filt Rate 59; Glucose 99 mg/dL (65-110); Lipase 1494 U/L (23-300); Potassium 4.4 mmol/L (3.4-5.0); Sodium 137 mmol/L (137-145); Total Protein 7.9 g/dL (6.3-8.2)
[2025-09-07] MEDS: ONDANSETRON INJ 4 MG/2 ML VIAL IV PUSH ×2 (15:47→20:57)
[2025-09-07] MEDS: SODIUM CHLORIDE 0.9% IV 1,000 ML 999 ML IV CONT ×2 (15:47→19:47)
[2025-09-07 17:08] LABS: Add Urine Microscopic? YES; Appearance Urine Clear (Clear); Glucose Urine UA 3+ mg/dL (Negative); Leukocyte Esterase Ur Negative LEU/UL (Negative); Nitrate Urine Negative (Negative); Specific Grav Ur 1.034 (1.001-1.035)
--- NOTE | 2025-09-07 18:26 | P.HP_ITS ---
H&P: HPI History of Present Illness Date/Time: 09/07/25 18:26 Chief Complaint: Diarrhea Narrative: 44-year-old male history of IBS complains of 24 hours of diarrhea. Patient also complains of lower abdominal pain that started about 3 days ago. He denies nausea or vomiting, fevers, chills or blood in stool. His significant other complaints of him having severe fatigue which is abnormal. Patient states that recently he has been eating greasy food which usually does not agree with him. He states the last couple days he has not been eating due to abdominal pain. Patient denies nausea or vomiting. He denies acute pain after eating when he did eat. Denies fevers chills or shortness of breath. No leukocytosis or anemia on blood work, creatinine is 1.31 which is around baseline lipase is 1494, UA is negative for infection. CT shows normal pancreas. Review of Systems Review of Systems: 12 systems were reviewed and are negativ e except for as per HPI. [facility] Past Medical History Medical History Irritable bowel syndrome Depression Anxiety GERD (gastroesophageal reflux disease) HLD (hyperlipidemia) Family History Family History Sibling Hypertension Family history of thyroid disease Family history of obesity Depression Family history of malignant neoplasm Mother Family history of Alzheimer's disease Patient's mother is in good health Family history of thyroid disease Family history of mental disorder Depression Father Family history of coronary artery disease Family history of alcoholism Acute myocardial infarction Other Cerebrovascular accident Diabetes mellitus Family history of cardiovascular disease Family history of elevated blood lipids Family history of glaucoma Family history of malignant neoplasm of breast in first degree relative Family history of sudden Social History Social History Smoking status: Never smoker Second hand tobacco smoke exposure: No Alcohol intake: never Substance use: never Lack of Transportation: No Lack of Food: Never True Current Housing: I Have Housing Concerned About Future Housing: No Difficulty Paying Gas/Electric Bills: No Difficulty Paying for Meds: No Currently Unemployed: No Education: Master's Degree or Higher Difficulty w/ Childcare or Family Care: No Spiritual care concerns: No Meds Home Medications and Allergies Home Medications ?Medication ?Instructions ?Recorded ?Confirmed ?Type sildenafil 50 mg tablet (Viagra) 50 mg PO DAILY PRN se xual activity 01/18/22 09/07/25 Rx #10 tabs rosuvastatin 10 mg tablet 10 mg PO HS 12/02/23 5 History valacyclovir 500 mg tablet 500 mg PO DAILY #90 tabs 09/07/25 Rx (Valtrex) bupropion HCl 300 mg 24 hr tablet, 300 mg PO DAILY 03/1609/07/25 History extended release (Wellbutrin XL) cetirizine 10 mg tablet (24Hour 10 mg PO Q12H PRN malena rgy symptoms 11/25/24 09/07/25 History Allergy) duloxetine 60 mg capsule,delayed 60 mg PO HS 03/03/25 09/07/25 History release pantoprazole 40 mg tablet,delayed 40 mg PO DAILY 03/0309/07/25 History release dapagliflozin propanediol 10 mg 10 mg PO DAILY 5 09/07/25 History tablet (Farxiga) testosterone 2 pump transdermal DAILY 09/07/25 History Allergies Allergy/AdvReac Type Severity Reaction Status Date / Time No Known Allergies Allergy Verified 09/07/25 20:15 Vital Signs Vital Signs - 24 hr 09/07/25 12:41 09/07/25 14:45 Temperature 97.6 F Pulse Rate 77 83 Respiratory Rate 16 17 Blood Pressure 117/67 124/80 Pulse Oximetry 98 99 Exam Narrative: General: well appearing, appears stated age. HEENT: normocephalic, atraumatic. Mucous membranes moist. EOMI, PERRLA, bilateral sclera anicteric, no conjunctival injection. Neck supple without JVD, lymphadenopathy, or bruit. Respiratory: clear to ascultation bilaterally. No rales/rhonic/wheezes. Cardiovascular: Regular rate and rhythm, normal S1-S2 upon ascultation. No murmurs, rubs, or clicks. PMI is nondisplaced, capillary refill less than 3 second. Abdomen: Obese, Soft, round, no pulsatile masses, nondistended and nontender. No rebound, no guarding. No CVA tenderness, no hepatosplenomegaly. Bowel sounds present to all four quadrants. No high pitch or tinkling sounds, resonant to percussion. Extremities: No cyanosis, clubbing, or edema present. Pulses are palpable 2/2. Active ROM to all four extremities. Neuro: Alert and orientated x 4. PERRLA. Cranial nerves 2-12 intact without foc al deficit. Skin: Warm, dry, and intact, without rash, erythema, or lesion. Psych: pleasant, cooperative, normal speech, normal affect, no hallucinations, no dysarthia H&P: Results Labs Labs: Short CBC 09/07/25 Range/Units 15:03 WBC 8.6 (4.5-10.0) K/mm3 Hgb 15.1 (14.0-18.0) g/dL Hct 47.1 (42.0-52.0) % Plt Count 358 (150-375) k/mm3 BMP 09/07/25 15:03 Sodium 137 Potassium 4.4 Chloride 101 Carbon Dioxide 26 BUN 15 Creatinine 1.31 H Glucose 99 Calcium 9.3 Liver Function 09/07/25 Range/Units 15:03 Total Bilirubin 0.9 (0.2-1.3) mg/dL AST 28 (17-59) U/L ALT 27 (6-50) U/L Alkaline Phosphatase 78 (38-126) U/L Albumin 4.4 (3.5-5.1) g/dL Urine 09/07/25 Range/Units 16:28 Urine Color Yellow (Yellow) Urine Appearance Clear (Clear) Urine pH 5.5 (5.0-9.0) Ur Specific [place] 1.034 (1.001-1.035) Urine Protein 1+ H (Negative) mg/dL Urine Glucose (UA) 3+ H (Negative) mg/dL Assessment and Plan Assessment and plan (1) Diarrhea: Code(s): R19.7 - Diarrhea, unspecified Status: Acute Assessment and Plan: Per patient this is much like his normal IBS Stool culture pending Patient had a colonoscopy in the summer which was normal (2) Dehydration: Code(s): E86.0 - Dehydration Status: Acute Assessment and Plan: Fluid bolus in IVF (3) Elevated lipase: Code(s): R74.8 - Abnormal levels of other serum enzymes Status: Acute Assessment and Plan: Does not appear to have typical pancreatitis symptoms Fluid bolus in IVF Lipase level in a.m. Pain management NPO (4) Irritable bowel syndrome: Code(s): K58.9 - Irritable bowel syndrome, unspecified Status: Acute Assessment and Plan: Protonix (5) HLD (hyperlipidemia): Qualifiers: Hyperlipidemia type: unspecified Qualified Code(s): E78.5 - Hyperlipidemia, unspecified Code(s): E78.5 - Hyperlipidemia, unspecified Status: Acute Assessment and Plan: Continue statin (6) Anxiety: Code(s): F41.9 - Anxiety disorder, unspecified Status: Acute Assessment and Plan: Continue Wellbutrin and Cymbalta (7) Diabetes: Code(s): E11.9 - Type 2 diabetes mellitus without complications Status: Acute Assessment and Plan: Hold [facility] Accu-Cheiron a.cFarida HS SSI Quality VTE Prophylaxis VTE prophylaxis: mechanical ordered If No VTE Prophylaxis Answer both mechanical and pharmacologic: Reason no pharmacologic proph: low risk/not indicated Hospitalist MIPS Advance Care Plan I have confirmed that the patient's Advanced Care Plan is present, code status is documented, or surrogate decision maker is listed in patient medical record.: Yes Medication Reconciliation I have utilized all available resources to obtain, update and review the patients current medications (includes all prescriptions, OTC, herbals, cannabis, and nutritional supplements).: Yes
[2025-09-07 20:12] VITALS: BMI 35.0
--- NOTE | 2025-09-07 20:13 | ADMGEN ---
This patient, Jeff Monique, was admitted to Medical Room 345-01. Patient/family oriented to hospital policies and general routines including ID bracelet, bed and alarms, visiting hours, pain management, procedures, bathroom and other care routines, personal items, smoking policy, room service/diet, and visiting hours. Information on how to activate the Rapid Response Team has been discussed. Patient/Family are encouraged to report perceived risks to care and to ask questions if they do not understand what they are told or what they should do.
[2025-09-07] MEDS: SODIUM CHLORIDE 0.9% IV 1,000 ML 125 ML IV CONT (20:57)
[2025-09-07] MEDS: MORPHINE SULFATE (*CRX) 4 MG/ML INJ 2 MG IV PUSH (20:58)
[2025-09-07 22:00] VITALS: BP 121/75; PULSE 79; RESP 20; TEMP 36.2; O2SAT 97
[2025-09-07] MEDS: PANTOPRAZOLE SODIUM IV 40 MG VIAL IV PUSH (22:23)
[2025-09-07] MEDS: DULoxetine HCL 60 MG CAPSULE.DR PO (22:23)
[2025-09-07] MEDS: ROSUVASTATIN 10 MG TABLET PO (22:23)
[2025-09-08] MEDS: SODIUM CHLORIDE 0.9% IV 1,000 ML 125 ML IV CONT (05:57)
[2025-09-08 06:00] VITALS: BP 112/68; PULSE 66; RESP 18; TEMP 36.6; O2SAT 96
--- NOTE | 2025-09-08 07:53 | P.PNIM_ITS ---
Progress Note: A&P Assessment and Plan (1) Diarrhea: Code(s): R19.7 - Diarrhea, unspecified Status: Acute Assessment and Plan: * Per patient this is much like his normal IBS * Stool culture pending * Patient had a colonoscopy in the summer which was normal (2) Dehydration: Code(s): E86.0 - Dehydration Status: Acute Assessment and Plan: * Fluid bolus in IVF (3) Elevated lipase: Code(s): R74.8 - Abnormal levels of other serum enzymes Status: Acute Assessment and Plan: * Does not appear to have typical pancreatitis symptoms * Fluid bolus in IVF * Lipase level in a.m. * Pain management * NPO (4) Irritable bowel syndrome: Code(s): K58.9 - Irritable bowel syndrome, unspecified Status: Acute Assessment and Plan: * Protonix (5) HLD (hyperlipidemia): Qualifiers: Hyperlipidemia type: unspecified Qualified Code(s): E78.5 - Hyperlipidemia, unspecified Code(s): E78.5 - Hyperlipidemia, unspecified Status: Acute Assessment and Plan: * Continue statin (6) Anxiety: Code(s): F41.9 - Anxiety disorder, unspecified Status: Acute Assessment and Plan: * Continue Wellbutrin and Cymbalta (7) Diabetes: Code(s): E11.9 - Type 2 diabetes mellitus without complications Status: Acute Assessment and Plan: * Sobeida MICHELLE * SSI Subjective Date/time seen: 09/08/25 07:53 Interval history: 44-year-old male history of IBS complains of 24 hours of diarrhea. Patient also complains of lower abdominal pain that started about 3 days ago. 09/08/2025 Review of Systems Review of Systems: 12 systems were reviewed and are negativ e except for as per HPI. Exam Narrative: General: well appearing, appears stated age. HEENT: normocephalic, atraumatic. Mucous membranes moist. EOMI, PERRLA, bilateral sclera anicteric, no conjunctival injection. Neck supple without JVD, lymphadenopathy, or bruit. Respiratory: clear to auscultation bilaterally. No rales/rhonchi/wheezes. Cardiovascular: Regular rate and rhythm, normal S1-S2 upon auscultation. No murmurs, rubs, or clicks. Abdomen: Obese, Soft, round, no pulsatile masses, nondistended and nontender. No rebound, no guarding. No CVA tenderness, no hepatosplenomegaly. Bowel sounds present to all four quadrants. No high pitch or tinkling sounds, resonant to percussion. Extremities: No cyanosis, clubbing, or edema present. Pulses are palpable 2/2. Active ROM to all four extremities. Neuro: Alert and orientated x 4. PERRLA. Cranial nerves 2-12 intact without focal deficit. Skin: Warm, dry, and intact, without rash, erythema, or lesion. Psych: pleasant, cooperative, normal speech, normal affect, no hallucinations, no dysarthia Objective Data Vital Signs Vital Signs: Vital Signs - 24 hr 09/07/25 12:41 09/07/25 14:45 09/07/25 20:12 Temperature 97.6 F Pulse Rate 77 83 Respiratory Rate 16 17 Blood Pressure 117/67 124/80 Pulse Oximetry 98 99 Oxygen Delivery Room Air 09/07/25 22:00 09/08/25 06:00 Temperature 97.2 F L 97.8 F Pulse Rate 79 66 Respiratory Rate 20 18 Blood Pressure 121/75 112/68 Pulse Oximetry 97 96 Oxygen Delivery Intake/Output Intake/Output: Intake & Output 09/05/25 09/06/25 09/07/25 09/08/25 23:59 23:59 23:59 23:59 Intake Total 1000 756.3 Balance 1000 756.3 Meds/Results Medications: Active Medications Generic Name Dose Route Start Last Admin Trade Name Freq PRN Reason Stop Dose Admin Bupropion HCl 300 mg 09/08/25 09:00 Bupropion Hcl Xl (24 Hr) 150 Mg Tabcr PO DAILY TEODORA Dextrose 12.5 gm 09/07/25 22:09 Dextrose 50% 25 Gm/50 Ml Syringe IV PUSH PRN PRN Hypoglycemia Protocol Duloxetine HCl 60 mg 09/07/25 22:15 09/07/25 22:23 Duloxetine Hcl 60 Mg Capsule.Dr PO 60 mg HS TEODORA Administration Glucagon 1 mg 09/07/25 22:09 Glucagon For Inj 1 Mg Vial IM PRN PRN Hypoglycemia Protocol Glucose 15 gm 09/07/25 22:09 Glucose Oral Gel 15 Gm Of Glucse In 37.5 Gm Tube PO PRN PRN Hypoglycemia Protocol Sodium Chloride 1,000 mls @ 125 mls/hr 09/07/25 17:35 09/08/25 05:57 Normal Saline Iv IV CONT 125 mls/hr .Q8H TEODORA Administration Dextrose 1,000 mls @ 100 mls/hr 09/07/25 22:09 Dextrose 5% 1,000 Ml IVPB PRN PRN Hypoglycemia Protocol Insulin Aspart 2 - 5 units 09/08/25 08:00 Insulin Aspart (*Bkc) 100 Units/Ml SUB-Q TIDWM [facility] Protocol Loratadine 10 mg 09/07/25 22:13 Loratadine 10 Mg Tablet PO QAM PRN allergy symptoms Morphine Sulfate 2 mg 09/07/25 17:33 09/07/25 20:58 Morphine Sulfate (*Crx) 4 Mg/Ml Inj IV PUSH 2 mg Q2H PRN Administration Pain Rated 7-10 Ondansetron HCl 4 mg 09/07/25 17:33 09/07/25 20:57 Ondansetron Inj 4 Mg/2 Ml Vial IV PUSH 4 mg Q4H PRN Administration Nausea Pantoprazole Sodium 40 mg 09/07/25 22:10 09/07/25 22:23 Pantoprazole Sodium Iv 40 Mg Vial IV PUSH 40 mg Q12HR TEODORA Administration Rosuvastatin Calcium 10 mg 09/07/25 22:15 09/07/25 22:23 Rosuvastatin 10 Mg Tablet PO 10 mg HS TEODORA Administration Valacyclovir HCl 500 mg 09/08/25 09:00 Valacyclovir Hcl 500 Mg Tablet PO DAILY [facility] Radiology Results: ITS Impressions Abdomen/Pelvis CT 09/07/25 15:40 IMPRESSION: No acute abnormality is noted in the abdomen and pelvis. All CT scans at this facility are performed using low dose modulation techniques as appropriate to perform exam including the following: automated exposure control; use of iterative reconstruction technique; adjustment of the mA and/or kV according to patient size (this includes techniques or standardized protocols for targeted exams where dose is matched to indication/reason for exam). Labs Labs: Laboratory Results - last 24 hr 09/07/25 09/07/25 15:03 16:28 WBC 8.6 RBC 5.09 Hgb 15.1 Hct 47.1 MCV 92.5 MCH 29.7 MCHC 32.1 RDW 13.6 Plt Count 358 MPV 8.9 Immature Gran % (Auto) 0.1 Neut % (Auto) 66.8 Lymph % (Auto) 21.5 [place] % (Auto) 10.2 H Eos % (Auto) 1.2 Baso % (Auto) 0.2 Lymph # (Auto) 1.85 [place] # (Auto) 0.9 H Eos # (Auto) 0.1 Baso # (Auto) 0.0 Abs Immat Gran (auto) 0.01 Absolute Neuts (auto) 5.8 Absolute Nucleated RBC 0.000 Nucleated RBC % 0.0 Sodium 137 Potassium 4.4 Chloride 101 Carbon Dioxide 26 Anion Gap 10 BUN 15 Creatinine 1.31 H Estim Creat Clear Calc 76 Estimated GFR 59 Glucose 99 Lactic Acid 1.4 Calcium 9.3 Total Bilirubin 0.9 AST 28 ALT 27 Alkaline Phosphatase 78 Total Protein 7.9 Albumin 4.4 Lipase 1494 H Urine Color Yellow Urine Appearance Clear Urine pH 5.5 Ur Specific [place] 1.034 Urine Protein 1+ H Urine Glucose (UA) 3+ H Urine Ketones Trace H Ur Blood (Man) Negative Urine Nitrate Negative Urine Bilirubin Negative Urine Urobilinogen 1.0 Leukocyte Esterase Rfl Negative Urine RBC 0-2 Urine WBC 0-5 Ur Squamous Epith Cells Occasional Urine Bacteria None seen Urine Casts 6-10 Hyaline Casts Present Quality VTE Prophylaxis VTE prophylaxis: mechanical ordered
[2025-09-08] MEDS: buPROPion HCL XL (24 HR) 150 MG TABCR 300 MG PO (08:34)
[2025-09-08] MEDS: PANTOPRAZOLE SODIUM IV 40 MG VIAL IV PUSH (08:35)
[2025-09-08 08:43] LABS: Hematocrit 41.4 % (42.0-52.0); Hemoglobin 13.0 g/dL (14.0-18.0); Immature Granulocyte Percent A 0.3 % (0-0.5); Lymphocytes Absolute Auto 2.07 K/mm3 (0.9-3.2); Mean Corpuscular HGB Conc 31.4 g/dl (32-36); Mean Corpuscular Hemoglobin 29.4 pg (26-34); Mean Corpuscular Volume 93.7 fl (80-100); Nucleated Red Blood Cells Absolute Auto 0.000 K/mm3 (0.0-0.012); Nucleated Red Blood Cells Perc 0.0 % (0.0-0.2); Platelet Count Result 272 k/mm3 (150-375); Red Blood Count 4.42 M/mm3 (4.6-6.20); White Blood Count 6.9 K/mm3 (4.5-10.0)
[2025-09-08 09:08] LABS: Alanine Aminotransferase 19 U/L (6-50); Albumin Level 3.5 g/dL (3.5-5.1); Alkaline Phosphatase 67 U/L (38-126); Anion Gap 4 mmol/L (4-12); Aspartate Amino Transferase 23 U/L (17-59); Bilirubin,Total 0.7 mg/dL (0.2-1.3); Blood Urea Nitrogen 13 mg/dL (9-20); Calcium 8.4 mg/dL (8.4-10.2); Carbon Dioxide 26 mmol/L (22-30); Chloride 106 mmol/L (98-107); Estimated CRCL calculation 75 ml/min; Estimated Glomerular Filt Rate 59; Glucose 96 mg/dL (65-110); Potassium 4.0 mmol/L (3.4-5.0); Sodium 136 mmol/L (137-145); Total Protein 6.1 g/dL (6.3-8.2)
[2025-09-08 11:02] LABS: Lipase 154 U/L (23-300)
--- NOTE | 2025-09-08 12:43 | P.DS_ITS ---
DS: Admitting Diagnosis Discharge Date 09/08/2025 Admitting Diagnosis Diarrhea, n/v DS: Discharge Diagnosis Discharge Diagnosis (1) Diarrhea: Code(s): R19.7 - Diarrhea, unspecified Status: Acute Assessment and Plan: * Per patient this is much like his normal IBS * Stool culture pending * Patient had a colonoscopy in the summer which was normal (2) Dehydration: Code(s): E86.0 - Dehydration Status: Acute Assessment and Plan: * Fluid bolus in IVF (3) Elevated lipase: Code(s): R74.8 - Abnormal levels of other serum enzymes Status: Acute Assessment and Plan: * Does not appear to have typical pancreatitis symptoms * Fluid bolus in IVF * Lipase level in a.m. * Pain management * NPO (4) Irritable bowel syndrome: Code(s): K58.9 - Irritable bowel syndrome, unspecified Status: Acute Assessment and Plan: * Protonix (5) HLD (hyperlipidemia): Qualifiers: Hyperlipidemia type: unspecified Qualified Code(s): E78.5 - Hyperlipidemia, unspecified Code(s): E78.5 - Hyperlipidemia, unspecified Status: Acute Assessment and Plan: * Continue statin (6) Anxiety: Code(s): F41.9 - Anxiety disorder, unspecified Status: Acute Assessment and Plan: * Continue Wellbutrin and Cymbalta (7) Diabetes: Code(s): E11.9 - Type 2 diabetes mellitus without complications Status: Acute Assessment and Plan: * Sobeida MICHELLE * SSI DS: Summary Hospital Course Reason for hospitalization: Diarrhea Hospital Course: 44-year-old male history of IBS complains of 24 hours of diarrhea. Patient also complains of lower abdominal pain that started about 3 days ago. He denies nausea or vomiting, fevers, chills or blood in stool. His significant other complaints of him having severe fatigue which is abnormal. Patient states that recently he has been eating greasy food which usually does not agree with him. He states the last couple days he has not been eating due to abdominal pain. Patient denies nausea or vomiting. He denies acute pain after eating when he did eat. Denies fevers chills or shortness of breath. No leukocytosis or anemia on blood work, creatinine is 1.31 which is around baseline lipase is 1494, UA is negative for infection. CT shows normal pancreas. Hospital course: Repeat blood work in the morning was reassuring. No leukocytosis or anemia. No major electrolyte abnormalities. Creatinine 1.31, near baseline. Repeat lipase down trending, down from 1494 -> 154. In the a.m. of 09/08, physical exam is reassuring, no abdominal pain on palpation. Patient denied any nausea/ vomiting/diarrhea throughout the morning or last night. Patient was able to intake food without difficulty, nausea or vomiting. Vital signs have remained stable throughout hospitalization. Presenting symptoms likely component of underlying IBS and possible gastroenteritis. Imaging has been reassuring, very low suspicion for pancreatitis or obstructing gallstone. His symptoms have all subsided and patient is able to intake food/liquids without difficulty. Patient is amenable to discharge with follow-up with his GI doctor and PCP in the outpatient setting. Patient is otherwise hemodynamically stable for discharge at this time. Plan for discharge home. Status at Discharge Functional status at discharge: independent ambulation Overall status at discharge: patient is back to baseline Time Spent with Patient Time attestation: Total time spent providing and/or coordinating discharge services: 27 Exam Narrative: General: well appearing, appears stated age. HEENT: normocephalic, atraumatic. Mucous membranes moist. EOMI, PERRLA, bilateral sclera anicteric, no conjunctival injection. Neck supple without JVD, lymphadenopathy, or bruit. Respiratory: clear to auscultation bilaterally. No rales/rhonchi/wheezes. Cardiovascular: Regular rate and rhythm, normal S1-S2 upon auscultation. No murmurs, rubs, or clicks. Abdomen: Obese, Soft, round, no pulsatile masses, nondistended and nontender. No rebound, no guarding. No CVA tenderness, no hepatosplenomegaly. Bowel sounds present to all four quadrants. No high pitch or tinkling sounds, resonant to percussion. Extremities: No cyanosis, clubbing, or edema present. Pulses are palpable 2/2. Active ROM to all four extremities. Neuro: Alert and orientated x 4. PERRLA. Cranial nerves 2-12 intact without focal deficit. Skin: Warm, dry, and intact, without rash, erythema, or lesion. Psych: pleasant, cooperative, normal speech, normal affect, no hallucinations, no dysarthia DS: Data Data Completed and Pending Labs on day of discharge: Labs from last 24 hours 09/08/25 09/08/25 09/08/25 11:23 08:39 07:56 WBC 6.9 RBC 4.42 L Hgb 13.0 L Hct 41.4 L MCV 93.7 MCH 29.4 MCHC 31.4 L RDW 13.5 Plt Count 272 MPV 8.7 Immature Gran % (Auto) 0.3 Neut % (Auto) 59.8 Lymph % (Auto) 30.0 [place] % (Auto) 8.1 Eos % (Auto) 1.7 Baso % (Auto) 0.1 L Lymph # (Auto) 2.07 [place] # (Auto) 0.6 Eos # (Auto) 0.1 Baso # (Auto) 0.0 Abs Immat Gran (auto) 0.02 Absolute Neuts (auto) 4.1 Absolute Nucleated RBC 0.000 Nucleated RBC % 0.0 Sodium 136 L Potassium 4.0 Chloride 106 Carbon Dioxide 26 Anion Gap 4 BUN 13 Creatinine 1.31 H Estim Creat Clear Calc 75 Estimated GFR 59 Glucose 96 POC Capillary Glucose 99 95 Lactic Acid Calcium 8.4 Total Bilirubin 0.7 AST 23 ALT 19 Alkaline Phosphatase 67 Total Protein 6.1 L Albumin 3.5 Lipase 154 Urine Color Urine Appearance Urine pH Ur Specific Walters Urine Protein Urine Glucose (UA) Urine Ketones Ur Blood (Man) Urine Nitrate Urine Bilirubin Urine Urobilinogen Leukocyte Esterase Rfl Urine RBC Urine WBC Ur Squamous Epith Cells Urine Bacteria Urine Casts Hyaline Casts 09/07/25 09/07/25 16:28 15:03 WBC 8.6 RBC 5.09 Hgb 15.1 Hct 47.1 MCV 92.5 MCH 29.7 MCHC 32.1 RDW 13.6 Plt Count 358 MPV 8.9 Immature Gran % (Auto) 0.1 Neut % (Auto) 66.8 Lymph % (Auto) 21.5 [place] % (Auto) 10.2 H Eos % (Auto) 1.2 Baso % (Auto) 0.2 Lymph # (Auto) 1.85 [place] # (Auto) 0.9 H Eos # (Auto) 0.1 Baso # (Auto) 0.0 Abs Immat Gran (auto) 0.01 Absolute Neuts (auto) 5.8 Absolute Nucleated RBC 0.000 Nucleated RBC % 0.0 Sodium 137 Potassium 4.4 Chloride 101 Carbon Dioxide 26 Anion Gap 10 BUN 15 Creatinine 1.31 H Estim Creat Clear Calc 76 Estimated GFR 59 Glucose 99 POC Capillary Glucose Lactic Acid 1.4 Calcium 9.3 Total Bilirubin 0.9 AST 28 ALT 27 Alkaline Phosphatase 78 Total Protein 7.9 Albumin 4.4 Lipase 1494 H Urine Color Yellow Urine Appearance Clear Urine pH 5.5 Ur Specific Walters 1.034 Urine Protein 1+ H Urine Glucose (UA) 3+ H Urine Ketones Trace H Ur Blood (Man) Negative Urine Nitrate Negative Urine Bilirubin Negative Urine Urobilinogen 1.0 Leukocyte Esterase Rfl Negative Urine RBC 0-2 Urine WBC 0-5 Ur Squamous Epith Cells Occasional Urine Bacteria None seen Urine Casts 6-10 Hyaline Casts Present Discharge Plan Discharge Attending physician on discharge: Sandy Hurst Consulting providers: Bong Houston Discharging Clinician: Bong Houston Anticipated Discharge Date/Time: 09/08/25 12:41 Patient Disposition: Home Activity: as tolerated Diet: bland Discharge Instructions: Discharge disposition: Home Take medications as prescribed Monitor blood pressures Take caution while standing, rising, or moving Change positions slowly taking a break between each position change If you standing feel dizzy sit back down and take a break Encouraged to continue with yearly vaccinations Return to the emergency department if you develop sudden shortness of breath, chest pain, nausea, vomiting, upset stomach or intractable diarrhea Return to the emergency department if you develop fever greater than 101.5 Follow-up with the primary care physician within 1-2 weeks Follow-up with your GI doctor on Wednesday for any further possible workup Thank you for [facility] for your healthcare needs Patient Instructions: Antibiotic Form Patient Language: Angolan Stand Alone Forms: General Discharge Information Follow-up/Referrals: Marv,MD Piter [Primary Care Provider, Unknown] Discharge Medications: Continued rosuvastatin 10 mg tablet 10 mg PO HS pantoprazole 40 mg tablet,delayed release (DR/EC) 40 mg PO DAILY duloxetine 60 mg capsule,delayed release(DR/EC) 60 mg PO HS bupropion HCl [Wellbutrin XL] 300 mg tablet extended release 24 hr 300 mg PO DAILY cetirizine [24Hour Allergy] 10 mg tablet 10 mg PO Q12H PRN (Reason: allergy symptoms) dapagliflozin propanediol [Farxiga] 10 mg tablet 10 mg PO DAILY testosterone 20.25 mg/1.25 gram (1.62 %) gel in metered-dose pump 2 pump transdermal DAILY sildenafil [Viagra] 50 mg tablet 50 mg PO DAILY PRN (Reason: sexual activity) Qty: 10 10RF Rx Instructions: administer 30 minutes to 4 hours before activity valacyclovir [Valtrex] 500 mg tablet 500 mg PO DAILY Qty: 90 1RF Date of admission: 09/07/25 17:33 Primary Care Provider: MarvBeeh Admitting Provider: Jagjit Landaverde Attending physician on admission: Jagjit Landaverde Condition: Stable Quality VTE Prophylaxis VTE prophylaxis: mechanical ordered
== END 2025-09-08 13:20 | disposition home or self-care (01) ==
LOC: ANHED 16:59 → ANH3MED 18:42
PROVIDERS: Nurse Practitioner Family; Physician Assistant; Admitting Provider Internal Medicine; Emergency Provider Emergency Medicine; PCP Family Medicine; Visit Provider Internal Medicine
DX: K58.0 Irritable bowel syndrome with diarrhea (principal); E86.0 Dehydration; R74.8 Abnormal levels of other serum enzymes; K21.9 Gastro-esophageal reflux disease without esophagitis; F41.8 Other specified anxiety disorders; E78.5 Hyperlipidemia, unspecified; E11.9 Type 2 diabetes mellitus without complications
CPT/HCPCS: 36415; 74177; 80053; 81001; 82948; 83605; 83690; 85025; 96361; 96374; 96375; 96376; 99285; A9270; G0378; J2270; J2405; J2470; J7030; Q9967

== ENCOUNTER 2025-11-12 13:03 | Emergency (ER) | payer BC, SELFPAY ==
[2025-11-12 13:18] VITALS: BP 142/72; PULSE 87; RESP 18; TEMP 36.2; O2SAT 99
--- NOTE | 2025-11-12 13:22 | ED.URI ---
HPI - URI/Sore Throat General Chief Complaint: Upper Respiratory Infection Stated Complaint: cough/runny nose/fever Time Seen by Provider: 11/12/25 13:18 Source: patient, RN notes reviewed and old records reviewed Mode of arrival: ambulatory Limitations: no limitations History of Present Illness HPI Narrative: patient sitting in exam room. Patient is nontoxic, vitals stable. Patient presents with cough, runny nose and fever, 100.4. Symptoms started Wednesday with fatigue, 3 days ago. Has taken Tylenol Onset (ago): day(s) (3) Treatments prior to arrival: acetaminophen Related Data Home Medications ?Medication ?Instructions ?Recorded ?Confirmed ?Last Taken ?Type rosuvastatin 10 mg tablet 10 mg PO HS 12/02/23 09/07/25 Unknown History bupropion HCl 300 mg 24 hr tablet, 300 mg PO DAILY 11/25/24 09/07/25 11/24/24 History extended release (Wellbutrin XL) cetirizine 10 mg tablet (24Hour 10 mg PO Q12H PRN allergy symptoms 11/25/24 09/07/25 11/24/24 History Allergy) duloxetine 60 mg capsule,delayed 60 mg PO HS 03/03/25 09/07/25 Unknown History release pantoprazole 40 mg tablet,delayed 40 mg PO DAILY 03/03/25 09/07/25 Unknown History release dapagliflozin propanediol 10 mg 10 mg PO DAILY 09/07/25 09/07/25 Unknown History tablet (Farxiga) testosterone 2 pump transdermal DAILY 09/07/25 09/07/25 Unknown History Allergies Allergy/AdvReac Type Severity Reaction Status Date / Time No Known Allergies Allergy Verified 09/07/25 20:15 Review of Systems Review of Systems: All systems reviewed & are unremarkable except as noted in HPI and below Constitutional: Constitutional: Reports as per HPI, Reports fatigue and Reports fever(s) ENT: Reports as per HPI Cardiovascular: Cardiovascular: Reports no additional cardiovascular complaints, Denies chest pain and Denies dyspnea Respiratory: Respiratory: Reports as per HPI, Reports no additional respiratory complaints, Denies chest congestion, Reports cough and Denies dyspnea Musculoskeletal: Musculoskeletal: Reports no additional musculoskeletal complaints Integumentary/Breasts: Skin/Breast: Reports system reviewed and no additional complaints, except as docu [facility] Past Medical History Medical History Irritable bowel syndrome Depression Anxiety GERD (gastroesophageal reflux disease) HLD (hyperlipidemia) Family History Family History Sibling Hypertension Family history of thyroid disease Family history of obesity Depression Family history of malignant neoplasm Mother Family history of Alzheimer's disease Patient's mother is in good health Family history of thyroid disease Family history of mental disorder Depression Father Family history of coronary artery disease Family history of alcoholism Acute myocardial infarction Other Cerebrovascular accident Diabetes mellitus Family history of cardiovascular disease Family history of elevated blood lipids Family history of glaucoma Family history of malignant neoplasm of breast in first degree relative Family history of sudden Social History Social History Smoking status: Never smoker Second hand tobacco smoke exposure: No Alcohol intake: never Substance use: never Lack of Transportation: No Lack of Food: Never True Current Housing: I Have Housing Concerned About Future Housing: No Difficulty Paying Gas/Electric Bills: No Difficulty Paying for Meds: No Currently Unemployed: No Education: Master's Degree or Higher Difficulty w/ Childcare or Family Care: No Spiritual care concerns: No Comments At the time of my signature, I reviewed and agree with the nursing past medical, surgical, social, and family history. There is no relevant family history pertinent to the patient complaint. Exam Const: General: cooperative, healthy appearing, comfortable, no acute distress, well developed, alert and well nourished Nutritional Appearance: well nourished Orientation/consciousness: patient oriented x3 Limitations: no limitations HENMT: Head: normal to inspection Ears: hearing grossly normal bilaterally, external ears normal, TM's normal bilaterally, EAC's normal, mastoids normal and no periauricular adenopathy Mouth: Yes Normal oral and palatal mucosa present, Yes lip normal, Yes tongue normal and Yes moist mucous membranes Throat: posterior oropharynx normal, uvula midline and no uvular edema Eyes: General: appearance normal, both eyes and all related structures Alignment and Position: alignment normal Neck: Neck: normal visual inspection, full ROM, no lymphadenopathy and no meningeal signs Chest: Chest palpation & inspection: normal inspection of the chest Resp: Effort & Inspection: normal respiratory effort and able to speak in complete sentences Auscultation: clear to auscultation bilaterally, no crackles, no rales, no rhonchi and no wheezes Cardio: Rate: regular rate Skin: General skin exam: normal color and no rashes or lesions noted Neuro: General: patient oriented x3, gait normal, moves all extremities and no meningeal signs Cognition (Neuro): normal cognition Speech: normal speech Gait exam (Neuro): Normal gait present Extrem: General: normal to inspection, full ROM, capillary refill normal and normal gait Psych: Appearance: grossly normal and well kempt Mental Status: mental status grossly normal Speech and movement: Normal speech and movement present and Clear speech present Affect: normal affect Attitude: cooperative Course Course Level of Care: Express Care Visit Vital Signs Vital signs: Vital Signs Temperature 97.2 F L 11/12/25 13:18 Pulse Rate 87 11/12/25 13:18 Respiratory Rate 18 11/12/25 13:18 Blood Pressure 142/72 H 11/12/25 13:18 Pulse Oximetry 99 11/12/25 13:18 Oxygen Delivery Room Air 11/12/25 13:18 Temperature 97.2 F L 11/12/25 13:18 Pulse Rate 87 11/12/25 13:18 Respiratory Rate 18 11/12/25 13:18 Blood Pressure 142/72 H 11/12/25 13:18 Pulse Oximetry 99 11/12/25 13:18 Oxygen Delivery Room Air 11/12/25 13:18 reviewed MDM MDM Narrative Medical decision making narrative: patient sitting in exam room. Patient is nontoxic, vitals stable. Patient presents 3 day history of URI symptoms. Patient is COVID positive. Patient is appropriate for outpatient treatment with [id number] products and close follow-up Discharge instructions reviewed with patient, as well as provided in writing per nursing staff. The instructions also include specific and strict return/GO TO THE ER as well as f/u information. All questions have been answered, and the patient deny any further questions with discharge and discharge plan. Some parts of this dictation were generated by voice recognition software and may contain typographical and/or grammatical inaccuracies. Differential Diagnosis Differential Diagnosis: Differential diagnostic considerations for upper respiratory infection include upper respiratory infection, croup, otitis media, sinusitis, viral infection, bronchitis, influenza, pharyngitis, strep, uvulitis.? Lab Data Labs: Lab Results 11/12/25 Range/Units 13:30 POC Influenza A Ag Negative (Negative) POC Influenza B Ag Negative (Negative) POC SARS CoV-2 Ag Positive (Negative) POC Grp A Strep Screen Negative (Negative) reviewed Discharge Plan Discharge Clinical Impression: COVID-19 Patient Disposition: Home Condition: Stable Instructions: Antibiotic Form, COVID-19 (Coronavirus Disease 2019) (ED), COVID-19: Slow the Coronavirus Spread (ED) Additional Instructions: Your rapid strep swab was negative today at [facility]. A throat culture will be sent to the laboratory for further testing. If the test is positive, you will receive a phone call within 48 hours and an appropriate antibiotic will be initiated at that time. Your rapid COVID test was positive. Your rapid flu test was negative Your symptoms are due to a viral illness, which is not treated with antibiotics. Typically viral infections last 7-10 days, can linger for couple of weeks. It is very important to treat your symptoms. Drink plenty of water, Gatorade, Pedialyte, ice pops or Jell-O. -Alternate Tylenol and Motrin per package directions for fever or pain. You can alternate every 4 hours -Antihistamine medication such as Zyrtec/Claritin/Yoana during the day can help improve symptoms. -doing daily nasal irrigations can help relieve pressure your sinuses. Things like a Neti pot -Use Flonase twice a day for 5 days then daily to help reduce the inflammation and dry up your sinuses. -You can also use Mucinex. Be sure to drink plenty of water with this medication at least 8 ounces with every dose and it is important to drink 8 to 10 glasses of water per day. Water is a natural decongestant -Eat and drink things that are easy to swallow, like tea or soup, or popsicles. -Oral rinses such as: Salt water gargles and/or may use topical anesthetic (eg. Chloraseptic spray) or lozenges to relieve dryness or throat pain). -Frequent hand washing or hand garnett feeder is one of the best ways to prevent spread of infection. -Using a vaporizer or humidifier at night will also help thin secretions and help with coughing up phlegm. -Follow up with primary care provider in 7-10 days if condition is not improving - For new or worsening symptoms go directly to the nearest ER Patient Language: Czech Prescriptions: No Action rosuvastatin 10 mg tablet 10 mg PO HS pantoprazole 40 mg tablet,delayed release (DR/EC) 40 mg PO DAILY duloxetine 60 mg capsule,delayed release(DR/EC) 60 mg PO HS bupropion HCl [Wellbutrin XL] 300 mg tablet extended release 24 hr 300 mg PO DAILY cetirizine [24Hour Allergy] 10 mg tablet 10 mg PO Q12H PRN (Reason: allergy symptoms) dapagliflozin propanediol [Farxiga] 10 mg tablet 10 mg PO DAILY testosterone 20.25 mg/1.25 gram (1.62 %) gel in metered-dose pump 2 pump transdermal DAILY sildenafil [Viagra] 50 mg tablet 50 mg PO DAILY PRN (Reason: sexual activity) Qty: 10 10RF Rx Instructions: administer 30 minutes to 4 hours before activity valacyclovir [Valtrex] 500 mg tablet 500 mg PO DAILY Qty: 90 1RF Follow-up/Referrals: Marv,MD Piter [Primary Care Provider, Unknown] - 1 Week Clinical Impression: COVID-19 Stand Alone Forms: Work/School Release IP Time of Disposition: 13:23
[2025-11-12 13:36] LABS: EDCOVIDSCREEN Positive (Negative); EDINFLUASCREEN Negative (Negative); EDINFLUBSCREEN Negative (Negative); EDSTREPNEGPOS1 Negative (Negative)
== END 2025-11-12 13:30 | disposition home or self-care (01) ==
PROVIDERS: Emergency Provider Nurse Practitioner; PCP Family Medicine
DX: U07.1 COVID-19 (principal); E78.5 Hyperlipidemia, unspecified; K21.9 Gastro-esophageal reflux disease without esophagitis; F41.9 Anxiety disorder, unspecified; F32.A Depression, unspecified
CPT/HCPCS: 87081; 87426; 87804; 87880; 99213; G0463

== ENCOUNTER 2025-11-21 15:39 | Emergency (ER) | payer BC, SELFPAY ==
[2025-11-21 15:46] VITALS: BP 148/80; PULSE 74; RESP 18; TEMP 36.6; O2SAT 99
--- NOTE | 2025-11-21 15:51 | ED.URI ---
HPI - URI/Sore Throat General Chief Complaint: Upper Respiratory Infection Stated Complaint: +Covid last week / Still not feeling well Time Seen by Provider: 11/21/25 15:51 Source: patient and RN notes reviewed Mode of arrival: ambulatory Limitations: no limitations History of Present Illness HPI Narrative: 45-year-old male presents with concern for ongoing cough and stuffy nose. Reports he was diagnosed with COVID 9 days ago, he started symptoms 12 days ago. He has taken Mucinex without relief. He denies any fever, chills, sweats MD elicited complaint: cough and nasal congestion Related Data Home Medications ?Medication ?Instructions ?Recorded ?Confirmed ?Last Taken ?Type rosuvastatin 10 mg tablet 10 mg PO HS 12/02/23 11/21/25 Unknown History bupropion HCl 300 mg 24 hr tablet, 300 mg PO DAILY 11/25/24 11/21/25 11/24/24 History extended release (Wellbutrin XL) cetirizine 10 mg tablet (24Hour 10 mg PO Q12H PRN allergy symptoms 11/25/24 11/21/25 11/24/24 History Allergy) duloxetine 60 mg capsule,delayed 60 mg PO HS 03/03/25 11/21/25 Unknown History release pantoprazole 40 mg tablet,delayed 40 mg PO DAILY 03/03/25 11/21/25 Unknown History release dapagliflozin propanediol 10 mg 10 mg PO DAILY 09/07/25 11/21/25 Unknown History tablet (Farxiga) testosterone 2 pump transdermal DAILY 09/07/25 11/21/25 Unknown History Allergies Allergy/AdvReac Type Severity Reaction Status Date / Time No Known Allergies Allergy Verified 11/21/25 15:43 Review of Systems Review of Systems: CONSTITUTIONAL: Denies malaise, chills, sweats, or fever. EYES: Denies visual changes, redness, or discharge. ENT: Reports rhinorrhea, congestion, sinus pain. Denies otalgia and sore throat. CARDIOVASCULAR: Denies chest pain, palpitations, or edema. RESPIRATORY: Reports cough. Denies dyspnea. GASTROINTESTINAL: Denies abdominal pain, nausea, vomiting, diarrhea SKIN: Denies rash or itching. MUSCULOSKELETAL: Denies myalgia. NEUROLOGIC: Denies headache. All systems reviewed & are unremarkable except as noted in HPI and below PMFSH Past Medical History Medical History Irritable bowel syndrome Depression Anxiety GERD (gastroesophageal reflux disease) HLD (hyperlipidemia) Family History Family History Sibling Hypertension Family history of thyroid disease Family history of obesity Depression Family history of malignant neoplasm Mother Family history of Alzheimer's disease Patient's mother is in good health Family history of thyroid disease Family history of mental disorder Depression Father Family history of coronary artery disease Family history of alcoholism Acute myocardial infarction Other Cerebrovascular accident Diabetes mellitus Family history of cardiovascular disease Family history of elevated blood lipids Family history of glaucoma Family history of malignant neoplasm of breast in first degree relative Family history of sudden Social History Social History Smoking status: Never smoker Second hand tobacco smoke exposure: No Alcohol intake: never Substance use: never Lack of Transportation: No Lack of Food: Never True Current Housing: I Have Housing Concerned About Future Housing: No Difficulty Paying Gas/Electric Bills: No Difficulty Paying for Meds: No Currently Unemployed: No Education: Master's Degree or Higher Difficulty w/ Childcare or Family Care: No Spiritual care concerns: No Comments At time of signature, agree with nursing past medical, surgical, social and family history. There is no relevant family history pertinent to the presenting complaint Exam Narrative: GENERAL: Well-appearing, well-nourished, and in no acute distress. HEAD: Normocephalic EYES: PERRLA, conjunctivae clear ENT: Nares clear. Mucous membranes moist. TM pearly davies with dull light reflex bilaterally; no tragal tenderness. Oropharynx not erythematous without lesions. Tonsils not enlarged and without exudate, no drooling, no hoarseness, no trismus, uvula midline. NECK: Supple. No lymphadenopathy CHEST: Clear to auscultation, breath sounds equal. No wheezing, rhonchi, rales, or stridor. No respiratory distress, speaks in full sentences. HEART: Regular rate and rhythm. No murmur heard. SKIN: Warm, dry, no rash. NEURO: Alert and oriented x3. PSYCH: Normal mood and affect Course Course Emergency Course: Patient is aware of diagnosis, understands and agrees to treatment plan. Anticipatory guidance given. Patient agrees to follow-up as directed and is aware of reasons to seek care at the emergency department. Portions of this record may have been created with voice recognition software Level of Care: [facility] Visit Vital Signs Vital signs: Vital Signs Temperature 97.9 F 11/21/25 15:46 Pulse Rate 74 11/21/25 15:46 Respiratory Rate 18 11/21/25 15:46 Blood Pressure 148/80 H 11/21/25 15:46 Pulse Oximetry 99 11/21/25 15:46 Oxygen Delivery Room Air 11/21/25 15:46 Temperature 97.9 F 11/21/25 15:46 Pulse Rate 74 11/21/25 15:46 Respiratory Rate 18 11/21/25 15:46 Blood Pressure 148/80 H 11/21/25 15:46 Pulse Oximetry 99 11/21/25 15:46 Oxygen Delivery Room Air 11/21/25 15:46 MDM Differential Diagnosis Differential Diagnosis: I evaluated this patient in the [facility]. History is obtained from patient who is an independent historian and physical exam was performed.? Available medical records were reviewed. ? Exam findings and relevant testing show no acute concerns or changes; patient is non-toxic appearing and is in no distress. ? Differential diagnosis considered: Cmkinley virus, strep pharyngitis, allergic rhinitis, upper respiratory tract infection, sinusitis, rhinosinusitis, nasopharyngitis. viral pharyngitis, otitis media, otitis externa, pneumonia, bronchitis, viral cough syndrome, viral syndrome, and influenza. Differential diagnosis and treatment plan were discussed with the patient. Patient agrees with discussion and after shared medical decision making agrees with plan of care. All questions were answered to the patient's satisfaction. Patient is appropriate for outpatient treatment and follow-up. Discharge Plan Discharge Clinical Impression: Sinobronchitis Patient Disposition: Home Condition: Stable Instructions: Antibiotic Form, Sinusitis (ED), Acute Bronchitis (ED) Additional Instructions: Take medication as prescribed Recommend antihistamine such as Benadryl at night time and Zyrtec or Yoana during the day Cough syrup may cause drowsiness; avoid driving or take it at night time. Also, recommend symptomatic treatment includes: rest, fluids, and increase humidity of the air at home. Recommend Acetaminophen as directed on the bottle to reduce fever, pain, headache. Avoid smoking/second-hand smoke. Please schedule a follow-up visit with your personal physician for further evaluation and treatment within 3-5days. Including recheck and discussion of your blood pressure. If your symptoms persist, change or worsen significantly before you can contact your personal physician then please, without delay, go to the emergency department for further evaluation. Patient Language: Mauritanian Prescriptions: New methylprednisolone [Medrol (Gaetano)] 4 mg tablets,dose pack See Rx Instructions .ROUTE .COMPLEX Qty: 21 0RF Rx Instructions: orally per package directions amoxicillin-pot clavulanate 875-125 mg tablet 1 tablet PO Q12H 10 Days Qty: 20 0RF No Action rosuvastatin 10 mg tablet 10 mg PO HS pantoprazole 40 mg tablet,delayed release (DR/EC) 40 mg PO DAILY duloxetine 60 mg capsule,delayed release(DR/EC) 60 mg PO HS bupropion HCl [Wellbutrin XL] 300 mg tablet extended release 24 hr 300 mg PO DAILY cetirizine [24Hour Allergy] 10 mg tablet 10 mg PO Q12H PRN (Reason: allergy symptoms) dapagliflozin propanediol [Farxiga] 10 mg tablet 10 mg PO DAILY testosterone 20.25 mg/1.25 gram (1.62 %) gel in metered-dose pump 2 pump transdermal DAILY sildenafil [Viagra] 50 mg tablet 50 mg PO DAILY PRN (Reason: sexual activity) Qty: 10 10RF Rx Instructions: administer 30 minutes to 4 hours before activity valacyclovir [Valtrex] 500 mg tablet 500 mg PO DAILY Qty: 90 1RF Follow-up/Referrals: Marv,MD Piter [Primary Care Provider, Unknown] Time of Disposition: 15:56
== END 2025-11-21 16:04 | disposition home or self-care (01) ==
PROVIDERS: Emergency Provider Nurse Practitioner; PCP Family Medicine
DX: J40 Bronchitis, not specified as acute or chronic (principal); K58.9 Irritable bowel syndrome, unspecified; F41.8 Other specified anxiety disorders; K21.9 Gastro-esophageal reflux disease without esophagitis; E78.5 Hyperlipidemia, unspecified
CPT/HCPCS: 99213; G0463